=== PATIENT | male | born 1975 | race Caucasian/White ===

== ENCOUNTER → 2022-08-19 10:05 | Outpatient (BNVA) | payer OTHER, SELFPAY | PROVIDERS: Visit Provider Orthopaedic Surgery | DX: S86.812A Strain of other muscle(s) and tendon(s) at lower leg level, left leg, initial encounter (principal); G57.32 Lesion of lateral popliteal nerve, left lower limb | CPT/HCPCS: 99202 ==

== ENCOUNTER 2022-09-13 12:19 | Outpatient (REF) | payer OTHER, SELFPAY | END 2022-09-13 12:20 | disposition home or self-care (01) | LOC: HO.LAB 12:19 | PROVIDERS: Visit Provider Family Medicine | DX: Z13.89 Encounter for screening for other disorder (principal) ==

== ENCOUNTER 2022-09-14 07:00 | Outpatient (RCR) | payer OTHER, SELFPAY ==
--- NOTE | 2022-09-12 09:25 | MHC.PT.OD ---
[facility] [place] [facility] [place] [facility] [place] [facility] [address] Chriss Monae [address] [phone] F: [phone] F: [phone] F: [phone] F: [phone] Physical Therapy Daily Note Diagnosis: G57.32 Lesion of lateral popliteal nerve, left lower limb. S86.812A Strain of other muscle and tendon at lower leg, level left leg, initial encounter, neuropathy of left peroneal nerve signed by Dr. Bourgeois date of referral 08/19/22 Date of Surgery: Date of Evaluation: 08/30/22 Date of Treatment: 09/12/22 Treatments to Date: 5 Cancellations to Date: No Shows to Date: Authorized Visits: 6 Insurance End Date: 10/04/22 Precautions/ Contraindications:DOI 08/04/22 G57.32 Lesion of lateral popliteal nerve, left lower limb. S86.812A Strain of other muscle and tendon at lower leg, level left leg, initial encounter, neuropathy of left peroneal nerve signed by Dr. Bourgeois date of referral 08/19/22 Subjective: The only thing that hurts now is my R chest area (notes unrelated to work injury). Denies sx/pain in L LE. Has follow up on 09/16/22 Pain Score and Location: 0/10 Objective Flowsheet: Tests & Measures Exercises Upright bike seat 6 holes exposed hill program level 4.5 for warm-up x 10 minutes Standing BAPS board level 5 2.5 plates x 2 (medial and lateral on board) DF/PF/IV/EV x 3 sets 10R each direction, blue band around thigh wobble board weight shift with hip hinge squat x 2 sets 10R, standing 4 way resisted hip with black theraband x 2 sets 10R with cues for posture/positioning, standing step up march position on 6 inch step x 2 sets 10R, standing unilateral SLS ball toss to rebounder for SLS control with 500gram med ball x 15R, SLS UE/trunk pertubation fwd leans with cues for slight knee extension x 5R each considerable cues required for L SLS reports hx ruptured eardrum on that side- impacting his balance control,, BOSU blue side up step up with october combo, weight shifts fwd/laterally. Assessment functional squat- pt noted to shift weight to toes- educated and shown standing mini wall squats asabdominals in x 5 sec hold. Pt expressing fatigue at the end of the session. Denies pain, denies parathesias, reduced lying flat education with arm extended by side, SL step-up BOSU with UE support x 2 sets 10R, BOSU step-up/down leading with one foot then second foot raised for increased SLS challenge. Pt encouraged to consult with MD for unrelated medical matter re: R pectoralis strain (independent of WC claim) as he states sx continue to bother him. Modalities Assessment: 09/12/22 Pt presents to office expressing no parathesias, pain, or concerns in regard to L LE injury. He has expressed he feels he is ready to RTW. Pt has reported history of unrelated work injury symptoms consistent with R pectoralis strain following history of coughing episodes/ URI and has been encouraged to consult with MD regarding this should sx persist. He states sx of his coughing have improved and have become productive. Pt was able to rise from floor, perform half-kneeling, lunges, squats, SLS, and dynamic CKC stabilization tasks without sx in regard to L LE injury. Anticipating clearance for RTW at time of next orthopedic follow up on 09/16/22. One visit remains, then likely transition to I HEP next session. Thank you for this referral. 09/08/22: Pt demonstrates good dynamic stability with no report of pain/sx in the L LE. Pt exhibits good carryover of home program and expresses he feels ready to RTW. Denies parathesias sx L LE. 09/05/22: Pt presents with wedge work-boots, demonstrates good stability and balance, denies pain. 09/01/22 Presents to office in sneakers, denies pain or parathesias in L LE. Fatigue reported in bilateral LE upon completion of session. Requires cues for technique of lunge position. 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 Clifton on G57.32 Lesion of lateral popliteal nerve, left lower limb. S86.812A Strain of other muscle and tendon at lower leg, level left leg, initial encounter, neuropathy of left peroneal nerve signed by Dr. Bourgeois date of referral 08/19/22 following history of work related injury which took place on 08/04/22. Pt presents to the office today on 08/30/22 for PT evaluation wearing sneakers which were not laced, expressing near complete resolution of calf pain/parathesia which were previously reported a few weeks prior. Pt educated in benefit in following through with PT to challenged/assess tolerance for dynamic strengthening and SLS activities to prepare for anticipated RTW goal of 08/16/22 (next follow up with orthopedics). Pt expresses he has been able to do stairs reciprocally without difficulty in recent weeks and denies stairs as a concern or issue. Pt reports stacking two cords of wood wearing work boots without any adverse effects in his L LE. Therapist is recommending skilled PT services at a frequency of 1-2x/week x 3 weeks to address dynamic deficits in L SLS control, strength, ROM, and today absent level of pain to prepare for RTW full duty demands. Pt agreeable to POC. Pt was educated re: findings of eval and recommendation to follow through with PT. Pt trialed with standing BAPS board level 5 with 2 2.5lb plates DF/PF/CW/CCW x 20 reps each, BOSU blue sided steps ups, step, downs, lateral step ups and lateral step downs completed B/L x 20R each with no adverse effect. Pt did express fatigue post. We discussed norms his jog duties upon RTW which require alternate footwear from what he was wearing at time of eval. Pt encouraged to wear work boots to next session to assess response to exercise/tasks. We reviewed standing gastroc and soleus stretches against the wall x 30 sec hold x 4R each side (pt was previously reported doing gastroc stretches). Overall pt appears to be doing very well at this time. PT Plan: Await ortho follow up on 09/16/22 likely RTW. Short Term Goals: 1. Negotiate 10 inch step with good dynamic balance L LE. (met) 2. Rise from kneeling position x 20R L>R and R>L without evidence of L LE sx. (met) 3. SLS 10 seconds with good core stability. (near complete- ) 4. Reciprocal stair negotiation x 3 flights with sx < 2/10 L calf. Prison Goals: 1. I RTW with good understanding joint protection measures. 2. Strength L PF 5/5. 3. Resume exercise program MOD I with good joint protection. 4. [place] with symmetrical weight-bearing with boots on feet with good dynamic balance. (met) 5. Lift 50# overhead with good confidence/ stability in L LE. (has not done due to hx R pectoralis strain sx). 6. Demonstrate good body mechanics/lifting/squat technique for L LE. Electronically signed by: Elidia Anthony, PT, DPT
== END 2022-12-22 14:59 | disposition home or self-care (01) ==
LOC: HO.PTWFD 07:00
PROVIDERS: Visit Provider Orthopaedic Surgery
DX: G57.32 Lesion of lateral popliteal nerve, left lower limb (principal); S86.812D Strain of other muscle(s) and tendon(s) at lower leg level, left leg, subsequent encounter
CPT/HCPCS: 97110; 97161

== ENCOUNTER 2022-09-14 08:09 | Outpatient (REF) | payer OTHER, SELFPAY ==
[2022-09-14 12:00] LABS: Creatinine Urine 201.77 mg/dL; Microalbum/Creatinine Ratio Ur 41.1 ug/mg cr
[2022-09-14 12:15] LABS: Alanine Aminotransferase 40 U/L (0-40); Albumin Level 4.4 g/dL (3.5-5.0); Alkaline Phosphatase 67 U/L (39-117); Anion Gap 16 (12-20); Aspartate Amino Transferase 18 U/L (5-37); Bilirubin Total 0.6 mg/dL (0.0-1.0); Blood Urea Nitrogen 14 mg/dL (9-16); Calcium 9.4 mg/dL (8.4-10.2); Carbon Dioxide 21 mmol/L (22-29); Chloride 109 mmol/L (96-108); Cholesterol 242 mg/dL; Estimated Glomerular Filt Rate > 60; Glucose Fasting 94 mg/dL (60-99); HDL Cholesterol 36 mg/dL; LDL Cholesterol Calculated 183 mg/dl; Potassium 4.7 mmol/L (3.3-5.1); Sodium 141 mmol/L (135-145); Total Protein 6.3 g/dL (6.5-8.0); Triglycerides 116 mg/dL
[2022-09-14 12:31] LABS: Appearance Urine Clear; Color Urine Yellow; Glucose Urine UA Negative (Negative); Leukocyte Esterase Urine Negative (Negative); Nitrite Urine Negative (Negative); PH 6.5 (5.0-9.0); UMIC TRIGGER UA YES; Urine Blood Negative (Negative); Urine Ketones Negative (Negative); Urine Protein 30 (1+) mg/dL (Neg-Trace)
[2022-09-14 12:44] LABS: Bacteria Urine None Seen (None Seen); Hyaline Casts Urine 0-2 /LPF (0-2); RBC Urine 0-2 /HPF (0-2); Squamous Epithelial Cell Urine 0-2 /HPF (0-2); WBC Urine 0-5 /HPF (0-5)
[2022-09-14 13:33] LABS: Prostate Specific Antigen Scr 0.92 ng/mL (<0.05-4.0); TSH reflex Free T4 1.74 uIU/mL (0.32-4.0)
== END 2022-09-14 08:10 | disposition home or self-care (01) ==
LOC: HO.WFDLDS 08:09
PROVIDERS: Visit Provider Family Medicine
DX: Z00.00 Encounter for general adult medical examination without abnormal findings (principal); Z12.5 Encounter for screening for malignant neoplasm of prostate; I10 Essential (primary) hypertension; R82.90 Unspecified abnormal findings in urine
CPT/HCPCS: 36415; 80053; 80061; 81001; 81003; 82043; 84153; 84443; 87086

== ENCOUNTER → 2022-09-16 09:48 | Outpatient (BNVA) | payer OTHER, SELFPAY | PROVIDERS: Visit Provider Orthopaedic Surgery | DX: S86.812D Strain of other muscle(s) and tendon(s) at lower leg level, left leg, subsequent encounter (principal); G57.32 Lesion of lateral popliteal nerve, left lower limb | CPT/HCPCS: 99212 ==

== ENCOUNTER 2022-11-30 09:44 | Outpatient (REF) | payer OTHER, SELFPAY ==
[2022-11-30 11:37] LABS: MANUAL DIFF FLAG NO
[2022-11-30 11:41] LABS: Basophils Percent Auto 0.3 % (0-2); Eosinophils Absolute Auto 0.1 X10*3/uL (0.0-0.4); Eosinophils Percent Auto 2.3 % (0-4); Hematocrit 38.3 % (42.0-52.0); Hemoglobin 13.2 g/dl (14.0-18.0); Imm Gran Abs Auto 0.02 X10*3/uL (0.00-0.03); Imm Gran Pct Auto 0.3 % (0.0-0.4); Lymphocytes Absolute Auto 2.5 X10*3/uL (1.2-4.9); Lymphocytes Percent Auto 40.4 % (20-40); Mean Corpuscular HGB Conc 34.5 g/dl (31.0-36.0); Mean Corpuscular Hemoglobin 32.8 pg (27.0-33.0); Mean Corpuscular Volume 95.3 fL (80.0-98.0); Monocytes Absolute Auto 0.6 X10*3/uL (0.1-1.2); Monocytes Percent Auto 10.1 % (2-11); Neutrophils Absolute Auto 2.8 x10*3/uL (2.0-8.3); Neutrophils Percent Auto 46.6 % (45-73); Platelet Count 291 X10*3/uL (160-400); Red Blood Count 4.02 X10*6/uL (4.60-5.80); Red Cell Distribution Width 13.3 % (11.0-16.0); White Blood Count 6.1 X10*3/uL (4.8-10.8)
[2022-11-30 11:47] LABS: Appearance Urine Turbid; Color Urine Yellow; Glucose Urine UA Negative (Negative); Leukocyte Esterase Urine Negative (Negative); Nitrite Urine Negative (Negative); Specific Gravity - Urine 1.015 (1.005-1.025); UMIC TRIGGER UA YES; Urine Blood Negative (Negative); Urine Ketones Negative (Negative); Urine Protein 100 (2+) mg/dL (Neg-Trace)
[2022-11-30 12:09] LABS: Bacteria Urine 1+ (None Seen); Hyaline Casts Urine >20 /LPF (0-2); Other Crystals Urine Present; RBC Urine 0-2 /HPF (0-2); Squamous Epithelial Cell Urine 0-2 /HPF (0-2); WBC Urine 0-5 /HPF (0-5)
[2022-11-30 12:31] LABS: Erythrocyte Sedimentation Rate 21 MM/HR (0-15)
[2022-11-30 12:37] LABS: Cholesterol 202 mg/dL; HDL Cholesterol 30 mg/dL; LDL Cholesterol Calculated 114 mg/dl; Triglycerides 290 mg/dL
[2022-11-30 12:42] LABS: Creatinine Urine 77.44 mg/dL; Microalbum/Creatinine Ratio Ur 134.2 ug/mg cr
[2022-12-02 15:58] LABS: CRP High Sensitivity 2.3 mg/L
[2022-12-06 21:28] LABS: Transglutaminase IgA <1.0 U/mL
== END 2022-11-30 09:45 | disposition home or self-care (01) ==
LOC: HO.WFDLDS 09:44
PROVIDERS: Visit Provider Family Medicine
DX: Z00.00 Encounter for general adult medical examination without abnormal findings (principal); R82.90 Unspecified abnormal findings in urine; E78.00 Pure hypercholesterolemia, unspecified; I10 Essential (primary) hypertension; R14.0 Abdominal distension (gaseous)
CPT/HCPCS: 36415; 80061; 81001; 82043; 85025; 85652; 86141; 86364; 87086

== ENCOUNTER 2022-12-08 09:35 | Outpatient (REF) | payer OTHER, SELFPAY ==
--- NOTE | ~2022-12-08 | XR_ITS ---
EXAMINATION: XR RIBS, RIGHT CLINICAL INFORMATION: Right rib pain. COMPARISON: None available. TECHNIQUE: 3 views of the right ribs were obtained. FINDINGS: A smoothly marginated convex subpleural lesion is seen laterally in the right upper lobe measuring approximately 6.2 x 3.4 cm. There appears to be destruction of the underlying right posterolateral fourth rib. A mildly displaced fracture of the posterolateral right sixth rib is seen as well. There is minimal blunting of the right costophrenic angle. No pneumothorax. The left lung is clear. The heart and mediastinal structures are unremarkable. XR/XR ribs RT min 3V w CXR1V IMPRESSION: 1. Right upper lobe subpleural mass with possible destruction of the underlying right fourth rib is nonspecific, but concerning for malignancy. Further evaluation with a contrast-enhanced chest CT scan is recommended. 2. Mildly displaced posterior right sixth rib fracture of indeterminate age. Correlate with physical exam.
== END 2022-12-08 09:36 | disposition home or self-care (01) ==
LOC: HO.HMGCX 09:35
PROVIDERS: PCP Family Medicine; Visit Provider Family Medicine
DX: R07.81 Pleurodynia (principal); M79.621 Pain in right upper arm
CPT/HCPCS: 71101

== ENCOUNTER 2022-12-12 14:27 | Outpatient (REF) | payer OTHER, SELFPAY | END 2022-12-12 14:28 | disposition home or self-care (01) | LOC: HO.LNP 14:27 | PROVIDERS: Visit Provider Family Medicine | DX: R82.90 Unspecified abnormal findings in urine (principal); R82.71 Bacteriuria | CPT/HCPCS: 87086 ==

== ENCOUNTER 2022-12-13 13:28 | Inpatient (IN) | payer OTHER, SELFPAY ==
--- NOTE | ~2022-12-13 | CT_ITS ---
EXAMINATION: CT ABDOMEN AND PELVIS WITHOUT CONTRAST CLINICAL INFORMATION: Pleuritic pain. New diagnosis of cancer. COMPARISON: None available. TECHNIQUE: Multidetector volumetric imaging was performed from the superior aspect of the liver through the pubic symphysis. Sagittal and coronal reformatted images were obtained on the technologist's workstation. This CT examination was performed using dose optimization techniques as appropriate, variously including the following: *Automated exposure control *Adjustment of mA and/or kV according to patient size (this includes techniques or standardized protocols for targeted exams where dose is matched to indication/reason for exam; i.e. extremities or head) *Use of iterative reconstruction technique DLP: 897 mGy-cm FINDINGS: LUNG BASES: The visualized lung bases are unremarkable. LIVER, GALLBLADDER, AND BILIARY TREE: Prominent liver with a left lower the liver extending under the left hemidiaphragm. No focal hepatic lesion or biliary ductal dilatation is present. The gallbladder is unremarkable with no evidence of radiopaque gallstones, gallbladder wall thickening, or obvious pericholecystic inflammatory changes. PANCREAS: Unremarkable. SPLEEN: Unremarkable. ADRENAL GLANDS: Unremarkable. KIDNEYS AND URETERS: Small 1 cm low-attenuation lesion in the lower pole of the right kidney. This is difficult to characterize but may represent a cyst. These are otherwise unremarkable. BLADDER: Not optimally distended. GASTROINTESTINAL TRACT: Diverticulosis of the colon. Small and large bowel is otherwise normal. The stomach is normal. The appendix is normal. ABDOMINAL WALL: Small umbilical and bilateral inguinal hernias containing fat. LYMPH NODES: Normal. VASCULAR: Unremarkable. PELVIC VISCERA: Unremarkable. OSSEOUS STRUCTURES: There are multiple lytic bone lesions in the lumbar spine and pelvis. Largest lytic lesions measure 1.8 cm in the left L4 vertebral body and 1.5 x 2.5 cm in the left iliac crest. No fracture. CT/CT abdomen pelvis wo IV con IMPRESSION: Multiple lytic bone lesions. Differential would include myeloma and metastatic disease. Fleischner guidelines were followed.
--- NOTE | ~2022-12-13 | CT_ITS ---
EXAMINATION: CT CHEST WITHOUT CONTRAST CLINICAL INFORMATION: Shoulder pain. New diagnosis of cancer. COMPARISON: Previous chest x-ray 12/08/2022 TECHNIQUE: Multidetector volumetric CT imaging of the chest was done. Axial MIP volume rendering provided. Sagittal and coronal reformatted images were obtained. This CT examination was performed using dose optimization techniques as appropriate, variously including the following: *Automated exposure control *Adjustment of mA and/or kV according to patient size (this includes techniques or standardized protocols for targeted exams where dose is matched to indication/reason for exam; i.e. extremities or head) *Use of iterative reconstruction technique DLP: 533 mGy-cm FINDINGS: LUNGS: The lungs are clear with no evidence of inflammation or nodules. MEDIASTINUM: The mediastinum is normal. CORONARY ARTERY CALCIFICATION: None visualized on this study. PLEURA: There is no pleural effusion. Large pleural-based soft tissue mass surrounding lytic lesion in the right fourth rib. This measures 4 x 6 cm in transverse and AP dimension. Pleural thickening adjacent to the right rib fracture. AXILLA: Small bilateral axillary lymph nodes. No enlarged lymph nodes.. UPPER ABDOMEN: Unremarkable. OSSEOUS STRUCTURES: Multiple lytic bone lesions. Large lytic lesion involving the right lateral fourth rib associated of tissue mass. Nondisplaced fracture of the right posterior lateral sixth rib. There is lucency seen in this region and this may represent a pathologic fracture. 1.8 cm lytic lesion in the right side of the manubrium. 1.8 x 2.8 cm lytic lesion in the spine of the left scapula. Multiple lytic lesions in the spine largest measuring 1.4 cm in the T8 vertebral body. Mild degenerative changes of the spine. CT/CT chest wo IV con IMPRESSION: Multiple lytic bone lesions. Largest lesion involves the right lateral fourth rib with associated 4 x 6 cm soft tissue mass. Likely pathologic right sixth rib fracture. Myeloma and metastatic disease should be considered. Fleischner guidelines were followed.
--- NOTE | ~2022-12-13 | US_ITS ---
EXAMINATION: ULTRASOUND-GUIDED BIOPSY SUBCUTANEOUS SKIN CLINICAL INFORMATION: Right chest wall soft tissue mass from lytic rib lesion. COMPARISON: Previous CT 12/13/2022 TECHNIQUE: Procedure and risks and benefits including bleeding, and infection were discussed with the patient and informed consent was obtained. The patient was positioned in the left decubitus position. The right anterior lateral chest wall was prepped and draped in the usual sterile fashion. The skin and soft tissues were anesthetized with 1% lidocaine plain. Using ultrasound guidance and a coaxial system, access to the soft tissue mass in the right anterior chest wall was obtained. Four 18-gauge core biopsies were obtained. 2 specimens were placed in formalin and 2 specimens were placed in flow cytometry solution. Hemostasis was achieved using Gelfoam pledgets. FINDINGS: There is a 6.2 x 5.4 x 5.5 cm heterogeneous predominantly hypoechoic vascular mass in the right anterolateral chest wall that was targeted for biopsy. US/US biopsy subcutaneous skin IMPRESSION: Right chest wall soft tissue mass biopsy.
[2022-12-13 13:31] VITALS: BP 144/101; PULSE 91; RESP 20; TEMP 36.7; O2SAT 96; BMI 35.9
[2022-12-13 14:00] LABS: MANUAL DIFF FLAG NO
[2022-12-13 14:05] LABS: Basophils Percent Auto 0.1 % (0-2); Eosinophils Absolute Auto 0.2 X10*3/uL (0.0-0.4); Eosinophils Percent Auto 2.9 % (0-4); Hematocrit 33.6 % (42.0-52.0); Hemoglobin 11.7 g/dl (14.0-18.0); Imm Gran Abs Auto 0.08 X10*3/uL (0.00-0.03); Lymphocytes Absolute Auto 2.8 X10*3/uL (1.2-4.9); Lymphocytes Percent Auto 35.7 % (20-40); Mean Corpuscular HGB Conc 34.8 g/dl (31.0-36.0); Mean Corpuscular Hemoglobin 32.8 pg (27.0-33.0); Mean Corpuscular Volume 94.1 fL (80.0-98.0); Mean Platelet Volume 9.3 fL (9.4-12.4); Monocytes Absolute Auto 0.7 X10*3/uL (0.1-1.2); Monocytes Percent Auto 8.9 % (2-11); Neutrophils Absolute Auto 4.1 x10*3/uL (2.0-8.3); Neutrophils Percent Auto 51.4 % (45-73); Platelet Count 252 X10*3/uL (160-400); Red Blood Count 3.57 X10*6/uL (4.60-5.80); Red Cell Distribution Width 12.9 % (11.0-16.0); White Blood Count 7.9 X10*3/uL (4.8-10.8)
--- NOTE | 2022-12-13 14:23 | ED_ITS ---
HPI - General Adult General Chief complaint: Recheck/Abnormal Lab/Rx Stated complaint: abd labs Time Seen by Provider: 12/13/22 13:47 Source: patient Mode of arrival: ambulatory Limitations: no limitations History of Present Illness HPI narrative: Patient comes to the emergency room from Dr. Haney's office ([facility]). Patient had labs done earlier today, patient's creatinine is elevated. To patient's knowledge, he does not have any kidney issues. Patient has never been told that his creatinine is elevated. Patient states that he does have chronic intermittent diarrhea but it has been going on for 2 years. Denies nausea /vomiting. Patient was recently diagnosed with right acromial destructive bony lesion concerning for malignancy. Patient has not started chemo or radiation. Today was his 1st visit with [facility]. Patient states that he has been taking NSAIDs almost daily for a few weeks for the shoulder pain. Patient was recently switched to oxycodone due to prolonged time of taking NSAIDs Related Data Home Medications Medication Instructions Recorded Confirmed naproxen sodium 220 mg tablet 440 mg PO DAILY 12/09/22 12/13/22 (Aleve) Previous Rx's Medication Instructions Recorded citalopram 20 mg tablet 20 mg PO DAILY 30 days #30 tabs 12/09/22 oxycodone-acetaminophen 5 mg-325 1 tab PO BID PRN pain 30 days #60 12/09/22 mg tablet (Percocet) tabs meloxicam 15 mg tablet 15 mg PO DAILY 30 days #30 tabs 12/12/22 Allergies Allergy/AdvReac Type Severity Reaction Status Date / Time No Known Allergies Allergy Verified 12/09/22 15:09 Review of Systems Review of Systems: Constitutional : No Weight loss, No Fever, No Chills, No Night Sweats, No Fatigue, No Malaise ENT/Mouth : No Hearing loss, No Ear Pain, No Nasal Congestion, No Sinus Pain, No Hoarseness, No sore throat, No Rhinorrhea, No Swallowing Difficulty Eyes: No Eye Pain, No Swelling, No Redness, No Foreign Body, No Discharge, No Vision Changes Cardiovascular : No Chest Pain, No SOB, No Dyspnea on Exertion, No Orthopnea, No Edema, No Palpitations Respiratory : No Cough, No Sputum, No Wheezing, No Smoke Exposure, No Dyspnea Gastrointestinal : No Nausea, No Vomiting, No Diarrhea, No Constipation, No abdominal Pain, No Hematochezia, No Melena Genitourinary : no irregular bleeding, No Dysuria, No Urinary Frequency, No Hematuria, No Urinary Incontinence, No Urgency, No Flank Pain, No Urinary Flow Changes, No Hesitancy Musculoskeletal : Complaining of chronic right shoulder pain, No Myalgias, No Joint Swelling Skin : No Skin Lesions, No rash Neuro : No Weakness, No Numbness, No Paresthesias, No Loss of Consciousness, No Dizziness, No Headache Psych : No Anxiety/Panic, No Depression, No SI/HI/AH/VH, No Social Issues, Heme/Lymph: No Bruising, No Bleeding,No Lymphadenopathy Endocrine : No Polyuria, No Polydipsia, No Temperature Intolerance [facility] Past Medical History Medical History (Updated 12/13/22 @ 20:43 by Kristi Tyson MD) Alcohol abuse Anxiety Lung 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 Surgical History History of removal of testicle History of tooth extraction Family History Family History (Updated 12/13/22 @ 12:39 by Dasha Bocanegra) Mother Heart problem Social History Social History (Updated 12/13/22 @ 12:35 by Dasha Bocanegra) Household Members: Spouse Housing: House Alcohol intake: current Alcohol intake frequency: a few times a month Patient Tobacco Use Status: Former Tobacco user Tobacco use type: Cigarette Smoked in Last 30 Days: No e-Cigarette/Vaping Use: Never Used Second Hand Smoke Exposure: No Use of substances other than those prescribed or required for medical reasons: Yes Substance Use Type: Marijuana Advance Directives: No Advance Directives Information Provided: Yes service: Yes Current occupational status: employed 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 Oriented X3. No acute distress. Eyes: Pupils equal, round and reactive to light. ENT: Pharynx normal. Neck: Normal inspection. Neck supple. No lymph nodes noted. No crepitus CVS: Normal heart rate and rhythm. Pulses normal. Normal S1 and S2 Respiratory: No respiratory distress. Breath sounds normal. No Wheezing. No rales Abdomen: Soft and nontender. No rigidity. No distention. Skin: Skin warm and dry. Normal skin color. Normal skin turgor. Extremities: No lower extremity edema. No Lacerations. No Rash chronic pain with movement on the right shoulder. Neuro: Oriented X 3. No motor deficit. No sensory deficit. Moving all extremities. No slurred speech. CN 2 through 12 grossly intact Psych: calm, cooperative, normal affect Course Course Course Narrative: -patient has elevated creatinine. Patient will get a CT scan of the chest abdomen pelvis without contrast per Dr. Haney's request -patient being hydrated with IV fluids, will repeat chemistry after IV fluids. Medications Administered Discontinued Medications Generic Name Dose Route Start Last Admin Trade Name Freq PRN Reason Stop Dose Admin Sodium Chloride 2,000 mls @ 999 mls/hr 12/13/22 14:22 12/13/22 15:08 Ns IVCONT 12/13/22 16:22 999 mls/hr .Q2H1M ONE Administration Morphine Sulfate 4 mg 12/13/22 15:16 12/13/22 17:18 Morphine Sulfate 4 Mg/Ml Cartridge IVPUSH 12/13/22 15:17 Not Given ONCE ONE Protocol Medical Decision Making Medical Decision Making [facility] Narrative: -the 1st creatinine was obtained on arrival, 2nd creatinine was obtained while patient was still getting fluids. Third creatinine is pending. However, patient does not have previous history of kidney disease. There is no clear reason why patient has KAMILAH. Likely, patient will need a Nephrology consult. Also requested per Dr. Haney. -unfortunately, patient has multiple lytic lesions seen on CT scan. Patient likely has multiple myeloma with metastasis. -patient received 1 dose of morphine for pain control. -I discussed the patient with Dr. Griggs, patient being admitted Differential Diagnosis Differential Diagnoses: The differential diagnosis associated with the presentation includes (KAMILAH, multiple myeloma) Admission/Observation Consideration of admission/observation: Escalation of care including a dmission/observation considered Consult Healthcare Provider Management of the patient was discussed with: Hospitalist Lab Data MDM Lab Attestation statement: I reviewed the patient's lab results. 12/13/22 13:56 12/13/22 13:56 Labs: Lab Results 12/13/22 12/13/22 12/13/22 Range/Units 13:56 13:56 14:49 WBC 7.9 (4.8-10.8) X10*3/uL RBC 3.57 L (4.60-5.80) X10*6/uL Hgb 11.7 L (14.0-18.0) g/dl Hct 33.6 L (42.0-52.0) % MCV 94.1 (80.0-98.0) fL MCH 32.8 (27.0-33.0) pg MCHC 34.8 (31.0-36.0) g/dl RDW 12.9 (11.0-16.0) % Plt Count 252 (160-400) X10*3/uL MPV 9.3 L (9.4-12.4) fL Immature Gran % (Auto) 1.0 H (0.0-0.4) % Neut % (Auto) 51.4 (45-73) % Lymph % (Auto) 35.7 (20-40) % [place] % (Auto) 8.9 (2-11) % Eos % (Auto) 2.9 (0-4) % Baso % (Auto) 0.1 (0-2) % Lymph # (Auto) 2.8 (1.2-4.9) X10*3/uL [place] # (Auto) 0.7 (0.1-1.2) X10*3/uL Eos # (Auto) 0.2 (0.0-0.4) X10*3/uL Baso # (Auto) 0.0 (0.0-0.2) X10*3/uL Abs Immat Gran (auto) 0.08 H (0.00-0.03) X10*3/uL Absolute Neuts (auto) 4.1 (2.0-8.3) x10*3/uL Absolute Nucleated RBC 0.000 (0.0-0.012) X10*3/uL Nucleated RBC % (auto) 0.0 (0.0-0.2) /100WBC Sodium 142 (135-145) mmol/L Potassium 4.2 (3.3-5.1) mmol/L Chloride 110 H (96-108) mmol/L Carbon Dioxide 23 (22-29) mmol/L Anion Gap 13 (12-20) BUN 27 H (9-16) mg/dL Creatinine 1.99 H (0.5-1.4) mg/dL Estim Creat Clear Calc 59.1 Estimated GFR 37 Random Glucose 105 (60-115) mg/dL Calcium 10.4 H (8.4-10.2) mg/dL Total Bilirubin 0.3 (0.0-1.0) mg/dL AST 26 (5-37) U/L ALT 43 H (0-40) U/L Alkaline Phosphatase 79 (39-117) U/L Total Protein 6.9 (6.5-8.0) g/dL Albumin 4.5 (3.5-5.0) g/dL Urine Color Yellow Urine Appearance Turbid Urine pH 5.0 (5.0-9.0) Ur Specific [place] 1.015 (1.005-1.025) Urine Protein 100 (2+) H (Neg-Trace) mg/dL Urine Glucose (UA) Negative (Negative) mg/dL Urine Ketones Negative (Negative) mg/dL Urine Blood Trace H (Negative) Urine Nitrite Negative (Negative) Ur Leukocyte Esterase Trace H (Negative) Urine RBC 0-2 (0-2) /HPF Urine WBC 6-10 H (0-5) /HPF Ur Squamous Epith Cells 3-5 (0-2) /HPF Urine Bacteria 1+ (None Seen) Hyaline Casts >20 (0-2) /LPF Granular Casts Present Radiology Impression Discussion of test interpretation with radiology: I have reviewed the radiologist's reading. Radiologist Impression: FINDINGS: LUNGS: The lungs are clear with no evidence of inflammation or nodules. ? MEDIASTINUM: The mediastinum is normal.? CORONARY ARTERY CALCIFICATION: None visualized on this study. PLEURA: There is no pleural effusion. Large pleural-based soft tissue mass surrounding lytic lesion in the right fourth rib. This measures 4 x 6 cm in transverse and AP dimension.? Pleural thickening adjacent to the right rib fracture. AXILLA: Small bilateral axillary lymph nodes. No enlarged lymph nodes.. UPPER ABDOMEN: Unremarkable.? OSSEOUS STRUCTURES: Multiple lytic bone lesions. Large lytic lesion involving the right lateral fourth rib associated of tissue mass. Nondisplaced fracture of the right posterior lateral sixth rib. There is lucency seen in this region and this may represent a pathologic fracture. 1.8 cm lytic lesion in the right side of the manubrium. 1.8 x 2.8 cm lytic lesion in the spine of the left scapula. Multiple lytic lesions in the spine largest measuring 1.4 cm in the T8 vertebral body. Mild degenerative changes of the spine. CT/CT chest wo IV con IMPRESSION: Multiple lytic bone lesions. Largest lesion involves the right lateral fourth rib with associated 4 x 6 cm soft tissue mass. Likely pathologic right sixth rib fracture. Myeloma and metastatic disease should be considered.? ? Fleischner guidelines were followed. Critical Care Time Critical Care Time Critical Care Time: Yes Total Critical Care Time: 60 Attestation: I have personally provided critical care time. Time includes review of lab data, radiology results, discussion with consultants, and monitoring for potential decompensation. Intervention performed as documented. Discharge Plan Discharge Clinical Impression: KAMILAH (acute kidney injury), Multiple myeloma Patient Disposition: Admitted As Inpatient Prescriptions: No Action meloxicam 15 mg tablet 15 mg PO DAILY 30 Days Qty: 30 2RF naproxen sodium [Aleve] 220 mg tablet 440 mg PO DAILY oxycodone-acetaminophen [Percocet] 5-325 mg tablet 1 tab PO BID PRN (Reason: pain) 30 Days Qty: 60 0RF Rx Instructions: [facility] verified. Partial refill upon request. citalopram 20 mg tablet 20 mg PO DAILY 30 Days Qty: 30 2RF
[2022-12-13 14:25] LABS: Alanine Aminotransferase 43 U/L (0-40); Albumin Level 4.5 g/dL (3.5-5.0); Alkaline Phosphatase 79 U/L (39-117); Anion Gap 13 (12-20); Aspartate Amino Transferase 26 U/L (5-37); Bilirubin Total 0.3 mg/dL (0.0-1.0); Blood Urea Nitrogen 27 mg/dL (9-16); Calcium 10.4 mg/dL (8.4-10.2); Carbon Dioxide 23 mmol/L (22-29); Chloride 110 mmol/L (96-108); Creatinine Clr Calc Pharmacy 59.1; Estimated Glomerular Filt Rate 37; Glucose Random 105 mg/dL (60-115); Potassium 4.2 mmol/L (3.3-5.1); Sodium 142 mmol/L (135-145); Total Protein 6.9 g/dL (6.5-8.0)
[2022-12-13 14:49] VITALS: BP 136/94; PULSE 83; RESP 16; O2SAT 98
[2022-12-13 15:00] LABS: Appearance Urine Turbid; Color Urine Yellow; Glucose Urine UA Negative (Negative); Leukocyte Esterase Urine Trace (Negative); Nitrite Urine Negative (Negative); Specific Gravity - Urine 1.015 (1.005-1.025); UMIC TRIGGER UACC YES; Urine Blood Trace (Negative); Urine Ketones Negative (Negative); Urine Protein 100 (2+) mg/dL (Neg-Trace)
[2022-12-13] MEDS: 0.9 % Sodium Chloride 2,000 ML 999 ML IVCONT (15:08)
[2022-12-13 15:11] LABS: Bacteria Urine 1+ (None Seen); Granular Casts Urine Present; Hyaline Casts Urine >20 /LPF (0-2); RBC Urine 0-2 /HPF (0-2); UACC Culture Trigger YES
[2022-12-13 16:00] VITALS: BP 150/95; PULSE 73; RESP 16; TEMP 36.7; O2SAT 98
--- NOTE | 2022-12-13 19:00 | PC.NURSE ---
Report received from ANITRA Mckay about pts present condition, the reason for the coming to the ED and what the care has been during pt's hospital stay. Pt denies any CP, SOB, feeling of faint, numbness or tingling to extremities or generalize weakness.
[2022-12-13 20:00] VITALS: BP 160/84; PULSE 85; RESP 16; TEMP 36.6; O2SAT 97
--- NOTE | 2022-12-13 20:37 | PM.IMHP ---
History of Present Illness Date of Service: 12/13/22 Chief Complaint: Abnormal labs This is a 47-year-old male with pertinent history of mood disorder who was sent from Dr. Haney's office for evaluation of elevated creatinine. Patient was seen at oncology office today for initial visit as imaging revealed right acromiale destructive bony lesion concerning for malignancy. Patient has been having right shoulder pain and pain in the right ribs for a few weeks now. No personal or family history of malignancy. Patient takes NSAID and p.o. opioids p.r.n. for pain relief. He is compliant with citalopram for mood disorder. Patient also reports cloudy urine since July 2022. Denies dysuria, urgency, of frequency or hesitancy. No weight loss, nausea, vomiting, fever, chills, chest discomfort, abdominal pain, changes in urinary or bowel habits. In the emergency department, creatinine found to be elevated. CT chest and abdomen/ pelvis with multiple lytic bony lesions concerning for myeloma /metastatic disease. Review of Systems Cardiovascular: Cardiovascular: Reports no additional cardiovascular complaints Respiratory: Respiratory: Reports no additional respiratory complaints Gastrointestinal: Gastrointestinal: Reports no additional gastrointestinal complaints Genitourinary: Genitourinary: Reports no additional male genitourinary complaints Musculoskeletal: Musculoskeletal: Reports arthralgias Neurologic: Reports system reviewed and no additional complaints, except as documented [facility] Medical History Alcohol abuse Anxiety Lung 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 Functional capacity: independent ambulation Family History Mother Heart problem Surgical History History of removal of testicle History of tooth extraction Social History Household Members: Spouse Housing: House Alcohol intake: current Alcohol intake frequency: a few times a month Patient Tobacco Use Status: Former Tobacco user Tobacco use type: Cigarette Smoked in Last 30 Days: No e-Cigarette/Vaping Use: Never Used Second Hand Smoke Exposure: No Use of substances other than those prescribed or required for medical reasons: Yes Substance Use Type: Marijuana Advance Directives: No Advance Directives Information Provided: Yes service: Yes Current occupational status: employed Current occupation: [employer]er Cognitive needs: No Hearing needs: No Vision needs: No Meds Allergies Allergy/AdvReac Type Severity Reaction Status Date / Time No Known Allergies Allergy Verified 12/09/22 15:09 Home Medications Medication Instructions Recorded Confirmed Last Taken Type naproxen sodium 220 mg tablet 440 mg PO DAILY 12/09/22 12/13/22 Unknown History (Aleve) Physical Exam Vital Signs and Narrative: Vital Signs: Last Vital Signs Temp 97.9 F 12/13/22 20:00 Pulse 85 12/13/22 20:00 Resp 16 12/13/22 20:00 BP 160/84 H 12/13/22 20:00 Pulse Ox 97 12/13/22 20:00 O2 Del Method Room Air 12/13/22 20:00 BMI result Body Mass Index 35.9 Middle-aged male lying in bed in no distress Neck supple, no JVD, right chest wall tenderness present Regular rate and rhythm, S1-S2 heard Regular breath sounds bilaterally, no wheezing or crackles appreciated Abdomen soft nontender, no guarding, no rigidity Patient is awake, alert and oriented to self, place, time and person ; no focal motor deficit Musculoskeletal: Right shoulder limited range of motion due to pain Psych: Normal mood No pedal edema Results Labs 12/13/22 13:56 12/13/22 13:56 Labs: Laboratory Results - last 24 hr 12/13/22 12/13/22 12/13/22 13:56 13:56 14:49 MCV 94.1 MCH 32.8 MCHC 34.8 RDW 12.9 Plt Count 252 MPV 9.3 L Immature Gran % (Auto) 1.0 H Neut % (Auto) 51.4 Lymph % (Auto) 35.7 [place] % (Auto) 8.9 Eos % (Auto) 2.9 Baso % (Auto) 0.1 Lymph # (Auto) 2.8 [place] # (Auto) 0.7 Eos # (Auto) 0.2 Baso # (Auto) 0.0 Abs Immat Gran (auto) 0.08 H Absolute Neuts (auto) 4.1 Absolute Nucleated RBC 0.000 Nucleated RBC % (auto) 0.0 Anion Gap 13 Estim Creat Clear Calc 59.1 Estimated GFR 37 Random Glucose 105 Calcium 10.4 H Total Bilirubin 0.3 AST 26 ALT 43 H Alkaline Phosphatase 79 Total Protein 6.9 Albumin 4.5 Urine Color Yellow Urine Appearance Turbid Urine pH 5.0 Ur Specific [place] 1.015 Urine Protein 100 (2+) H Urine Glucose (UA) Negative Urine Ketones Negative Urine Blood Trace H Urine Nitrite Negative Ur Leukocyte Esterase Trace H Urine RBC 0-2 Urine WBC 6-10 H Ur Squamous Epith Cells 3-5 Urine Bacteria 1+ Hyaline Casts >20 Granular Casts Present Imaging Radiologist's Impressions: Impressions Abdomen/Pelvis CT 12/13/22 14:51 IMPRESSION: Multiple lytic bone lesions. Differential would include myeloma and metastatic disease. Fleischner guidelines were followed. Chest CT 12/13/22 14:51 IMPRESSION: Multiple lytic bone lesions. Largest lesion involves the right lateral fourth rib with associated 4 x 6 cm soft tissue mass. Likely pathologic right sixth rib fracture. Myeloma and metastatic disease should be considered. Fleischner guidelines were followed. Assessment and Plan (1) KAMILAH (acute kidney injury): Status: Acute Plan This is a 47-year-old male with pertinent history of mood disorder who was sent from Dr. Haney's office for evaluation of elevated creatinine. Patient was seen at oncology office for initial visit as imaging revealed right acromiale destructive bony lesion concerning for malignancy. #. Acute kidney injury stage II, nonoliguric: likely intrinsic etiology. Patient resuscitated with IV crystalloids in the ER. Avoid NSAIDs and other nephrotoxins. 2+ protein seen on UA, will quantify. Urine studies pending. Consulted Nephrology, appreciate assistance. #. Imaging with multiple bone lytic lesions: Obtaining serum and urine immunofixation/protein electrophoresis and kappa/ishmael light chain . Consulting Oncology, appreciate assistance #. Mood disorder: Continue citalopram #. Normocytic anemia Med rec pending DVT prophylaxis: Lovenox 40mg daily Regular diet Full code Admit as inpatient and will require two night minimum hospital stay for close monitoring of kidney function. Specialist consult pending Time Spent With Patient Time: Total time managing care of this patient today ____ minutes. Quality Stroke Does the patient have a stroke diagnosis?: No VTE Prior VTE?: No VTE Risk Level:: Medical - moderate - high VTE Device Contraindication: Treatment Not Indicated VTE Drug Contraindication: N/A - Med Ordered
[2022-12-13 20:41] LABS: Anion Gap 15 (12-20); Blood Urea Nitrogen 24 mg/dL (9-16); Calcium 9.6 mg/dL (8.4-10.2); Carbon Dioxide 25 mmol/L (22-29); Chloride 111 mmol/L (96-108); Creatinine Clr Calc Pharmacy 55.7; Estimated Glomerular Filt Rate 34; Glucose Random 142 mg/dL (60-115); Sodium 147 mmol/L (135-145)
--- NOTE | 2022-12-13 21:23 | MHC.CM.PN ---
CM met with admitted patient with bed assignment pending. A&Ox4. Employed. Lives with . No DME/Services. [id number]. Not vet connected. No [facility] services. HCP reviewed, completed and signed. Copies given. Uploaded into [employer] and [facility] [employer]. HCP/ Peggy John ([phone]). [employer] x2. D/C plan: Home without services. Pt following with Dr. Haney. See Notes. to transport home. CM will follow for any discharge needs.
--- NOTE | 2022-12-13 21:33 | PHA.MEDREC ---
Pharmacy Consult ? Medication Reconciliation Pharmacy has completed the medication reconciliation.
[2022-12-13 22:19] VITALS: BMI 36.2
[2022-12-14 03:17] VITALS: BP 139/83; PULSE 78; RESP 16; TEMP 36.4; O2SAT 96
[2022-12-14 05:36] LABS: MANUAL DIFF FLAG NO
[2022-12-14 05:37] LABS: Creatinine Urine 94.38 mg/dL; Total Protein Urine Random 200 mg/dL (<12)
[2022-12-14 05:40] LABS: Basophils Percent Auto 0.2 % (0-2); Eosinophils Absolute Auto 0.2 X10*3/uL (0.0-0.4); Eosinophils Percent Auto 3.3 % (0-4); Hematocrit 31.8 % (42.0-52.0); Hemoglobin 10.8 g/dl (14.0-18.0); Imm Gran Abs Auto 0.08 X10*3/uL (0.00-0.03); Imm Gran Pct Auto 1.2 % (0.0-0.4); Lymphocytes Absolute Auto 2.6 X10*3/uL (1.2-4.9); Lymphocytes Percent Auto 39.2 % (20-40); Mean Corpuscular Hemoglobin 32.6 pg (27.0-33.0); Mean Corpuscular Volume 96.1 fL (80.0-98.0); Mean Platelet Volume 9.6 fL (9.4-12.4); Monocytes Absolute Auto 0.6 X10*3/uL (0.1-1.2); Monocytes Percent Auto 8.7 % (2-11); Neutrophils Absolute Auto 3.1 x10*3/uL (2.0-8.3); Neutrophils Percent Auto 47.4 % (45-73); Platelet Count 225 X10*3/uL (160-400); Red Blood Count 3.31 X10*6/uL (4.60-5.80); Red Cell Distribution Width 12.9 % (11.0-16.0); White Blood Count 6.6 X10*3/uL (4.8-10.8)
[2022-12-14 06:10] LABS: Anion Gap 12 (12-20); Blood Urea Nitrogen 26 mg/dL (9-16); Calcium 9.6 mg/dL (8.4-10.2); Carbon Dioxide 23 mmol/L (22-29); Chloride 113 mmol/L (96-108); Creatinine Clr Calc Pharmacy 61.8; Estimated Glomerular Filt Rate 38; Glucose Random 90 mg/dL (60-115); Potassium 4.7 mmol/L (3.3-5.1); Sodium 143 mmol/L (135-145)
[2022-12-14 07:09] VITALS: BP 128/92; PULSE 64; RESP 18; TEMP 36.8; O2SAT 97
[2022-12-14] MEDS: 0.9 % Sodium Chloride Flush 3 ML SYRINGE IVFLUSH (09:26)
--- NOTE | 2022-12-14 10:48 | P.PNIM_ITS ---
Subjective Subjective Date of Service: 12/14/22 Interval History: R shoulder pain, R anterior upper rib tenderness no fever/chills/night sweats/weight loss Review of Systems Review of Systems: Yes all other systems are reviewed and are negative Physical Exam Vital Signs: Vital Signs: Last Vital Signs Temp 98.2 F 12/14/22 07:09 Pulse 64 12/14/22 07:09 Resp 18 12/14/22 07:09 BP 128/92 H 12/14/22 07:09 Pulse Ox 97 12/14/22 07:09 O2 Del Method Room Air 12/14/22 07:09 BMI result Body Mass Index 36.2 Gen: in no acute distress HEENT: sclera anicteric, moist mucus membranes Neck: supple Lungs: clear to auscultation bilaterally Heart: regular rate and rhythm, no murmurs Abd: soft, non-tender, non-distended Ext: no edema Skin: warm/well-perfused, tenderness over soft tissue mass right anterior upper rib cage Neuro: alert and oriented x3, no focal findings Psych: appropriate affect Objective Data Active Medications Acetaminophen (Acetaminophen 325 Mg Tablet) 650 mg PO Q6H PRN PRN Reason: Pain, Mild (Pain Scale 1-3) Hydrocodone Bitart/Acetaminophen (Hydrocodone Bit/Acetam 5/325 Tablet) 1 tab PO Q4H PRN PRN Reason: Pain, Moderate(Pain Scale 4-6) Enoxaparin Sodium (Enoxaparin Sodium 40 Mg/0.4 Ml Syringe) 40 mg SUBCUT Q24H [facility] Last Admin: 12/13/22 22:26 Dose: Not Given Documented By: NOLBERTO Non-Admin Reason: Patient Refused Escitalopram Oxalate (Escitalopram Oxalate 5 Mg Tablet) 5 mg PO BEDTIME [facility] Sodium Chloride (Ns) 1,000 mls @ 125 mls/hr IVCONT .Q8H [facility] Melatonin (Melatonin 3 Mg Tablet) 6 mg PO BEDTIME PRN PRN Reason: Insomnia Morphine Sulfate (Morphine Sulfate 4 Mg/Ml Cartridge) 2 mg IVPUSH Q4H PRN; Protocol PRN Reason: Pain, Severe (Pain Scale 7-10) Ondansetron HCl (Ondansetron Hcl 4 Mg/2 Ml Vial) 4 mg IVPUSH Q8H PRN PRN Reason: Nausea and Vomiting Pharmacy Consult (Consult Rx Perform Med Rec) 1 each MISCELLANE ONCE PRN PRN Reason: Consult order Sodium Chloride (0.9 % Sodium Chloride Flush 3 Ml Syringe) 3 ml IVFLUSH QSHIFT [facility] Last Admin: 12/14/22 09:26 Dose: 3 ml Documented By: EDUARDO Labs 12/14/22 05:17 12/14/22 05:17 Labs: Laboratory Results - last 24 hr 12/13/22 12/13/22 12/13/22 13:56 13:56 14:49 MCV 94.1 MCH 32.8 MCHC 34.8 RDW 12.9 Plt Count 252 MPV 9.3 L Immature Gran % (Auto) 1.0 H Neut % (Auto) 51.4 Lymph % (Auto) 35.7 [place] % (Auto) 8.9 Eos % (Auto) 2.9 Baso % (Auto) 0.1 Lymph # (Auto) 2.8 [place] # (Auto) 0.7 Eos # (Auto) 0.2 Baso # (Auto) 0.0 Abs Immat Gran (auto) 0.08 H Absolute Neuts (auto) 4.1 Absolute Nucleated RBC 0.000 Nucleated RBC % (auto) 0.0 Anion Gap 13 Estim Creat Clear Calc 59.1 Estimated GFR 37 Random Glucose 105 Calcium 10.4 H Total Bilirubin 0.3 AST 26 ALT 43 H Alkaline Phosphatase 79 Total Protein 6.9 Albumin 4.5 Urine Color Yellow Urine Appearance Turbid Urine pH 5.0 Ur Specific [place] 1.015 Urine Protein 100 (2+) H Urine Glucose (UA) Negative Urine Ketones Negative Urine Blood Trace H Urine Nitrite Negative Ur Leukocyte Esterase Trace H Urine RBC 0-2 Urine WBC 6-10 H Ur Squamous Epith Cells 3-5 Urine Bacteria 1+ Hyaline Casts >20 Granular Casts Present U Random Total Protein Ur Random Sodium Urine Creatinine 12/13/22 12/14/22 12/14/22 20:16 04:40 05:17 MCV 96.1 MCH 32.6 MCHC 34.0 RDW 12.9 Plt Count 225 MPV 9.6 Immature Gran % (Auto) 1.2 H Neut % (Auto) 47.4 Lymph % (Auto) 39.2 [place] % (Auto) 8.7 Eos % (Auto) 3.3 Baso % (Auto) 0.2 Lymph # (Auto) 2.6 [place] # (Auto) 0.6 Eos # (Auto) 0.2 Baso # (Auto) 0.0 Abs Immat Gran (auto) 0.08 H Absolute Neuts (auto) 3.1 Absolute Nucleated RBC 0.000 Nucleated RBC % (auto) 0.0 Anion Gap 15 Estim Creat Clear Calc 55.7 Estimated GFR 34 Random Glucose 142 H Calcium 9.6 D Total Bilirubin AST ALT Alkaline Phosphatase Total Protein Albumin Urine Color Urine Appearance Urine pH Ur Specific [place] Urine Protein Urine Glucose (UA) Urine Ketones Urine Blood Urine Nitrite Ur Leukocyte Esterase Urine RBC Urine WBC Ur Squamous Epith Cells Urine Bacteria Hyaline Casts Granular Casts U Random Total Protein 200 H Ur Random Sodium 92.0 Urine Creatinine 94.38 12/14/22 05:17 MCV MCH MCHC RDW Plt Count MPV Immature Gran % (Auto) Neut % (Auto) Lymph % (Auto) [place] % (Auto) Eos % (Auto) Baso % (Auto) Lymph # (Auto) [place] # (Auto) Eos # (Auto) Baso # (Auto) Abs Immat Gran (auto) Absolute Neuts (auto) Absolute Nucleated RBC Nucleated RBC % (auto) Anion Gap 12 Estim Creat Clear Calc 61.8 Estimated GFR 38 Random Glucose 90 Calcium 9.6 Total Bilirubin AST ALT Alkaline Phosphatase Total Protein Albumin Urine Color Urine Appearance Urine pH Ur Specific [place] Urine Protein Urine Glucose (UA) Urine Ketones Urine Blood Urine Nitrite Ur Leukocyte Esterase Urine RBC Urine WBC Ur Squamous Epith Cells Urine Bacteria Hyaline Casts Granular Casts U Random Total Protein Ur Random Sodium Urine Creatinine Impressions Abdomen/Pelvis CT 12/13/22 14:51 IMPRESSION: Multiple lytic bone lesions. Differential would include myeloma and metastatic disease. Fleischner guidelines were followed. Chest CT 12/13/22 14:51 IMPRESSION: Multiple lytic bone lesions. Largest lesion involves the right lateral fourth rib with associated 4 x 6 cm soft tissue mass. Likely pathologic right sixth rib fracture. Myeloma and metastatic disease should be considered. Fleischner guidelines were followed. Assessment and Plan (1) KAMILAH (acute kidney injury): Status: Acute (2) Lytic bone lesions on xray: Status: Acute Plan d#2 47yo M with mood disorder sent from Dr Haney's office for KAMILAH. He was being seen there for a destructive bony lesion of the R acromion concerning for malignancy. Imaging reveals multiple lytic bone lesions concerning for multiple myeloma or bony mets # multiple lytic bone lesions - CT-guided biopsy of the soft tissue mass attached to the R 4th rib tomorrow AM; NPO after midnight - serum immunofixation, 24hr urine immunofixation, and serum free light chain ratio pending # KAMILAH - Nephrology following, continue IV fluid hydration, avoid nephrotoxins, monitor BMP # normocytic anemia - likely anemia of chronic disease; monitor H+H chronic issues # mood disorder: escitalopram # VTE ppx: hold LMWH for biopsy # dispo: eventual home In my clinical judgment, the patient requires continued inpatient hospitalization for the following reasons: KAMILAH, biopsy Time Spent With Patient Time: Total time managing care of this patient today __40__ minutes. Quality Stroke Does the patient have a stroke diagnosis?: No VTE Prior VTE?: No VTE Risk Level:: Medical - moderate - high VTE Device Contraindication: Treatment Not Indicated VTE Drug Contraindication: N/A - Med Ordered
[2022-12-14] MEDS: 0.9 % Sodium Chloride 1,000 ML 125 ML IVCONT (11:08)
[2022-12-14 12:43] LABS: Creatinine Urine 64.54 mg/dL; Microalbum/Creatinine Ratio Ur 111.5 ug/mg cr; Total Protein Urine Random 163 mg/dL (<12)
[2022-12-14 13:17] LABS: EOS Counted 0 CELLS; EOS QC POS YES; EOS Stain Quality OK YES; WBC, Counted 54 CELLS
--- NOTE | 2022-12-14 14:57 | MHC.CM.PN ---
per rounds pt will be ready for dc in 2 to 3 days plan remains home no servcis
[2022-12-14 15:10] VITALS: BP 133/79; PULSE 86; RESP 20; TEMP 36.5; O2SAT 96
[2022-12-14] MEDS: 0.9 % Sodium Chloride 1,000 ML 75 ML IVCONT (17:28)
--- NOTE | 2022-12-14 19:20 | PC.NURSE ---
Patient took his own Lexapro from home,educated patient about not taking any meds from home,stated understanding
[2022-12-14 19:24] VITALS: BP 138/86; PULSE 85; RESP 18; TEMP 36.6; O2SAT 98
[2022-12-15] MEDS: 0.9 % Sodium Chloride Flush 3 ML SYRINGE IVFLUSH ×3 (00:23→15:54)
[2022-12-15 03:54] VITALS: BP 148/99; PULSE 70; RESP 16; TEMP 36.4; O2SAT 97
--- NOTE | 2022-12-15 06:14 | CONS_ITS ---
DATE OF SERVICE: 12/14/2022 REASON FOR CONSULTATION: I was asked to see patient to assist in evaluation and management of patient's newly discovered renal dysfunction as reflected by creatinine of 2.1 done yesterday as part of the labs workup ordered by Dr. Dodson, as he is having ongoing evaluation for what appears to be destruction of his acromial bony lesion concerning for malignancy. In reviewing records from the oncologist, there is mention made of this destructive lesion within the acromial that was concerning for malignancy. There is also apparently some abnormalities noted in the proximal humerus. Again, he had labs done, which showed a creatinine newly discovered at 2.10, whereas his previous creatinine in September 2022, was 0.72. HISTORY OF PRESENT ILLNESS: In summary, this is a 47-year-old otherwise very healthy gentleman with apparently a history of mood disorder and a history of having right shoulder pain and some rib pain for the past several weeks. The patient does have a history of heavy NSAID use for the ongoing pains and aches. He denies any gross hematuria, dysuria, or problems voiding. PAST MEDICAL HISTORY: Notable for history of alcohol abuse, anxiety, and the newly discovered lesions in the bones as mentioned above. MEDICATIONS: He is on no prescription medications, but he has been taking again NSAIDs in the form of Naprosyn as well as Motrin. SOCIAL HISTORY: He is an ex-smoker. Again, the alcohol history in the past. Denies any illicit drug use. FAMILY HISTORY: His grandfather was on dialysis. He tells me why he was on dialysis. He also tells me his father who is in a [facility] facility has some kidney problems. Again, he is unaware of the details. PHYSICAL EXAMINATION: GENERAL: A muscular gentleman. VITAL SIGNS: Blood pressure of 120/90 with heart rate in the 80s. HEENT: Head is atraumatic and normocephalic. NECK: Supple. Mucous membranes moist. LUNGS: Clear. CARDIAC: Regular rate and rhythm. ABDOMEN: Soft, nontender. Good bowel sounds. No CVA tenderness. EXTREMITIES: Show no edema. LABORATORY DATA: Labs show sodium 143, potassium 4.7, chloride 113, bicarb 23, BUN 26, creatinine 1.9. As mentioned on admission yesterday creatinine was 2.1 and previously back in September, his creatinine was 0.72. His serum calcium is 9.6, albumin 4.5. Hemoglobin 10.8, hematocrit 31.8, white blood cell count 6.6, platelet count 225. Urine studies shows 2+ protein and a urine [id number] ratio around 2. His other serologies are all pending. He had a CAT scan of the abdomen and pelvis, which showed multiple lytic bone lesions and concern for myeloma was raised by the CAT scan report. IMPRESSION: 47-YEAR-OLD OTHERWISE HEALTHY GENTLEMAN WITH NEWLY DISCOVERED MULTIPLE BONE LESIONS AND NEWLY DISCOVERED RENAL DYSFUNCTION WITH A HEAVY NSAID USE HISTORY. 1. Acute kidney injury. Most likely, this is due to the NSAIDs. Another concern would be underlying myeloma with involvement in the kidneys. Obstructive uropathy has been ruled out with the CAT scan, which showed no hydro. 2. Newly discovered multiple bone lesions. Having full evaluation with Oncology disease to determine the cause. Again, myeloma is in the differential. RECOMMENDATIONS: At this time include the following: Obtain urine albumin and creatinine ratio at the same time, his urine protein-creatinine ratio to see if there is a difference that would suggest that he has lot of light chains in the urine. Serum free kappa and lambda light chains. Serum immunofixation. Further renal serologic studies depending on his renal response to IV fluids and stopping the NSAIDs. Depending on his clinical course in the workup, we could entertain doing a kidney biopsy if the renal function does not improve with IV fluids and being off the NSAIDs. We will follow the patient closely with the team. MD ROBINSON Kelly/PEPE / [id number]
[2022-12-15 06:28] LABS: MANUAL DIFF FLAG NO
[2022-12-15 06:36] LABS: Basophils Percent Auto 0.2 % (0-2); Eosinophils Absolute Auto 0.2 X10*3/uL (0.0-0.4); Eosinophils Percent Auto 3.7 % (0-4); Hematocrit 32.8 % (42.0-52.0); Hemoglobin 11.1 g/dl (14.0-18.0); Imm Gran Abs Auto 0.05 X10*3/uL (0.00-0.03); Imm Gran Pct Auto 0.9 % (0.0-0.4); Lymphocytes Absolute Auto 1.9 X10*3/uL (1.2-4.9); Mean Corpuscular HGB Conc 33.8 g/dl (31.0-36.0); Mean Corpuscular Hemoglobin 32.3 pg (27.0-33.0); Mean Corpuscular Volume 95.3 fL (80.0-98.0); Monocytes Absolute Auto 0.6 X10*3/uL (0.1-1.2); Monocytes Percent Auto 10.7 % (2-11); Neutrophils Percent Auto 51.5 % (45-73); Platelet Count 240 X10*3/uL (160-400); Red Blood Count 3.44 X10*6/uL (4.60-5.80); Red Cell Distribution Width 12.9 % (11.0-16.0); White Blood Count 5.9 X10*3/uL (4.8-10.8)
[2022-12-15] MEDS: 0.9 % Sodium Chloride 1,000 ML 75 ML IVCONT ×2 (06:37→20:52)
[2022-12-15 06:50] LABS: Anion Gap 14 (12-20); Blood Urea Nitrogen 21 mg/dL (9-16); Calcium 9.9 mg/dL (8.4-10.2); Carbon Dioxide 24 mmol/L (22-29); Chloride 111 mmol/L (96-108); Creatinine Clr Calc Pharmacy 69.4; Estimated Glomerular Filt Rate 44; Glucose Random 89 mg/dL (60-115); Potassium 4.8 mmol/L (3.3-5.1); Sodium 144 mmol/L (135-145)
[2022-12-15 06:58] LABS: INTERNATIONAL NORM RATIO 0.9 (0.9-1.1); Prothrombin Time 9.9 SEC (10.0-13.1)
[2022-12-15 07:31] VITALS: BP 144/92; PULSE 75; RESP 16; TEMP 36.8; O2SAT 97
--- NOTE | 2022-12-15 08:06 | P.CNHO_ITS ---
Subjective - Subjective Chief complaint: Shoulder and chest wall pain Patient: known to practice within the last 3 years Consult date: 12/14/22 Primary Care Provider: Adriel Ma MD HPI - Consult Narrative Reason for consult: Lytic lesions, renal insufficiency Narrative: Richar John is a 47 year old male who has just been diagnosed with multiple lytic bony lesions including large right acromion destructive lesion is been admitted for acute renal insufficiency. He presented with pain but no other symptoms such as weight loss or change in appetite. He was on high doses of NSAIDs for several weeks. This has been stopped and he is now receiving IV hydration for kidney disease. He is awaiting biopsy of lytic lesion today. Review of Systems - Constitutional Reports as per HPI, Denies headache(s), Denies lack of energy, Denies malaise, Denies night sweats, Denies weight loss - Cardiovascular Reports no additional cardiovascular complaints - Respiratory Reports no additional respiratory complaints - Gastrointestinal Reports no additional gastrointestinal complaints - Neurologic Reports no additional neurologic complaints [facility] Medical History: Medical History (Last Reviewed 12/13/22 @ 20:44 by Jonnie Griggs MD) Alcohol abuse Anxiety Lung 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 Functional capacity: independent ambulation Family History: Family History (Last Reviewed 12/13/22 @ 20:44 by Jonnie Griggs MD) Mother Heart problem Surgical History: Surgical History (Last Reviewed 12/13/22 @ 20:44 by Jonnie Griggs MD) History of removal of testicle History of tooth extraction Social History: Social History (Last Reviewed 12/13/22 @ 20:44 by Jonnie Griggs MD) Living Situation History: Household Members: Spouse Housing: House Do you presently have visiting nurse or other home services: No Tobacco History: Patient Tobacco Use Status: Former Tobacco user Tobacco use type: Cigarette Smoke Quit Date: 10/03/2022 e-Cigarette/Vaping Use: Never Used Second Hand Smoke Exposure: No Substance Use History: Substance Use Type: Marijuana 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 Current occupational status: employed Current occupation: [employer] Home Medications and Allergies Current Medications: Current Medications Acetaminophen (Acetaminophen 325 Mg Tablet) 650 mg PO Q6H PRN PRN Reason: Pain, Mild (Pain Scale 1-3) Hydrocodone Bitart/Acetaminophen (Hydrocodone Bit/Acetam 5/325 Tablet) 1 tab PO Q4H PRN PRN Reason: Pain, Moderate(Pain Scale 4-6) Enoxaparin Sodium (Enoxaparin Sodium 40 Mg/0.4 Ml Syringe) 40 mg SUBCUT Q24H COUNT INCLUDES THE [facility] Last Admin: 12/13/22 22:26 Dose: Not Given Escitalopram Oxalate (Escitalopram Oxalate 5 Mg Tablet) 5 mg PO BEDTIME COUNT INCLUDES THE [facility] Last Admin: 12/14/22 19:20 Dose: Not Given Sodium Chloride (Ns) 1,000 mls @ 75 mls/hr IVCONT .[id number] COUNT INCLUDES THE [facility] Last Admin: 12/15/22 06:37 Dose: 75 mls/hr Melatonin (Melatonin 3 Mg Tablet) 6 mg PO BEDTIME PRN PRN Reason: Insomnia Morphine Sulfate (Morphine Sulfate 4 Mg/Ml Cartridge) 2 mg IVPUSH Q4H PRN; Protocol PRN Reason: Pain, Severe (Pain Scale 7-10) Ondansetron HCl (Ondansetron Hcl 4 Mg/2 Ml Vial) 4 mg IVPUSH Q8H PRN PRN Reason: Nausea and Vomiting Pharmacy Consult (Consult Rx Perform Med Rec) 1 each MISCELLANE ONCE PRN PRN Reason: Consult order Sodium Chloride (0.9 % Sodium Chloride Flush 3 Ml Syringe) 3 ml IVFLUSH QSHIFT COUNT INCLUDES THE [facility] Last Admin: 12/15/22 00:23 Dose: 3 ml Home Medications Medication Instructions Recorded Confirmed Type citalopram 20 mg tablet 10 mg PO BEDTIME 12/13/22 12/13/22 History Allergies Allergy/AdvReac Type Severity Reaction Status Date / Time No Known Allergies Allergy Verified 12/09/22 15:09 Physical Exam Vital signs: Vital Signs Temp 98.2 F 12/15/22 07:31 Pulse 75 12/15/22 07:31 Resp 16 12/15/22 07:31 BP 144/92 H 12/15/22 07:31 Pulse Ox 97 12/15/22 07:31 O2 Del Method Room Air 12/15/22 07:31 Intake & Output 12/14/22 12/15/22 12/15/22 18:59 06:59 18:59 Intake Total 1471.667 / 2937.917 1466.25 / 2937.917 Output Total 0 / 0 Balance 1471.667 / 2937.917 1466.25 / 2937.917 Urine Output (Average ml/kg/hr) 0.00 Intake: Intake, Oral Amount 680 / 1160 480 / 1160 Intake, IV Amount 791.667 / 1777.917 986.25 / 1777.917 0.9 % Sodium Chloride 1,000 ml 791.667 / 1777.917 986.25 / 1777.917 @ 75 mls/hr IVCONT .[id number] [facility] Rx#:[id number] Output: Output, Urine Amount 0 / 0 Other: NPO Yes Breakfast % Eaten 100% Lunch % Eaten 100% Dinner % Eaten 100% Number of Unmeasured Voids 2 2 Number of Bowel Movements 0 Urine Bathroom Last Bowel Movement 12/13/22 Weight 114.3 kg - Constitutional Present: no acute distress - Routine HEENT Exam Head: Present: normal inspection Eye: Present: EOMI, exophthalmos - Routine Neck Exam Present: supple. Absent: lymphadenopathy - Routine Respiratory Exam Present: CTAB - Routine Cardiovascular Exam Cardiovascular: Present: RRR, S1, S2 - Routine Abdominal Exam Absent: mass - Routine Extremities Exam Absent: calf tenderness Hem/Onc Consult Result - Labs CBC & Chem 7: 12/15/22 05:38 12/15/22 05:38 Labs: Short CBC 12/15/22 Range/Units 05:38 WBC 5.9 (4.8-10.8) X10*3/uL Hgb 11.1 L (14.0-18.0) g/dl Hct 32.8 L (42.0-52.0) % Plt Count 240 (160-400) X10*3/uL BMP 12/15/22 05:38 Sodium 144 Potassium 4.8 Chloride 111 H Carbon Dioxide 24 BUN 21 H Creatinine 1.70 H Calcium 9.9 Assessment and Plan Patient Active problem list reviewed?: Yes (1) 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 This is a 47-year-old man presenting with multiple lytic bony lesions, hypercalcemia and acute renal insufficiency. This is worrisome for malignancy such as multiple myeloma. His renal insufficiency could also be secondary to NSAID use, metastatic disease from another primary is also in the differential diagnosis. He is going to have biopsy of the right acromion/soft tissue mass. Specimen should be sent for evaluation of myeloma including testing of flow cytometry, cytogenetics, FISH panel and NGS for myeloma. Further tests such as serum protein electrophoresis, immunofixation, free kappa/lambda light chain assay is pending. He is receiving IV hydration, kidney functions are slowly improving. I thank you for the consult, will follow with you. - Time Spent With Patient Time Spent with Patient (in minutes): 15
--- NOTE | 2022-12-15 10:14 | PM.PNNEP ---
Subjective Subjective Date of Service: 12/15/22 Interval history: Seen and examined, events noted Physical Exam Vital Signs: Vital Signs: Last Vital Signs Temp 98.2 F 12/15/22 07:31 Pulse 75 12/15/22 07:31 Resp 16 12/15/22 07:31 BP 144/92 H 12/15/22 07:31 Pulse Ox 97 12/15/22 07:31 O2 Del Method Room Air 12/15/22 07:31 BMI result Body Mass Index 36.2 Const: Other: Appearance: Alert. Oriented X3. No acute distress. Eyes: Pupils equal, round and reactive to light. ENT: Pharynx normal. Neck: Normal inspection. Neck supple. No lymph nodes noted. No crepitus CVS: Normal heart rate and rhythm. Pulses normal. Normal S1 and S2 Respiratory: No respiratory distress. Breath sounds normal. No Wheezing. No rales Abdomen: Soft and nontender. No rigidity. No distention. Skin: Skin warm and dry. Normal skin color. Normal skin turgor. Extremities: No lower extremity edema. No Lacerations. No Rash chronic pain with movement on the right shoulder. Neuro: Oriented X 3. No motor deficit. No sensory deficit. Moving all extremities. No slurred speech. CN 2 through 12 grossly intact Psych: calm, cooperative, normal affect Objective Data Labs 12/15/22 05:38 12/15/22 05:38 Labs: Laboratory Results - last 24 hr 12/14/22 12/14/22 12/15/22 12:10 Unknown 05:38 WBC 5.9 RBC 3.44 L Hgb 11.1 L Hct 32.8 L MCV 95.3 MCH 32.3 MCHC 33.8 RDW 12.9 Plt Count 240 MPV 10.0 Immature Gran % (Auto) 0.9 H Neut % (Auto) 51.5 Lymph % (Auto) 33.0 [place] % (Auto) 10.7 Eos % (Auto) 3.7 Baso % (Auto) 0.2 Lymph # (Auto) 1.9 [place] # (Auto) 0.6 Eos # (Auto) 0.2 Baso # (Auto) 0.0 Abs Immat Gran (auto) 0.05 H Absolute Neuts (auto) 3.0 Absolute Nucleated RBC 0.000 Nucleated RBC % (auto) 0.0 PT INR APTT Sodium Potassium Chloride Carbon Dioxide Anion Gap BUN Creatinine Estim Creat Clear Calc Estimated GFR Random Glucose Calcium Urine Eosinophils % 0.0 U Random Total Protein 163 H Urine Creatinine 64.54 Urine Microalbumin 72.0 Microalb/Creat Ratio 111.5 12/15/22 12/15/22 05:38 05:38 WBC RBC Hgb Hct MCV MCH MCHC RDW Plt Count MPV Immature Gran % (Auto) Neut % (Auto) Lymph % (Auto) [place] % (Auto) Eos % (Auto) Baso % (Auto) Lymph # (Auto) [place] # (Auto) Eos # (Auto) Baso # (Auto) Abs Immat Gran (auto) Absolute Neuts (auto) Absolute Nucleated RBC Nucleated RBC % (auto) PT 9.9 L INR 0.9 APTT 28.0 Sodium 144 Potassium 4.8 Chloride 111 H Carbon Dioxide 24 Anion Gap 14 BUN 21 H Creatinine 1.70 H Estim Creat Clear Calc 69.4 Estimated GFR 44 Random Glucose 89 Calcium 9.9 Urine Eosinophils % U Random Total Protein Urine Creatinine Urine Microalbumin Microalb/Creat Ratio Procedures Date of Service Date of Service: 12/15/22 Assessment & Plan Assessment and plan (1) KAMILAH (acute kidney injury): Status: Acute (2) Lytic bone lesions on xray: Status: Acute Plan -Non-Oliguric KAMILAH: w/u in progress; Scr grad decr with IVF suspicous for Dysproteinemia given UAPCR >> UACR indicating light Chains in urine---need sero results ( pending) - Tumor and lytic lesions: Bx today REC: cont IVF, track UOP/renal func; avoid NToxins will follow with u Time Spent With Patient Time: Total time managing care of this patient today ____ minutes. Progress Note: Quality Stroke Does the patient have a stroke diagnosis?: No
[2022-12-15] MEDS: Morphine Sulfate 4 MG/ML CARTRIDGE 2 MG IVPUSH (10:29)
--- NOTE | 2022-12-15 12:16 | PM.CNNEP ---
History of Present Illness Chief Complaint Chief complaint: Abnormal labs History of Present Illness Narrative: This is a test we want to see if the MModal system was functioning flawlessly flawlessly [facility] Past Medical History Medical History Alcohol abuse Anxiety Lung 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 Functional capacity: independent ambulation Family History Family History Mother Heart problem Surgical History Surgical History History of removal of testicle History of tooth extraction Social History Social History Household Members: Spouse Housing: House Do you presently have visiting nurse or other home services: No Alcohol intake: current Alcohol intake frequency: a few times a month Patient Tobacco Use Status: Former Tobacco user Quit Date: 10/03/2022 Tobacco use type: Cigarette e-Cigarette/Vaping Use: Never Used Second Hand Smoke Exposure: No Substance Use Type: Marijuana service: Yes Current occupational status: employed Current occupation: [employer] Cognitive needs: No Hearing needs: No Vision needs: No Meds Allergies Allergy/AdvReac Type Severity Reaction Status Date / Time No Known Allergies Allergy Verified 12/09/22 15:09 Active Medications: Current Medications Acetaminophen (Acetaminophen 325 Mg Tablet) 650 mg PO Q6H PRN PRN Reason: Pain, Mild (Pain Scale 1-3) Hydrocodone Bitart/Acetaminophen (Hydrocodone Bit/Acetam 5/325 Tablet) 1 tab PO Q4H PRN PRN Reason: Pain, Moderate(Pain Scale 4-6) Enoxaparin Sodium (Enoxaparin Sodium 40 Mg/0.4 Ml Syringe) 40 mg SUBCUT Q24H [facility] Last Admin: 12/13/22 22:26 Dose: Not Given Escitalopram Oxalate (Escitalopram Oxalate 5 Mg Tablet) 5 mg PO BEDTIME [facility] Last Admin: 12/14/22 19:20 Dose: Not Given Sodium Chloride (Ns) 1,000 mls @ 75 mls/hr IVCONT .[id number] [facility] Last Admin: 12/15/22 06:37 Dose: 75 mls/hr Melatonin (Melatonin 3 Mg Tablet) 6 mg PO BEDTIME PRN PRN Reason: Insomnia Morphine Sulfate (Morphine Sulfate 4 Mg/Ml Cartridge) 2 mg IVPUSH Q4H PRN; Protocol PRN Reason: Pain, Severe (Pain Scale 7-10) Last Admin: 12/15/22 10:29 Dose: 2 mg Ondansetron HCl (Ondansetron Hcl 4 Mg/2 Ml Vial) 4 mg IVPUSH Q8H PRN PRN Reason: Nausea and Vomiting Pharmacy Consult (Consult Rx Perform Med Rec) 1 each MISCELLANE ONCE PRN PRN Reason: Consult order Sodium Chloride (0.9 % Sodium Chloride Flush 3 Ml Syringe) [facility] Last Admin: 12/15/22 10:29 Dose: 3 ml Home Medications Medication Instructions Recorded Confirmed Last Taken Type citalopram 20 mg tablet 10 mg PO BEDTIME 12/13/22 12/13/22 12/13/22 History Physical Exam Vital Signs: Last Vital Signs Temp 98.2 F 12/15/22 07:31 Pulse 75 12/15/22 07:31 Resp 16 12/15/22 07:31 BP 144/92 H 12/15/22 07:31 Pulse Ox 97 12/15/22 07:31 O2 Del Method Room Air 12/15/22 07:31 BMI result Body Mass Index 36.2 Results Lab Results 12/15/22 05:38 12/15/22 05:38 Lab results: Chemistry 12/13/22 12/13/22 12/14/22 13:56 20:16 05:17 Sodium 142 147 H 143 Potassium 4.2 4.0 4.7 Carbon Dioxide 23 BUN 27 H 24 H 26 H Creatinine 1.99 H 2.11 H 1.91 H Calcium 10.4 H 9.6 D 9.6 12/15/22 05:38 Sodium 144 Potassium 4.8 Carbon Dioxide 24 BUN 21 H Creatinine 1.70 H Calcium 9.9 Hematology 12/13/22 12/14/22 12/15/22 13:56 05:17 05:38 WBC 7.9 6.6 5.9 Hgb 11.7 L 10.8 L 11.1 L Plt Count 252 225 240 Urinalysis 12/13/22 14:49 Urine Color Yellow Urine Appearance Turbid Urine pH 5.0 Ur Specific [place] 1.015 Urine Protein 100 (2+) H Urine Glucose (UA) Negative Urine Ketones Negative Urine Blood Trace H Urine Nitrite Negative Ur Leukocyte Esterase Trace H Urine RBC 0-2 Urine WBC 6-10 H Ur Squamous Epith Cells 3-5 Hyaline Casts >20 Urine Studies 12/14/22 12/14/22 04:40 Unknown Urine Creatinine 94.38 64.54 Assessment and Plan Time Spent With Patient Time: Total time managing care of this patient today ____ minutes.
--- NOTE | 2022-12-15 15:51 | HO.RADPN ---
RADIOLOGY Narrative Narrative: Using coaxial system and US guidance, 4 18 g core biopsies from right chest wall mass. Gelfoam pledgets used to achieve hemostasis.
[2022-12-15 16:00] VITALS: BP 142/86; PULSE 78; RESP 20; TEMP 36.7; O2SAT 94
[2022-12-15] MEDS: HYDROcodone Bit/Acetam 5/325 TABLET 1 TAB PO (16:03)
--- NOTE | 2022-12-15 16:12 | HO.PM.IMPN ---
Subjective Subjective Date of Service: 12/15/22 Interval History: seen and examined this morning follow up for KAMILHA, lytic bone lesion having persistent right side pain no overnight events plan for bx today Review of Systems Review of Systems: Yes all other systems are reviewed and are negative Constitutional Constitutional: Denies chills and Denies fever(s) Cardiovascular Cardiovascular: Denies chest pain, Denies palpitations and Denies dyspnea Respiratory Respiratory: Denies cough and Denies dyspnea Gastrointestinal Gastrointestinal: Denies abdominal pain, Denies nausea and Denies vomiting Endocrine Endocrine: Denies palpitations Physical Exam Vital Signs: Vital Signs: Last Vital Signs Temp 98.1 F 12/15/22 16:00 Pulse 78 12/15/22 16:00 Resp 20 12/15/22 16:00 BP 142/86 H 12/15/22 16:00 Pulse Ox 94 12/15/22 16:00 O2 Del Method Room Air 12/15/22 16:00 BMI result Body Mass Index 36.2 Const: General: cooperative, comfortable, no acute distress, alert and awake Nutritional Appearance: average body habitus Orientation/consciousness: patient oriented x3 Resp: Effort & Inspection: normal respiratory effort, able to speak in complete sentences, no respiratory distress and no use of accessory muscles Cardio: Rate: regular rate Heart sounds: S1 normal heart sound present and S2 normal heart sound present GI: Inspection: No distended Palpation (GI): Soft to palpation and nontender Neuro: General: patient oriented x3 and CN's II-XI intact bilaterally Extrem: General: Yes no pedal edema Objective Data Active Medications Acetaminophen (Acetaminophen 325 Mg Tablet) 650 mg PO Q6H PRN PRN Reason: Pain, Mild (Pain Scale 1-3) Hydrocodone Bitart/Acetaminophen (Hydrocodone Bit/Acetam 5/325 Tablet) 1 tab PO Q4H PRN PRN Reason: Pain, Moderate(Pain Scale 4-6) Last Admin: 12/15/22 16:03 Dose: 1 tab Documented By: GUY Enoxaparin Sodium (Enoxaparin Sodium 40 Mg/0.4 Ml Syringe) 40 mg SUBCUT Q24H [facility] Last Admin: 12/13/22 22:26 Dose: Not Given Documented By: NOLBERTO Non-Admin Reason: Patient Refused Escitalopram Oxalate (Escitalopram Oxalate 5 Mg Tablet) 5 mg PO BEDTIME [facility] Last Admin: 12/14/22 19:20 Dose: Not Given Documented By: GUY Non-Admin Reason: pt refused states he took his med from home Sodium Chloride (Ns) 1,000 mls @ 75 mls/hr IVCONT .[id number] [facility] Last Admin: 12/15/22 06:37 Dose: 75 mls/hr Documented By: CHLOE Melatonin (Melatonin 3 Mg Tablet) 6 mg PO BEDTIME PRN PRN Reason: Insomnia Morphine Sulfate (Morphine Sulfate 4 Mg/Ml Cartridge) 2 mg IVPUSH Q4H PRN; Protocol PRN Reason: Pain, Severe (Pain Scale 7-10) Last Admin: 12/15/22 10:29 Dose: 2 mg Documented By: JIHAN Ondansetron HCl (Ondansetron Hcl 4 Mg/2 Ml Vial) 4 mg IVPUSH Q8H PRN PRN Reason: Nausea and Vomiting Pharmacy Consult (Consult Rx Perform Med Rec) 1 each MISCELLANE ONCE PRN PRN Reason: Consult order Sodium Chloride (0.9 % Sodium Chloride Flush 3 Ml Syringe) 3 ml IVFLUSH QSHIFT [facility] Last Admin: 12/15/22 15:54 Dose: 3 ml Documented By: GUY Labs 12/15/22 05:38 12/15/22 05:38 Labs: Laboratory Results - last 24 hr 12/15/22 12/15/22 12/15/22 05:38 05:38 05:38 MCV 95.3 MCH 32.3 MCHC 33.8 RDW 12.9 Plt Count 240 MPV 10.0 Immature Gran % (Auto) 0.9 H Neut % (Auto) 51.5 Lymph % (Auto) 33.0 [place] % (Auto) 10.7 Eos % (Auto) 3.7 Baso % (Auto) 0.2 Lymph # (Auto) 1.9 [place] # (Auto) 0.6 Eos # (Auto) 0.2 Baso # (Auto) 0.0 Abs Immat Gran (auto) 0.05 H Absolute Neuts (auto) 3.0 Absolute Nucleated RBC 0.000 Nucleated RBC % (auto) 0.0 PT 9.9 L INR 0.9 APTT 28.0 Anion Gap 14 Estim Creat Clear Calc 69.4 Estimated GFR 44 Random Glucose 89 Calcium 9.9 Assessment and Plan (1) Lytic bone lesions on xray: Status: Acute (2) 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 He was being seen there for a destructive bony lesion of the R acromion concerning for malignancy. Imaging reveals multiple lytic bone lesions concerning for multiple myeloma or bony mets # multiple lytic bone lesions concern over multiple myeloma - s/p CT-guided biopsy of the soft tissue mass attached to the R 4th rib 12/15 - serum immunofixation, 24hr urine immunofixation, and serum free light chain ratio pending - oncology followin g # KAMILAH SCr trending down - Nephrology following - continue IV fluid hydration, avoid nephrotoxins, monitor BMP # normocytic anemia - likely anemia of chronic disease. H/H stable chronic issues # mood disorder: escitalopram # VTE ppx: hold LMWH for biopsy # dispo: eventual home attending - dr. hernandez In my clinical judgment, the patient requires continued inpatient hospitalization for the following reasons: KAMILAH, biopsy Time Spent With Patient Time: Total time managing care of this patient today ____ minutes. Quality Stroke Does the patient have a stroke diagnosis?: No VTE Prior VTE?: No VTE Risk Level:: Medical - moderate - high VTE Device Contraindication: Treatment Not Indicated VTE Drug Contraindication: N/A - Med Ordered
[2022-12-15] MEDS: Lidocaine HCl 1 % MPF 5 ML VIAL 10 ML SUBCUT (16:17)
[2022-12-15 19:05] VITALS: BP 148/88; PULSE 93; RESP 20; TEMP 36.7; O2SAT 96
[2022-12-15] MEDS: Escitalopram Oxalate 5 MG TABLET PO (20:53)
[2022-12-16 03:31] VITALS: BP 119/67; PULSE 84; RESP 16; TEMP 36; O2SAT 96
[2022-12-16 07:35] VITALS: BP 145/87; PULSE 70; RESP 16; TEMP 36.4; O2SAT 96
[2022-12-16 08:05] LABS: Hematocrit 31.4 % (42.0-52.0); Hemoglobin 10.8 g/dl (14.0-18.0); Mean Corpuscular HGB Conc 34.4 g/dl (31.0-36.0); Mean Corpuscular Hemoglobin 32.1 pg (27.0-33.0); Mean Corpuscular Volume 93.5 fL (80.0-98.0); Mean Platelet Volume 9.4 fL (9.4-12.4); Platelet Count 227 X10*3/uL (160-400); Red Blood Count 3.36 X10*6/uL (4.60-5.80); Red Cell Distribution Width 13.1 % (11.0-16.0); White Blood Count 6.7 X10*3/uL (4.8-10.8)
[2022-12-16 08:21] LABS: Anion Gap 13 (12-20); Blood Urea Nitrogen 24 mg/dL (9-16); Carbon Dioxide 26 mmol/L (22-29); Chloride 110 mmol/L (96-108); Creatinine Clr Calc Pharmacy 71.1; Estimated Glomerular Filt Rate 45; Glucose Random 92 mg/dL (60-115); Potassium 4.5 mmol/L (3.3-5.1); Sodium 144 mmol/L (135-145)
--- NOTE | 2022-12-16 09:02 | P.PNHO-ONC_ITS ---
Medical Summary - Medical Summary Date of Service: 12/16/22 Chief complaint: Shoulder pain Primary Care Provider: Adriel Ma MD Interval History Interval history: He feels well and has no complaints today. He is getting ready to go home today. Review of Systems - Neurologic Reports no additional neurologic complaints, Denies headache(s) [facility] Medical History: Medical History (Last Reviewed 12/13/22 @ 20:44 by Jonnie Griggs MD) Alcohol abuse Anxiety Lung 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 Functional capacity: independent ambulation Family History: Family History (Last Reviewed 12/13/22 @ 20:44 by Jonnie Griggs MD) Mother Heart problem Surgical History: Surgical History (Last Reviewed 12/13/22 @ 20:44 by Jonnie Griggs MD) History of removal of testicle History of tooth extraction Social History: Social History (Last Reviewed 12/13/22 @ 20:44 by Jonnie Griggs MD) Living Situation History: Household Members: Spouse Housing: House Do you presently have visiting nurse or other home services: No Tobacco History: Patient Tobacco Use Status: Former Tobacco user Tobacco use type: Cigarette Smoke Quit Date: 10/03/2022 e-Cigarette/Vaping Use: Never Used Second Hand Smoke Exposure: No Substance Use History: Substance Use Type: Marijuana 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 Current occupational status: employed 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 Home Medications and Allergies Current Medications: Current Medications Acetaminophen (Acetaminophen 325 Mg Tablet) 650 mg PO Q6H PRN PRN Reason: Pain, Mild (Pain Scale 1-3) Hydrocodone Bitart/Acetaminophen (Hydrocodone Bit/Acetam 5/325 Tablet) 1 tab PO Q4H PRN PRN Reason: Pain, Moderate(Pain Scale 4-6) Last Admin: 12/15/22 16:03 Dose: 1 tab Docusate Sodium (Docusate Sodium 100 Mg Capsule) 100 mg PO BEDTIME DAYA Enoxaparin Sodium (Enoxaparin Sodium 40 Mg/0.4 Ml Syringe) 40 mg SUBCUT Q24H DAYA Last Admin: 12/13/22 22:26 Dose: Not Given Escitalopram Oxalate (Escitalopram Oxalate 5 Mg Tablet) 5 mg PO BEDTIME DAYA Last Admin: 12/15/22 20:53 Dose: 5 mg Sodium Chloride (Ns) 1,000 mls @ 75 mls/hr IVCONT .[id number] [facility] Last Admin: 12/15/22 20:52 Dose: 75 mls/hr Melatonin (Melatonin 3 Mg Tablet) 6 mg PO BEDTIME PRN PRN Reason: Insomnia Morphine Sulfate (Morphine Sulfate 4 Mg/Ml Cartridge) 2 mg IVPUSH Q4H PRN; Protocol PRN Reason: Pain, Severe (Pain Scale 7-10) Last Admin: 12/15/22 10:29 Dose: 2 mg Ondansetron HCl (Ondansetron Hcl 4 Mg/2 Ml Vial) 4 mg IVPUSH Q8H PRN PRN Reason: Nausea and Vomiting Pharmacy Consult (Consult Rx Perform Med Rec) 1 each MISCELLANE ONCE PRN PRN Reason: Consult order Polyethylene Glycol (Polyethylene Glycol 3350 17 Gm Powd.Pack) 17 gm PO DAILY PRN PRN Reason: Constipation Sodium Chloride (0.9 % Sodium Chloride Flush 3 Ml Syringe) 3 ml IVFLUSH QSHIFT [facility] Last Admin: 12/16/22 07:05 Dose: Not Given Home Medications Medication Instructions Recorded Confirmed Type citalopram 20 mg tablet 10 mg PO BEDTIME 12/13/22 12/13/22 History Allergies Allergy/AdvReac Type Severity Reaction Status Date / Time No Known Allergies Allergy Verified 12/09/22 15:09 Exam Vital signs: Vital Signs Temp 97.5 F 12/16/22 07:35 Pulse 70 12/16/22 07:35 Resp 16 12/16/22 07:35 BP 145/87 H 12/16/22 07:35 Pulse Ox 96 12/16/22 07:35 O2 Del Method Room Air 12/16/22 07:35 Intake & Output 12/15/22 12/16/22 12/16/22 18:59 06:59 18:59 Intake Total 1680 / 1680 Balance 1680 / 1680 Intake: Intake, Oral Amount 680 / 680 Intake, IV Amount 1000 / 1000 0.9 % Sodium Chloride 1,000 ml 1000 / 1000 @ 75 mls/hr IVCONT .[id number] [facility] Rx#:[id number] Other: NPO Yes Dinner % Eaten 100% Number of Unmeasured Voids 1 1 Urine Bathroom Bathroom Weight 114.3 kg BMI result Body Mass Index 36.2 - Constitutional Present: no acute distress - Routine HEENT Exam Head: Present: normal inspection - Routine Respiratory Exam Present: CTAB - Routine Cardiovascular Exam Cardiovascular: Present: RRR, S1, S2 - Routine Abdominal Exam Absent: mass - Routine Extremities Exam Absent: calf tenderness Data - Labs CBC & Chem 7: 12/16/22 07:50 12/16/22 07:50 Labs: 12/13/22 13:38 CT abdomen pelvis wo IV con Stat CT chest wo IV con Stat 12/13/22 13:56 CBC W/AUTO DIFF [Complete Blood Count Auto Diff] Stat CMP [Comprehensive Met. Panel] Stat 12/13/22 14:22 0.9 % Sodium Chloride [Ns] 2,000 ml IVCONT 999 mls/hr 12/13/22 14:49 UA ClnCatch+Micro w/rflx Cult Stat 12/13/22 15:16 Morphine Sulfate 4 mg IVPUSH ONCE ONE 12/13/22 20:16 BMP [Basic Metabolic Panel] Stat 12/13/22 20:43 Regular Diet 12/14/22 Microalbumin, Random (w Creat) Stat Total Protein Urine Random Stat 12/14/22 04:40 Creatinine Urine Stat Sodium Urine Random Stat Total Protein Urine Random Stat 12/14/22 05:17 Basic Metabolic Panel AM Complete Blood Count Auto Diff AM 12/14/22 09:35 NPO Diet 12/14/22 10:13 Regular Diet 12/14/22 12:10 Urine Eosinophil Stat 12/14/22 16:33 Lidocaine HCl 1 % MPF [Xylocaine 1 % MPF] 5 ml .ROUTE .STK-MED ONE 12/15/22 00:01 NPO Diet 12/15/22 05:38 Basic Metabolic Panel Routine Complete Blood Count Auto Diff Routine Partial Thromboplastin Time Routine Prothrombin Time INR Routine 12/15/22 16:10 Lidocaine HCl 1 % MPF [Xylocaine 1 % MPF] 30 ml .ROUTE .STK-MED ONE 12/15/22 16:17 Lidocaine HCl 1 % MPF [Xylocaine 1 % MPF] 10 ml SUBCUT ONCE ONE 12/16/22 07:50 Basic Metabolic Panel Urgent CBC NO DIFF [Complete Blood Count no Diff] Urgent Laboratory Last Values WBC 6.7 X10*3/uL (4.8-10.8) 12/16/22 07:50 RBC 3.36 X10*6/uL (4.60-5.80) L 12/16/22 07:50 Hgb 10.8 g/dl (14.0-18.0) L 12/16/22 07:50 Hct 31.4 % (42.0-52.0) L 12/16/22 07:50 MCV 93.5 fL (80.0-98.0) 12/16/22 07:50 MCH 32.1 pg (27.0-33.0) 12/16/22 07:50 MCHC 34.4 g/dl (31.0-36.0) 12/16/22 07:50 RDW 13.1 % (11.0-16.0) 12/16/22 07:50 Plt Count 227 X10*3/uL (160-400) 12/16/22 07:50 MPV 9.4 fL (9.4-12.4) 12/16/22 07:50 Immature Gran % (Auto) 0.9 % (0.0-0.4) H 12/15/22 05:38 Neut % (Auto) 51.5 % (45-73) 12/15/22 05:38 Lymph % (Auto) 33.0 % (20-40) 12/15/22 05:38 [place] % (Auto) 10.7 % (2-11) 12/15/22 05:38 Eos % (Auto) 3.7 % (0-4) 12/15/22 05:38 Baso % (Auto) 0.2 % (0-2) 12/15/22 05:38 Lymph # (Auto) 1.9 X10*3/uL (1.2-4.9) 12/15/22 05:38 [place]ley # (Auto) 0.6 X10*3/uL (0.1-1.2) 12/15/22 05:38 Eos # (Auto) 0.2 X10*3/uL (0.0-0.4) 12/15/22 05:38 Baso # (Auto) 0.0 X10*3/uL (0.0-0.2) 12/15/22 05:38 Abs Immat Gran (auto) 0.05 X10*3/uL (0.00-0.03) H 12/15/22 05:38 Absolute Neuts (auto) 3.0 x10*3/uL (2.0-8.3) 12/15/22 05:38 Absolute Nucleated RBC 0.000 X10*3/uL (0.0-0.012) 12/16/22 07:50 Nucleated RBC % (auto) 0.0 /100WBC (0.0-0.2) 12/16/22 07:50 PT 9.9 SEC (10.0-13.1) L 12/15/22 05:38 INR 0.9 (0.9-1.1) 12/15/22 05:38 APTT 28.0 SEC (26.0-36.4) 12/15/22 05:38 Sodium 144 mmol/L (135-145) 12/16/22 07:50 Potassium 4.5 mmol/L (3.3-5.1) 12/16/22 07:50 Chloride 110 mmol/L (96-108) H 12/16/22 07:50 Carbon Dioxide 26 mmol/L (22-29) 12/16/22 07:50 Anion Gap 13 (12-20) 12/16/22 07:50 BUN 24 mg/dL (9-16) H 12/16/22 07:50 Creatinine 1.66 mg/dL (0.5-1.4) H 12/16/22 07:50 Estim Creat Clear Calc 71.1 12/16/22 07:50 Estimated GFR 45 12/16/22 07:50 Random Glucose 92 mg/dL (60-115) 12/16/22 07:50 Calcium 10.0 mg/dL (8.4-10.2) 12/16/22 07:50 Total Bilirubin 0.3 mg/dL (0.0-1.0) 12/13/22 13:56 AST 26 U/L (5-37) 12/13/22 13:56 ALT 43 U/L (0-40) H 12/13/22 13:56 Alkaline Phosphatase 79 U/L (39-117) 12/13/22 13:56 Total Protein 6.9 g/dL (6.5-8.0) 12/13/22 13:56 Albumin 4.5 g/dL (3.5-5.0) 12/13/22 13:56 Urine Color Yellow 12/13/22 14:49 Urine Appearance Turbid 12/13/22 14:49 Urine pH 5.0 (5.0-9.0) 12/13/22 14:49 Ur Specific [place] 1.015 (1.005-1.025) 12/13/22 14:49 Urine Protein 100 (2+) mg/dL (Neg-Trace) H 12/13/22 14:49 Urine Glucose (UA) Negative mg/dL (Negative) 12/13/22 14:49 Urine Ketones Negative mg/dL (Negative) 12/13/22 14:49 Urine Blood Trace (Negative) H 12/13/22 14:49 Urine Nitrite Negative (Negative) 12/13/22 14:49 Ur Leukocyte Esterase Trace (Negative) H 12/13/22 14:49 Urine RBC 0-2 /HPF (0-2) 12/13/22 14:49 Urine WBC 6-10 /HPF (0-5) H 12/13/22 14:49 Ur Squamous Epith Cells 3-5 /HPF (0-2) 12/13/22 14:49 Urine Bacteria 1+ (None Seen) 12/13/22 14:49 Hyaline Casts >20 /LPF (0-2) 12/13/22 14:49 Granular Casts Present 12/13/22 14:49 Urine Eosinophils % 0.0 % 12/14/22 12:10 U Random Total Protein 163 mg/dL (<12) H 12/14/22 Unknown Ur Random Sodium 92.0 mmol/L 12/14/22 04:40 Urine Creatinine 64.54 mg/dL 12/14/22 Unknown Urine Microalbumin 72.0 mg/L 12/14/22 Unknown Microalb/Creat Ratio 111.5 ug/mg cr 12/14/22 Unknown - Imaging Radiologist's impression: ITS Impressions Abdomen/Pelvis CT 12/13/22 14:51 IMPRESSION: Multiple lytic bone lesions. Differential would include myeloma and metastatic disease. Fleischner guidelines were followed. Chest CT 12/13/22 14:51 IMPRESSION: Multiple lytic bone lesions. Largest lesion involves the right lateral fourth rib with associated 4 x 6 cm soft tissue mass. Likely pathologic right sixth rib fracture. Myeloma and metastatic disease should be considered. Fleischner guidelines were followed. 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 This is a 47-year-old man presenting with multiple lytic bony lesions, hypercalcemia and acute renal insufficiency. This is worrisome for malignancy such as multiple myeloma. His renal insufficiency could also be secondary to NSAID use, metastatic disease from another primary is also in the differential diagnosis. He is going to have biopsy of the right acromion/soft tissue mass. Specimen should be sent for evaluation of myeloma including testing of flow cytometry, cytogenetics, FISH panel and NGS for myeloma. Further tests such as serum protein electrophoresis, immunofixation, free kappa/lambda light chain assay is pending. He is receiving IV hydration, kidney functions are slowly improving. He will be called with results of blood work. If necessary he will be scheduled for bone marrow aspiration/biopsy as well. - Time Spent With Patient Time Spent with Patient (in minutes): 15
--- NOTE | 2022-12-16 11:10 | PM.DS ---
DS: Providers Provider Date of Service: 12/16/22 Date of admission: 12/13/22 20:42 Date of discharge: 12/16/22 Primary care physician: Adriel Ma MD Consults: 12/13/22 20:41 Consult to Nephrology Routine Consulting Provider: Caleb Shaver Reason for consultation: KAMILAH 12/13/22 20:57 Consult to Hematology / Oncology Routine Consulting Provider: Dana Haney Reason for consultation: Multiple bony lytic lesions Attending physician on discharge: Mak Enriquez Discharging clinician: Holly Burris DS: Diagnosis Discharge Diagnosis (1) Lytic bone lesions on xray: Status: Acute (2) Metastasis to bone of unknown primary: Status: Acute (3) KAMILAH (acute kidney injury): Status: Acute DS: Summary Hospital Course Hospital Course: From H&P on day of admission This is a 47-year-old male with pertinent history of mood disorder who was sent from Dr. Haney's office for evaluation of elevated creatinine.? Patient was seen at oncology office today for initial visit as imaging revealed right acromian destructive bony lesion concerning for malignancy.? Patient has been having right shoulder pain and pain in the right ribs for a few weeks now.? No personal or family history of malignancy.? Patient takes NSAID and p.o. opioids p.r.n. for pain relief.? He is compliant with citalopram for mood disorder.? Patient also reports cloudy urine since July 2022.? Denies dysuria, urgency, of frequency or hesitancy.? No weight loss, nausea, vomiting, fever, chills, chest discomfort, abdominal pain, changes in urinary or bowel habits. In the emergency department, creatinine found to be elevated.? CT chest and abdomen/ pelvis with multiple lytic bony lesions concerning for myeloma /metastatic disease. multiple lytic bone lesions concern over multiple myeloma. s/p CT-guided biopsy of the soft tissue mass attached to the R 4th rib 12/15. serum immunofixation, 24hr urine immunofixation, and serum free light chain ratio pending. seen by oncology. Biopsy results and serum protein electrophoresis, immunofixation, free kappa/lambda light chain assay pending at the time of discharge. plan for outpatient follow up for further management KAMILAH concern over myeloma also possible NSAID induced. Improved some with IVF, SCr trending down. plan for outpatient follow up. Time Spent with Patient Time attestation: Total time managing care of this patient today ____ minutes. Discharge coordination time: Greater than 30 minutes Quality: Safe Use of Opioids Does Pt have an Active Cancer Diagnosis on the Problem List?: Yes Opioid Measure Date for [facility] Report: 11/16/22 Opioid Measure Time for [facility] Report: 11:15 Quality: Stroke Does the patient have a stroke diagnosis?: No Physical Exam Vital Signs: Vital Signs: Last Vital Signs Temp 97.5 F 12/16/22 07:35 Pulse 70 12/16/22 07:35 Resp 16 12/16/22 07:35 BP 145/87 H 12/16/22 07:35 Pulse Ox 96 12/16/22 07:35 O2 Del Method Room Air 12/16/22 07:35 BMI result Body Mass Index 36.2 Const: General: cooperative, comfortable, no acute distress, alert and awake Nutritional Appearance: average body habitus Orientation/consciousness: patient oriented x3 Resp: Effort & Inspection: normal respiratory effort, able to speak in complete sentences, no respiratory distress and no use of accessory muscles Cardio: Rate: regular rate Heart sounds: S1 normal heart sound present and S2 normal heart sound present GI: Inspection: No distended Palpation (GI): Soft to palpation and nontender Neuro: General: patient oriented x3 and CN's II-XI intact bilaterally Extrem: General: Yes no pedal edema DS: Data Data Completed and Pending Pending studies at discharge: Pending at discharge 12/15/22 15:45 Surgical Path [Surgical] [PTH] Routine Labs on day of discharge: Laboratory Results - last 24 hr 12/16/22 12/16/22 07:50 07:50 WBC 6.7 RBC 3.36 L Hgb 10.8 L Hct 31.4 L MCV 93.5 MCH 32.1 MCHC 34.4 RDW 13.1 Plt Count 227 MPV 9.4 Absolute Nucleated RBC 0.000 Nucleated RBC % (auto) 0.0 Sodium 144 Potassium 4.5 Chloride 110 H Carbon Dioxide 26 Anion Gap 13 BUN 24 H Creatinine 1.66 H Estim Creat Clear Calc 71.1 Estimated GFR 45 Random Glucose 92 Calcium 10.0 Discharge Plan Discharge Anticipated Discharge Date/Time: 12/16/22 11:15 Patient Disposition: Home, Self-Care Discharge Diagnosis: KAMILAH multiple lytic bone lesions Referrals: Dana Haney MD [Physician] - 1 Week Adriel Ma MD [Primary Care Provider] - 1 Week Caleb Shaver MD [Physician] - 1 Week Discharge Medications: Continued citalopram 20 mg tablet 10 mg PO BEDTIME oxycodone-acetaminophen [Percocet] 5-325 mg tablet 1 tab PO BID PRN (Reason: pain) 30 Days Qty: 60 0RF Rx Instructions: [facility]Pat verified. Partial refill upon request. Discontinued meloxicam 15 mg tablet 15 mg PO DAILY 30 Days Qty: 30 2RF Discharge Orders: Discharge Order (Routine); Ordered 12/16/22 Ordered By: Holly Burris Activity on Discharge: As tolerated Stand Alone Forms: Patient Portal Discharge page Care Plan Goals: see below Health Concerns: multiple lytic bone lesions acute kidney injury Plan of Treatment: call to schedule follow up appointment with onologist results of biopsy are pending at the time of discharge call to schedule follow up appointment with nephrology do not take NSAIDs (ibuprofen, motrin, etc) unless kidney function returns to normal Assessment: see discharge summary
--- NOTE | 2022-12-16 11:41 | MHC.CM.PN ---
PT WILL DC HOME TODAY WITH NO SERVICES PT TO ARRANGE TRANSPORT
[2022-12-19 10:39] LABS: IgA 38 mg/dL (47-310); IgG 465 mg/dL (600-1640); IgM 7 mg/dL (50-300)
[2022-12-22 13:27] LABS: Kappa, Serum 238 mg/dL (176-443); Kappa/Lambda Ratio, Serum 4.96 (1.29-2.55); Lambda, Serum 48 mg/dL (91-240)
== END 2022-12-16 11:50 | disposition home or self-care (01) | DRG 543 ==
LOC: HO.ED 20:43 → HO.EDOVER 20:47 → HO.S3 21:35
PROVIDERS: Family Medicine; Internal Medicine Nephrology; Pathology Anatomic Pathology & Clinical Pathology; Physician Assistant Medical; Radiology Diagnostic Radiology; Admitting Provider Student in an Organized Health Care Education/Training Program; Emergency Provider Emergency Medicine; PCP Family Medicine; Visit Provider Physician Assistant Medical
PROC: 0WB83ZX Excision of Chest Wall, Percutaneous Approach, Diagnostic (ICD-10-PCS; principal; 2022-12-15 14:30)
DX: C79.51 Secondary malignant neoplasm of bone (principal); C90.00 Multiple myeloma not having achieved remission; N17.9 Acute kidney failure, unspecified; F41.9 Anxiety disorder, unspecified; F39 Unspecified mood [affective] disorder; E83.52 Hypercalcemia; T39.395A Adverse effect of other nonsteroidal anti-inflammatory drugs [NSAID], initial encounter; Z79.899 Other long term (current) drug therapy
CPT/HCPCS: 11104; 36415; 71250; 74176; 80048; 80053; 81001; 81003; 82043; 82784; 83883; 84156; 84300; 85025; 85027; 85610; 85730; 86334; 86335; 88184; 88185; 88271; 88275; 88300; 88305; 88342; 88344; 88374; 89190; 99221; 99285; J2270

== ENCOUNTER 2023-01-16 08:10 | Outpatient (REF) | payer OTHER, SELFPAY | END 2023-01-16 08:11 | disposition home or self-care (01) | LOC: HO.HOSX 08:10 | PROVIDERS: Visit Provider Physician Assistant | DX: Z13.89 Encounter for screening for other disorder (principal) ==

== ENCOUNTER 2023-02-21 11:28 | Outpatient (AMB) | payer OTHER, SELFPAY ==
--- NOTE | 2023-02-21 11:33 | A.OFFPC_ITS ---
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 Had seen [facility] 12/28/22. Newly diagnosed multiple myeloma. [facility] Medical History (Updated 02/21/23 @ 12:01 by Sidney Smith) Alcohol abuse Anxiety Lung 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 Surgical History History of removal of testicle History of tooth extraction Family History Mother Heart problem Social History Household Members: Spouse Housing: House Do you presently have visiting nurse or other home services: No Alcohol intake: current Alcohol intake frequency: a few times a month Patient Tobacco Use Status: Former Tobacco user Quit Date: 10/03/2022 Tobacco use type: Cigarette e-Cigarette/Vaping Use: Never Used Second Hand Smoke Exposure: No Substance Use Type: Marijuana service: Yes Current occupational status: employed 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 Alonzo Theodore, Padmini Abbott, Bryn Lira and colleagues, with an educational jamie from [employer]. Review of Systems Const Denies chills, Denies fatigue, Denies fever(s), Denies headache(s) and Denies weakness ENT Denies dizziness and Denies headache(s) Card Denies chest pain, Denies lightheadedness, Denies dyspnea and Denies other (Palpitations) Resp Denies cough, Denies dyspnea, Denies wheezing and Denies other ( shortness of b reath) Musc Denies numbness and Denies tingling Neuro Denies dizziness, Denies headache(s), Denies numbness, Denies tingling, Denies paresthesias and Denies weakness Psych Denies anxiety and Denies depression Endo Denies fatigue Aller/Immun Denies wheezing Physical exam (Primary Care) Vital Signs: Last Vital Signs Temp 98.1 F 02/21/23 11:34 Pulse 82 02/21/23 11:34 Resp 12 02/21/23 11:34 BP 130/74 02/21/23 11:34 Pulse Ox 96 02/21/23 11:34 BMI result Body Mass Index 36.6 Tobacco/Smoking Status: Tobacco use Status Tobacco use date assessed 09/13/22 02/21/23 11:45 Patient Tobacco Use Status Former Tobacco user 02/21/23 11:45 Tobacco use type Cigarette 02/21/23 11:45 e-Cigarette/Vaping Use Never Used 02/21/23 11:45 Thrive Assessment: Date of Thrive Assessment Date Thrive assessed 09/13/22 02/21/23 11:45 Const General: no acute distress and well developed Nutritional Appearance: well nourished Orientation/consciousness: patient oriented x3 [facility] Head: Yes normocephalic and Yes atraumatic Eyes General: appearance normal, both eyes and all related structures Pupils: Equal, round and reactive pupils present EOM: EOMs intact bilaterally Resp Effort & Inspection: normal respiratory effort Auscultation: clear to auscultation bilaterally Cardio Rate: regular rate Rhythm: regular rhythm Heart sounds: S1 normal heart sound present, S2 normal heart sound present, no gallops, no murmurs and no rubs Neuro General: patient oriented x3 and gait normal Cranial nerves: Yes Equal, round and reactive pupils present Psych Affect: normal affect Assessment and Plan Assessment & Plan (1) Multiple myeloma: Code(s): C90.00 - Multiple myeloma not having achieved remission Plan: Diagnosis of multiple myeloma and under treatment by Hematology-Oncology at the [facility]. Pain is well controlled now and he is no longer using oxycodone. Using Tylenol for most pain. Can use oxycodone for renewed/increased pain. Discontinued bone scan order as he has already had a PET scan and he can follow- up with Hematology-Oncology for further diagnostic needs. Continue aspirin for increased risk of VTE (2) Anxiety: Code(s): F41.9 - Anxiety disorder, unspecified Plan: Had given him a script for citalopram for anxiety. He does not feel he needs this so he may discontinue it. Medications: Discontinued oxycodone-acetaminophen 5-325 mg MassPat verified. Partial refill upon request. 1 tab PO BID 30 days PRN 60 tabs 0RF pain citalopram 20 mg PO DAILY 30 tabs 2RF 30 days Coding Level of Care Code Est Pt Level 3 (09228) Diagnoses Multiple myeloma C90.00 Anxiety F41.9
[2023-02-21 11:34] VITALS: BP 130/74; PULSE 82; RESP 12; TEMP 36.7; O2SAT 96; BMI 36.6
== END 2023-02-21 12:07 | disposition home or self-care (01) ==
PROVIDERS: Visit Provider Family Medicine
DX: C90.00 Multiple myeloma not having achieved remission (principal); F41.9 Anxiety disorder, unspecified
CPT/HCPCS: 99213

== ENCOUNTER 2025-06-04 13:53 | Outpatient (AMB) | payer OTHER, SELFPAY ==
--- NOTE | 2025-06-04 14:03 | MHC.PC.OV ---
Vital Signs 06/04/25 14:11 Height 5 ft 10 in Weight 286 lb BMI 41.0 BP 108/72 Blood Pressure Location Rt brachial Position Sitting Respiration 15 Pulse 68 Pulse Source Pulse Oximeter Temp 97.8 F Temp Source Temporal Artery Scan Pulse Oximetry (%) 96 Oxygen Delivery Method Room Air Intake Visit Reasons: home sleep study referral Intake Note: Richar presents in the office today to reestablish care. Patient would like a referral for a home sleep study. Puma is stating he has to have one. Allergies lenalidomide (From Revlimid) Adverse Reaction (Severe, Verified 06/04/25 14:06) rash Medication List - Last Reconciled 06/04/25 by Adriel Ma MD acyclovir 400 mg PO BID aspirin 81 mg PO DAILY dexamethasone 4 mg PO DAILY pomalidomide (Pomalyst) 4 mg PO DAILY sulfamethoxazole-trimethoprim 800-160 mg 1 tab PO 3XW Tobacco use date assessed: 06/04/25 Dental Screening Dental Screen Date: 06/04/25 Did you have a dental visit in the last 12 months?: No Did you have a dental problem in the last 6 months where you did not have access to dental care?: No Was dental information given to patient?: Patient declined [facility] Medical History Anxiety Lung 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 Alcohol abuse Surgical History History of removal of testicle History of tooth extraction Family History Mother Heart problem Social History (Updated 06/04/25 @ 14:09 by Ileana Hernandez CMA) Household Members: Spouse Housing: House Do you presently have visiting nurse or other home services: No Alcohol intake: current Alcohol intake frequency: a few times a month Patient Tobacco Use Status: Current someday Tobacco user Tobacco use type: Cigarette (Once a week) Cigarette Packs Per Day: 1 Cigarettes Per Day: 20 Years Smoked: 2.5 e-Cigarette/Vaping Use: Never Used Second Hand Smoke Exposure: No Substance Use Type: Marijuana service: Yes Current occupational status: employed 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 1. Little interest or pleasure in doing things: not at all 2. Feeling down, depressed, or hopeless: not at all 3. Trouble falling or staying asleep, or sleeping too much: not at all 4. Feeling tired or having little energy: several days 5. Poor appetite or overeating: more than half the days 6. Feeling bad about yourself - or that you are a failure or have let yourself or your family down: not at all 7. Trouble concentrating on things, such as reading the newspaper or watching television: not at all 8. Moving or speaking so slowly that other people could have noticed. Or the opposite - being so fidgety or restless that you have been moving around a lot more than usual: not at all 9. Thoughts that you would be better off or of hurting yourself in some way: not at all Total score: 3 Depression Screening Interpretation: Negative Depression Screening Done: Yes 90775 - PHQ-9 Billing: Yes Source: Developed by Drs. Alonzo Theodore, Padmini Abbott, Bryn Lira and colleagues, with an educational jamie from [employer]. Thrive Questionnaire Date Thrive assessed: 06/04/25 I am a: Patient What is your living situation today?: I have a steady place to live Within the past 12 months, did the food you bought not last and you didn't have the money to get more?: Never true Within the past 12 months, did you worry whether your food would run out before you got money to buy more?: Never true Do you have trouble paying for medicines?: No Do you have trouble getting transportation to medical appointments?: No Do you have trouble paying your heating and electricity bill?: No Do you have trouble taking care of your child, family member or friend?: No Do you have trouble with day-to-day activities such as bathing, preparing meals, shopping, managing finances, etc.?: No Are you currently unemployed and looking for a job?: No Are you interested in more education?: No Please select the resources that you would like help with: None Currently or been in a relationship where the following occur: No concerns reported THRIVE Score: 0 AUDIT C Alcohol Use Questionnaire (AUDIT-C) 1. How often do you have a drink containing alcohol?: Monthly or less 2. How many drinks containing alcohol do you have on a typical day when you are drinking?: 1 or 2 3. How often do you have six or more drinks on one occasion?: Never Total Score: 1 MIGUEL-7 AMB Questionnaire MIGUEL-7 Date MIGUEL - 7 assessed: 06/04/25 Feeling nervous, anxious, or on edge: 0 = Not at all Not being able to stop or control worryin = Not at all Worrying too much about different things: 0 = Not at all Trouble relaxin = Not at all Being so restless that it is hard to sit still: 0 = Not at all Becoming easily annoyed or irritable: 0 = Not at all Feeling afraid as if something awful might happen: 0 = Not at all Total MIGUEL-7 score (0-4 normal; 5-9 mild; 10-14 moderate; 15-21 severe): 0 Source: Developed by Drs. Alonzo Theodore, Padmini Abbott, Bryn Lira and colleagues, with an educational jamie from [employer]. MIGUEL-7 Assessment Billing MIGUEL-7 Assessment Tool: MIGUEL-7 Assessment 10198 Physical exam (Primary Care) Vital Signs: Last Vital Signs Temp 97.8 F 06/04/25 14:11 Pulse 68 06/04/25 14:11 Resp 15 06/04/25 14:11 BP 108/72 06/04/25 14:11 Pulse Ox 96 06/04/25 14:11 Oxygen Delivery Method Room Air 06/04/25 14:11 BMI result Body Mass Index 41.0 Tobacco/Smoking Status: Tobacco use Status Tobacco use date assessed 06/04/25 06/04/25 14:14 Patient Tobacco Use Status Current someday Tobacco 06/04/25 14:14 Tobacco use type Cigarette (Once a week) 06/04/25 14:14 e-Cigarette/Vaping Use Never Used 06/04/25 14:09 PHQ-9: PHQ-9 Score PHQ-9: Total score 3 06/04/25 14:21 Depression Screening Interpretation: Negative Thrive Assessment: Date of Thrive Assessment Date Thrive assessed 06/04/25 06/04/25 14:14 Currently or been in a relationship where the following occur: No concerns reported Coding Level of Care Code Est Pt Level 4 (84439) Diagnoses Multiple myeloma C90.00 Sleep apnea G47.30 Obesity, Class III, BMI 40-49.9 (morbid obesity) E66.01 Additional Codes MIGUEL-7 Assessment Billing - MIGUEL-7 Assessment Tool: MIGUEL-7 Assessment 64616 ([id number]) PHQ-9 - 57916 - PHQ-9 Billing: Yes ([id number]) Assessment & Plan Assessment & Plan (1) Multiple myeloma: Code(s): C90.00 - Multiple myeloma not having achieved remission Category: Medical Plan: Ongoing chemotherapy Followed by Dr. Menendez locally and also [facility] Follow-up with Hematology-Oncology as recommended (2) Sleep apnea: Code(s): G47.30 - Sleep apnea, unspecified Category: Medical Plan: Apneic events while sleeping and snores. Not well rested when he awakens Daytime sleepiness Referred to Sleep Medicine (3) Obesity, Class III, BMI 40-49.9 (morbid obesity): Code(s): E66.01 - Morbid (severe) obesity due to excess calories Category: Medical Plan: Ongoing and increasing obesity Patient would like to consider a GLP 1 medication Also has sleep apnea Will trial Mounjaro Orders: Orders Comprehensive [place]. Panel Fast Today Z00.00 - Encounter for general adult medical examination without abnormal findings Complete Blood Count Auto Diff Today Z00.00 - Encounter for general adult medical examination without abnormal findings Prostate Specific Antigen Scr Today Z12.5 - Encounter for screening for malignant neoplasm of prostate Lipid Panel Today Z00.00 - Encounter for general adult medical examination without abnormal findings Microalbumin, Random (w Creat) Today I10 - Essential (primary) hypertension UA CC w/rflx Micro + Cult Today Z00.00 - Encounter for general adult medical examination without abnormal findings TSH reflex Free T4 Today Z00.00 - Encounter for general adult medical examination without abnormal findings Referrals Sleep Medicine Referral G47.30 - Sleep apnea, unspecified Medications: New tirzepatide (Mounjaro) for 4 weeks 2.5 mg (0.5 mL) subcut QWEEK 2 mL 3RF 28 days E66.01 - Morbid (severe) obesity due to excess calories, G47.30 - Sleep apnea, unspecified
[2025-06-04 14:11] VITALS: BP 108/72; PULSE 68; RESP 15; TEMP 36.6; O2SAT 96; BMI 41.0
--- OUTSIDE RECORDS SUMMARY | 2025-06-04 17:50 | XMS_ITS | Encounter Summary ---
Author Organization [facility] Address [address] [facility] [address] [place] [address] Phone Care Team Providers Care Patient Care Director Name Role Phone Adriel Ma MD Primary Care Provider Self-Referred, Patient Unavailable Unavailab nadege Alarcon Diptitimmy Pichardo [facility] Unavailable Mignon Everett Unavailable Diego [email or web address]. Aracelis Mckeon RN Unavailable NEREYDA [email or web address] Corey Cole MD Unavailable [phone] Encounter Details Date Type Department Care Team (Late st Contact Info) Description 2023 Documentation [facility] Blood Donor Center [address] [address] Pal Clark PA-C [address] [place] [address] MARY [email or web address] Social History Tobacco Use Types Packs/Day Years Used Date Smoking Tobacco: Former Cigarettes 1 30 0 10/03/1992 - 10/03/2022 Smokeless Tobacco: Never Alcohol Use Standard Drinks/Week Comments Yes 1 (1 standard drink = 0.6 oz pur e alcohol) socially Education Answer Date Recorded Are you interested in more education? Not on ana e 01/10/2023 Are you concerned about learning? Not on file 01/10/2023 No 01/10/2023 No 01/10/2023 Digital Access Answer Date Recorded No 01/10/2023 No 01/10/2023 Reliable internet access at home? Not on file 01/10/2023 Device with a working camera? Not on file Sex and Gender Information Value Date Recorded Sex Assigned at Male 01/10/2023 2:44 PM EDT Legal Sex Male 2:37 PM EDT Gender Identity Male 01/10/2023 2:38 PM EDT Sexual Orientation Straight 01/10/2023 2: 44 PM EDT documented as of this encounter Progress Notes * Pal Clark PA-C - 2023 12:11 PM EST Apheresis Collection Suitability Name: Richar Carrington MRN: ?[id number] Indication: ?autp HPC Tentative Collection Date: ?07/05/23 Date of mobilization: 07/01/23 Has the donor been tested for evidence of communicable infectious diseases in accordance with FDA/AABB guidelines: ?yes Relevant Past Medical History: ?Cardiac (Atrial fibrillation or flutter, sick sinus syndrome, or ventricular arrhythmias, CAD/NC, CHF, HTN, heart valve disease, diastolic dysfunction, peripheral edema). no Endocrine (NIDDM/IDDM, thyroid disease, Adrenal disorders, ???). no Heme (Coagulopathy, Anemia, Hemoglobinopathies, ITP/TTP,???). ?no Neuro (Cerebrovascular disease-TIA/CVA, Seizure disorders, Migraine headaches). no Psychiatric disorders (Mood disorders, Substance Abuse/Dependence???). no Pulmonary (Asthma, COPD, Pulmonary Embolism, Interstitial lung disease, Pleural/Mediastinal disorders, Tumor). no ?I, the Transfusion Medicine PA, have deemed the above donor to be medically suitable for autologous HPC collection. The information above was collected from a review of patient records. Pal Clark PA-C Transfusion Medicine PA [facility] Transfusion Medicine Pager: [phone] documented in this encounter Plan of Treatment Upcoming Encounters Date Type Department Care Team (Late st Contact Info) Description 10/16/2025 7:10 AM EDT Blood Draw Laboratory Services, [facility] [address] [place] [address] 2nd [place] [address] Ary Rm MD [address] [facility] Myeloma Clinic, Floor 7 [place] [address] Sharmin@[facility] 10/16/2025 8:00 AM EDT Office Visit [facility], Division of Hematologic Oncology, [facility] [address] [facility], 7th [place] [address] Ary Rm MD [address] [facility] Myeloma [facility], Floor 7 [place] [address] Sharmin@[facility] documented as of this encounter Visit Diagnoses Not on filedocumented in this encounter Additional Health Concerns Infection Onset Date Last Indicated Resolved Time CoV-Risk Comment:Per note documentation 07/23/2023 07/23/2023 3 10:25 PM EST CoV-Risk Comment:Per note documentation 08/16/2024 08/16/2024 5 6:31 PM EST documented as of this encounter Care Teams Patient Care Director Relationship Specialty Start Date End Date Adriel Ma MD PCP - General Family Medicine 01/10/23 Self-Referred, Patient 01/10/23 Dipti Alarcon LCSW [address] [place] [address] [email or web address] Manufacturing Advisor Oncology 06/05/23 Mignon Everett [address] [place] [address] Marilu [email or web address] Alining Inspector 06/12/23 Aracelis Grajeda, ANITRA [address] [place] [address] [email or web address] [facility] Primary Infusion Nurse 07/13/23 Corey Cole MD [address] [place] [address] Hematology [place] [address] [email or web address] Hematology and Oncology 09/05/24 documented as of this encounter Additional Source Comments The information contained in this document represents components of the legal health record. It is not the complete legal health record.[facility]
--- OUTSIDE RECORDS SUMMARY | 2025-06-04 17:50 | XMS_ITS | Encounter Summary ---
Author Organization [facility] Address [address] [facility] [address] [place] [address] Phone Care Team Providers Care Poultry Service Technician Name Role Phone Adriel Ma MD Primary Care Provider Self-Referred, Patient Unavailable Unavailab Dipti Anderson [facility] Unavailable [phone] Mignon Everett Unavailable Diego [email or web address]. Aracelis Mckeon RN Unavailable NEREYDA [email or web address] Corey Cole MD Unavailable [phone] Encounter Details Date Type Department Care Team (Late st Contact Info) Description 07/23/2023 Procedure Pass [facility] [address] [place] [address] Social History Tobacco Use Types Packs/Day Years [...] PM EDT documented as of this encounter Functional Status * Calculated C-SSRS Risk Score (Lifetime/Recent) Answer Date of Assessment Author No Risk Indicated 07/25/2023 9:00 PM Paul Finn, ANITRA * [place] Suicide Severity Rating Scale (Screener/Recent Self-Report) Question Answer Date of Assessment Author 1. Wish to be (Past 1 Month) No 07/25/2023 9:00 PM Paul Finn, ANITRA 2. Non-Specific Active Suicidal Thoughts (Past 1 Month) No 07/25/2023 9:00 PM Paul Finn, ANITRA 6. Suicidal Behavior (Lifetime) No 07/25/2023 9:00 PM Paul Finn, ANITRA documented as of this encounter Plan of Treatment Upcoming Encounters Date Type Department Care Team (Late st Contact Info) Description 10/16/2025 7:10 AM EDT Blood Draw Laboratory Services, [facility] [address] [facility], 2nd [place] [address] Ary Rm MD [address] [place] [address] Myeloma Clinic, Floor 7 [place] [address] [email or web address] 10/16/2025 8:00 AM EDT Office Visit [facility] for Multiple Myeloma, Division of Hematologic Oncology, [facility] [address] [facility], 7th [place] [address] Ary Rm MD [address] [place] [address] Myeloma Clinic, Floor 7 [place] [address] [email or web address] documented as of this encounter Visit Diagnoses Not on filedocumented in this encounter Additional Health Concerns Infection Onset Date Last Indicated Resolved Time CoV-Risk Comment:Per note documentation 07/23/2023 07/23/2023 12/18/202 3 10:25 PM EST CoV-Risk Comment:Per note documentation 08/16/2024 08/16/2024 6:31 PM EST documented as of this encounter Care Teams Poultry Service Technician Relationship Specialty Start Date End Date Adriel Ma MD PCP - General Family Medicine 01/10/23 Self-Referred, Patient 01/10/23 Dipti Alarcon, FRYER LINE HELPER [address] [place] [phone] [email or web address] Tea Tree Farm Worker Oncology 06/05/23 Mignon Everett [address] [place] [address] Marilu @[email or web address] Recreational Resort Manager 06/12/23 Aracelis Grajeda, RN [address] [place] [phone] [email or web address]@[email or web address]. [facility] Primary Infusion Nurse 07/13/23 Corey Cole MD [address] [place] [address] [place] [address] [email or web address] Hematology and Oncology 09/05/24 documented as of this encounter Additional Source Comments The information contained in this document represents components of the legal health record. It is not the complete legal health record.[facility]
--- OUTSIDE RECORDS SUMMARY | 2025-06-04 17:50 | XMS_ITS | Clinical Summary ---
Author Organization [facility] Address [address] [place] [address] Care Team Providers Care Hand Hose Cutter Name Role Phone Pcp, No Primary Care Provider Unavailabl e Allergies No known active allergies Social History Tobacco Use Types Packs/Day Years Used Date Smoking Tobacco: Never Assessed Sex and Gender Information Value Date Recorded Sex Assigned at Not on file Legal Sex Male 3:47 PM EDT Gender Identity Not on file Sexual Orientation Not on file Last Filed Vital Signs Vital Sign Reading Time Taken Comments Blood Pressure 133/87 12/01/2020 3:59 PM EDT Pulse 92 12/01/2020 3:59 PM EDT Temperature 36.1 C (97 F) 12/01/2020 3:59 PM EDT Respiratory Rate - - Oxygen Saturation 95% 12/01/2020 3:59 PM EDT Inhaled Oxygen Concentration - - Weight - - Height - - Body Mass Index - - Plan of Treatment Health Maintenance Due Date Last Done Comments Hepatitis C Virus Screening 1977 HIV Screening 1990 DTaP/Tdap/Td Vaccines (1 - Tdap) 1996 Hepatitis B Vaccines (1 of 3 - 19+ 3-dose series) 1996 Colonoscopy 2022 Influenza Vaccine 03/07/2025 COVID-19 Vaccine (1 - 2023-2 5 season) 2025 Pneumococcal Vaccine: Pediat jero (0-5 Years) and At-Risk Patients (6 to 49 Years) Aged Out No longer eligible b ased on patient's age to complete this topic Insurance [employer] HMO/POS Care Teams Hand Hose Cutter Relationship Specialty Start Date End Date Pcp, No PCP - General General Medicine 08/07/20
--- OUTSIDE RECORDS SUMMARY | 2025-06-04 17:50 | XMS_ITS | Encounter Summary ---
Author Organization [facility] Address [address] [facility] [address] [place] [address] Phone Care Team Providers Care Supervisor Edging Name Role Phone Adriel Ma MD Primary Care Provider Self-Referred, Patient Unavailable Unavailab nadege Alarcon Diptitimmy Pichardo [facility] Unavailable [phone] Mignon Everett Unavailable Diego [email or web address] Aracelis Mckeon RN Unavailable NEREYDA [email or web address] Corey Cole MD Unavailable [phone] Encounter Details Date Type Department Care Team (Late st Contact Info) Description 05/02/2023 Documentation Central Registration, [facility] [address] [facility], 2nd [place] [address] Danny John [address] [place] [phone] [email or web address] Social History Tobacco Use Types Packs/Day Years [...] PM EDT documented as of this encounter Plan of Treatment Upcoming Encounters Date Type Department Care Team (Late st Contact Info) Description 10/16/2025 7:10 AM EDT Blood Draw Laboratory Services, [address], 2nd [place] [address] Ary Rm MD [address] [place] [address] Myeloma Clinic, Floor 7 [place] [address] [email or web address] 10/16/2025 8:00 AM EDT Office Visit [facility] for Multiple Myeloma, Division of Hematologic Oncology, [address], 7th [place] [address] Ary Rm MD [address] [place] [address] Myeloma Clinic, Floor 7 [place] [address] Sharmin@[email or web address] documented as of this encounter Visit Diagnoses Not on filedocumented in this encounter Additional Health Concerns Infection Onset Date Last Indicated Resolved Time CoV-Risk Comment:Per note documentation 07/23/2023 07/23/2023 3 10:25 PM EST CoV-Risk Comment:Per note documentation 08/16/2024 08/16/2024 5 6:31 PM EST documented as of this encounter Care Teams Supervisor Edging Relationship Specialty Start Date End Date Adriel Ma MD PCP - General Family Medicine 01/10/23 Self-Referred, Patient 01/10/23 Dipti Alarcon, LOCKSTITCH WAISTBAND SETTER [address] [place] [address] [email or web address] Executive Director Oncology 06/05/23 Mignon Everett [address] [place] [address] Marilu @[email or web address] Manager Presentation 06/12/23 Aracelis Grajeda, RN [address] [place] [phone] [email or web address]@[email or web address]. [facility] Primary Infusion Nurse 07/13/23 Corey Cole MD [address] [place] [address] [place]ematology [place] [address] [email or web address] Hematology and Oncology 09/05/24 documented as of this encounter Additional Source Comments The information contained in this document represents components of the legal health record. It is not the complete legal health record.[facility]
--- OUTSIDE RECORDS SUMMARY | 2025-06-04 17:50 | XMS_ITS | Encounter Summary ---
Author Organization [facility] Address [address] [place] [address] [place] [address] Phone Care Team Providers Care Drapery Head Former Name Role Phone Adriel Ma MD Primary Care Provider Self-Referred, Patient Unavailable Unavailab Dipti Anderson [facility] Unavailable [phone] Mignon Everett Unavailable Diego [email or web address]. Aracelis Mckeon RN Unavailable NEREYDA [email or web address] Corey Cole MD Unavailable [phone] Reason for Visit * Reason Comments Medication Refill Encounter Details Date Type Department Care Team (Late st Contact Info) Description 02/01/2024 Refill Division of [facility]ematologic [facility], [facility] [place] [address] [place] [address], 8th [place] [address] Itzel Muñoz, ASSISTANT ACCOUNTING MANAGER [address] [place] [address] and [facility] [place] [address] Janell@[email or web address] Medication Refill Social History Tobacco Use Types Packs/Day Years [...] 7:10 AM EDT Blood Draw Laboratory Services, [address], 2nd [place] [address] Ary Rm MD [address] [place] [address] [facility], Floor 7 [place] [id number] Sharmin@[facility] 10/16/2025 8:00 AM EDT Office Visit [facility], Division of Hematologic Oncology, [address], 7th [place] [address] Ary Rm MD [address] [place] [address] [facility], Floor 7 [place] [address] Sharmin@[email or web address] documented as of this encounter Visit Diagnoses Not on filedocumented in this encounter Additional Health Concerns Infection Onset Date Last Indicated Resolved Time CoV-Risk Comment:Per note documentation 08/16/2024 08/16/2024 6:31 PM EST documented as of this encounter Care Teams Drapery Head Former Relationship Specialty Start Date End Date Adriel Ma MD PCP - General Family Medicine 01/10/23 Self-Referred, Patient 01/10/23 Dipti Alarcon, TOOTH CUTTER PINION [address] [place] [address] [email or web address] Gambling Floor Supervisor Oncology 06/05/23 Mignon Everett [address] [place] [address] Marilu @[facility] Web Retailer 06/12/23 Aracelis Grajeda, RN [address] [place] [address] RAYMOND@[email or web address]. [facility] Primary Infusion Nurse 07/13/23 Corey Cole MD [address] [place] [address] Hematology [place] [address] [email or web address] Hematology and Oncology 09/05/24 documented as of this encounter Additional Source Comments The information contained in this document represents components of the legal health record. It is not the complete legal health record.[facility]
--- OUTSIDE RECORDS SUMMARY | 2025-06-04 17:50 | XMS_ITS | Encounter Summary ---
Author Organization [facility] Address [address] [facility] [address] [place] [address] Phone Care Team Providers Care Technical Communicator Name Role Phone Adriel Ma MD Primary Care Provider Self-Referred, Patient Unavailable Unavailab Dipti Anderson [facility] Unavailable [phone] Mignon Everett Unavailable Diego [email or web address].[email or web address] Aracelis Mckeon RN Unavailable NEREYDA VIERA@[facility].[place].[facility] Corey Cole MD Unavailable [phone] Encounter Details Date Type Department Care Team (Late st Contact Info) Description 05/27/2024 Procedure Pass [facility] L2 PRU [address] [place] [address] Social History Tobacco Use Types Packs/Day Years [...] 7:10 AM EDT Blood Draw Laboratory Services, [address], 2nd [place] [address] Ary Rm MD [address] [place] [address] [facility], Floor 7 [place] [address] Sharmin@[facility] 10/16/2025 8:00 AM EDT Office Visit [facility], Division of Hematologic Oncology, [address], 7th [place] [address] Ary Rm MD [address] [place] [address] [facility], Floor 7 [place] [address] Sharmin@[facility] documented as of this encounter Visit Diagnoses Not on filedocumented in this encounter Additional Health Concerns Infection Onset Date Last Indicated Resolved Time CoV-Risk Comment:Per note documentation 08/16/2024 08/16/2024 6:31 PM EST documented as of this encounter Care Teams Technical Communicator Relationship Specialty Start Date End Date Adriel Ma MD PCP - General Family Medicine 01/10/23 Self-Referred, Patient 01/10/23 Dipti Alarcon LCSW [address] [place] [address] [email or web address] Field Broomer Oncology 06/05/23 Mignon Everett [address] [place] [address] Marilu @[facility] Agricultural Sciences Professor 06/12/23 Aracelis Grajeda, RN [address] [place] [address] RAYMOND@[facility]. [facility] Primary Infusion Nurse 07/13/23 Corey Cole MD [address] [place] [address] [place] [address] [email or web address] Hematology and Oncology 09/05/24 documented as of this encounter Additional Source Comments The information contained in this document represents components of the legal health record. It is not the complete legal health record.[facility]
--- OUTSIDE RECORDS SUMMARY | 2025-06-04 17:50 | XMS_ITS | Encounter Summary ---
Author Organization [facility] Address [address] [facility] [address] [place] [address] Phone Care Team Providers Care Cattle Killer Name Role Phone Adriel Ma MD Primary Care Provider Self-Referred, Patient Unavailable Unavailab Dipti Anderson [facility] Unavailable [phone] Mignon Everett Unavailable Diego [email or web address]. Aracelis Mckeon RN Unavailable NEREYDA VIERA@[email or web address].[facility] Corey Cole MD Unavailable [phone] Encounter Details Date Type Department Care Team (Late st Contact Info) Description 05/27/2024 Procedure Pass [facility] Angio Interventional Radiology [address] [place] [address] Social History Tobacco Use Types Packs/Day Years [...] 7:10 AM EDT Blood Draw Laboratory Services, [address], 2nd [place] [address] Ary Rm MD [address] [place] [address] [facility], Floor 7 [place] [address] Sharmin@[facility] 10/16/2025 8:00 AM EDT Office Visit [facility], Division of Hematologic Oncology, [address], 7th [place] [address] Ary Rm MD [address] [place] [address] [facility], Floor 7 [place] [address] Sharmin@[facility] documented as of this encounter Visit Diagnoses Not on filedocumented in this encounter Additional Health Concerns Infection Onset Date Last Indicated Resolved Time CoV-Risk Comment:Per note documentation 08/16/2024 08/16/2024 6:31 PM EST documented as of this encounter Care Teams Cattle Killer Relationship Specialty Start Date End Date Adriel Ma MD PCP - General Family Medicine 01/10/23 Self-Referred, Patient 01/10/23 Dipti Alarcon LCSW [address] [place] [address] [email or web address] Laundry Tub Maker Oncology 06/05/23 Mignon Everett [address] [place] [address] Marilu @[facility] Milk Driver 06/12/23 Aracelis Grajeda, RN [address] [place] [address] RAYMOND@[facility]. [facility] Primary Infusion Nurse 07/13/23 Corey Cole MD [address] [place] [address] Hematology [place] [address] [email or web address] Hematology and Oncology 09/05/24 documented as of this encounter Additional Source Comments The information contained in this document represents components of the legal health record. It is not the complete legal health record.[facility]
--- OUTSIDE RECORDS SUMMARY | 2025-06-04 17:50 | XMS_ITS | Encounter Summary ---
Author Organization [facility] Address [address] [facility] [address] [place] [address] Phone Care Team Providers Care Resource Teacher Name Role Phone Adriel Ma MD Primary Care Provider Self-Referred, Patient Unavailable Unavailab nadege Alarcon Diptitimmy Pichardo [facility] Unavailable [phone] Mignon Everett Unavailable Diego [email or web address]. Aracelis Mckeon RN Unavailable NEREYDA [email or web address] Corey Cole MD Unavailable [phone] Encounter Details Date Type Department Care Team (Late st Contact Info) Description 06/15/2023 Documentation [facility], Division of Hematologic Oncology, [facility] [place] [address] [facility], 7th [place] [address] Elaine Baker, ANITRA [address] [place] [address] Patrizia@[facility] Social History Tobacco Use Types Packs/Day Years [...] as of this encounter Progress Notes * Elidia Hamilton PA-C - 06/15/2023 4:17 PM EST Images from the original note were not included. AUTOLOGOUS MALE DONOR EVALUATION NOTE Planned date of mobilization: 07/01/23 (Note: Transplant evaluating clinician must sign this form prior to mobilization date) Will any of the FDA/AABB required infectious disease be outdated (greater than 30 days) at the timeof collection or not performed prior to collection?: No (Note: The Collect Facility must be notified in writing if the response to this question changes prior to donation collection.) Is the donor , , , Malvin Black, South or Central Swazi Black, or Other Black? OR is the donor from the Mediterranean [place], Mary Jane, or Southeast Lisa?: No Does the donor have a personal or family history of any hemoglobinopathies? (Examples include sickle cell disease or Thalassemia): No If Yes or Unsure to either of the two questions above, an appropriate hemoglobinopathy test is required. Will a hemoglobinopathy test be ordered and resulted prior to mobilization?: N/A Does the donor use recreational drugs?: Yes. Describe drug use and frequency: Occassional cannabis edible. Patient is aware to refrain from marrow suppressing agents 1-2 weeks before stem cell collection. Does the donor use alcohol?: Yes. Describe alcohol use and number of drinks/week: Occassional 1-2 beers every few weeks. Stopped regularly drinking after he began treatment Does the donor use tobacco?: No (former smoker; 1 ppd, 30 pack year, stopped in September 2022) Does the donor have a history of any cardiac issues?: No Does the donor have a history of diabetes?: No Does the donor have a history of migraine headaches?: No Medical Clearance Statement I, the transplant evaluating clinician, have reviewed all donor data, including the medical history, physical exam, relevant medical records and laboratory test results, and have deemed this donor nurys medically suitable for the following events (select all that apply): Mobilization and apheresis Any abnormal findings not mentioned above that would contribute to added safety concerns pertainingto line placement, mobilization, and/or collection will be or has been communicated to the appropriate collection facility and shall be noted here: None The information gathered about this patient's medical history was obtained by the ONN. I verified the information above through a chart review of [facility] records from the hematology/oncology team. Elidia Hamilton MS, GIOVANNI Physician Green End Worker Hematologic Malignancies and Stem Cell Transplant (t) [phone], pager#[phone] [email or web address] documented in this encounter Plan of Treatment Upcoming Encounters Date Type Department Care Team (Late st Contact Info) Description 10/16/2025 7:10 AM EDT Blood Draw Laboratory Services, [address], 2nd [place] [address] Ary Rm MD [address] [place] [address] [facility], Floor 7 [place] [address] Sharmin@[email or web address] 10/16/2025 8:00 AM EDT Office Visit [facility], Division of Hematologic Oncology, [address], 7th [place] [address] Ary Rm MD [address] [place] [address] [facility], Floor 7 [place] [address] Sharmin@[email or web address] documented as of this encounter 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 documented in this encounter Additional Health Concerns Infection Onset Date Last Indicated Resolved Time CoV-Risk Comment:Per note documentation 07/23/2023 07/23/2023 10:25 PM EST CoV-Risk Comment:Per note documentation 08/16/2024 08/16/2024 6:31 PM EST documented as of this encounter Care Teams Resource Teacher Relationship Specialty Start Date End Date Adriel Ma MD PCP - General Family Medicine 01/10/23 Self-Referred, Patient 01/10/23 Dipti Alarcon, BACTERIOLOGIST PHARMACEUTICAL [address] [place] [address] [email or web address] Manager Country Oncology 06/05/23 Mignon Everett [address] [place] [address] Marilu @[facility] Ceramics Engineer 06/12/23 Aracelis Grajeda, RN [address] [place] [address] RAYMOND@[email or web address]. [facility] Primary Infusion Nurse 07/13/23 Corey Cole MD [address] [place] [address] [place] [address] [email or web address] Hematology and Oncology 09/05/24 documented as of this encounter Additional Source Comments The information contained in this document represents components of the legal health record. It is not the complete legal health record.[facility]
--- OUTSIDE RECORDS SUMMARY | 2025-06-04 17:50 | XMS_ITS | Clinical Summary ---
Author Organization [facility] Address [address] [place] [address] Care Team Providers Care Claims Representative Name Role Phone Unavailable Primary Care Provider Unavailabl e Social History Tobacco Use Types Packs/Day Years Used Date Smoking Tobacco: Never Assessed Sex and Gender Information Value Date Recorded Sex Assigned at Not on file Gender Identity Not on file Sexual Orientation Not on file Job Start Date Occupation Industry Not on file Not on file Not on file Plan of Treatment Health Maintenance Due Date Last Done Comments Hepatitis B Vaccines (1 of 3 - 3-dose series) 1977 Hepatitis C Screening 1977 COVID-19 Vaccine (#1) 1977 Depression Screening 1989 Preventative Health Evaluation 1995 DTap / Tdap / Td (1 - Tdap) 1996 Colon Cancer Screening (Colonoscopy) 2022 Influenza Vaccine (#1) 2025 Pneumococcal Vaccine Aged Out No long er eligible based on patient's age to complete this topic RSV Ped < 20 months Aged Out No longe r eligible based on patient's age to complete this topic
--- OUTSIDE RECORDS SUMMARY | 2025-06-04 17:50 | XMS_ITS | Encounter Summary ---
Author Organization [facility] Address [address] [facility] [address] [place] [address] Phone Care Team Providers Care Resident Director Name Role Phone Adriel Ma MD Primary Care Provider Self-Referred, Patient Unavailable Unavailab nadege Alarcon Diptitimmy Pichadro [facility] Unavailable [phone] Mignon Everett Unavailable Diego [email or web address]. Aracelis Mckeon RN Unavailable NEREYDA [email or web address].[email or web address] Corey Cole MD Unavailable [phone] Encounter Details Date Type Department Care Team (Late st Contact Info) Description 08/08/2024 Documentation [facility], Division of Hematologic Oncology, [facility] [place] [address] [place] [address], 7th [place] [address] Madyson Jo, RN [address] [place] [address] [email or web address] Social History Tobacco Use Types Packs/Day Years [...] with a working camera? Not on file Intimate Partner Violence Answer Date R ecorded Are you denied basic needs s uch as food, clothing, or medical care? No 06/20/2024 In the past 12 months have y ou been in a relationship with a person who hurts, threatens, or tries to control you? No 06/20/2024 Are you denied basic needs s uch as food, clothing, or medical care? No 06/20/2024 In the past 12 months have y ou been in a relationship with a person who hurts, threatens, or tries to control you? No 06/20/2024 Sex and Gender Information Value Date Recorded [...] 7:10 AM EDT Blood Draw Laboratory Services, [address], 2nd [place] [address] Ary Rm MD [address] [place] [address] [facility], Floor 7 [place] [address] Sharmin@[facility] 10/16/2025 8:00 AM EDT Office Visit [facility], Division of Hematologic Oncology, [facility] [address], 7th [place] [address] Ary Rm MD [address] [place] [address] [facility], Floor 7 [place] [address] Sharmin@[facility] documented as of this encounter Visit Diagnoses Not on filedocumented in this encounter Additional Health Concerns Infection Onset Date Last Indicated Resolved Time CoV-Risk Comment:Per note documentation 08/16/2024 08/16/2024 6:31 PM EST Assessment Noted Time PHQ-9 Depression Total Score: 9 06/25/20 24 11:14 AM EST PHQ-2 Depression Total Score: 1 06/25/20 24 11:14 AM EST documented as of this encounter Care Teams Resident Director Relationship Specialty Start Date End Date Adriel Ma MD PCP - General Family Medicine 01/10/23 Self-Referred, Patient 01/10/23 Dipti Alarcon LCSW [address] [place] [address] [email or web address] Size Tester Oncology 06/05/23 Mignon Everett [address] [place] [address] Marilu @[facility] Hydroelectric Plant Electrical Engineer 06/12/23 Aracelis Grajeda, RN [address] [place] [address] RAYMOND@[email or web address]. [facility] Primary Infusion Nurse 07/13/23 Corey Cole MD [address] [place] [address] Hematology [place] [address] [email or web address] Hematology and Oncology 09/05/24 documented as of this encounter Additional Source Comments The information contained in this document represents components of the legal health record. It is not the complete legal health record.[facility]
--- OUTSIDE RECORDS SUMMARY | 2025-06-04 17:50 | XMS_ITS | Encounter Summary ---
Author Organization [facility] Address [address] [facility] [address] [place] [address] Phone Care Team Providers Care Wireless Engineer Name Role Phone Adriel Ma MD Primary Care Provider Self-Referred, Patient Unavailable Unavailab Dipti Anderson [facility] Unavailable [phone] Mignon Everett Unavailable Diego [email or web address]. Aracelis Mckeon RN Unavailable NEREYDA [email or web address].[facility] Corey Cole MD Unavailable [phone] Encounter Details Date Type Department Care Team (Late st Contact Info) Description 06/27/2024 Procedure Pass [facility] L2 PRU [address] [place] [address] Social History Tobacco Use Types Packs/Day Years [...] 7:10 AM EDT Blood Draw Laboratory Services, [address], 2nd [place] [address] Ary Rm MD [address] [place] [address] [facility], Floor 7 [place] [address] Sharmin@[facility] 10/16/2025 8:00 AM EDT Office Visit [facility], Division of Hematologic Oncology, [address], 7th [place] [address] Ary Rm MD [address] [place] [address] [facility], Floor [address] [place] [address] Sharmin@[facility] documented as of this encounter Visit Diagnoses Not on filedocumented in this encounter Additional Health Concerns Infection Onset Date Last Indicated Resolved Time CoV-Risk Comment:Per note documentation 08/16/2024 08/16/2024 6:31 PM EST Assessment Noted Time PHQ-9 Depression Total Score: 9 06/25/20 24 11:14 AM EST PHQ-2 Depression Total Score: 1 06/25/20 24 11:14 AM EST documented as of this encounter Care Teams Wireless Engineer Relationship Specialty Start Date End Date Adriel Ma MD PCP - General Family Medicine 01/10/23 Self-Referred, Patient 01/10/23 Dipti Alarcon DIGITAL MARKETER [address] [place] [address] [email or web address] Wood Crafter Oncology 06/05/23 Mignon Everett [address] [place] [address] Marilu @[facility] Sanitary Chemist 06/12/23 Aracelis Grajeda, RN [address] [place] [address] RAYMOND@[facility]. [facility] Primary Infusion Nurse 07/13/23 Corey Cole MD [address] [place] [address] Hematology [place] [address] [email or web address] Hematology and Oncology 09/05/24 documented as of this encounter Additional Source Comments The information contained in this document represents components of the legal health record. It is not the complete legal health record.[facility]
--- OUTSIDE RECORDS SUMMARY | 2025-06-04 17:50 | XMS_ITS | Encounter Summary ---
Author Organization [facility] Address [address] [facility] [address] [place] [address] Phone Care Team Providers Care Ssds Mk 2 Advanced Operator Name Role Phone Adriel Ma MD Primary Care Provider Self-Referred, Patient Unavailable Unavailab Dipti Anderson [facility] Unavailable [phone] Mignon Everett Unavailable Diego [email or web address]. Aracelis Mckeon RN Unavailable NEREYDA VIERA@[email or web address].[facility] Corey Cole MD Unavailable [phone] Encounter Details Date Type Department Care Team (Late st Contact Info) Description 04/24/2023 Procedure Pass [facility] Echocardiography [address] [place] [address] Social History Tobacco Use Types Packs/Day Years [...] 7:10 AM EDT Blood Draw Laboratory Services, [address], 2nd [place] [address] Ary Rm MD [address] [place] [address] Myeloma Clinic, Floor 7 [place] [address] Sharmin@[email or web address] 10/16/2025 8:00 AM EDT Office Visit [facility], Division of Hematologic Oncology, [address], 7th [place] [address] Ary Rm MD [address] [place] [address] Myeloma Clinic, Floor 7 [place] [address] Sharmin@[facility] documented as of this encounter Visit Diagnoses Not on filedocumented in this encounter Additional Health Concerns Infection Onset Date Last Indicated Resolved Time CoV-Risk Comment:Per note documentation 07/23/2023 07/23/2023 3 10:25 PM EST CoV-Risk Comment:Per note documentation 08/16/2024 08/16/2024 5 6:31 PM EST documented as of this encounter Care Teams Ssds Mk 2 Advanced Operator Relationship Specialty Start Date End Date Adriel Ma MD PCP - General Family Medicine 01/10/23 Self-Referred, Patient 01/10/23 Dipti Alarcon, SUMAYA [address] [place] [address] [email or web address] Government Relations Analyst Oncology 06/05/23 Mignon Everett [address] [place] [address] Marilu @[facility] Hip Hop Dance Instructor 06/12/23 Aracelis Grajeda, ANITRA [address] [place] [address] RAYMOND@[facility]. [facility] Primary Infusion Nurse 07/13/23 Corey Cole MD [address] [place] [address] [place]ology [place] [address] [email or web address] Hematology and Oncology 09/05/24 documented as of this encounter Additional Source Comments The information contained in this document represents components of the legal health record. It is not the complete legal health record.[facility]
--- OUTSIDE RECORDS SUMMARY | 2025-06-04 17:50 | XMS_ITS | Encounter Summary ---
Author Organization [facility] Address [address] [facility] [address] [place] [address] Phone Care Team Providers Care Assembler Molded Frames Name Role Phone Adriel Ma MD Primary Care Provider Self-Referred, Patient Unavailable Unavailab nadege Alarcon Diptitimmy Pichardo [facility] Unavailable [phone] Mignon Everett Unavailable Diego [email or web address]. Aracelis Mckeon RN Unavailable NEREYDA [email or web address] Corey Cole MD Unavailable [phone] Encounter Details Date Type Department Care Team (Late st Contact Info) Description 08/09/2024 Documentation [facility], Division of Hematologic Oncology, [facility] [facility] [employer] [facility] [place] [address] [place] [address], 7th [place] [address] Madyson Jo, RN [address] [place] [address] [email or web address] Social History Tobacco Use Types [...] 7:10 AM EDT Blood Draw Laboratory Services, [address], 2nd [place] [address] Ary Rm MD [address] [place] [address] Myeloma Clinic, Floor 7 [place] [address] [email or web address] 10/16/2025 8:00 AM EDT Office Visit [facility] for Multiple Myeloma, Division of Hematologic Oncology, [facility] [address], 7th [place] [address] Ary Rm MD [address] [place] [address] Myeloma Clinic, Floor 7 [place] [address] Sharmin@[email or web address] documented as of this encounter Visit Diagnoses Not on filedocumented in this encounter Additional Health Concerns Infection Onset Date Last Indicated Resolved Time CoV-Risk Comment:Per note documentation 08/16/2024 08/16/2024 6:31 PM EST Assessment Noted Time PHQ-9 Depression Total Score: 9 06/25/20 24 11:14 AM EST PHQ-2 Depression Total Score: 1 06/25/20 24 11:14 AM EST documented as of this encounter Care Teams Assembler Molded Frames Relationship Specialty Start Date End Date Adriel Ma MD PCP - General Family Medicine 01/10/23 Self-Referred, Patient 01/10/23 Dipti Alarcon LCSW [address] [place] [address] [email or web address] Varnish Maker Oncology 06/05/23 Mignon Everett [address] [place] [address] Marilu @[facility] Bulk Materials Handling Plant Operator 06/12/23 Aracelis Grajeda, RN [address] [place] [address] RAYMOND@[email or web address]. [facility] Primary Infusion Nurse 07/13/23 Corey Cole MD [address] [place] [address] Hematology [place] [address] [email or web address] Hematology and Oncology 09/05/24 documented as of this encounter Additional Source Comments The information contained in this document represents components of the legal health record. It is not the complete legal health record.[facility]
--- OUTSIDE RECORDS SUMMARY | 2025-06-04 17:50 | XMS_ITS | Encounter Summary ---
Author Organization [facility] Address [address] [facility] [address] [place] [address] Phone Care Team Providers Care School Bus Dispatcher Name Role Phone Adriel Ma MD Primary Care Provider Self-Referred, Patient Unavailable Unavailab Ditpi Anderson [facility] Unavailable [phone] Mignon Everett Unavailable Diego [email or web address] Aracelis Mckeon RN Unavailable NEREYDA [email or web address].[facility] Corey Cole MD Unavailable [phone] Encounter Details Date Type Department Care Team (Late st Contact Info) Description 06/01/2023 Procedure Pass [facility] L2 PRU [address] [place] [address] Social History Tobacco Use Types Packs/Day Years [...] 7:10 AM EDT Blood Draw Laboratory Services, [address], 2nd [place] [address] Ary Rm MD [address] [place] [address] Myeloma Clinic, Floor 7 [place] [address] Sharmin@[email or web address] 10/16/2025 8:00 AM EDT Office Visit [facility], Division of Hematologic Oncology, [address], 7th [place] [address] Ary Rm MD [address] [place] [address] Myeloma Clinic, Floor 7 [place] [address] Sharmin@[facility] documented as of this encounter Visit Diagnoses Not on filedocumented in this encounter Additional Health Concerns Infection Onset Date Last Indicated Resolved Time CoV-Risk Comment:Per note documentation 07/23/2023 07/23/2023 3 10:25 PM EST CoV-Risk Comment:Per note documentation 08/16/2024 08/16/2024 5 6:31 PM EST documented as of this encounter Care Teams School Bus Dispatcher Relationship Specialty Start Date End Date Adriel Ma MD PCP - General Family Medicine 01/10/23 Self-Referred, Patient 01/10/23 Dipti Alarcon, MANAGER RENEWABLE ENERGY [address] [place] [address] [email or web address] Procurement Internship Oncology 06/05/23 Mignon Everett [address] [place] [address] Marilu @[facility] [employer] Chicken [employer] Fish 06/12/23 Aracelis Grajeda, ANITRA [address] [place] [address] RAYMOND@[email or web address]. [facility] Primary Infusion Nurse 07/13/23 Corey Cole MD [address] [place] [address] [place] [address] [email or web address] Hematology and Oncology 09/05/24 documented as of this encounter Additional Source Comments The information contained in this document represents components of the legal health record. It is not the complete legal health record.[facility]
--- OUTSIDE RECORDS SUMMARY | 2025-06-04 17:50 | XMS_ITS | Clinical Summary ---
Author Organization [facility] Address [address] [place] [address] Care Team Providers Care Board Mixer Tender Name Role Phone Adriel Ma MD Primary Care Provider [phone] Allergies No known active allergies Medications acyclovir (ZOVIRAX) 400 MG tablet Take 400 mg by mouth 12/22/2022 Active citalopram (CeleXA) 20 MG tablet Take 20 mg by mouth 1 (one) time each day For 30 days 12/09/2022 Active famotidine (PEPCID) 20 MG tablet Take 20 mg by mouth 12/22/2022 Active oxyCODONE-acetam inophen (PERCOCET) 5-325 MG per tablet TAKE 1 TABLET BY MOUTH TWICE A DAY NEEDED FOR PAIN FOR 10 DAYS 12/22/2022 Active prochlorperazine (COMPAZINE) 10 MG tablet 12/23/2022 Active ondansetron (ZOFRAN) 8 MG tablet 12/23/2022 Active meloxicam (MOBIC) 15 MG tablet Take 15 mg by mouth 1 (one) time each day For 30 days 12/12/2022 Active Active Problems Problem Noted Date Diagnosed Date Obese class II 12/28/2022 Immunizations Immunization Administration Dates Next Due Moderna SARS-COV-2 06/04/2021,05/07/2021 Family History Medical History Relation Comments Heart disease Mother Relation Status Comments Mother Social History Tobacco Use Types Packs/Day Years Used Date Smoking Tobacco: Former Cigarettes Passive Smoke Exposure: Never Smokeless Tobacco: Never Tobacco Cessation:Counseling Given: No Alcohol Use Standard Drinks/Week Comments Never 0 (1 standard drink = 0.6 oz pur e alcohol) Sex and Gender Information Value Date Recorded Sex Assigned at Not on file Legal Sex Male 9:04 AM EDT Gender Identity Not on file Sexual Orientation Not on file Last Filed Vital Signs Vital Sign Reading Time Taken Comments Blood Pressure 128/82 12/28/2022 1:43 PM EDT Pulse 90 12/28/2022 1:43 PM EDT Temperature - - Respiratory Rate - - Oxygen Saturation - - Inhaled Oxygen Concentration - - Weight 113 kg (250 lb) 12/28/2022 1:43 PM EDT Height 177.8 cm (5' 10 ) 12/28/2022 1:43 PM EDT Body Mass Index 35.87 12/28/2022 1:43 PM EDT Plan of Treatment Health Maintenance Due Date Last Done Comments Hepatitis B Vaccine (1 of 3 - 19+ 3-dose series) 06/28 Pneumococcal Vaccine: Peds ( 0 to 5 Years) and At-Risk Patients (6 to 49 Years) (1 of 2 - PCV) 1996 Influenza Vaccine (#1) [address] [place] [employer] ([id number]) [facility] [employer] [facility] ([id number]) Care Teams Board Mixer Tender Relationship Specialty Start Date End Date Adriel Ma MD [address] [address] PCP - General Family Medicine 12/19/22
--- OUTSIDE RECORDS SUMMARY | 2025-06-04 17:50 | XMS_ITS | Encounter Summary ---
Author Organization [facility] Address [address] [facility] [address] [place] [address] Phone Care Team Providers Care Hay Sorter Name Role Phone Adriel Ma MD Primary Care Provider Self-Referred, Patient Unavailable Unavailab nadege Alarcon Diptitimmy Pichardo [facility] Unavailable [phone] Mignon Everett Unavailable Diego [email or web address]. Aracelis Mckeon RN Unavailable NEREYDA [email or web address] Corey Cole MD Unavailable [phone] Encounter Details Date Type Department Care Team (Late st Contact Info) Description 06/14/2024 Documentation [facility] Blood Donor Center [address] [facility] 1st [place] [address] Marcy Henry PA-C [address] [facility] [facility] Transfusion Med, [facility] [place] [address] [email or web address] Social History Tobacco Use Types [...] as of this encounter Progress Notes * Marcy Henry PA-C - 06/14/2024 12:01 PM EST Apheresis Collection Suitability Name: Richar Carrington MRN: ?[id number] Indication: ?Conradovsehela Tentative Collection Date: 1?08/21/23 Date of mobilization: N/A Has the donor been tested for evidence of communicable infectious diseases in accordance with FDA/AABB guidelines: ? will draw prior to collection if no results within 30 days ?If female, is the donor surgically sterile? N/A If yes, explain: If female, is the donor older than 54? N/A If female, is the donor post menopausal? N/A HCG: N/A ? Relevant Past Medical History: ?Cardiac (Atrial fibrillation or flutter, sick sinus syndrome, or ventricular arrhythmias, CAD/MT, CHF, HTN, heart valve disease, diastolic dysfunction, peripheral edema). N/A Endocrine (NIDDM/IDDM, thyroid disease, Adrenal disorders, ???). Obesity Heme (Coagulopathy, Anemia, Hemoglobinopathies, ITP/TTP,???). ? N/A Neuro (Cerebrovascular disease-TIA/CVA, Seizure disorders, Migraine headaches). N/A Psychiatric disorders (Mood disorders, Substance Abuse/Dependence???). N/A Pulmonary (Asthma, COPD, Pulmonary Embolism, Interstitial lung disease, Pleural/Mediastinal disorders, Tumor). N/A ?I, the Transfusion Medicine PA, have deemed the above donor to be medically suitable for CAR T-cell collection. The information above was collected from a review of patient records. Marcy Henry PA-C Transfusion Medicine PA [facility] Transfusion Medicine Pager: [phone] documented in this encounter Plan of Treatment Upcoming Encounters Date Type Department Care Team (Late st Contact Info) Description 10/16/2025 7:10 AM EDT Blood Draw Laboratory Services, [facility] [address] [facility], 2nd [place] [address] Ary Rm MD [address] [place] [address] Myeloma Clinic, Floor 7 [place] [address] Sharmin@[facility] 10/16/2025 8:00 AM EDT Office Visit [facility], Division of Hematologic Oncology, [address], 7th [place] [address] Ary Rm MD [address] [place] [address] Myeloma Clinic, Floor 7 [place] [address] Sharmin@[facility] documented as of this encounter Visit Diagnoses Not on filedocumented in this encounter Additional Health Concerns Infection Onset Date Last Indicated Resolved Time CoV-Risk Comment:Per note documentation 08/16/2024 08/16/2024 6:31 PM EST documented as of this encounter Care Teams Hay Sorter Relationship Specialty Start Date End Date Adriel Ma MD PCP - General Family Medicine 01/10/23 Self-Referred, Patient 01/10/23 Dipti Alarcon LCSW [address] [place] [address] [email or web address] Car Body Mechanic Oncology 06/05/23 Mignon Everett [address] [place] [address] Marilu @[facility] Performance Solutions Specialist 06/12/23 Aracelis Grajeda, RN [address] [place] [address] [email or web address]. [facility] Primary Infusion Nurse 07/13/23 Corey Cole MD [address] [place] [address] [place]ematology [place] [address] [email or web address] Hematology and Oncology 09/05/24 documented as of this encounter Additional Source Comments The information contained in this document represents components of the legal health record. It is not the complete legal health record.[facility]
--- OUTSIDE RECORDS SUMMARY | 2025-06-04 17:50 | XMS_ITS | Encounter Summary ---
Author Organization [facility] Address [address] [facility] [address] [place] [address] Phone Care Team Providers Care Suede Cleaner Name Role Phone Adriel Ma MD Primary Care Provider Self-Referred, Patient Unavailable Unavailab nadege Alarcon Diptitimmy Pichardo [facility] Unavailable [phone] Mignon Everett Unavailable Diego [email or web address]. Aracelis Mckeon RN Unavailable NEREYDA [email or web address] Corey Cole MD Unavailable [phone] Encounter Details Date Type Department Care Team (Late st Contact Info) Description 06/15/2023 Documentation [facility] for [facility], Division of Hematologic Oncology, [facility] [place] [address] [facility], 7th [place] [address] Elaine Baker, ANITRA [address] [place] [address] [email or web address] Social History Tobacco Use Types [...] 7:10 AM EDT Blood Draw Laboratory Services, [address], 2nd [place] [address] Ary Rm MD [address] [place] [address] Myeloma Clinic, Floor 7 [place] [address] Sharmin@[email or web address] 10/16/2025 8:00 AM EDT Office Visit [facility], Division of Hematologic Oncology, [address], 7th [place] [address] Ary Rm MD [address] [place] [address] Myeloma Clinic, Floor [address] [place] [address] Sharmin@[email or web address] documented as of this encounter Visit Diagnoses Not on filedocumented in this encounter Additional Health Concerns Infection Onset Date Last Indicated Resolved Time CoV-Risk Comment:Per note documentation 07/23/2023 07/23/2023 3 10:25 PM EST CoV-Risk Comment:Per note documentation 08/16/2024 08/16/2024 5 6:31 PM EST documented as of this encounter Care Teams Suede Cleaner Relationship Specialty Start Date End Date Adriel Ma MD PCP - General Family Medicine 01/10/23 Self-Referred, Patient 01/10/23 Dipti Alarcon, FISHERY DIVISION CHIEF [address] [place] [address] [email or web address] Taxicab Coordinator Oncology 06/05/23 Mignon Everett [address] [place] [address] Marilu @[facility] Wastewater Engineer 06/12/23 Aracelis Grajeda, RN [address] [place] [address] RAYMOND@[email or web address]. [facility] Primary Infusion Nurse 07/13/23 Corey Cole MD [address] [place] [address] [place]ematology [place] [address] [email or web address] Hematology and Oncology 09/05/24 documented as of this encounter Additional Source Comments The information contained in this document represents components of the legal health record. It is not the complete legal health record.[facility]
--- OUTSIDE RECORDS SUMMARY | 2025-06-04 17:50 | XMS_ITS | Encounter Summary ---
Author Organization [facility] Address [address] [facility] [address] [place] [place] [address] Phone Care Team Providers Care Record Librarian Name Role Phone Adriel Ma MD Primary Care Provider Self-Referred, Patient Unavailable Unavailab Dipti Anderson [facility] Unavailable [phone] Mignon Everett Unavailable Diego [email or web address]. Aracelis Mckeon RN Unavailable NEREYDA VIERA@[email or web address].[facility] Corey Cole MD Unavailable [phone] Encounter Details Date Type Department Care Team (Late st Contact Info) Description 08/18/2024 Procedure Pass [facility] Angio Interventional Radiology [address] [place] [address] Social History Tobacco Use Types Packs/Day Years [...] on file 01/10/2023 No 01/10/2023 No 01/10/2023 Food Answer Date Recorded Within the past 6 months we worried whether our food would run out before we got money to buy more. Never True 08/16/2024 Within the past 6 months the food we bought just didn't last and we didn't have enough money to get more. Never True Residential Stability Answer Date Recor ded What is your housing situation today? I have allen sumner 08/16/2024 How many times have you move d in the past 12 months? Zero (I did not move) 08/16/2024 Paying for Meds Answer Date Recorded Do you have trouble paying for medicines? No 08/16/2024 Paying Utility Bills Answer Date Record ed Do you have trouble paying your heating or elect ricity bill? No 08/16/2024 Transportation Answer Date Recorded Has the lack of transportati on kept you from medical appointments or from getting medications? No 08/16/2024 Digital Access Answer Date Recorded No 08/16/2024 Yes 08/16/2024 Do you have reliable internet access at home? Ye s 08/16/2024 Do you have a device (e.g., phone, tablet, computer) with a working camera? Yes 08/16/2024 Intimate Partner Violence Answer Date R ecorded Are you denied basic needs s uch as food, clothing, or medical care? No 08/16/2024 In the past 12 months have y ou been in a relationship with a person who hurts, threatens, or tries to control you? No 08/16/2024 Are you denied basic needs s uch as food, clothing, or medical care? No 08/16/2024 In the past 12 months have y ou been in a relationship with a person who hurts, threatens, or tries to control you? No 08/16/2024 Sex and Gender Information Value Date Recorded [...] 7:10 AM EDT Blood Draw Laboratory Services, [facility] [address] [facility], 2nd [place] [address] Ary Rm MD [address] [place] [address] Clinic, Floor 7 [place] [address] Sharmin@[email or web address] 10/16/2025 8:00 AM EDT Office Visit [facility], Division of Hematologic Oncology, [facility] [address] [place] [address], 7th [place] [address] Ary Rm MD [address] [place] [address] Myeloma Clinic, Floor 7 [place] [address] Sharmin@[email or web address] documented as of this encounter Visit Diagnoses Not on filedocumented in this encounter Additional Health Concerns Assessment Noted Time PHQ-9 Depression Total Score: 9 06/25/20 11:14 AM EST PHQ-2 Depression Total Score: 1 06/25/20 11:14 AM EST documented as of this encounter Care Teams Record Librarian Relationship Specialty Start Date End Date Adriel Ma MD PCP - General Family Medicine 01/10/23 Self-Referred, Patient 01/10/23 Dipti Alarcon, MEDART OPERATOR [address] [place] [address] [email or web address] Information Security Oncology 06/05/23 Mignon Everett [address] [place] [address] Marilu @[facility] Manager Managing 06/12/23 Aracelis Grajeda, ANITRA [address] [place] [address] RAYMOND@[facility]. [facility] Primary Infusion Nurse 07/13/23 Corey Cole MD [address] [place] [address] [place] [address] [email or web address] Hematology and Oncology 09/05/24 documented as of this encounter Additional Source Comments The information contained in this document represents components of the legal health record. It is not the complete legal health record.[facility]
--- OUTSIDE RECORDS SUMMARY | 2025-06-04 17:51 | XMS_ITS | Clinical Summary ---
Author Organization [facility] Address [address] [place] [phone] Phone Care Team Providers Care Senior Patient Account Representative Name Role Phone Adriel Ma MD Primary Care Provider Self-Referred, Patient Unavailable Unavailab Dipti Anderson [facility] Unavailable [phone] Mignon Everett Unavailable [email or web address] Aracelis Mckeon RN Unavailable [email or web address] [email or web address] Corey Cole MD Unavailable [phone] Allergies Active Allergy Reactions Criticality Noted Date Comments Cefepime Maculopapular Rash Low 08/16/2024 Rash to chest and back noted ~12 hours after IV cefepime administration. Also started allopurinol and bactrim 7 days prior to rash onset. Medications multivitamin with folic acid (DAILY-[place], WITH FOLIC ACID,) 400 mcg tablet take 1 tablet by mouth every day 30 tablet 6 4 Active prochlorperazin e (COMPAZINE) 10 MG tabletIndicatio ns:Multiple myeloma in relapse Take 1 tablet (10 mg total) by mouth every 6 (six) hours as needed (breakthrough nausea). Take 1 tablet by mouth every 6 hours as needed for nausea (for breakthrough nausea). 20 tablet 1 4 Active loratadine (CLARITIN) 10 mg tablet Take 1 tablet (10 mg total) by mouth daily as needed. 5 Active melatonin 3 mg Tab Take 1-2 tablets (3-6 mg total) by mouth nightly at bedtime as needed. 5 Active oxyCODONE HCl 10 mg TabIndications: Multiple myeloma not having achieved remission Take 1 tablet (10 mg total) by mouth every 4 (four) hours as needed (Bone pain). 40 tablet 5 Active acyclovir (ZOVIRAX) 400 MG tabletIndicatio ns:Multiple myeloma not having achieved remission Take 1 tablet (400 mg total) by mouth 3 (three) times a day. Start on day of cellular infusion. 90 tablet 11 5 08/31/19 26 Active sulfamethoxazol e-trimethoprim (BACTRIM DS) 800-160 mg per tabletIndicatio ns:Multiple myeloma not having achieved remission Take 1 tablet (160 mg of trimethoprim total) by mouth as directed. 1 tablet Monday, Monday and Monday. 40 tablet 3 5 Active aspirin 81 MG EC tabletIndicatio ns:Multiple myeloma not having achieved remission TAKE 1 TABLET BY MOUTH EVERY DAY 90 tablet 3 5 Active LIDOCAINE PAIN RELIEF 4 % APPLY 1 PATCH TOPICALLY TO THE SKIN TWICE DAILY FOR 10 DAYS. REMOVE OLD PATCH BEFORE APPLYING NEW PATCH. 4 Active pomalidomide (POMALYST) 4 mg capsule Take 4 mg by mouth. 5 Active Active Problems Patient Care Coordination No te Formatting of this note migh t be different from the original. 18 month vaccines done on 04/17/25 CAR T VS To Call For: Temp: >= 100.4 HR: <60 or >115 SBP: <95 or > 165 DBP: <55 or >95 SPO2: <93%RA Problem Noted Date Diagnosed Date Fever 08/16/2024 Assessment & Plan (08/17/2024 11:25 AM EST): 24hr Tmax 103.3. Not neutropenic, not on abx. Likely due to #CRS. Presented to the ED with fever of 102.3 and diaphoresis at home on D+8 of outpatient Carvykti. Fever defervesced with Tylenol prior to arrival to the ED. On presentation, patient was tachycardic to 140 with slightly soft BP of 105/65. No localizing signs or symptoms. Labs significant for lactate 2.4, given 1L LR with normalization to 2.0, and mild KAMILAH (resolved). CXR with no acute abnormality. UA bland, RVP negative. Procal rising, up to 0.81 on 08/17. Given 1x dose of IV cefepime and vanc on presentation to ED, though not neutropenic so did not continue. Persistently febrile and tachycardic, but hemodynamically stable since admission. Given timing with CAR-T and rising inflammatory markers, suspect fevers due to CRS, but also considering drug fevers with new onset of #rash. Overall, fever curve improving on D+9. -- F/u all pending culture data -- Monitor procal daily until fevers stop; jenkins-scan and broaden abx if procal >7 -- Monitor daily coags with fibrinogen -- Mangement as in #CRS Abx: Cefepime x1 08/16/24 Vanc x1 08/16/24 Pending studies: -- Bcx 08/16 (x2): NGTD Assessment & Plan (08/16/2024 3:53 PM EST): 24hr Tmax 103.3. Not neutropenic, not on abx. Likely due to #CRS. Presented to the ED with fever of 102.3 and diaphoresis at home on D+8 of outpatient Carvykti. Fever defervesced with Tylenol prior to arrival to the ED. On presentation, patient was tachycardic to 140 with slightly soft BP of 105/65. No localizing signs or symptoms. Labs significant for lactate 2.4, given 1L LR with normalization to 2.0, and mild KAMILAH. CXR with no acute abnormality. UA bland, RVP negative. Procal elevated to 0.59. Given 1x dose of IV cefepime and vanc on presentation to ED, though not neutropenic so did not continue. Persistently febrile and tachycardic, but hemodynamically stable since admission. Given timing with CAR-T and rising inflammatory markers, suspect fevers due to CRS, but also considering drug fevers with new onset of #rash. -- F/u all pending culture data -- Monitor procal daily until fevers stop; jenkins-scan and broaden abx if procal >7 -- Monitor daily coags with fibrinogen -- Mangement as in #CRS Abx: Cefepime x1 08/16/24 Vanc x1 08/16/24 Pending studies: -- Bcx 08/16 (x2): NGTD Assessment & Plan (08/16/2024 7:53 AM EST): Afebrile. Last fever at home on 08/16/24. Not neutropenic. Likely due to #CRS. Presented to the ED with fever of 102.3 and diaphoresis at home on D+8 of outpatient Caryk. Fever defervesced with Tylenol prior to arrival to the ED. On presentation, patient was tachycardic to 140 with slightly soft BP of 105/65. No localizing signs or symptoms. Labs significant for lactate 2.4. CXR with no acute abnormality. IVF bolus given. -- F/u all pending culture data -- F/u ERVP -- Obtain U/A ? Pending studies: -- Bcx 08/16 (x2): NGTD Cytokine release syndrome 08/16/2024 Assessment & Plan (08/17/2024 11:25 AM EST): Cosmo - Current grade: 0 Highest grade: 1 ASTCT - Current grade: 0 Highest grade: 1 Toci/Dex to date: N/A Spiked first fever at home on D+8 of outpatient Caryk. Presented to ED and received IV cefepime/vanc. Generally feeling poorly, but no localizing signs of symptoms for infection. Inflammatory markers rising initially, 1L-6 now coming down. Given timing with CAR-T therapy, suspect CRS driving fevers, also considering concurrent drug fevers as in #rash. -- Infectious monitoring/management as in #fever -- Monitor daily CRP, IL-6, ferritin until day +14 or later if still febrile, then transition to MWF monitoring -- Check TTE 7-10 days from first fever if gr2 CRS or persistent gr1 (or prior to discharge) -- If HD instability, page inpatient attending to discuss toci/dex -- If grade 2 or higher, continuous O2 monitoring and telemetry, update outpatient team with daily email Assessment & Plan (08/16/2024 3:53 PM EST): Cosmo - Current grade: 1 Highest grade: 1 ASTCT - Current grade: 1 Highest grade: 1 Toci/Dex to date: N/A Spiked first fever at home on D+8 of outpatient Carvykti. Presented to ED and received IV cefepime/vanc. Generally feeling poorly, but no localizing signs of symptoms for infection. Inflammatory markers rising. Given timing with CAR-T therapy, suspect CRS driving fevers, but also considering drug fevers as in #rash. -- Infectious monitoring/management as in #fever -- Monitor daily CRP, IL-6, ferritin until day +14 or later if still febrile, then transition to MWF monitoring -- Check TTE 7-10 days from first fever if gr2 CRS or persistent gr1 (or prior to discharge) -- If HD instability, page inpatient attending to discuss toci/dex -- If grade 2 or higher, continuous O2 monitoring and telemetry, update outpatient team with daily email Bicytopenia 08/16/2024 Assessment & Plan (08/17/2024 11:25 AM EST): Anemia and thrombocytopenia present on admission, suspect due to recent LD chemo. -- Transfuse for Hct < 21 and Plt < 10 Assessment & Plan (08/16/2024 3:53 PM EST): Anemia and thrombocytopenia present on admission, suspect due to recent LD chemo. -- Transfuse for Hct < 21 and Plt < 10 Febrile neutropenia 07/24/2023 Assessment & Plan (07/25/2023 9:10 AM EST): ACTIVE Afebrile in ED. 24h Tmax 101.7 at home. Initially neutropenic, on cefepime; cefepime stopped 07/25 iso resolution of neutropenia. Unknown source. Hx: Pt presenting to the ED from outpatient with <1 day body aches, #CRENSHAW and neutropenic fever (101.7) at home on D+10 of outpatient autoSCT. Upon presentation to ED, patient afebrile and otherwise HDS. No other localizing s/s. HCT without acute abnormality. CXR without acute abnormality. EKG with sinus tachycardia. Pancultured and switched levaquin ppx to cefepime/vanc. Received 1L LR in ED with improvement in sinus tach. Vanco discontinued with no evidence of SSTI on exam, no HD instability. No infectious source identified thus far, now admitted through count recovery. Remains HDS and well appearing. Ddx fevers from engraftment vs. Infectious source. -- Discontinue vanc -- Discontinue cefepime 07/25 iso resolution of neutropenia -- IVF and APAP PRN -- Will plan to discharge 07/26 if sustained ANC count recovery; will need Onc f/u within a week Antimicrobials: Vancomycin 07/23-07/24 Cefepime 07/23-07/25 Micro: Bcx x2 07/23 NGSF EVRP - paraflu, adenovirus, hMPV, rhinovirus G/G 07/23 Chronic health problem 07/24/2023 Assessment & Plan (08/17/2024 11:25 AM EST): #Cancer-Related Pain Chronic bony pain due to myeloma, managed at home with oxycodone and claritin. Per pt has been under good control recently. -- Continue oxycodone 10mg q3-4h PRN -- Continue claritin daily PRN #Insomnia -- Continue trazadone 100mg nightly PRN #Bone Health Zometa on hold until D+90. Assessment & Plan (08/16/2024 3:53 PM EST): #Cancer-Related Pain Chronic bony pain due to myeloma, managed at home with oxycodone and claritin. Per pt has been under good control recently. -- Continue oxycodone 10mg q3-4h PRN -- Continue claritin daily PRN #Insomnia -- Continue trazadone 100mg nightly PRN #Bone Health Zometa on hold until D+90. Assessment & Plan (07/24/2023 10:20 AM EST): SECONDARY #Cancer related pain Pain d/t previous lytic lesions. 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 Managed at home with oxycodone PRN. -- Continue oxy 10mg q4h PRN #GERD Pepcid 20mg BID continued on admission. Headache 07/24/2023 Assessment & Plan (07/24/2023 9:05 AM EST): ACTIVE C/o headaches at home. Now admitted with #F+N, infectious work up as in separate section. Otherwise HDS. No neuro deficits on exam. Head CT 07/23 without acute abnormality. -- Continue oxycodone 10mg q4h PRN -- Consider migraine cocktail Pancytopenia 07/24/2023 Assessment & Plan (07/25/2023 9:06 AM EST): ACTIVE Pancytopenic on admission d/t recent conditioning chemotherapy. Neutropenic since 07/18, resolved on 07/25. Notably became flushed and tachycardic during PLT transfusion 07/24, otherwise HDS, previously tolerated PLT transfusion without issue, platelets stopped and transfusion reaction workup sent. 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 Has received multiple lines of treatment including auto SCT in Jul 2023 with disease progression occurring in summer 2023. Received bridging therapy with high-dose Cytoxan prior to CAR-T, then lymphodepletion with Fludarabine and Cyclophosphamide, and Neulasta on 08/05/2024 as an outpatient. Received anti-BCMA CAR-T cells with cilta-deon product as an outpatient on D0 = 08/08/2024 without issue. Now admitted on D+8 with #fever. Received allopurinol through D+7. Primary Oncologist: Ary Rm MD Day 0 = 08/08/2024 -- Acyclovir, Bactrim ppx for 6 months post infusion -- Levofloxacin ppx start after D0 once ANC <500 to continue until ANC > 500 -- Q8hrs neuro check with ICE score daily. -- Anterior TCDs daily if gr2 or higher neurotoxicity to eval for vasospasm -- Page inpatient attending if concern for CRS/neurotoxicity. -- Discharge day +10 if no active toxicity. Outpt follow up within one week of discharge Assessment & Plan (08/16/2024 4:04 PM EST): Originally diagnosed with Herricks LC Multiple Myeloma in December 2022 after presenting with on-going rib/chest wall and shoulder pain 3 months prior with labs notable for KAMILAH, anemia, and hypercalcemia. Has received multiple lines of treatment including auto SCT in Jul 2023 with disease progression occurring in summer 2023. Received bridging therapy with high-dose Cytoxan prior to CAR-T, then lymphodepletion with Fludarabine and Cyclophosphamide, and Neulasta on 08/05/2024 as an outpatient. Received anti-BCMA CAR-T cells with cilta-deon product as an outpatient on D0 = 08/08/2024 without issue. Now admitted on D+8 with #fever. Received allopurinol through D+7. Primary Oncologist: Ary Rm MD Day 0 = 08/08/2024 -- Acyclovir, Bactrim ppx for 6 months post infusion -- Levofloxacin ppx start after D0 once ANC <500 to continue until ANC > 500 -- Q8hrs neuro check with ICE score daily. -- Anterior TCDs daily if gr2 or higher neurotoxicity to eval for vasospasm -- Page inpatient attending if concern for CRS/neurotoxicity. -- Discharge day +10 if no active toxicity. Outpt follow up within one week of discharge Assessment & Plan (07/25/2023 9:12 AM EST): ACTIVE First presented with shoulder, chest, and rib pain in September 2022. Found to have lytic lesions on chest imaging as well as KAMILAH, anemia, and hypercalcemia. Received CyBorD followed by outpatient melphalan autoSCT (D0=07/13/23). Toxo negative. Conditioning regimen consisted of Melphalan 100 mg/m2 IV daily on days -2 and - 1. On day 0=07/13/23, cell dose = 5.46 x 10*6 CD34+cells/kg will be infused. Patient used cryotherapy on days -2 and day -1 for mucoprotection. Now admitted with #F+N. Primary Onc: Ary Rm MD; Dana Haney MD ([place], [place]); Dr. Monique ([place], [place]) -- Pre-transplant vitamin D level was 25. Given level <30, start dual therapy with ergocalciferol 50,000 units weekly for 8 weeks. On discharge add cholecalciferol 2000 units daily. Class 2 obesity 12/28/2022 01/26/2023 Resolved Problems Problem Noted Date Diagnosed Date Resolved Date KAMILAH (acute kidney injury) 08/16/2024 Assessment & Plan (08/17/2024 11:25 AM EST): Found to have acute bump in Cr from 0.79 to 1.09 on admission with onset of fever. Electrolytes WNL, lactate elevated to 2.4, normalized with 1L IVF. Cr normalized 08/17 without further intervention. Suspect mild KAMILAH due to CRS and decreased PO intake surrounding CAR-T therapy. Assessment & Plan (08/16/2024 3:53 PM EST): Found to have acute bump in Cr from 0.79 to 1.09 on admission with onset of fever. Electrolytes WNL, lactate elevated to 2.4, normalized with 1L IVF. Suspect mild KAMILAH due to CRS and decreased PO intake surrounding CAR-T therapy. -- Monitor daily BMP Morbilliform rash 08/16/2024 08/17/2024 Assessment & Plan (08/17/2024 11:25 AM EST): Patient noted to have new maculopapular, morbiliform rash to entire surface of chest, abdomen, and back. Asymptomatic, non-pruritic, no oral symptoms suggesting anaphylactic reaction. Recently received IV cefepime and vanc ~12 hrs prior to rash onset. Also started on allopurinol and bactrim 7 days prior to rash onset. Discontinued antibiotics and allpurinol, remains on Bactrim for now. Image from 08/16 in media tab. Rash resolved after 1 application of clobetasol 0.05% cream. Suspect drug reaction from one of the above agents, most likely cefepime given timing of onset and quick resolution after stopping abx. -- Discontinue standing clobetasol, available at bedside if rash returns Assessment & Plan (08/16/2024 4:04 PM EST): Patient noted to have new maculopapular, morbiliform rash to entire surface of chest, abdomen, and back. Asymptomatic, non-pruritic, no oral symptoms suggesting anaphylactic reaction. Recently received IV cefepime and vanc ~12 hrs prior to rash onset. Also started on allopurinol and bactrim 7 days prior to rash onset. Suspect drug reaction from one of the above agents, most likely cefepime. Discontinued antibiotics and allpurinol, remains on Bactrim for now. Image from 08/16 in media tab. -- Consider switching Bactrim to mepron if rash persists -- Clobetasol 0.05% cream BID to affected areas for maximum 14 days (started 08/16) Encounters Date Type Department Care Team Description 04/17/2025 9:30 AM EDT Infusion Infusion Therapy Services [place] [address], [facility] [address], [address] [place] [address] Ary Rm MD Abusheery, Katherine H, RN Autologous donor of stem cells (Primary Dx); Multiple myeloma, remission status unspecified 04/17/2025 8:00 AM EDT Office Visit [facility], Division of Hematologic Oncology, [facility] [address] [place] [address] Ary Rm MD Multiple myeloma, remission status unspecified (Primary Dx) from Last 3 Months Immunizations Immunization Administration Dates Next Due COVID-19 (Pre-05/29) Moderna Vaccine, mRNA, PF 06/04/2021,05/07/2021 Dtap, 5 Pertussis Antigens 04/17/2025,10/17/2024 ,03/27/2024 Hep A-Hep B 04/17/2025,10/17/2024 Hepatitis B Adult 01/09/2025 Hib,PRP-T 04/17/2025,10/17/2024,03/27/2024 IPV 04/17/2025,10/17/2024,03/27/2024 Meningococcal MCV4O 01/09/2025,10/17/2024 Pneumococcal conjugate PCV15 01/03/2023 Pneumococcal conjugate PCV20 03/27/2024 Pneumococcal conjugate PCV21 04/17/2025,10/18/19 25 Pneumococcal polysaccharide PPSV23 03/03/2023 RSV Vaccine (monovalent, adjuvanted) 10/05/2023 Zoster recombinant 10/17/2024,03/27/2024 Family History Medical History Relation Comments Kidney disease Father Heart disease Mother Relation Status Comments Father Mother Social History Tobacco Use Types Packs/Day Years Used Date Smoking Tobacco: Former Cigarettes 1 30 0 10/03/1992 - 10/03/2022 Smokeless Tobacco: Never Tobacco Cessation:Counseling Given: Not Answered Alcohol Use Standard Drinks/Week Comments Yes 1 [...] your housing situation today? I have allen sing 08/16/2024 How many times have you move [...] Orientation Straight 01/10/2023 2: 44 PM EDT Last Filed Vital Signs Vital Sign Reading Time Taken Comments Blood Pressure 134/65 04/17/2025 7:18 AM EDT Pulse 85 04/17/2025 7:18 AM EDT Temperature 36.3 C (97.4 F) 04/17/2025 7:18 AM EDT Respiratory Rate 16 04/17/2025 7:18 AM EDT Oxygen Saturation 96% 04/17/2025 7:18 AM EDT Inhaled Oxygen Concentration 32.2% 10:10 AM EST Weight 123.1 kg (271 lb 6.2 oz) 04/17/2025 7:18 AM EDT Height 173.5 cm (5' 8.31 ) 04/17/2025 7:18 AM ED T Body Mass Index 40.89 04/17/2025 7:18 AM EDT Plan of Treatment Upcoming Encounters Date Type Department Care Team (Late st Contact Info) Description 10/16/2025 7:10 AM EDT Blood Draw Laboratory Services, [facility] [address]nd [place] [address] Ary Rm MD [address] [place] [address] Myeloma Clinic, Floor [address] [place] [address] [email or web address] 10/16/2025 8:00 AM EDT Office Visit [facility], Division of Hematologic Oncology, [facility] [address] [place] [address], [address] [place] [address] Ary Rm MD [address] [facility] Myeloma Clinic, Floor [address] [place] [address] [email or web address] Health Maintenance Due Date Last Done Comments Adult Td,Tdap Booster 1977 LIPID PANEL 1977 HEPATITIS C SCREENING 1995 HIV ONE-TIME SCREENING (18-65 YEARS) 1995 COLOGUARD 2022 COLONOSCOPY 2022 COLORECTAL CANCER SCREENING 2022 FIT TEST 2022 FOBT 2022 SIGMOIDOSCOPY 2022 VIRTUAL COLONOSCOPY 2022 INFLUENZA VACCINE (#1) 2025 10/09/2023 COVID-19 VACCINE ( season) 2025 10/09/2023, 06/04/2021, 05/07/2021 SMOKING Hx and SMOKELESS TOBACCO SCREENING 06/19/2025 06/19/2024 DEPRESSION SCREENING 06/25/2025 06/25/2024, 06/25/20 24 SCREENING FOR DIABETES 04/17/2028 04/17/2025 MENINGOCOCCAL VACCINES (ACWY) Aged Out 01/09/2025, 10/17/2024 No longer eligibl e based on patient's age to complete this topic HEPATITIS A VACCINES Aged Out 04/17/2025, 10/18/19 25 No longer eligible based on patient's age to complete this topic HIB VACCINES Completed 04/17/2025, 10/05, 03/27/2024 PNEUMOCOCCAL VACCINES (0-49 years) Completed 04/17/2025, 10/17/2024, 03/27/2024, Additional history exists MENINGOCOCCAL VACCINES (B) Aged Out N o longer eligible based on patient's age to complete this topic Medical Devices Not on file Procedures Procedure Name Priority Date/Time Associated Diagnosis Comments FREE LIGHT CHAINS, SERUM Routine 04/17/2025 7:15 AM EDT Multiple myeloma, remission status unspecified SPEP PANEL WITH IMMUNOFIXATION Routine 04/17/2025 7:15 AM EDT Multiple myeloma, remission status unspecified COMPREHENSIVE METABOLIC PANEL Routine 04/17/2025 7:15 AM EDT Multiple myeloma, remission status unspecified HC BLOOD COUNT COMPLETE AUTO&AUTO DIFRNTL WBC Routine 04/17/2025 7:15 AM EDT Multiple myeloma, remission status unspecified SERUM PROTEIN ELECTROPHORESIS Routine 04/17/2025 12:00 AM EDT from Last 3 Months Results * (ABNORMAL) SPEP panel with immunofixation (04/17/2025 7:15 AM EDT) TOTAL PROTEIN 6.0(L) 6.4 - 8.3 g/dL [facility] SPEP SEE PATHOLOGY REPORT [facility] IMMUNOFIXATION SEE PATHOLOGY REPORT [facility] IgA 22(L) 70 - 400 mg/dL [facility] IMMUNOGLOBULIN G 615(L) 700 - 1,600 mg/dL [facility] IMMUNOGLOBULIN M <15(L) 40 - 230 mg/dL [facility] Blood 04/17/2025 7:15 AM EDT 04/17/2025 7:22 AM EDT us Ary Rm MD LAB BLOOD ORDERABLES Final Resu lt [facility] [address] [place] [id number] * (ABNORMAL) Comprehensive metabolic panel (04/17/2025 7:15 AM EDT) SODIUM 143 136 - 145 mmol/L [facility] LIC# [id number] POTASSIUM 4.1 3.4 - 5.1 mmol/L [facility] LIC# [id number] CHLORIDE 107 98 - 107 mmol/L [facility] LIC# [id number] CO2 26 22 - 31 mmol/L [facility] LIC# [id number] BUN 21 6 - 23 mg/dL [facility] LIC# [id number] CREATININE 0.84 0.50 - 1.20 mg/dL [facility] LIC# [id number] GLUCOSE 104(H) 70 - 100 mg/dL [facility] LIC# [id number] ALBUMIN 4.1 3.5 - 5.2 g/dL [facility] LIC# [id number] TOTAL PROTEIN 6.2(L) 6.4 - 8.3 g/dL [facility] LIC# [id number] CALCIUM 9.2 8.8 - 10.7 mg/dL [facility] LIC# [id number] ALKALINE PHOSPHATASE 50 40 - 129 U/L [facility] LIC# [id number] TOTAL BILIRUBIN 0.3 0.2 - 1.2 mg/dL [facility] LIC# [id number] AST 17 <41 U/L [facility] LIC# [id number] ALT 32 <42 U/L [facility] LIC# [id number] GLOBULIN 2.1(L) 2.3 - 4.2 g/dL [facility] LIC# [id number] EGFR 108 >59 mL/min/1.7 3m2 [facility] LIC# [id number] Comment:Estimated glomerular filtration rate calculated using the CKD-EPI refit equation. ANION GAP 10 7 - 17 mmol/L [facility] LIC# [id number] Blood 04/17/2025 7:15 AM EDT 04/17/2025 7:22 AM EDT us Ary Rm MD LAB BLOOD ORDERABLES Final Resu lt [facility] LIC# [id number] [address] [place] [address] * Free light chains, serum (04/17/2025 7:15 AM EDT) FREE KAPPA LT CHAIN 7.0 3.3 - 19.4 mg/L [facility] FREE LAMBDA LT CHAIN 6.9 5.7 - 26.3 mg/L [facility] FREE KAPPA LAMBDA RAT 1.01 0.26 - 1.65 [facility] Blood 04/17/2025 7:15 AM EDT 04/17/2025 7:22 AM EDT us Ary Rm MD LAB BLOOD ORDERABLES Final Resu lt Performing Organization Address City/State/[facility] Co de Phone Number [facility] [address] [place] [id number] * (ABNORMAL) CBC and differential (04/17/2025 7:15 AM EDT) WBC 4.27 4.00 - 10.00 K/uL [facility] LIC# [id number] RBC 4.69 4.50 - 6.40 M/uL [facility]IC# [id number] HGB 14.8 13.5 - 18.0 g/dL [facility]# [id number] HCT 45.0 40.0 - 54.0 % [facility]# [id number] PLT 219 150 - 450 K/uL [facility]# [id number] MCV 95.9 80.0 - 100.0 fL [facility]# [id number] MCH 31.6 27.0 - 32.0 pg [facility]# [id number] MCHC 32.9 32.0 - 36.0 g/dL [facility]IC# [id number] RDW 14.6(H) 11.5 - 14.5 % [facility]# [id number] MPV 8.8 8.4 - 12.0 fL [facility]# [id number] NRBC 0.00 0 /100 WBCs [facility]# [id number] ABSOLUTE NRBC 0.00 0 K/uL [facility] LIC# [id number] DIFF METHOD MANUAL [facility] LIC# [id number] NEUTS (MANUAL) 67.7 48.0 - 76.0 % [facility]# [id number] LYMPHS 11.3(L) 18.0 - 41.0 % [facility]# [id number] BANDS 2.2 0.0 - 3.0 % [facility]# [id number] MONOS 12.0(H) 4.0 - 11.0 % [facility]# [id number] EOSINOPHIL 4.5 0.0 - 5.0 % [facility]# [id number] BASOPHIL 0.0 0.0 - 1.5 % [facility]# [id number] BLASTS 0.0 0 % [facility] LIC# [id number] METAS 2.3(H) 0 % [facility] LIC# [id number] ABSOLUTE NEUTS 2.89 1.92 - 7.60 K/uL [facility]IC# [id number] ABSOLUTE LYMPHS 0.48(L) 0.72 - 4.10 K/uL [facility]# [id number] ABSOLUTE BANDS 0.09 0.00 - 0.30 K/uL [facility]IC# [id number] ABSOLUTE MONOS 0.51 0.16 - 1.10 K/uL [facility]IC# [id number] ABSOLUTE EOS 0.19 0.00 - 0.50 K/uL [facility]IC# [id number] ABSOLUTE BASO 0.00 0.00 - 0.15 K/uL [facility]IC# [id number] ABSOLUTE BLASTS 0.00 0 K/uL [facility]IC# [id number] ABSOLUTE METAS 0.10(H) 0 K/uL [facility]IC# [id number] ANISO Few [facility] LIC# [id number] POIKILOCYTOSIS Few [facility]IC# [id number] POLYCHROME Few [facility] LIC# [id number] OVALOCYTES Moderate [facility] LIC# [id number] Blood 04/17/2025 7:15 AM EDT 04/17/2025 7:22 AM EDT us Ary Rm MD LAB BLOOD ORDERABLES Final Resu lt [facility]IC# [id number] [address] [place] [address] * Protein Electrophoresis (04/17/2025 12:00 AM EDT) 04/17/2025 04/17/2025 Narrative [facility] - 04/24/2025 9:10 PM EDT CASE: [id number] PATIENT: JEFFREY JOHN Date: 1975 Sex: Male [facility] Department of Pathology [address] [place] [address] License No.: [id number] Quantitative Analyst Developer: Angeline Dao MD, PhD Resident: Cosmo Slade M.D., Ph.D. Pathologist: Albaro Tian M.D., Ph.D. CLINICAL DATA: Clinical Diagnosis: TEST ORDERED: Serum protein electrophoresis professional interpretation - [facility] 1 Serum immunofixation electrophoresis professional interpretation - [facility] RESULT: Reference range Total Protein 6.0 g/dl (LO) 6.4 - 8.3 g/dL Albumin 3.43 g/dl 3.20 - 5.30 g/dL Alpha 1 0.23 g/dl 0.10 - 0.40 g/dL Alpha 2 0.90 g/dl 0.50 - 1.00 g/dL Beta 0.85 g/dl 0.60 - 1.20 g/dL Gamma 0.58 g/dl (LO) 0.80 - 1.70 g/dL Herricks 7.0 mg/L 3.3 - 19.4 mg/L Lambda 6.9 mg/L 5.7 - 26.3 mg/L Herricks/Lambda 1.01 0.26 - 1.65 IgG 615 mg/dL (LO) 700 - 1600 mg/dL IgA 22 mg/dL (LO) 70 - 400 mg/dL IgM < 15 (LO) 40 - 230 mg/dL Gamma M Abisai 1 0.21 g/dl* MOST RECENT PRIOR SERUM ELECTROPHORESIS RESULTS: Date Beta Gamma Herricks Lambda K/L IgG IgA IgM MSp1 MSp2 MSp3 g/dl g/dl mg/l mg/l mg/dl mg/dl mg/dl g/dl g/dl g/dl 01/09/25 0.86 0.30 6.1 6.9 0.88 246 6 22 0.10 10/17/24 0.84 0.20 UNSATI UNSATI Unab UNSATISFACTORY, QUANTITY NOT SUFFICIENT UNSATISFACTORY, QUANTITY NOT SUFFICIENT UNSATISFACTORY, QUANTITY NOT SUFFICIENT 09/05/24 0.89 0.23 11.5 11.6 0.99 821 123 120 08/02/24 0.84 0.28 254 25 < 15 06/19/24 0.81 0.37 297 15 < 15 03/27/24 0.82 0.47 193.2 8.7 22.2 360 62 < 15 12/28/23 0.76 0.34 11.2 6.1 1.84 277 25 < 15 10/05/23 0.89 0.38 13.9 2.3 6.04 347 43 < 15 09/06/23 0.89 0.33 39.5 2.7 14.6 299 50 < 15 08/03/23 0.91 0.30 119.2 4.3 27.7 271 83 < 15 06/09/23 0.80 0.37 339 16 < 15 0.13 05/18/23 0.90 0.36 803.8 2.5 321. 391 25 < 15 0.14 03/23/23 0.85 0.43 493.9 4.1 120. 372 22 < 15 0.16 01/26/23 0.85 0.45 845.2 4.3 196. 412 27 < 15 INTERPRETATION: Protein Electrophoresis: -M-spike detected The M-spike is admixed within a background of polyclonal immunoglobulins. The M-spike concentration reported includes both the M-spike and the polyclonal immunoglobulin background and is thus an overestimate. 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 Final Diagnosis by Albaro Tian M.D., Ph.D., Electronically signed on April at 09:09:48PM us Ary Rm MD PATHOLOGY ORDERABLES Final Resu lt Performing Organization Address City/State/[facility] Co de Phone Number [facility] [address] [place] [address] from Last 3 Months Insurance [employer] [place] [employer] [facility] [place] [address] [facility] [place] [address] [facility] [place] [address] . [place] [address] Advance Directives For more information, please contact: [phone] (9AM - 5PM Evelina/[facility], Monday-Monday) * Full Code (Latest Code Status on File) Date Activated Date Inactivated Comments 08/16/2024 6:43 AM Question Answer Comments Code Status Confirmed With: Patient * Full Code Date Activated Date Inactivated Comments 07/24/2023 12:03 AM 08/16/2024 6:43 AM Question Answer Comments Code Status Confirmed With: Patient Care Teams Senior Patient Account Representative Relationship Specialty Start Date End Date Adriel Ma MD PCP - General Family Medicine 01/10/23 Self-Referred, Patient 01/10/23 Dipti Alarcon, COMPOSITOR APPRENTICE [address] [place] [address] [email or web address] Screen Cleaner Oncology 06/05/23 Mignon Everett [address] [place] [address] Marilu [email or web address].[facility] Pasting Machine Offbearer 06/12/23 Aracelis Grajeda, ANITRA [address] [place] [address] [email or web address] Primary Infusion Nurse 07/13/23 Corey Cole MD [address] [place] [address] [place] [address] [email or web address] Hematology and Oncology 09/05/24 Additional Source Comments The information contained in this document represents components of the legal health record. It is not the complete legal health record.[facility]
--- OUTSIDE RECORDS SUMMARY | 2025-06-04 17:51 | XMS_ITS | Encounter Summary ---
Author Organization [facility] Address [address] [facility] [address] [place] [address] Phone Care Team Providers Care Ironworker Apprentice Name Role Phone Adriel Ma MD Primary Care Provider Self-Referred, Patient Unavailable Unavailab Dipti Anderson [facility] Unavailable [phone] Mignon Everett Unavailable Diego [email or web address] Mckeon RN Unavailable [email or web address] [email or web address] Corey Cole MD Unavailable [phone] Reason for Visit * Reason Comments Medication Refill Encounter Details Date Type Department Care Team (Late st Contact Info) Description 03/29/2024 Refill Division [facility] [address] [place] [address], 8th [place] [address] Itzel Muñoz, TOBACCO STEMMER [address] [place] [address] and [facility] [address] [email or web address] Medication Refill Social History Tobacco Use Types [...] 7:10 AM EDT Blood Draw Laboratory Services, [address], 2[address] [place] [address] Ary Rm MD [address] [place] [address] [facility], Floor [address] [place] [id number] [email or web address] 10/16/2025 8:00 AM EDT Office Visit [facility], Division of Hematologic Oncology, [address], [address] [place] [address] Ary Rm MD [address] [place] [address] [facility], [address] [place] [address] [email or web address] documented as of this encounter Visit Diagnoses Not on filedocumented in this encounter Additional Health Concerns Infection Onset Date Last Indicated Resolved Time CoV-Risk Comment:Per note documentation 08/16/2024 08/16/2024 6:31 PM EST documented as of this encounter Care Teams Ironworker Apprentice Relationship Specialty Start Date End Date Adriel Ma MD PCP - General Family Medicine 01/10/23 Self-Referred, Patient 01/10/23 Dipti Alarcon, TUBE PUSHER [address] [place] [address] [email or web address] Tosser Oncology 06/05/23 Mignon Everett [address] [place] [address] Marilu [email or web address] Financial Sales Consultant 06/12/23 Aracelis Grajeda, RN [address] [place] [address] [email or web address]. [facility] Primary Infusion Nurse 07/13/23 Corey Cole MD [address] [place] [address] [place]ematology [place] [address] [email or web address] Hematology and Oncology 09/05/24 documented as of this encounter Additional Source Comments The information contained in this document represents components of the legal health record. It is not the complete legal health record.[facility]
--- OUTSIDE RECORDS SUMMARY | 2025-06-04 17:51 | XMS_ITS | Encounter Summary ---
Author Organization [facility] Address [address] [facility] [address] [place] [address] Phone Care Team Providers Care Transplanter Orchid Name Role Phone Adriel Ma MD Primary Care Provider Self-Referred, Patient Unavailable Unavailab Dipti Anderson [facility] Unavailable [phone] Mignon Everett Unavailable Diego [email or web address] Aracelis Mckeon RN Unavailable [email or web address] Corey Cole MD Unavailable [phone] Encounter Details Date Type Department Care Team (Late st Contact Info) Description 07/26/2023 Procedure Pass [facility] Angio Interventional Radiology [address] [place] [phone] Social History Tobacco Use Types Packs/Day Years [...] 7:10 AM EDT Blood Draw Laboratory Services, [address], [address] [place] [address] Ary Rm MD [address] [place] [address] [facility], Floor [address] [place] [address] [email or web address] 10/16/2025 8:00 AM EDT Office Visit [facility], Division of Hematologic Oncology, [address], [address] [place] [address] Ary Rm MD [address] [place] [address] [facility], [address] [place] [address] [email or web address] documented as of this encounter Visit Diagnoses Not on filedocumented in this encounter Additional Health Concerns Infection Onset Date Last Indicated Resolved Time CoV-Risk Comment:Per note documentation 08/16/2024 08/16/2024 6:31 PM EST documented as of this encounter Care Teams Transplanter Orchid Relationship Specialty Start Date End Date Adriel Ma MD PCP - General Family Medicine 01/10/23 Self-Referred, Patient 01/10/23 Dipti Alarcon LCSW [address] [place] [address] [email or web address] Medicare Nurse Oncology 06/05/23 Mignon Everett [address] [place] [address] Marilu @[email or web address] Lime Hide Inspector 06/12/23 Aracelis Grajeda, RN [address] [place] [address] [email or web address] [facility] Primary Infusion Nurse 07/13/23 Corey Cole MD [address] [place] [address] [place] [address] [email or web address] Hematology and Oncology 09/05/24 documented as of this encounter Additional Source Comments The information contained in this document represents components of the legal health record. It is not the complete legal health record.[facility]
--- OUTSIDE RECORDS SUMMARY | 2025-06-04 17:51 | XMS_ITS ---
Author Organization [facility] Address [address] [facility] [address] [place] [address] Phone Care Team Providers Care Manufacturing Helper Name Role Phone Adriel Ma MD Primary Care Provider Self-Referred, Patient Unavailable Unavailab nadege Alarcon Diptitimmy Pichardo [facility] Unavailable [phone] Mignon Everett Unavailable Diego [email or web address] Aracelis Mckeon RN Unavailable NEREYDA [email or web address] Corey Cole MD Unavailable [phone] Active Problems Patient Care Coordination No te [...] Mangement as in #CRS Abx: Cefepime x1 1/10/25 Vanc x1 08/16/24 Pending studies: -- Bcx [...] (08/17/2024 11:25 AM EST): Originally diagnosed with Zwolle LC Multiple Myeloma in December 2022 after [...] (08/16/2024 4:04 PM EST): Originally diagnosed with Zwolle LC Multiple Myeloma in December 2022 after [...] Onc: Ary Rm MD; Dana Haney MD ([place], [place]); Dr. Monique ([place], [place]) -- Pre-transplant vitamin D level was 25. Given level <30, start dual therapy with ergocalciferol 50,000 units weekly for 8 weeks. On discharge add cholecalciferol 2000 units daily. 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 [facility] Cellular Therapy Collection* Plan Start Date:06/21/2024 Linked Problems Multiple myeloma in relapse Treatment Medications No medications scheduled. OP BMT 878 NO REST DAY AUTO MELPHALAN WITH AIBW OPTION* Plan Start Date: 07/11/2023 Plan Provider:Ary Rm MD Linked Problems Multiple myeloma in remissio n Treatment Medications melphalan (EVOMELA) 2 mg/mL in NS IVPB Fr bag TP 1020 [facility] CILTACABTAGENE AUTOLEUCEL (CARVYKTI)* Plan Start Date:08/08/2024 Plan Provider:Ary Rm MD Linked Problems Multiple myeloma in relapse Treatment Medications ciltacabtagene autoleucel (CARVYKTI) Past Treatment and Therapy Plans Oncology Therapy Plan Supplemental Plan Name Start Date Discontinue Date Treatment Medications Discontinue Reason Plan Provider 12 MONTH POST HSCT Vaccines (COMBINED HEP A / HEP B) (DFCI) 10/17/2024 04/17/2025 No medications scheduled. a. Therapy Complete Ary Rm MD Oncology Therapy Plan Supplemental 2 Plan Name Start Date Discontinue Date Treatment Medications Discontinue Reason Plan Provider 14 MONTH POST-HSCT Vaccines (HEP B) (DFCI) 01/09/2025 04/17/2025 No medications scheduled. a. Therapy Complete Ary Rm MD TREATMENT PLAN Plan Name Start Date Discontinue Date Treatment Medications Discontinue Reason Plan Provider Cycles TP 1020 IEC [facility] CYCLOPHO SPHAMIDE /FLUDARA BINE 12/28/202 4 08/08/2024 cycloPHOSphamide (CYTOXAN) infusion 100 mL (liquid vial)fludarabine (FLUDARA) IVPB {solution vial} a. Therapy Complete Ary Rm MD 1 of 1 cycle started Resolved Problems Problem Noted Date Diagnosed Date [...]
== END 2025-06-04 14:44 | disposition home or self-care (01) ==
LOC: HO.HMCFM 13:54
PROVIDERS: PCP Family Medicine; Visit Provider Family Medicine
DX: G47.30 Sleep apnea, unspecified (principal); C90.00 Multiple myeloma not having achieved remission; E66.01 Morbid (severe) obesity due to excess calories; Z68.41 Body mass index [BMI] 40.0-44.9, adult

== ENCOUNTER → 2025-06-04 13:53 | Outpatient (BNVA) | payer OTHER, SELFPAY | PROVIDERS: PCP Family Medicine; Visit Provider Family Medicine | DX: C90.00 Multiple myeloma not having achieved remission (principal); G47.30 Sleep apnea, unspecified; E66.01 Morbid (severe) obesity due to excess calories; Z68.41 Body mass index [BMI] 40.0-44.9, adult | CPT/HCPCS: 96127 ==

== ENCOUNTER 2025-06-13 08:56 | Outpatient (AMB) | payer OTHER, SELFPAY ==
--- NOTE | 2025-06-13 09:16 | MHC.OFFVIS ---
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 Apneic events while sleeping and snores. Not well rested when he awakens. Daytime sleepiness Goes to bed at 9pm and wakes up 2-3am. No headaches. No history of sleep studies. Accompanied by: Self / Same As Patient Allergies lenalidomide (From Revlimid) Adverse Reaction (Severe, Verified 06/13/25 09:21) rash HPI Comments Details: 49 year old male with h/o Multiple Myeloma is referred by his pcp for an evaluation of DARIA. 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 He is being [facility] MM [facility] 6 months and in [facility], he receives stem cell therapy and Carvykti stem cell therapy to modify / target t-cells response, along with Dexamethasone 5mg every Fridays. He doesn't have a stable sleep schedule, he goes to sleep at 7pm wakes up at 4am for work, with multiple arousal at night due to pain. He snores loudly, gasps for air, and tosses all night. He denies morning headaches, bruxism, acid reflux, parasomnias. His legs bounce, and rock, he has pins, needles, numbness, and tingling in his feet, it is soothing for him. His mood is optimistic, he likes his sweets. His memory is stable and diet is fair. He is on Xolmeta for osteoporosis. He denies smoking, alcohol use, and fh. [facility] Medical History Anxiety Lung 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 Alcohol abuse Surgical History History of removal of testicle History of tooth extraction Family History Mother Heart problem Social History Household Members: Spouse Housing: House Do you presently have visiting nurse or other home services: No Alcohol intake: current Alcohol intake frequency: a few times a month Patient Tobacco Use Status: Current someday Tobacco user Tobacco use type: Cigarette (Once a week) Cigarette Packs Per Day: 1 Cigarettes Per Day: 20 Years Smoked: 2.5 e-Cigarette/Vaping Use: Never Used Second Hand Smoke Exposure: No Substance Use Type: Marijuana service: Yes Current occupational status: employed 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 Cognitive needs: No Hearing needs: No Vision needs: No Physical Exam Vital Signs: Last Vital Signs Pulse 90 06/13/25 09:17 BP 126/78 06/13/25 09:17 Pulse Ox 97 06/13/25 09:17 Oxygen Delivery Method Room Air 06/13/25 09:17 BMI result Body Mass Index 40.6 Const General: cooperative and comfortable Nutritional Appearance: obese Orientation/consciousness: patient oriented x3 HEENT Face and sinus: Yes face symmetric Teeth and gingiva: other (mallampti score is 4) Eyes Pupils: Equal, round and reactive pupils present Neck Neck: Yes full ROM Resp Effort & Inspection: normal respiratory effort and able to speak in complete sentences Neuro General: patient oriented x3 and moves all extremities Cranial nerves: Yes Equal, round and reactive pupils present, Yes Normal accommodation reflex present, Yes Normal facial strength present, Yes Midline tongue present, Yes Ability to bilaterally rotate head present and Yes Ability to bilaterally elevate shoulders present Cognition (Neuro): normal cognition Gait exam (Neuro): Normal gait present Motor exam (neuro): 5/5 motor strength present throughout and Normal motor muscle tone present throughout Deep tendon reflexes (DTR's): Right triceps reflex intensity grade: 2+, Left triceps reflex intensity grade: 2+, Rt Biceps (C5, C6): 2+, Left biceps reflex intensity grade: 2+, Right brachioradialis reflex intensity grade: 2+, Left brachioradialis reflex intensity grade: 2+, Right patellar reflex intensity grade: 2+ and Left patellar reflex intensity grade: 2+ Psych Appearance: grossly normal Speech and movement: Normal speech and movement present Thought process: Normal thought process present Insight: Good insight present (Psych) Results Reviewed Results Reviewed: T cells are isolated and?genetically modified?to express the CARVYKTI? CAR. After dairy quality assurance officer release, the CARVYKTI? CAR-T cells are cryopreserved and returned to the [facility] for infusion. Chest CT 2022 reviewed. Assessment & Plan Assessment & Plan (1) Excessive daytime sleepiness: Code(s): G47.19 - Other hypersomnia Category: Medical (2) Chronic fatigue: Code(s): R53.82 - Chronic fatigue, unspecified Category: Medical (3) Anxiety: Code(s): F41.9 - Anxiety disorder, unspecified Category: Medical (4) Multiple myeloma: Code(s): C90.00 - Multiple myeloma not having achieved remission Category: Medical Qualifiers: Multiple myeloma remission status: unspecified Qualified Code(s): C90.00 - Multiple myeloma not having achieved remission (5) Neuropathy of left peroneal nerve: Code(s): G57.32 - Lesion of lateral popliteal nerve, left lower limb Category: Medical Plan HST to r/o daria MM followed by [facility], with carvytik stem cell therapy followed by Dexamethasone once weekly. Neuropathy l. peroneal nerve declines Gabapentin today. Nidra if it is continuously painful or bothersome. Labs to r/o anemia, all lines are low results are on cell phone. Orders: Orders Complete Blood Count no Diff Today G47.19 - Other hypersomnia Ferritin Today G47.19 - Other hypersomnia Vitamin D 25-OH Total Today G47.19 - Other hypersomnia RT home sleep study Today G47.19 - Other hypersomnia Comprehensive Met. Panel Today G47.19 - Other hypersomnia Methylmalonic Acid Today G47.19 - Other hypersomnia, G47.9 - Sleep disorder, unspecified, R53.83 - Other fatigue Homocysteine Today G47.19 - Other hypersomnia, G47.9 - Sleep disorder, unspecified, R53.83 - Other fatigue Vitamin B12 and Folate Today G47.19 - Other hypersomnia TSH reflex Free T4 Today G47.19 - Other hypersomnia Patient Instructions: Please complete the following fasting labs to rule out deficiencies. CBC/CMP/ B12/ Vit D/ TSH/ Homocysteine and MMA/ Ferritin. Sleep Hygiene provided: set a scheduled bedtime and wake time to help regulate the circadian rhythm and balance the release of pituitary hormones. Sleep in a dark room, temperatures below 68 degrees, and no devices n bed. Limit caffeinated products 6 hours prior to bed, and limit fluids 2-4 hours prior to bed. Gentle night yoga, diffusing essential oils, and playing soft music can be relaxing. Coding Level of Care Code New Pt Level 4 (53925) Diagnoses Excessive daytime sleepiness G47.19 Chronic fatigue R53.82 Anxiety F41.9 Multiple myeloma, remission status unspecified C90.00 Multiple myeloma remission status: unspecified Neuropathy of left peroneal nerve G57.32 Sleep Questionnaire Difficulty falling asleep: No Difficulty staying asleep?: No Number of arousals: 2-3 Snoring: Yes Witnessed apneas: Yes Gasping arousals: Yes Nocturia: No GERD: No Vivid dreams: No Acting out dreams: No Abnormal behavior in sleep: Yes (talking) Abnormal movements in sleep: No Morning headaches: No Excessive daytime sleepiness: No Daytime naps: No Restless legs: Yes Hallucinations: No Sleep paralysis: No Drop attacks: No Sleep Study: No CPAP: No
[2025-06-13 09:17] VITALS: BP 126/78; PULSE 90; O2SAT 97; BMI 40.6
--- OUTSIDE RECORDS SUMMARY | 2025-06-13 09:51 | XMS_ITS | Encounter Summary ---
Author Organization [facility] Address [address] [facility] [address] [place] [address] Phone Care Team Providers Care Bit Tapper Name Role Phone Adriel Ma MD Primary Care Provider Self-Referred, Patient Unavailable Unavailab Dipti Anderson [facility] Unavailable [phone] Mignon Everett Unavailable Diego [email or web address]. Aracelis Mckeon RN Unavailable NEREYDA [email or web address].[facility] Corey Cole MD Unavailable [phone] Encounter Details Date Type Department Care Team (Late st Contact Info) Description 07/23/2023 Procedure Pass [facility] [address] [place] [address] Social History Tobacco Use Types Packs/Day Years [...] 07/25/2023 9:00 PM Paul Finn, ANITRA * [place] Suicide Severity Rating Scale (Screener/Recent Self-Report) Question [...] 7:10 AM EDT Blood Draw Laboratory Services, [facility] [address] [facility], 2nd [place] [address] Ary Rm MD [address] [place] [address] [facility], Floor 7 [place] [address] Sharmin@[facility] 10/16/2025 8:00 AM EDT Office Visit [facility] for Multiple Myeloma, Division of Hematologic Oncology, [facility] [address], 7th [place] [address] Ary Rm MD [address] [place] [address] [facility], Floor 7 [place] [address] Sharmin@[facility] documented as of this encounter Visit Diagnoses Not on filedocumented in this encounter Additional Health Concerns Infection Onset Date Last Indicated Resolved Time CoV-Risk Comment:Per note documentation 07/23/2023 07/23/2023 12/18/202 3 10:25 PM EST CoV-Risk Comment:Per note documentation 08/16/2024 08/16/2024 6:31 PM EST documented as of this encounter Care Teams Bit Tapper Relationship Specialty Start Date End Date Adriel Ma MD PCP - General Family Medicine 01/10/23 Self-Referred, Patient 01/10/23 Dipti Alarcon, DRY END OPERATOR [address] [place] [address] [email or web address] Real Estate Leasing Agent Oncology 06/05/23 Mignon Everett [address] [place] [address] Marilu @[facility] Shape Hand 06/12/23 Aracelis Grajeda, RN [address] [place] [address] RAYMOND@[facility]. [facility] Primary Infusion Nurse 07/13/23 Corey Cole MD [address] [place] [address] Hematology [place] [address] Monica@[facility] Hematology and Oncology 09/05/24 documented as of this encounter Additional Source Comments The information contained in this document represents components of the legal health record. It is not the complete legal health record.[facility]
--- OUTSIDE RECORDS SUMMARY | 2025-06-13 09:51 | XMS_ITS | Encounter Summary ---
Author Organization [facility] Address [address] [facility] [address] [place] [address] Phone Care Team Providers Care Flume Maker Name Role Phone Adriel Ma MD Primary Care Provider Self-Referred, Patient Unavailable Unavailab Dipti Anderson [facility] Unavailable Mignon Everett Unavailable Diego [email or web address]. Aracelis Mckeon RN Unavailable NEREYDA VIERA@[email or web address].[facility] Corey Cole MD Unavailable [phone] Encounter Details Date Type Department Care Team (Late st Contact Info) Description 08/18/2024 Procedure Pass [facility] Angio Interventional Radiology [address] [place] [address] Social History Tobacco Use Types Packs/Day Years [...] 7:10 AM EDT Blood Draw Laboratory Services, [facility] [place] [address] [facility], 2nd [place] [address] Ary Rm MD [address] [place] [address] Clinic, Floor 7 [place] [address] Sharmin@[facility] 10/16/2025 8:00 AM EDT Office Visit [facility] for Multiple Myeloma, Division of Hematologic Oncology, [facility] [place] [address] [place] [address], 7th [place] [address] Ary Rm MD [address] [place] [address] Myeloma Clinic, Floor 7 [place] [address] Sharmin@[facility] documented as of this encounter Visit Diagnoses Not on filedocumented in this encounter Additional Health Concerns Assessment Noted Time PHQ-9 Depression Total Score: 9 06/25/20 11:14 AM EST PHQ-2 Depression Total Score: 1 06/25/20 11:14 AM EST documented as of this encounter Care Teams Flume Maker Relationship Specialty Start Date End Date Adriel Ma MD PCP - General Family Medicine 01/10/23 Self-Referred, Patient 01/10/23 Dipti Alarcon, COMMUNITY SUPPORT SPECIALIST [address] [place] [address] [email or web address] Gusset Edger Oncology 06/05/23 Mignon Everett [address] [place] [address] Marilu @[facility] Garbage Collector Supervisor 06/12/23 Aracelis Grajeda, ANITRA [address] [place] [address] RAYMOND@[facility]. [facility] Primary Infusion Nurse 07/13/23 Corey Cole MD [address] [place] [address] [place] [address] [email or web address] Hematology and Oncology 09/05/24 documented as of this encounter Additional Source Comments The information contained in this document represents components of the legal health record. It is not the complete legal health record.[facility]
--- OUTSIDE RECORDS SUMMARY | 2025-06-13 09:51 | XMS_ITS | Clinical Summary ---
Author Organization [facility] Address [address] [place] [address] Care Team Providers Care Merchandise Planner Name Role Phone Adriel Ma MD Primary Care Provider [phone] Allergies No known active allergies Medications acyclovir [...] PCV) 1996 Influenza Vaccine (#1) 2025 Insurance [id number] [place] [employer] ([id number]) [facility] [employer] [facility] ([id number]) Care Teams Merchandise Planner Relationship Specialty Start Date End Date Adriel Ma MD [address] [address] PCP - General Family Medicine 12/19/22
--- OUTSIDE RECORDS SUMMARY | 2025-06-13 09:51 | XMS_ITS | Clinical Summary ---
Author Organization [facility] Address [address] [place] [address] Care Team Providers Care Music Industry Internship Name Role Phone Unavailable Primary Care Provider [...]
--- OUTSIDE RECORDS SUMMARY | 2025-06-13 09:51 | XMS_ITS | Encounter Summary ---
Author Organization [facility] Address [address] [facility] [address] [place] [address] Phone Care Team Providers Care Senior Web Applications Developer Name Role Phone Adriel Ma MD Primary Care Provider Self-Referred, Patient Unavailable Unavailab nadege Alarcon Diptitimmy Pichardo [facility] Unavailable [phone] Mignon Everett Unavailable Diego [email or web address]. 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 Pal Clark PA-C Transfusion Medicine PA [facility] Transfusion Medicine Pager: [phone] documented in this encounter Plan of Treatment Upcoming Encounters Date Type Department Care Team (Late st Contact Info) Description 10/16/2025 7:10 AM EDT Blood Draw Laboratory Services, [facility] [place] [address] [place] [address] 2nd [place] [address] Ary Rm MD [address] [facility] Myeloma Clinic, Floor 7 [place] [address] Sharmin@[facility] 10/16/2025 8:00 AM EDT Office Visit [facility] for [facility], Division of Hematologic Oncology, [facility] [place] [address], 7th [place] [address] Ary Rm MD [address] [facility], Floor 7 [place] [address] Sharmin@[facility] documented as of this encounter Visit Diagnoses Not on filedocumented in this encounter Additional Health Concerns Infection Onset Date Last Indicated Resolved Time CoV-Risk Comment:Per note documentation 07/23/2023 07/23/2023 3 10:25 PM EST CoV-Risk Comment:Per note documentation 08/16/2024 08/16/2024 5 6:31 PM EST documented as of this encounter Care Teams Senior Web Applications Developer Relationship Specialty Start Date End Date Adriel Ma MD PCP - General Family Medicine 01/10/23 Self-Referred, Patient 01/10/23 Dipti Alarcon LCSW [address] [place] [address] [email or web address] Tile Setter Supervisor Oncology 06/05/23 Mignon Everett [address] [place] [address] Marilu @[facility].[place].[facility] Certified Orthoptist 06/12/23 Aracelis Grajeda, ANITRA [address] [place] [address] RAYMOND@[facility]. [facility] Primary Infusion Nurse 07/13/23 Corey Cole MD [address] [place] [address] [place]ematology [place] [address] [email or web address] Hematology and Oncology 09/05/24 documented as of this encounter Additional Source Comments The information contained in this document represents components of the legal health record. It is not the complete legal health record.[facility]
--- OUTSIDE RECORDS SUMMARY | 2025-06-13 09:51 | XMS_ITS | Clinical Summary ---
Author Organization [facility] Address [address] [place] [address] Care Team Providers Care Operations Vocational Instructor Name Role Phone Pcp, No Primary Care [...] this topic Insurance A[employer] HMO/POS Care Teams Operations Vocational Instructor Relationship Specialty Start Date End Date Pcp, No PCP - General General Medicine 08/07/20
--- OUTSIDE RECORDS SUMMARY | 2025-06-13 09:52 | XMS_ITS | Encounter Summary ---
Author Organization [facility] Address [address] [facility] [address] [place] [address] Phone Care Team Providers Care Travel Administrator Name Role Phone Adriel Ma MD Primary Care Provider Self-Referred, Patient Unavailable Unavailab nadege Alarcon Diptitimmy Pichardo [facility] Unavailable [phone] Mignon Everett Unavailable Diego [email or web address]. Aracelis Mckeon RN Unavailable NEREYDA VIERA@[email or web address].[facility] Corey Cole MD Unavailable [phone] Encounter Details Date Type Department Care Team (Late st Contact Info) Description 06/15/2023 Documentation [facility] for Multiple [facility]oma, Division of Hematologic Oncology, [facility] [place] [address] [facility], 7th [place] [address] Elaine Baker, ANITRA [address] [facility] [address] Patrizia@[email or web address] Social History Tobacco Use Types Packs/Day Years [...] 2:38 PM EDT Sexual Orientation Straight 01/10/2023 2 :44 PM EDT documented as of this encounter [...] , , Malvin Black, South or Central Marshallese Black, or Other Black? OR is the donor from the Mediterranean [place], [place], or Southeast Lisa?: No Does [...] hematology/oncology team. Elidia Hamilton MS, GIOVANNI Physician Scuba Instructor Hematologic Malignancies and Stem Cell Transplant (t) [phone], pager#[phone] [email or web address] documented in this encounter Plan of Treatment Upcoming Encounters Date Type Department Care Team (Late st Contact Info) Description 10/16/2025 7:10 AM EDT Blood Draw Laboratory Services, [address], 2nd [place] [address] Ary Rm MD [address] [place] [address] Myeloma Clinic, Floor 7 [place] [address] Sharmin@[email or web address] 10/16/2025 8:00 AM EDT Office Visit [facility], Division of Hematologic Oncology, [address], 7th [place] [address] Ary Rm MD [address] [place] [address] Myeloma Clinic, Floor 7 [place] [address] Sharmin@[facility] documented as of this encounter 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 documented in this encounter Additional Health Concerns Infection Onset Date Last Indicated Resolved Time CoV-Risk Comment:Per note documentation 07/23/2023 07/23/2023 10:25 PM EST CoV-Risk Comment:Per note documentation 08/16/2024 08/16/2024 6:31 PM EST documented as of this encounter Care Teams Travel Administrator Relationship Specialty Start Date End Date Adriel Ma MD PCP - General Family Medicine 01/10/23 Self-Referred, Patient 01/10/23 Dipti Alarcon, DIRECTOR OF ENTERPRISE ARCHITECTURE [address] [place] [address] [email or web address] Oncology 06/05/23 Mignon Everett [address] [place] [address] Marilu @[facility] Composition Weatherboard Installer 06/12/23 Aracelis Grajeda, RN [address] [place] [address] RAYMOND@[facility]. [facility] Primary Infusion Nurse 07/13/23 Corey Cole MD [address] [place] [address] Hematology [place] [address] [email or web address] Hematology and Oncology 09/05/24 documented as of this encounter Additional Source Comments The information contained in this document represents components of the legal health record. It is not the complete legal health record.[facility]
--- OUTSIDE RECORDS SUMMARY | 2025-06-13 09:52 | XMS_ITS | Encounter Summary ---
Author Organization [facility] Address [address] [facility] [address] [place] [address] Phone Care Team Providers Care Railway Yard Assistant Name Role Phone Adriel Ma MD Primary Care Provider Self-Referred, Patient Unavailable Unavailab Dipti Anderson [facility] Unavailable [phone] Mignon Everett Unavailable Diego [email or web address] Aracelis Mckeon RN Unavailable NEREYDA [email or web address] Corey Cole MD Unavailable [phone] Encounter Details Date Type Department Care Team (Late st Contact Info) Description 06/01/2023 Procedure Pass [facility] L2 PRU [address] [place] [address] Social History Tobacco Use Types Packs/Day Years [...] 7:10 AM EDT Blood Draw Laboratory Services, [address], 2nd [place] [address] Ary Rm MD [address] [place] [address] Myeloma Clinic, Floor 7 [place] [address] Sharmin@[facility] 10/16/2025 8:00 AM EDT Office Visit [facility] for Multiple Myeloma, Division of Hematologic Oncology, [address], 7th [place] [address] Ary Rm MD [address] [place] [address] Myeloma Clinic, Floor 7 [place] [address] Sharmin@[facility] documented as of this encounter Visit Diagnoses Not on filedocumented in this encounter Additional Health Concerns Infection Onset Date Last Indicated Resolved Time CoV-Risk Comment:Per note documentation 07/23/2023 07/23/2023 3 10:25 PM EST CoV-Risk Comment:Per note documentation 08/16/2024 08/16/2024 5 6:31 PM EST documented as of this encounter Care Teams Railway Yard Assistant Relationship Specialty Start Date End Date Adriel Ma MD PCP - General Family Medicine 01/10/23 Self-Referred, Patient 01/10/23 Dipti Alarcon, STUDY ASSISTANT [address] [place] [address] [email or web address] Customs And Border Protection Officer Oncology 06/05/23 Mignon Everett [address] [place] [address] Marilu @[facility] Critical Care Technician 06/12/23 Aracelis Grajeda, ANITRA [address] [place] [address] RAYMOND@[facility]. [facility] Primary Infusion Nurse 07/13/23 Corey Cole MD [address] [place] [address] Hematology [place] [address] [email or web address] Hematology and Oncology 09/05/24 documented as of this encounter Additional Source Comments The information contained in this document represents components of the legal health record. It is not the complete legal health record.[facility]
--- OUTSIDE RECORDS SUMMARY | 2025-06-13 09:52 | XMS_ITS | Encounter Summary ---
Author Organization [facility] Address [address] [facility] [address] [place] [address] Phone Care Team Providers Care Pencil Sorter Name Role Phone Adriel Ma MD Primary Care Provider Self-Referred, Patient Unavailable Unavailab nadege Alarcon Diptitimmy Pichardo [facility] Unavailable [phone] Mignon Everett Unavailable Diego [email or web address]. Aracelis Mckeon RN Unavailable NEREYDA VIERA@[facility].[email or web address].[facility] Corey Cole MD Unavailable [phone] Encounter Details Date Type Department Care Team (Late st Contact Info) Description 08/08/2024 Documentation [facility], Division of Hematologic Oncology, [facility] [place] [address] [place] [address], 7th [place] [address] Madyson Jo, RN [address] [place] [address] [email or web address] Social History Tobacco Use Types Packs/Day Years [...] 7:10 AM EDT Blood Draw Laboratory Services, [address], 2nd [place] [address] Ary Rm MD [address] [place] [address] Myeloma Clinic, Floor 7 [place] [address] Sharmin@[facility] 10/16/2025 8:00 AM EDT Office Visit [facility] for [facility]eloma, Division of Hematologic Oncology, [facility] [address], 7th [place] [address] Ary Rm MD [address] [place] [address] Myeloma Clinic, Floor 7 [place] [address] Sharmin@[facility] documented as of this encounter Visit Diagnoses Not on filedocumented in this encounter Additional Health Concerns Infection Onset Date Last Indicated Resolved Time CoV-Risk Comment:Per note documentation 08/16/2024 08/16/2024 6:31 PM EST Assessment Noted Time PHQ-9 Depression Total Score: 9 06/25/20 24 11:14 AM EST PHQ-2 Depression Total Score: 1 06/25/20 24 11:14 AM EST documented as of this encounter Care Teams Pencil Sorter Relationship Specialty Start Date End Date Adriel Ma MD PCP - General Family Medicine 01/10/23 Self-Referred, Patient 01/10/23 Dipti Alarcon LCSW [address] [place] [address] [email or web address] Assistant Elementary Teacher Oncology 06/05/23 Mignon Everett [address] [place] [address] Marilu @[facility] Border Police 06/12/23 Aracelis Grajeda, RN [address] [place] [address] RAYMOND@[facility]. [facility] Primary Infusion Nurse 07/13/23 Corey Cole MD [address] [place] [address] [place]ematology [place] [address] [email or web address] Hematology and Oncology 09/05/24 documented as of this encounter Additional Source Comments The information contained in this document represents components of the legal health record. It is not the complete legal health record.[facility]
--- OUTSIDE RECORDS SUMMARY | 2025-06-13 09:52 | XMS_ITS | Encounter Summary ---
Author Organization [facility] Address [address] [facility] [address] [place] [address] Phone Care Team Providers Care Inside Technical Sales Representative Name Role Phone Adriel Ma MD Primary Care Provider Self-Referred, Patient Unavailable Unavailab Dipti Anderson [facility] Unavailable [phone] Mignon Everett Unavailable Diego [email or web address]. Aracelis Mckeon RN Unavailable NEREYDA VIERA@[email or web address].[facility] Corey Cole MD Unavailable Encounter Details Date Type Department Care Team (Late st Contact Info) Description 06/27/2024 Procedure Pass [facility] L2 PRU [address] [place] [address] Social History Tobacco Use Types Packs/Day Years [...] 7:10 AM EDT Blood Draw Laboratory Services, [address], 2nd [place] [address] Ary Rm MD [address] [place] [address] Myeloma Clinic, Floor 7 [place] [address] Sharmin@[facility] 10/16/2025 8:00 AM EDT Office Visit [facility] for Multiple Myeloma, Division of Hematologic Oncology, [address], 7th [place] [address] Ary Rm MD [address] [place] [address] My[facility]oma Clinic, Floor 7 [place] [address] Sharmin@[facility] documented as of this encounter [...] documented as of this encounter Care Teams Inside Technical Sales Representative Relationship Specialty Start Date End Date Adriel Ma MD PCP - General Family Medicine 01/10/23 Self-Referred, Patient 01/10/23 Dipti Alarcon FISH AND GAME CLUB MANAGER [address] [place] [address] [email or web address] Storage Receipt Poster Oncology 06/05/23 Migonn Everett [address] [place] [address] Marilu @[facility] Semi Conductor Assembler 06/12/23 Aracelis Grajeda, RN [address] [place] [address] RAYMOND@[facility]. [facility] Primary Infusion Nurse 07/13/23 Corey Cole MD [address] [place] [address] Hematology [place] [address] Monica@[email or web address] Hematology and Oncology 09/05/24 documented as of this encounter Additional Source Comments The information contained in this document represents components of the legal health record. It is not the complete legal health record.[facility]
--- OUTSIDE RECORDS SUMMARY | 2025-06-13 09:52 | XMS_ITS | Encounter Summary ---
Author Organization [facility] Address [address] [facility] [address] [place] [address] Phone Care Team Providers Care Pin Cleaner Name Role Phone Adriel Ma MD Primary Care Provider Self-Referred, Patient Unavailable Unavailab nadege Alarcon Diptitimmy Pichardo [facility] Unavailable [phone] Mignon Everett Unavailable Diego [email or web address]. Aracelis Mckeon RN Unavailable NEREYDA VIERA@[email or web address].[facility] Corey Cole MD Unavailable [phone] Encounter Details Date Type Department Care Team (Late st Contact Info) Description 08/09/2024 Documentation [facility], Division of Hematologic Oncology, [facility] [place] [facility] [address] [place] [address], 7th [place] [address] Madyson Jo, RN [address] [place] [address] [email or web address] Social History Tobacco Use Types [...] 7:10 AM EDT Blood Draw Laboratory Services, [address], 2nd [place] [address] Ary Rm MD [address] [place] [address] [facility] Clinic, Floor 7 [place] [address] Sharmin@[email or web address] 10/16/2025 8:00 AM EDT Office Visit [facility], Division of Hematologic Oncology, [facility] [address], 7th [place] [address] Ary mR MD [address] [place] [address] [facility], Floor 7 [place] [address] Sharmin@[facility] documented as of this encounter Visit Diagnoses Not on filedocumented in this encounter Additional Health Concerns Infection Onset Date Last Indicated Resolved Time CoV-Risk Comment:Per note documentation 08/16/2024 08/16/2024 6:31 PM EST Assessment Noted Time PHQ-9 Depression Total Score: 9 06/25/20 24 11:14 AM EST PHQ-2 Depression Total Score: 1 06/25/20 24 11:14 AM EST documented as of this encounter Care Teams Pin Cleaner Relationship Specialty Start Date End Date Adriel Ma MD PCP - General Family Medicine 01/10/23 Self-Referred, Patient 01/10/23 Dipti Alarcon LCSW [address] [place] [address] [email or web address] Cathode Ray Tube Assembler Oncology 06/05/23 Mignon Everett [address] [place] [address] Marilu @[facility] Automatic Glove Turner And Former 06/12/23 Aracelis Grajeda, RN [address] [place] [address] RAYMOND@[facility]. [facility] Primary Infusion Nurse 07/13/23 Corey Cole MD [address] [place] [address] Hematology [place] [address] [email or web address] Hematology and Oncology 09/05/24 documented as of this encounter Additional Source Comments The information contained in this document represents components of the legal health record. It is not the complete legal health record.[facility]
--- OUTSIDE RECORDS SUMMARY | 2025-06-13 09:52 | XMS_ITS | Encounter Summary ---
Author Organization [facility] Address [address] [facility] [address] [place] [address] Phone Care Team Providers Care Charge Account Clerk Name Role Phone Adriel Ma MD Primary Care Provider Self-Referred, Patient Unavailable Unavailab nadege Alarcon Ditpitimmy Pichardo [facility] Unavailable [phone] Mignon Everett Unavailable Diego [email or web address]. Aracelis Mckeon RN Unavailable NEREYDA [email or web address] Corey Cole MD Unavailable Encounter Details Date Type Department Care Team (Late st Contact Info) Description 05/02/2023 Documentation Central Registration, [facility] [address] [facility], 2nd [place] [address] Danny John [address] [place] [address] [email or web address] Social History Tobacco Use Types Packs/Day Years [...] 7:10 AM EDT Blood Draw Laboratory Services, [address], 2nd [place] [address] Ary Rm MD [address] [place] [address] [facility] Clinic, Floor 7 [place] [address] Sharmin@[facility] 10/16/2025 8:00 AM EDT Office Visit [facility] for [facility], Division of Hematologic Oncology, [address], 7th [place] [address] Ary Rm MD [address] [place] [address] [facility] Clinic, Floor 7 [place] [address] Sharmin@[email or web address] documented as of this encounter Visit Diagnoses Not on filedocumented in this encounter Additional Health Concerns Infection Onset Date Last Indicated Resolved Time CoV-Risk Comment:Per note documentation 07/23/2023 07/23/2023 3 10:25 PM EST CoV-Risk Comment:Per note documentation 08/16/2024 08/16/2024 5 6:31 PM EST documented as of this encounter Care Teams Charge Account Clerk Relationship Specialty Start Date End Date Adriel Ma MD PCP - General Family Medicine 01/10/23 Self-Referred, Patient 01/10/23 Dipti Alarcon, [facility] [address] [place] [address] [email or web address] Senior Environmental Scientist Oncology 06/05/23 Mignon Everett [address] [place] [address] Marilu @[facility] English Horn Player 06/12/23 Aracelis Grajeda, RN [address] [place] [address] RAYMOND@[facility]. [facility] Primary Infusion Nurse 07/13/23 Corey Cole MD [address] [place] [address] Hematology [place] [address] [email or web address] Hematology and Oncology 09/05/24 documented as of this encounter Additional Source Comments The information contained in this document represents components of the legal health record. It is not the complete legal health record.[facility]
--- OUTSIDE RECORDS SUMMARY | 2025-06-13 09:52 | XMS_ITS | Encounter Summary ---
Author Organization [facility] Address [address] [facility] [address] [place] [address] Phone Care Team Providers Care Rig Builder Name Role Phone Adriel Ma MD Primary Care Provider Self-Referred, Patient Unavailable Unavailab Dipti Anderson [facility] Unavailable [phone] Mignon Everett Unavailable Diego [email or web address]. Aracelis Mckeon RN Unavailable NEREYDA VIERA@[email or web address].[facility] Corey Cole MD Unavailable [phone] Encounter Details Date Type Department Care Team (Late st Contact Info) Description 04/24/2023 Procedure Pass [facility] Echocardiography [address] [place] [address] Social History Tobacco Use Types Packs/Day Years [...] 7:10 AM EDT Blood Draw Laboratory Services, [address], 2nd [place] [address] Ary Rm MD [address] [place] [address] Myeloma Clinic, Floor 7 [place] [address] Sharmin@[facility] 10/16/2025 8:00 AM EDT Office Visit [facility] for Multiple Myeloma, Division of Hematologic Oncology, [address], 7th [place] [address] Ary Rm MD [address] [place] [address] [facility] Clinic, Floor 7 [place] [address] Sharmin@[facility] documented as of this encounter Visit Diagnoses Not on filedocumented in this encounter Additional Health Concerns Infection Onset Date Last Indicated Resolved Time CoV-Risk Comment:Per note documentation 07/23/2023 07/23/2023 3 10:25 PM EST CoV-Risk Comment:Per note documentation 08/16/2024 08/16/2024 5 6:31 PM EST documented as of this encounter Care Teams Rig Builder Relationship Specialty Start Date End Date Adriel Ma MD PCP - General Family Medicine 01/10/23 Self-Referred, Patient 01/10/23 Dipti Alarcon, SUMAYA [address] [place] [address] [email or web address] Engineering Team Supervisor Oncology 06/05/23 Mignon Everett [address] [place] [address] Marilu @[facility] Pipe Organ Installer 06/12/23 Aracelis Grajeda, ANITRA [address] [place] [address] RAYMOND@[facility]. [facility] Primary Infusion Nurse 07/13/23 Corey Cole MD [address] [place] [address] Hematology [place] [address] [email or web address] Hematology and Oncology 09/05/24 documented as of this encounter Additional Source Comments The information contained in this document represents components of the legal health record. It is not the complete legal health record.[facility]
--- OUTSIDE RECORDS SUMMARY | 2025-06-13 09:52 | XMS_ITS | Encounter Summary ---
Author Organization [facility] Address [address] [facility] [address] [place] [address] Phone Care Team Providers Care Furnace Repairer Name Role Phone Adriel Ma MD Primary Care Provider Self-Referred, Patient Unavailable Unavailab nadege Alarcon Diptitimmy Pichardo [facility] Unavailable [phone] Mignon Everett Unavailable Diego [email or web address]. Aracelis Mckeon RN Unavailable NEREYDA VIERA@[email or web address].[facility] Corey Cole MD Unavailable [phone] Encounter Details Date Type Department Care Team (Late st Contact Info) Description 06/15/2023 Documentation [facility], Division of Hematologic Oncology, [facility] [facility] [place] [address] [facility], 7th [place] [address] Elaine Baker, ANITRA [address] [facility] [place] [address] [email or web address] Social History Tobacco Use Types Packs/Day [...] 7:10 AM EDT Blood Draw Laboratory Services, [address], 2nd [place] [address] Ary Rm MD [address] [place] [address] Myeloma Clinic, Floor 7 [place] [address] Sharmin@[facility] 10/16/2025 8:00 AM EDT Office Visit [facility], Division of Hematologic Oncology, [address], 7th [place] [address] Ary Rm MD [address] [place] [address] [facility] Clinic, Floor 7 [place] [address] Sharmin@[email or web address] documented as of this encounter Visit Diagnoses Not on filedocumented in this encounter Additional Health Concerns Infection Onset Date Last Indicated Resolved Time CoV-Risk Comment:Per note documentation 07/23/2023 07/23/2023 3 10:25 PM EST CoV-Risk Comment:Per note documentation 08/16/2024 08/16/2024 5 6:31 PM EST documented as of this encounter Care Teams Furnace Repairer Relationship Specialty Start Date End Date Adriel Ma MD PCP - General Family Medicine 01/10/23 Self-Referred, Patient 01/10/23 Dipti Alarcon, PUMP ATTENDANT [address] [place] [address] [email or web address] Assistant Women'S Soccer Coach Oncology 06/05/23 Mignon Everett [address] [place] [address] Marilu @[facility] Networking Administrator 06/12/23 Aracelis Grajeda, RN [address] [place] [address] ARYMOND@[email or web address]. [facility] Primary Infusion Nurse 07/13/23 Corey Cole MD [address] [place] [address] [place]ology [place] [address] [email or web address] Hematology and Oncology 09/05/24 documented as of this encounter Additional Source Comments The information contained in this document represents components of the legal health record. It is not the complete legal health record.[facility]
--- OUTSIDE RECORDS SUMMARY | 2025-06-13 09:53 | XMS_ITS | Encounter Summary ---
Author Organization [facility] Address [address] [facility] [address] [place] [address] Phone Care Team Providers Care Rural Health Consultant Name Role Phone Adriel Ma MD Primary Care Provider Self-Referred, Patient Unavailable Unavailab nadege Alarcon Diptitimmy Pichardo [facility] Unavailable [phone] Mignon Everett Unavailable Diego [email or web address] [facility]. Aracelis Mckeon RN Unavailable NEREYDA VIERA@[email or web address] Corey Cole MD Unavailable [phone] Encounter Details Date Type Department Care Team (Late st Contact Info) Description 06/14/2024 Documentation [facility] [address] [facility] 1st [place] [address] Marcy Henry PA-C [address] [facility] Transfusion Med, [facility] [place] [address] [email or web address] Social History Tobacco Use Types Packs/Day [...] Apheresis Collection Suitability Name: Richar Carrington MRN: ?[id number] Indication: ?Conradovsheela Tentative Collection Date: 1?08/21/23 Date of mobilization: [...] flutter, sick sinus syndrome, or ventricular arrhythmias, CAD/NE, CHF, HTN, heart valve disease, diastolic dysfunction, [...] records. Marcy Henry PA-C Transfusion Medicine PA [facility] Transfusion Medicine Pager: [phone] documented in this encounter Plan of Treatment Upcoming Encounters Date Type Department Care Team (Late st Contact Info) Description 10/16/2025 7:10 AM EDT Blood Draw Laboratory Services, [facility] [address] [facility], 2nd [place] [address] Ary Rm MD [address] [place] [address] [facility] Clinic, Floor 7 [place] [address] Sharmin@[facility] 10/16/2025 8:00 AM EDT Office Visit [facility] for [facility], Division of Hematologic Oncology, [address], 7th [place] [address] Ary Rm MD [address] [place] [address] [facility]oma Clinic, Floor 7 [place] [address] Sharmin@[facility] documented as of this encounter Visit Diagnoses Not on filedocumented in this encounter Additional Health Concerns Infection Onset Date Last Indicated Resolved Time CoV-Risk Comment:Per note documentation 08/16/2024 08/16/2024 6:31 PM EST documented as of this encounter Care Teams Rural Health Consultant Relationship Specialty Start Date End Date Adriel Ma MD PCP - General Family Medicine 01/10/23 Self-Referred, Patient 01/10/23 Dipti Alarcon LCSW [address] [place] [address] [email or web address] Shirt Creaser Oncology 06/05/23 Mignon Everett [address] [place] [address] Marilu @[facility] Tomography Technologist 06/12/23 Aracelis Grajeda, RN [address] [place] [address] [email or web address]@[facility]. [facility] Primary Infusion Nurse 07/13/23 Corey Cole MD [address] [place] [address] Hematology [place] [address] [email or web address] Hematology and Oncology 09/05/24 documented as of this encounter Additional Source Comments The information contained in this document represents components of the legal health record. It is not the complete legal health record.[facility]
--- OUTSIDE RECORDS SUMMARY | 2025-06-13 09:53 | XMS_ITS | Encounter Summary ---
Author Organization [facility] Address [address] [facility] [address] [place] [address] Phone Care Team Providers Care Carburetor Mechanic Name Role Phone Adriel Ma MD Primary Care Provider Self-Referred, Patient Unavailable Unavailab Dipti Anderson [facility] Unavailable [phone] Mignon Everett Unavailable Diego [email or web address]. Aracelis Mckeon RN Unavailable NEREYDA VIERA@[email or web address].[facility] Corey Cole MD Unavailable [phone] Encounter Details Date Type Department Care Team (Late st Contact Info) Description 05/27/2024 Procedure Pass [facility] Angio Interventional Radiology [address] [place] [address] Social History Tobacco Use Types Packs/Day Years [...] AM EDT Blood Draw Laboratory Services, [address], 2nd [place] [address] Ary Rm MD [address] [place] [address] [facility], Floor 7 [place] [address] Sharmin@[facility] 10/16/2025 8:00 AM EDT Office Visit [facility] for [facility]oma, Division of Hematologic Oncology, [address], 7th [place] [address] Ary Rm MD [address] [place] [address] Myeloma Clinic, Floor 7 [place] [address] Sharmin@[facility] documented as of this encounter Visit Diagnoses Not on filedocumented in this encounter Additional Health Concerns Infection Onset Date Last Indicated Resolved Time CoV-Risk Comment:Per note documentation 08/16/2024 08/16/2024 6:31 PM EST documented as of this encounter Care Teams Carburetor Mechanic Relationship Specialty Start Date End Date Adriel Ma MD PCP - General Family Medicine 01/10/23 Self-Referred, Patient 01/10/23 Dipti Alarcon LCSW [address] [place] [address] [email or web address] Finishing Technician Oncology 06/05/23 Mignon Everett [address] [place] [address] Marilu @[facility] Stereo Plotter Operator 06/12/23 Aracelis Grajeda, RN [address] [place] [address] RAYMOND@[facility]. [facility] Primary Infusion Nurse 07/13/23 Corey Cole MD [address] [place] [address] [place]ematology [place] [address] [email or web address] Hematology and Oncology 09/05/24 documented as of this encounter Additional Source Comments The information contained in this document represents components of the legal health record. It is not the complete legal health record.[facility]
--- OUTSIDE RECORDS SUMMARY | 2025-06-13 09:53 | XMS_ITS | Encounter Summary ---
Author Organization [facility] Address [address] [facility] [address] [place] [address] Phone Care Team Providers Care Hospice Admitting Clerk Name Role Phone Adriel Ma MD Primary Care Provider Self-Referred, Patient Unavailable Unavailab Dipti Anderson [facility] Unavailable Mignon Everett Unavailable Diego [email or web address] Aracelis Mckeon RN Unavailable NEREYDA VIERA@[email or web address] Corey Cole MD Unavailable [phone] Encounter Details Date Type Department Care Team (Late st Contact Info) Description 05/27/2024 Procedure Pass [facility] L2 PRU [address] [place] [address] Social History Tobacco Use Types Packs/Day Years [...] 7:10 AM EDT Blood Draw Laboratory Services, [address], 2nd [place] [address] Ary Rm MD [address] [place] [address] [facility] Clinic, Floor 7 [place] [address] Sharmin@[facility] 10/16/2025 8:00 AM EDT Office Visit [facility] for Multiple Myeloma, Division of Hematologic Oncology, [address], 7th [place] [address] Ary Rm MD [address] [place] [address] Myeloma Clinic, Floor 7 [place] [address] Sharmin@[facility] documented as of this encounter Visit Diagnoses Not on filedocumented in this encounter Additional Health Concerns Infection Onset Date Last Indicated Resolved Time CoV-Risk Comment:Per note documentation 08/16/2024 08/16/2024 6:31 PM EST documented as of this encounter Care Teams Hospice Admitting Clerk Relationship Specialty Start Date End Date Adriel Ma MD PCP - General Family Medicine 01/10/23 Self-Referred, Patient 01/10/23 Dipti Alarcon LCSW [address] [place] [address] [email or web address] Hadoop Java Developer Oncology 06/05/23 Mignon Everett [address] [place] [address] Marilu @[facility] City Driver 06/12/23 Aracelis Grajeda, RN [address] [place] [address] RAYMOND@[facility]. [facility] Primary Infusion Nurse 07/13/23 Corey Cole MD [address] [place] [address] [place] [address] [email or web address] Hematology and Oncology 09/05/24 documented as of this encounter Additional Source Comments The information contained in this document represents components of the legal health record. It is not the complete legal health record.[facility]
--- OUTSIDE RECORDS SUMMARY | 2025-06-13 09:53 | XMS_ITS | Encounter Summary ---
Author Organization [facility] Address [address] [facility] [address] [place] [address] Phone Care Team Providers Care Water Pump Operator Name Role Phone Adriel Ma MD Primary Care Provider Self-Referred, Patient Unavailable Unavailab nadege Alarcon Diptitimmy Pichardo [facility] Unavailable [phone] Mignon Everett Unavailable Diego [email or web address]. Aracelis Mckeon RN Unavailable NEREYDA [email or web address] Corey Cole MD Unavailable [phone] Reason for Visit * Reason Comments Medication Refill Encounter Details Date Type Department Care Team (Late st Contact Info) Description 02/01/2024 Refill Division of Hematologic On[facility], [facility] [place] [address] [place] [address], 8th [place] [address] Itzel Dorman, GUTTER MOUTH CUTTER [address] [place] [address] and [facility] [place] [address] [email or web address] Medication Refill Social History Tobacco Use Types [...] 7:10 AM EDT Blood Draw Laboratory Services, [address], 2nd [place] [address] Ary Rm MD [address] [place] [address] Myel[facility], Floor 7 [place] [id number] [email or web address] 10/16/2025 8:00 AM EDT Office Visit [facility], Division of Hematologic Oncology, [address], 7th [place] [address] Ary Rm MD [address] [place] [address] Myeloma [facility], Floor 7 [place] [address] [email or web address] documented as of this encounter Visit Diagnoses Not on filedocumented in this encounter Additional Health Concerns Infection Onset Date Last Indicated Resolved Time CoV-Risk Comment:Per note documentation 08/16/2024 08/16/2024 6:31 PM EST documented as of this encounter Care Teams Water Pump Operator Relationship Specialty Start Date End Date Adriel Ma MD PCP - General Family Medicine 01/10/23 Self-Referred, Patient 01/10/23 Dipti Alarcon, VP REVENUE CYCLE [address] [place] [address] [email or web address] Brake Repairer Hydraulic Oncology 06/05/23 Mignon Everett [address] [place] [address] Marilu @[email or web address] Machining Department Supervisor 06/12/23 Aracelis Grajeda, RN [address] [place] [address] [email or web address] [facility] Primary Infusion Nurse 07/13/23 Corey Cole MD [address] [place] [address] [place] [address] [email or web address] Hematology and Oncology 09/05/24 documented as of this encounter Additional Source Comments The information contained in this document represents components of the legal health record. It is not the complete legal health record.[facility]
--- OUTSIDE RECORDS SUMMARY | 2025-06-13 09:54 | XMS_ITS | Clinical Summary ---
Author Organization [facility] Address [address] [place] [address] Phone Care Team Providers Care Matrix Inspector Name Role Phone Adriel Ma MD Primary Care Provider Self-Referred, Patient Unavailable Unavailab Dipti Anderson [facility] Unavailable [phone] Mignon Everett Unavailable Diego [email or web address] Aracelis Mckeon RN Unavailable NEREYDA [email or web address] Corey Cole MD Unavailable [phone] Allergies Active Allergy Reactions Criticality Noted Date [...] (08/17/2024 11:25 AM EST): Originally diagnosed with [place] LC Multiple Myeloma in December 2022 after [...] (08/16/2024 4:04 PM EST): Originally diagnosed with [place] LC Multiple Myeloma in December 2022 after [...] Onc: Ary Rm MD; Dana Haney MD ([place], [place]); Dr. Monique ([place], [place]) -- Pre-transplant vitamin D level was [...] 9:30 AM EDT Infusion Infusion Therapy Services [place] [address], [facility] [address] [facility], 7th [place] [address] Ary Rm MD Abusheery, Katherine H, RN Autologous donor of stem cells (Primary Dx); Multiple myeloma, remission status unspecified 04/17/2025 8:00 AM EDT Office [facility], Division of Hematologic Oncology, [facility] [address] [facility], 7th [place] [address] Ary Rm MD Multiple myeloma, remission status [...] 7:10 AM EDT Blood Draw Laboratory Services, [facility] [place] [address] [facility], 2nd [place] [address] Ary Rm MD [address] [place] [address] Myeloma Clinic, Floor 7 [place] [address] [email or web address] 10/16/2025 8:00 AM EDT Office Visit [facility], Division of Hematologic Oncology, [facility] [place] [address] [place] [address], 7th [place] [address] Ary Rm MD [address] [facility], Floor 7 [place] [address] [email or web address] Health Maintenance Due Date Last Done Comments [...] topic HIB VACCINES Completed 04/17/2025, 10/05, 03/27/2024 IPV VACCINES Completed 04/17/2025, 10/05, 03/27/2024 PNEUMOCOCCAL VACCINES [...] myeloma, remission status unspecified COMPREHENSIVE METABOLIC PANEL (CMP) Routine 04/17/2025 7:15 AM EDT Multiple myeloma, remission status unspecified HC BLOOD COUNT COMPLETE AUTO&AUTO DIFRNTL WBC Routine 04/17/2025 7:15 AM EDT Multiple myeloma, remission status unspecified SERUM PROTEIN ELECTROPHORESIS Routine 04/17/2025 12:00 AM EDT from Last 3 Months Results * (ABNORMAL) SPEP panel with immunofixation (04/17/2025 7:15 AM EDT) TOTAL PROTEIN 6.0(L) 6.4 - 8.3 g/dL [facility] SPEP SEE PATHOLOGY REPORT [facility] IMMUNOFIXATION SEE PATHOLOGY REPORT [facility] IgA 22(L) 70 - 400 mg/dL [facility] IMMUNOGLOBULIN G 615(L) 700 - 1,600 mg/dL [facility] IMMUNOGLOBULIN M <15(L) 40 - 230 mg/dL [facility] Blood 04/17/2025 7:15 AM EDT 04/17/2025 7:22 AM EDT us Ary Rm MD LAB BLOOD BKR ORDERABLES Final Result [facility] [address] [place] [address] * (ABNORMAL) Comprehensive metabolic panel (04/17/2025 7:15 AM EDT) SODIUM 143 136 - 145 mmol/L [facility] LIC# [id number] POTASSIUM 4.1 3.4 - 5.1 mmol/L [facility] LIC# [id number] CHLORIDE 107 98 - 107 mmol/L [facility] LIC# [id number] CO2 26 22 - 31 mmol/L [facility]IC# [id number] BUN 21 6 - 23 mg/dL [facility]IC# [id number] CREATININE 0.84 0.50 - 1.20 mg/dL [facility]IC# [id number] GLUCOSE 104(H) 70 - 100 mg/dL [facility] LIC# [id number] ALBUMIN 4.1 3.5 - 5.2 g/dL [facility]IC# [id number] TOTAL PROTEIN 6.2(L) 6.4 - 8.3 g/dL [facility] LIC# [id number] CALCIUM 9.2 8.8 - 10.7 mg/dL [facility] LIC# [id number] ALKALINE PHOSPHATASE 50 40 - 129 U/L [facility] LIC# [id number] TOTAL BILIRUBIN 0.3 0.2 - 1.2 mg/dL [facility]IC# [id number] AST 17 <41 U/L [facility] LIC# [id number] ALT 32 <42 U/L [facility] LIC# [id number] GLOBULIN 2.1(L) 2.3 - 4.2 g/dL [facility]# [id number] EGFR 108 >59 mL/min/1.7 3m2 [facility] LIC# [id number] Comment:Estimated glomerular filtration rate calculated using the CKD-EPI refit equation. ANION GAP 10 7 - 17 mmol/L [facility] LIC# [id number] Blood 04/17/2025 7:15 AM EDT 04/17/2025 7:22 AM EDT us Ary Rm MD LAB BLOOD BKR ORDERABLES Final Result [facility] LIC# [id number] [address] [place] [address] * Free light chains, serum (04/17/2025 7:15 AM EDT) FREE KAPPA LT CHAIN 7.0 3.3 - 19.4 mg/L [facility] FREE LAMBDA LT CHAIN 6.9 5.7 - 26.3 mg/L [facility] FREE KAPPA LAMBDA RAT 1.01 0.26 - 1.65 [facility] Blood 04/17/2025 7:15 AM EDT 04/17/2025 7:22 AM EDT rAy Rm MD LAB BLOOD BKR ORDERABLES Final Result [facility] [address] [place] [address] * (ABNORMAL) CBC and differential (04/17/2025 7:15 AM EDT) WBC 4.27 4.00 - 10.00 K/uL [facility] LIC# [id number] RBC 4.69 4.50 - 6.40 M/uL [facility] LIC# [id number] HGB 14.8 13.5 - 18.0 g/dL [facility]IC# [id number] HCT 45.0 40.0 - 54.0 % [facility]IC# [id number] PLT 219 150 - 450 K/uL [facility] LIC# [id number] MCV 95.9 80.0 - 100.0 fL [facility]IC# [id number] MCH 31.6 27.0 - 32.0 pg [facility]IC# [id number] MCHC 32.9 32.0 - 36.0 g/dL [facility]IC# [id number] RDW 14.6(H) 11.5 - 14.5 % [facility]IC# [id number] MPV 8.8 8.4 - 12.0 fL [facility]# [id number] NRBC 0.00 0 /100 WBCs [facility]IC# [id number] ABSOLUTE NRBC 0.00 0 K/uL [facility] LIC# [id number] DIFF METHOD MANUAL [facility] LIC# [id number] NEUTS (MANUAL) 67.7 48.0 - 76.0 % [facility] LIC# [id number] LYMPHS 11.3(L) 18.0 - 41.0 % [facility] LIC# [id number] BANDS 2.2 0.0 - 3.0 % [facility] LIC# [id number] MONOS 12.0(H) 4.0 - 11.0 % [facility] LIC# [id number] EOSINOPHIL 4.5 0.0 - 5.0 % [facility] LIC# [id number] BASOPHIL 0.0 0.0 - 1.5 % [facility] LIC# [id number] BLASTS 0.0 0 % [facility] LIC# [id number] METAS 2.3(H) 0 % [facility] LIC# [id number] ABSOLUTE NEUTS 2.89 1.92 - 7.60 K/uL [facility] LIC# [id number] ABSOLUTE LYMPHS 0.48(L) 0.72 - 4.10 K/uL [facility] LIC# [id number] ABSOLUTE BANDS 0.09 0.00 - 0.30 K/uL [facility] LIC# [id number] ABSOLUTE MONOS 0.51 0.16 - 1.10 K/uL [facility] LIC# [id number] ABSOLUTE EOS 0.19 0.00 - 0.50 K/uL [facility] LIC# [id number] ABSOLUTE BASO 0.00 0.00 - 0.15 K/uL [facility] LIC# [id number] ABSOLUTE BLASTS 0.00 0 K/uL [facility] LIC# [id number] ABSOLUTE METAS 0.10(H) 0 K/uL [facility] LIC# [id number] ANISO Few [facility] LIC# [id number] POIKILOCYTOSIS Few [facility] LIC# [id number] POLYCHROME Few [facility] LIC# [id number] OVALOCYTES Moderate [facility] LIC# [id number] Blood 04/17/2025 7:15 AM EDT 04/17/2025 7:22 AM EDT us Ary Rm MD LAB BLOOD BKR ORDERABLES Final Result [facility] LIC# [id number] [address] [place] [address] * Protein Electrophoresis (04/17/2025 12:00 AM EDT) 04/17/2025 04/17/2025 Narrative [facility] - 04/24/2025 9:10 PM EDT CASE: [id number] PATIENT: JEFFREY JOHN Date: 1975 Sex: Male [facility] Department of Pathology [address] [place] [address] CLIA License No.: [id number] Fire Department Battalion Chief: Angeline Dao MD, PhD Resident: Cosmo Slade M.D., Ph.D. Pathologist: Albaro Tian M.D., Ph.D. CLINICAL DATA: Clinical Diagnosis: TEST ORDERED: Serum protein electrophoresis professional interpretation - [facility] 1 Serum immunofixation electrophoresis professional interpretation - [facility] RESULT: Reference range Total Protein 6.0 g/dl (LO) 6.4 - 8.3 g/dL Albumin 3.43 g/dl 3.20 - 5.30 g/dL Alpha 1 0.23 g/dl 0.10 - 0.40 g/dL Alpha 2 0.90 g/dl 0.50 - 1.00 g/dL Beta 0.85 g/dl 0.60 - 1.20 g/dL Gamma 0.58 g/dl (LO) 0.80 - 1.70 g/dL [place] 7.0 mg/L 3.3 - 19.4 mg/L Lambda 6.9 mg/L 5.7 - 26.3 mg/L [place]/Lambda 1.01 0.26 - 1.65 IgG 615 mg/dL (LO) 700 - 1600 mg/dL IgA 22 mg/dL (LO) 70 - 400 mg/dL IgM < 15 (LO) 40 - 230 mg/dL Gamma M Abisai 1 0.21 g/dl* MOST RECENT PRIOR SERUM ELECTROPHORESIS RESULTS: Date Beta Gamma [place] Lambda K/L IgG IgA IgM MSp1 MSp2 [...] overestimate. 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 Final Diagnosis by Albaro Tian M.D., Ph.D., Electronically signed on April at 09:09:48PM us Ary Rm MD PATHOLOGY ORDERABLES Final Resu lt Performing Organization Address City/State/[facility] Co de Phone Number [facility] [address] [place] [address] from Last 3 Months Insurance [employer] [facility] . JAMEE JACKSON [address] [facility] . JAMEE JACKSON [address] [employer] Advance Directives For more information, please contact: [phone] (9AM - 5PM [facility], Monday-Monday) * Full Code (Latest Code Status on File) Date Activated Date Inactivated Comments 08/16/2024 6:43 AM Question Answer Comments Code Status Confirmed With: Patient * Full Code Date Activated Date Inactivated Comments 07/24/2023 12:03 AM 08/16/2024 6:43 AM Question Answer Comments Code Status Confirmed With: Patient Care Teams Matrix Inspector Relationship Specialty Start Date End Date Adriel Ma MD PCP - General Family Medicine 01/10/23 Self-Referred, Patient 01/10/23 Dipti Alarcon, GAME FARM HELPER [address] [place] [address] [email or web address] Grazing Aide Oncology 06/05/23 Mignon Everett [address] [place] [address] Marilu @[email or web address] Gauge And Weigh Machine Adjuster 06/12/23 Aracelis Grajeda, ANITRA [address] [place] [address] [email or web address]. [facility] Primary Infusion Nurse 07/13/23 Corey Cole MD [address] [place] [address] [place] [address] [email or web address] Hematology and Oncology 09/05/24 Additional Source Comments The information contained in this document represents components of the legal health record. It is not the complete legal health record.[facility]
--- OUTSIDE RECORDS SUMMARY | 2025-06-13 09:54 | XMS_ITS | Encounter Summary ---
Author Organization [facility] Address [address] [facility] [address] [place] [address] Phone Care Team Providers Care Cloth Finisher Name Role Phone Adriel Ma MD Primary Care Provider Self-Referred, Patient Unavailable Unavailab nadege Alarcon Diptitimmy Pichardo [facility] Unavailable [phone] Mignon Everett Unavailable Diego [email or web address]. Aracelis Mckeon RN Unavailable NEREYDA [email or web address] Corey Cole MD Unavailable [phone] Reason for Visit * Reason Comments Medication Refill Encounter Details Date Type Department Care Team (Late st Contact Info) Description 03/29/2024 Refill Division [facility], [facility] [place] [address] [place] [address], 8th [place] [address] Itzel Dorman, STRUCTURAL WORKER [address] [place] [address] and [place] [address] [email or web address] Medication Refill Social History Tobacco Use Types [...] 7:10 AM EDT Blood Draw Laboratory Services, [address], 2nd [place] [address] Ary Rm MD [address] [place] [address] [facility], Floor 7 [place] [id number] [email or web address] 10/16/2025 8:00 AM EDT Office Visit [facility], Division of Hematologic Oncology, [address], 7th [place] [address] Ary Rm MD [address] [place] [address] [facility], Floor 7 [place] [address] [email or web address] documented as of this encounter Visit Diagnoses Not on filedocumented in this encounter Additional Health Concerns Infection Onset Date Last Indicated Resolved Time CoV-Risk Comment:Per note documentation 08/16/2024 08/16/2024 6:31 PM EST documented as of this encounter Care Teams Cloth Finisher Relationship Specialty Start Date End Date Adriel Ma MD PCP - General Family Medicine 01/10/23 Self-Referred, Patient 01/10/23 Dipti Alarcon, FRUIT CHECKER [address] [place] [address] [email or web address] Nurse Advisor Oncology 06/05/23 Mignon Everett [address] [place] [address] Marilu @[email or web address] Cattle Broker 06/12/23 Aracelis Grajeda, RN [address] [place] [address] [email or web address]. [facility] Primary Infusion Nurse 07/13/23 Corey Cole MD [address] [place] [address] Hematology [place] [address] [email or web address] Hematology and Oncology 09/05/24 documented as of this encounter Additional Source Comments The information contained in this document represents components of the legal health record. It is not the complete legal health record.[facility]
--- OUTSIDE RECORDS SUMMARY | 2025-06-13 09:54 | XMS_ITS | Encounter Summary ---
Author Organization [facility] Address [address] [facility] [address] [place] [address] Phone Care Team Providers Care Director Of Human Resources Name Role Phone Adriel Ma MD Primary Care Provider Self-Referred, Patient Unavailable Unavailab Dipti Anderson [facility] Unavailable [phone] Mignon Everett Unavailable Diego [email or web address]. Aracelis Mckeon RN Unavailable NEREYDA [email or web address] Corey Cole MD Unavailable [phone] Encounter Details Date Type Department Care Team (Late st Contact Info) Description 07/26/[address] [facility] Angio Interventional Radiology [address] [place] [address] Social History Tobacco Use Types Packs/Day Years [...] 7:10 AM EDT Blood Draw Laboratory Services, [address], 2nd [place] [address] Ary Rm MD [address] [place] [address] [facility] Clinic, Floor 7 [place] [address] [email or web address] 10/16/2025 8:00 AM EDT Office Visit [facility], Division of Hematologic Oncology, [address], [address]th [place] [address] Ary Rm MD [address] [place] [address] [facility], Floor 7 [place] [address] [email or web address] documented as of this encounter Visit Diagnoses Not on filedocumented in this encounter Additional Health Concerns Infection Onset Date Last Indicated Resolved Time CoV-Risk Comment:Per note documentation 08/16/2024 08/16/2024 6:31 PM EST documented as of this encounter Care Teams Director Of Human Resources Relationship Specialty Start Date End Date Adriel Ma MD PCP - General Family Medicine 01/10/23 Self-Referred, Patient 01/10/23 Dipti Alarcon LCSW [address] [place] [address] [email or web address] Appian Developer Oncology 06/05/23 Mignon Everett [address] [place] [address] Marilu @[email or web address] Garment Cutter 06/12/23 Aracelis Grajeda, RN [address] [place] [phone] [email or web address] Primary Infusion Nurse 07/13/23 Corey Cole MD [address] [place] [address] Hematology [place] [address] [email or web address] Hematology and Oncology 09/05/24 documented as of this encounter Additional Source Comments The information contained in this document represents components of the legal health record. It is not the complete legal health record.[facility]
--- OUTSIDE RECORDS SUMMARY | 2025-06-13 09:55 | XMS_ITS ---
Author Organization [facility] Address [address] [facility] [address] [place] [address] Phone Care Team Providers Care Ironer Sock Name Role Phone Adriel Ma MD Primary Care Provider Self-Referred, Patient Unavailable Unavailab nadege Alarcon Diptitimmy Pichardo [facility] Unavailable Mignon Everett Unavailable Diego [email or web address] Aracelis Mckeon RN Unavailable NEREYDA [email or web address] Corey Cole MD Unavailable [phone] Active Problems Patient Care Coordination No te [...] (08/17/2024 11:25 AM EST): Originally diagnosed with [place] LC Multiple Myeloma in December 2022 after [...] an outpatient. Received anti-BCMA CAR-T cells with cilta-edon product as an outpatient on D0 = [...] (08/16/2024 4:04 PM EST): Originally diagnosed with [place] LC Multiple Myeloma in December 2022 after [...] Onc: Ary Rm MD; Dana Haney MD ([place], [place]); Dr. Monique ([place], [place]) -- Pre-transplant vitamin D level was [...] status unspecified Treatment Medications No medications scheduled. [facility] Cellular Therapy Collection* Plan Start Date:06/21/2024 Linked Problems Multiple myeloma in relapse Treatment Medications No medications scheduled. OP BMT 878 NO REST DAY AUTO MELPHALAN WITH AIBW OPTION* Plan Start Date: 07/11/2023 Plan Provider:Ary Rm MD Linked Problems Multiple myeloma in remissio n Treatment Medications melphalan (EVOMELA) 2 mg/mL in NS IVPB Fr bag TP 1020 [facility] CILTACABTAGENE AUTOLEUCEL (CARVYKTI)* Plan Start Date:08/08/2024 [...] Reason Plan Provider Cycles TP 1020 IEC [facility] CYCLOPHO SPHAMIDE /FLUDARA BINE 12/28/202 4 [...]
== END 2025-06-13 09:55 | disposition home or self-care (01) ==
LOC: HO.HSMS 08:57
PROVIDERS: PCP Family Medicine; Visit Provider Physician Assistant Medical
DX: G47.19 Other hypersomnia (principal); R53.82 Chronic fatigue, unspecified; F41.9 Anxiety disorder, unspecified; C90.00 Multiple myeloma not having achieved remission; G57.32 Lesion of lateral popliteal nerve, left lower limb
CPT/HCPCS: 99204

== ENCOUNTER 2025-06-17 12:20 | Outpatient (REF) | payer OTHER, SELFPAY ==
[2025-06-17 14:01] LABS: MANUAL DIFF FLAG NO
--- OUTSIDE RECORDS SUMMARY | 2025-06-17 14:05 | XMS_ITS | Encounter Summary ---
Author Organization [facility] Address [address] [facility] [address] [place] [address] Phone Care Team Providers Care Puppy Walker Name Role Phone Adriel Ma MD Primary Care Provider Self-Referred, Patient Unavailable Unavailab nadege Alarcon Diptitimmy Pichardo [facility] Unavailable [phone] Mignon Everett Unavailable Diego [email or web address]. Aracelis Mckeon RN Unavailable NEREYDA [email or web address].[facility] Corey Cole MD Unavailable [phone] Encounter Details Date Type Department Care Team (Late st Contact Info) Description 06/15/2023 Documentation [facility], Division of Hematologic Oncology, [facility] [place] [address] [facility], 7th [place] [address] Elaine Baker, ANITRA [address] [facility] [place] [address] [email or web address] Social History Tobacco Use Types [...] 7:10 AM EDT Blood Draw Laboratory Services, [address], 2nd [place] [address] Ary Rm MD [address] [place] [address] [facility], Floor 7 [place] [address] Sharmin@[facility] 10/16/2025 8:00 AM EDT Office Visit [facility], Division of Hematologic Oncology, [address], 7th [place] [address] Ary Rm MD [address] [place] [address] [facility], Floor 7 [place] [address] Sharmin@[email or web address] documented as of this encounter Visit Diagnoses Not on filedocumented in this encounter Additional Health Concerns Infection Onset Date Last Indicated Resolved Time CoV-Risk Comment:Per note documentation 07/23/2023 07/23/2023 3 10:25 PM EST CoV-Risk Comment:Per note documentation 08/16/2024 08/16/2024 5 6:31 PM EST documented as of this encounter Care Teams Puppy Walker Relationship Specialty Start Date End Date Adriel Ma MD PCP - General Family Medicine 01/10/23 Self-Referred, Patient 01/10/23 Dipti Alarcon, STRIP CUTTER [address] [place] [address] [email or web address] Parachute Line Tier Oncology 06/05/23 Mignon Everett [address] [place] [address] Marilu @[facility] Non Profit Director 06/12/23 Aracelis Grajeda, RN [address] [place] [address] RAYMOND@[email or web address]. [facility] Primary Infusion Nurse 07/13/23 Corey Cole MD [address] [place] [address] Hematology [place] [address] [email or web address] Hematology and Oncology 09/05/24 documented as of this encounter Additional Source Comments The information contained in this document represents components of the legal health record. It is not the complete legal health record.[facility]
--- OUTSIDE RECORDS SUMMARY | 2025-06-17 14:05 | XMS_ITS | Encounter Summary ---
Author Organization [facility] Address [address] [facility] [address] [place] [address] Phone Care Team Providers Care Stone Grader Name Role Phone Adriel Ma MD Primary Care Provider Self-Referred, Patient Unavailable Unavailab Dipti Anderson [facility] Unavailable [phone] Mignon Everett Unavailable Diego [email or web address] Aracelis Mckeon RN Unavailable NEREYDA [email or web address] Corey Cole MD Unavailable [phone] Encounter Details Date Type Department Care Team (Late st Contact Info) Description 06/01/2023 Procedure Pass [facility] L2 PRU 75 [place] [address] Social History Tobacco Use Types Packs/Day Years [...] AM EDT Blood Draw Laboratory Services, [address], 2nd [place] [address] Ary Rm MD [address] [place] [address] [facility]oma Clinic, Floor 7 [place] [address] Sharmin@[facility] 10/16/2025 8:00 AM EDT Office Visit [facility], Division of Hematologic Oncology, [address], 7th [place] [address] Ary Rm MD [address] [place] [address] [facility], Floor 7 [place] [address] Sharmin@[facility] documented as of this encounter Visit Diagnoses Not on filedocumented in this encounter Additional Health Concerns Infection Onset Date Last Indicated Resolved Time CoV-Risk Comment:Per note documentation 07/23/2023 07/23/2023 3 10:25 PM EST CoV-Risk Comment:Per note documentation 08/16/2024 08/16/2024 5 6:31 PM EST documented as of this encounter Care Teams Stone Grader Relationship Specialty Start Date End Date Adriel Ma MD PCP - General Family Medicine 01/10/23 Self-Referred, Patient 01/10/23 Dipti Alarcon, RN MDS 35 [place] [address] [email or web address] Price Accuracy Supervisor Oncology 06/05/23 Mignon Everett [address] [place] [address] Marilu @[facility] Passenger Brakeman 06/12/23 Aracelis Grajeda, ANITRA [address] [place] [address] RAYMOND@[email or web address]. [facility] Primary Infusion Nurse 07/13/23 Corey Cole MD [address] [place] [address] [place]ematology [place] [address] [email or web address] Hematology and Oncology 09/05/24 documented as of this encounter Additional Source Comments The information contained in this document represents components of the legal health record. It is not the complete legal health record.[facility]
--- OUTSIDE RECORDS SUMMARY | 2025-06-17 14:05 | XMS_ITS | Encounter Summary ---
Author Organization [facility] Address [address] [facility] [address] [place] [address] Phone Care Team Providers Care Retail Mortgage Banker Name Role Phone Adriel Ma MD Primary Care Provider Self-Referred, Patient Unavailable Unavailab nadege Alarcon Diptitimmy Pichardo [facility] Unavailable [phone] Mignon Everett Unavailable Diego [email or web address]. Aracelis Mckeon RN Unavailable NEREYDA [email or web address] Corey Cole MD Unavailable [phone] Encounter Details Date Type Department Care Team (Late st Contact Info) Description 2023 Documentation [facility] [address] [address] Pal Clark PA-C 35 [place] [address] MARY JANE@[email or web address] Social History Tobacco Use Types Packs/Day Years [...] Apheresis Collection Suitability Name: Richar Carrington MRN: ?[id number] Indication: ?autp HPC Tentative Collection Date: ?07/05/23 Date of mobilization: 07/01/23 Has the donor been tested for evidence of communicable infectious diseases in accordance with FDA/AABB guidelines: ?yes Relevant Past Medical History: ?Cardiac (Atrial fibrillation or flutter, sick sinus syndrome, or ventricular arrhythmias, CAD/MD, CHF, HTN, heart valve disease, diastolic dysfunction, [...] records. Pal Clark PA-C Transfusion Medicine [facility] Transfusion Medicine Pager: [phone] documented in this encounter Plan of Treatment Upcoming Encounters Date Type Department Care Team (Late st Contact Info) Description 10/16/2025 7:10 AM EDT Blood Draw Laboratory Services, [facility] [place] [address] [place] [address] 2nd [place] [address] Ary Rm MD [address] [facility]eloma Clinic, Floor 7 [place] [address] Sharmin@[facility] 10/16/2025 8:00 AM EDT Office Visit [facility] for [facility], Division of Hematologic Oncology, [facility] [place] [address] [facility], 7th [place] [address] Ary Rm MD [address] [facility], Floor 7 [place] [address] Sharmin@[facility] documented as of this encounter Visit Diagnoses Not on filedocumented in this encounter Additional Health Concerns Infection Onset Date Last Indicated Resolved Time CoV-Risk Comment:Per note documentation 07/23/2023 07/23/2023 3 10:25 PM EST CoV-Risk Comment:Per note documentation 08/16/2024 08/16/2024 5 6:31 PM EST documented as of this encounter Care Teams Retail Mortgage Banker Relationship Specialty Start Date End Date Adriel Ma MD PCP - General Family Medicine 01/10/23 Self-Referred, Patient 01/10/23 Dipti Alarcon LCSW 35 [place] [address] [email or web address] Regulatory Affairs Assistant Oncology 06/05/23 Mignon Everett [address] [place] [address] Marilu @[email or web address] Wireline Operator 06/12/23 Aracelis Grajeda, ANITRA 450 [place] [address] RAYMOND@[email or web address]. [facility] Primary Infusion Nurse 07/13/23 Corey Cole MD [address] [place] [address] [place]ematology [place] [address] [email or web address] Hematology and Oncology 09/05/24 documented as of this encounter Additional Source Comments The information contained in this document represents components of the legal health record. It is not the complete legal health record.[facility]
--- OUTSIDE RECORDS SUMMARY | 2025-06-17 14:05 | XMS_ITS | Clinical Summary ---
Author Organization [facility] Address [address] [place] [address] Care Team Providers Care Parcel Post Delivery Name Role Phone Pcp, No Primary Care [...] this topic Insurance [employer] HMO/POS Care Teams Parcel Post Delivery Relationship Specialty Start Date End Date Pcp, No PCP - General General Medicine 08/07/20
--- OUTSIDE RECORDS SUMMARY | 2025-06-17 14:05 | XMS_ITS | Encounter Summary ---
Author Organization [facility] Address [address] [facility] [address] [place] [address] Phone Care Team Providers Care Protection Agent Name Role Phone Adriel Ma MD Primary Care Provider Self-Referred, Patient Unavailable Unavailab Dipti Anderson [facility] Unavailable [phone] Mignon Everett Unavailable iDego [email or web address].[place]. Aracelis Mckeon RN Unavailable NEREYDA VIERA@[email or web address].[facility] Corey Cole MD Unavailable [phone] Encounter Details Date Type Department Care Team (Late st Contact Info) Description 07/23/2023 Procedure Pass [facility] 75 [place] [address] Social History Tobacco Use Types Packs/Day Years [...] 07/25/2023 9:00 PM Paul Finn, ANITRA * [place] Suicide Severity Rating Scale (Screener/Recent Self-Report) Question [...] 7:10 AM EDT Blood Draw Laboratory Services, [facility] [address] [facility], 2nd [place] [address] Ary Rm MD [address] [place] [address] Myeloma Clinic, Floor 7 [place] [address] Sharmin@[email or web address] 10/16/2025 8:00 AM EDT Office Visit [facility] for Multiple Myeloma, Division of Hematologic Oncology, [facility] [address] [facility], 7th [place] [address] Ary Rm MD [address] [place] [address] [facility], Floor 7 [place] [address] Sharmin@[facility] documented as of this encounter Visit Diagnoses Not on filedocumented in this encounter Additional Health Concerns Infection Onset Date Last Indicated Resolved Time CoV-Risk Comment:Per note documentation 07/23/2023 07/23/2023 12/18/202 3 10:25 PM EST CoV-Risk Comment:Per note documentation 08/16/2024 08/16/2024 6:31 PM EST documented as of this encounter Care Teams Protection Agent Relationship Specialty Start Date End Date Adriel Ma MD PCP - General Family Medicine 01/10/23 Self-Referred, Patient 01/10/23 Dipti Alarcon, TAP OUT OPERATOR [address] [place] [address] [email or web address] Vamp Cut Out Worker Oncology 06/05/23 Mignon Everett [address] [place] [address] Marilu @[facility] Account Services Representative 06/12/23 Aracelis Grajeda, RN [address] [place] [address] RAYMOND@[facility] Primary Infusion Nurse 07/13/23 Corey Cole MD [address] [place] [address] [place] [address] [email or web address] Hematology and Oncology 09/05/24 documented as of this encounter Additional Source Comments The information contained in this document represents components of the legal health record. It is not the complete legal health record.[facility]
--- OUTSIDE RECORDS SUMMARY | 2025-06-17 14:05 | XMS_ITS | Encounter Summary ---
Author Organization [facility] Address [address] [facility] [address] [place] [address] Phone Care Team Providers Care Special Needs Bus Driver Name Role Phone Adriel Ma MD Primary Care Provider Self-Referred, Patient Unavailable Unavailab Dipti Anderson [facility] Unavailable Mignon Everett Unavailable Diego [email or web address]. Aracelis Mckeno RN Unavailable NEREYDA VIERA@[email or web address].[facility] Corey Cole MD Unavailable [phone] Encounter Details Date Type Department Care Team (Late st Contact Info) Description 08/18/2024 Procedure Pass [facility] Angio Interventional Radiology [address] [place] [address] Social History Tobacco Use Types Packs/Day Years [...] 7:10 AM EDT Blood Draw Laboratory Services, [facility] [place] [address] [facility], 2nd [place] [address] Ary Rm MD [address] [place] [address] Clinic, Floor 7 [place] [address] Sharmin@[facility] 10/16/2025 8:00 AM EDT Office Visit [facility], Division of Hematologic Oncology, [facility] [place] [address] [place] [address], 7th [place] [address] Ary Rm MD [address] [place] [address] Myeloma Clinic, Floor 7 [place] [address] Sharmin@[facility] documented as of this encounter Visit Diagnoses Not on filedocumented in this encounter Additional Health Concerns Assessment Noted Time PHQ-9 Depression Total Score: 9 06/25/20 11:14 AM EST PHQ-2 Depression Total Score: 1 06/25/20 11:14 AM EST documented as of this encounter Care Teams Special Needs Bus Driver Relationship Specialty Start Date End Date Adriel Ma MD PCP - General Family Medicine 01/10/23 Self-Referred, Patient 01/10/23 Dipti Alarcon, DESKTOP OPERATOR [address] [place] [address] [email or web address] Bird Tender Oncology 06/05/23 Mignon Everett [address] [place] [address] Marilu @[facility] Information Technology Teacher 06/12/23 Aracelis Grajeda, ANITRA [address] [place] [phone] RAYMOND@[facility]. [facility] Primary Infusion Nurse 07/13/23 Corey Cole MD [address] [place] [address] Hematology [place] [address] [email or web address] Hematology and Oncology 09/05/24 documented as of this encounter Additional Source Comments The information contained in this document represents components of the legal health record. It is not the complete legal health record.[facility]
--- OUTSIDE RECORDS SUMMARY | 2025-06-17 14:05 | XMS_ITS | Encounter Summary ---
Author Organization [facility] Address [address] [facility] [address] [place] [address] Phone Care Team Providers Care Cone Runner Name Role Phone Adriel Ma MD Primary Care Provider Self-Referred, Patient Unavailable Unavailab nadege Alarcon Diptitimmy Pichardo [facility] Unavailable [phone] Mignon Everett Unavailable Diego [email or web address]. Aracelis Mckeon RN Unavailable NEREYDA [email or web address].[facility] Corey Cole MD Unavailable [phone] Encounter Details Date Type Department Care Team (Late st Contact Info) Description 06/15/2023 Documentation [facility], Division of Hematologic Oncology, [facility] [place] [address] [facility], 7th [place] [address] Elaine Baker, ANITRA [address] [facility] [place] [address] [email or web address] Social History Tobacco Use Types Packs/Day [...] , , Malvin Black, South or Central [place] Citizen Black, or Other Black? OR is the donor from the [place], [place], or Southeast Lisa?: No Does [...] hematology/oncology team. Elidia Hamilton MS, GIOVANNI Physician Uat Tester Hematologic Malignancies and Stem Cell Transplant (t) [phone], pager#[phone] documented in this encounter Plan of Treatment Upcoming Encounters Date Type Department Care Team (Late st Contact Info) Description 10/16/2025 7:10 AM EDT Blood Draw Laboratory Services, [address], 2nd [place] [address] Ary Rm MD [address] [place] [address] Myeloma Clinic, Floor 7 [place] [address] Sharmin@[facility] 10/16/2025 8:00 AM EDT Office Visit [facility], Division of Hematologic Oncology, [address], 7th [place] [address] Ary Rm MD [address] [place] [address] My[facility]oma Clinic, Floor 7 [place] [address] Sharmin@[email or web address] documented as of this encounter 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 documented in this encounter Additional Health Concerns Infection Onset Date Last Indicated Resolved Time CoV-Risk Comment:Per note documentation 07/23/2023 07/23/2023 10:25 PM EST CoV-Risk Comment:Per note documentation 08/16/2024 08/16/2024 6:31 PM EST documented as of this encounter Care Teams Cone Runner Relationship Specialty Start Date End Date Adriel Ma MD PCP - General Family Medicine 01/10/23 Self-Referred, Patient 01/10/23 Dipti Alarcon, COMMUNICATION SPECIALIST 35 [place] [address] [email or web address] Bus Mechanic Oncology 06/05/23 Mignon Everett [address] [place] [address] Marilu @[facility] Chief Medical Physicist 06/12/23 Aracelis Grajeda, RN 450 [place] [address] RAYMOND@[email or web address]. [facility] Primary Infusion Nurse 07/13/23 Corey Cole MD [address] [place] [address] [place] [address] [email or web address] Hematology and Oncology 09/05/24 documented as of this encounter Additional Source Comments The information contained in this document represents components of the legal health record. It is not the complete legal health record.[facility]
--- OUTSIDE RECORDS SUMMARY | 2025-06-17 14:06 | XMS_ITS | Encounter Summary ---
Author Organization [facility] Address [address] [facility] [address] [place] [address] Phone Care Team Providers Care Heater Engineer Helper Name Role Phone Adriel Ma MD Primary Care Provider Self-Referred, Patient Unavailable Unavailab Dipti Anderson [facility] Unavailable [phone] Mignon Everett Unavailable Diego [email or web address]. Aracelis Mckeon RN Unavailable NEREYDA VIERA@[email or web address].[facility] Corey Cole MD Unavailable [phone] Encounter Details Date Type Department Care Team (Late st Contact Info) Description 05/27/[address] [facility] Angio Interventional Radiology [address] [place] [address] Social History Tobacco Use Types Packs/Day Years [...] 7:10 AM EDT Blood Draw Laboratory Services, [address], 2nd [place] [address] Ary Rm MD [address] [place] [address] [facility]oma Clinic, Floor 7 [place] [address] Sharmin@[facility] 10/16/2025 8:00 AM EDT Office Visit [facility] for [facility], Division of Hematologic Oncology, [address], 7th [place] [address] Ary Rm MD [address] [place] [address] Myeloma Clinic, Floor 7 [place] [address] Sharmin@[facility] documented as of this encounter Visit Diagnoses Not on filedocumented in this encounter Additional Health Concerns Infection Onset Date Last Indicated Resolved Time CoV-Risk Comment:Per note documentation 08/16/2024 08/16/2024 6:31 PM EST documented as of this encounter Care Teams Heater Engineer Helper Relationship Specialty Start Date End Date Adriel Ma MD PCP - General Family Medicine 01/10/23 Self-Referred, Patient 01/10/23 Dipti Alarcon LCSW 35 [place] [address] [email or web address] Probation Officer Oncology 06/05/23 Mignon Everett 35 [place] [address] Marilu @[facility] Ceo & Board Director 06/12/23 Aracelis Grajeda, RN [address] [place] [address] RAYMOND@[facility]. [facility] Primary Infusion Nurse 07/13/23 Corey Cole MD [address] [place] [address] [place] [address] [email or web address] Hematology and Oncology 09/05/24 documented as of this encounter Additional Source Comments The information contained in this document represents components of the legal health record. It is not the complete legal health record.[facility]
--- OUTSIDE RECORDS SUMMARY | 2025-06-17 14:06 | XMS_ITS | Encounter Summary ---
Author Organization [facility] Address [address] [facility] [address] [place] [address] Phone Care Team Providers Care Senior Risk Analyst Name Role Phone Adriel Ma MD Primary Care Provider Self-Referred, Patient Unavailable Unavailab Dipti Anderson [facility] Unavailable Mignon Everett Unavailable Diego [email or web address] Aracelis Mckeon RN Unavailable NEREYDA VIERA@[email or web address].[place].[facility] Corey Cole MD Unavailable [phone] Encounter Details Date Type Department Care Team (Late st Contact Info) Description 05/27/2024 Procedure Pass [facility] L2 PRU 75 [place] [address] Social History Tobacco Use Types Packs/Day Years [...] AM EDT Blood Draw Laboratory Services, [address], 2nd [place] [address] Ary Rm MD [address] [place] [address] [facility], Floor 7 [place] [address] Sharmin@[facility] 10/16/2025 8:00 AM EDT Office Visit [facility], Division of Hematologic Oncology, [address], 7th [place] [address] Ary Rm MD [address] [place] [address] [facility], Floor 7 [place] [address] Sharmin@[facility] documented as of this encounter Visit Diagnoses Not on filedocumented in this encounter Additional Health Concerns Infection Onset Date Last Indicated Resolved Time CoV-Risk Comment:Per note documentation 08/16/2024 08/16/2024 6:31 PM EST documented as of this encounter Care Teams Senior Risk Analyst Relationship Specialty Start Date End Date Adriel Ma MD PCP - General Family Medicine 01/10/23 Self-Referred, Patient 01/10/23 Dipti Alarcon LCSW [address] [place] [address] [email or web address] Vp Cardiovascular Oncology 06/05/23 Mignon Everett [address] [place] [address] Marilu @[facility] Mixing Engineer 06/12/23 Aracelis Grajeda, RN [address] [place] [address] RAYMOND@[facility]. [facility] Primary Infusion Nurse 07/13/23 Corey Cole MD [address] [place] [address] Hematology [place] [address] [email or web address] Hematology and Oncology 09/05/24 documented as of this encounter Additional Source Comments The information contained in this document represents components of the legal health record. It is not the complete legal health record.[facility]
--- OUTSIDE RECORDS SUMMARY | 2025-06-17 14:06 | XMS_ITS | Encounter Summary ---
Author Organization [facility] Address 399 [facility] [address] [place] [address] Phone Care Team Providers Care Attending Anesthesiologist Name Role Phone Adriel Ma MD Primary Care Provider Self-Referred, Patient Unavailable Unavailab Dipti Anderson [facility] Unavailable [phone] Mignon Everett Unavailable Diego [email or web address]. Aracelis Mckeon RN Unavailable NEREYDA VIERA@[email or web address].[facility] Corey Cole MD Unavailable [phone] Encounter Details Date Type Department Care Team (Late st Contact Info) Description 06/27/2024 Procedure Pass [facility] L2 PRU 75 [place] [address] Social History Tobacco Use Types Packs/Day Years [...] 7:10 AM EDT Blood Draw Laboratory Services, [address], 2nd [place] [address] Ary Rm MD [address] [place] [address] [facility], Floor 7 [place] [address] Sharmin@[facility] 10/16/2025 8:00 AM EDT Office Visit [facility], Division of Hematologic Oncology, [address], 7th [place] [address] Ary Rm MD [address] [place] [address] [facility], Floor 7 [place] [address] Sharmin@[facility] documented as of this encounter [...] documented as of this encounter Care Teams Attending Anesthesiologist Relationship Specialty Start Date End Date Adriel Ma MD PCP - General Family Medicine 01/10/23 Self-Referred, Patient 01/10/23 Dipti Alarcon SET UP TECHNICIAN [address] [place] [address] [email or web address] Fashion Consultant Sales Oncology 06/05/23 Mignon Everett [address] [place] [address] Marilu @[facility] Stock Supervisor 06/12/23 Aracelis Grajeda, RN [address] [place] [address] RAYMOND@[facility]. [facility] Primary Infusion Nurse 07/13/23 Corey Cole MD [address] [place] [address] [place]ematology [place] [address] Monica@[email or web address] Hematology and Oncology 09/05/24 documented as of this encounter Additional Source Comments The information contained in this document represents components of the legal health record. It is not the complete legal health record.[facility]
--- OUTSIDE RECORDS SUMMARY | 2025-06-17 14:06 | XMS_ITS | Encounter Summary ---
Author Organization [facility] Address [address] [facility] [address] [place] [address] Phone Care Team Providers Care Environmental Services Aide Name Role Phone Adriel Ma MD Primary Care Provider Self-Referred, Patient Unavailable Unavailab Dipti Anderson [facility] Unavailable [phone] Mignon Everett Unavailable Diego [email or web address]. Aracelis Mckoen RN Unavailable NEREYDA [email or web address].[facility] Corey Cole MD Unavailable [phone] Encounter Details Date Type Department Care Team (Late st Contact Info) Description 07/26/2023 Procedure Pass [facility] Angio Interventional Radiology [address] [address] Social History Tobacco Use Types Packs/Day Years [...] AM EDT Blood Draw Laboratory Services, [address], 2nd [place] [address] Ary Rm MD [address] [place] [address] [facility], Floor 7 [place] [address] Sharmin@[facility] 10/16/2025 8:00 AM EDT Office Visit [facility], Division of Hematologic Oncology, [address], 7th [place] [address] Ary Rm MD [address] [place] [address] [facility], Floor 7 [place] [address] Sharmin@[facility] documented as of this encounter Visit Diagnoses Not on filedocumented in this encounter Additional Health Concerns Infection Onset Date Last Indicated Resolved Time CoV-Risk Comment:Per note documentation 08/16/2024 08/16/2024 6:31 PM EST documented as of this encounter Care Teams Environmental Services Aide Relationship Specialty Start Date End Date Adriel Ma MD PCP - General Family Medicine 01/10/23 Self-Referred, Patient 01/10/23 Dipti Alarcon LCSW 35 [place] [address] [email or web address] Roller Shop Supervisor Oncology 06/05/23 Mignon Everett [address] [place] [address] Marilu @[facility] Patient Support Tech 06/12/23 Aracelis Grajeda, RN [address] [place] [address] RAYMOND@[facility]. [facility] Primary Infusion Nurse 07/13/23 Corey Cole MD [address] [place] [address] Hematology [place] [address] [email or web address] Hematology and Oncology 09/05/24 documented as of this encounter Additional Source Comments The information contained in this document represents components of the legal health record. It is not the complete legal health record.[facility]
--- OUTSIDE RECORDS SUMMARY | 2025-06-17 14:06 | XMS_ITS | Encounter Summary ---
Author Organization [facility] Address [address] [facility] [address] [place] [address] Phone Care Team Providers Care Lumber Stacker Operator Name Role Phone Adriel Ma MD Primary Care Provider Self-Referred, Patient Unavailable Unavailab nadege Alarcon Diptitimmy Pichardo [facility] Unavailable [phone] Mignon Everett Unavailable Diego [email or web address]. Aracelis Mckeon RN Unavailable NEREYDA VIERA@[email or web address].[facility] Corey Cole MD Unavailable [phone] Encounter Details Date Type Department Care Team (Late st Contact Info) Description 05/02/2023 Documentation Central Registration, [facility] [place] [address] [facility], 2nd [place] [address] Danny John [address] [place] [address] Susanne@[facility] Social History Tobacco Use Types Packs/Day Years [...] 7:10 AM EDT Blood Draw Laboratory Services, [address], 2nd [place] [address] Ary Rm MD [address] [place] [address] [facility] Clinic, Floor 7 [place] [address] Sharmin@[facility] 10/16/2025 8:00 AM EDT Office Visit [facility], Division of Hematologic Oncology, [address], 7th [place] [address] Ary Rm MD [address] [place] [address] [facility], Floor 7 [place] [address] Sharmin@[facility] documented as of this encounter Visit Diagnoses Not on filedocumented in this encounter Additional Health Concerns Infection Onset Date Last Indicated Resolved Time CoV-Risk Comment:Per note documentation 07/23/2023 07/23/2023 3 10:25 PM EST CoV-Risk Comment:Per note documentation 08/16/2024 08/16/2024 5 6:31 PM EST documented as of this encounter Care Teams Lumber Stacker Operator Relationship Specialty Start Date End Date Adriel Ma MD PCP - General Family Medicine 01/10/23 Self-Referred, Patient 01/10/23 Dipti Alarcon, AGRICULTURAL PRODUCE WASHER [address] [place] [address] [email or web address] Marketing Database Coordinator Oncology 06/05/23 Mignon Everett [address] [place] [address] Marilu @[facility] Heat Treater Helper 06/12/23 Aracelis Grajeda, RN [address] [place] [address] RAYMOND@[email or web address]. [facility] Primary Infusion Nurse 07/13/23 Corey Cole MD [address] [place] [address] Hematology [place] [address] Monica@[email or web address] Hematology and Oncology 09/05/24 documented as of this encounter Additional Source Comments The information contained in this document represents components of the legal health record. It is not the complete legal health record.[facility]
--- OUTSIDE RECORDS SUMMARY | 2025-06-17 14:06 | XMS_ITS | Encounter Summary ---
Author Organization [facility] Address [address] [facility] [address] [place] [address] Phone Care Team Providers Care Shine Worker Name Role Phone Adriel Ma MD Primary Care Provider Self-Referred, Patient Unavailable Unavailab nadege Alarcon Diptitimmy Pichardo [facility] Unavailable [phone] Mignon Everett Unavailable Diego [email or web address]. Aracelis Mckeon RN Unavailable NEREYDA VIERA@[email or web address] Corey Cole MD Unavailable [phone] Reason for Visit * Reason Comments Medication Refill Encounter Details Date Type Department Care Team (Late st Contact Info) Description 03/29/2024 Refill Division of Hematologic Oncology, [facility] [place] [address] [place] [address], 8th [place] [address] Itzel Dorman, EMAIL MARKETER [address] [place] [address] and [facility] [address] [email or web address] Medication Refill Social History Tobacco Use [...] 7:10 AM EDT Blood Draw Laboratory Services, [address], 2nd [place] [address] Ary Rm MD [address] [place] [address] Myeloma [facility], Floor 7 [place] [id number] Sharmin@[facility] 10/16/2025 8:00 AM EDT Office Visit [facility] for [facility] Myeloma, Division of Hematologic Oncology, [address], 7th [place] [address] Ary Rm MD [address] [place] [address] Myeloma [facility], Floor 7 [place] [address] Sharmin@[facility] documented as of this encounter Visit Diagnoses Not on filedocumented in this encounter Additional Health Concerns Infection Onset Date Last Indicated Resolved Time CoV-Risk Comment:Per note documentation 08/16/2024 08/16/2024 6:31 PM EST documented as of this encounter Care Teams Shine Worker Relationship Specialty Start Date End Date Adriel Ma MD PCP - General Family Medicine 01/10/23 Self-Referred, Patient 01/10/23 Dipti Alarcon, TOOL ROOM GEAR MACHINE OPERATOR [address] [place] [address] [email or web address] Lithographic Stripper Oncology 06/05/23 Mignon Everett [address] [place] [address] Marilu @[facility] Power Cleaner Operator 06/12/23 Aracelis Grajeda, RN [address] [place] [address] RAYMOND@[facility]. [facility] Primary Infusion Nurse 07/13/23 Corey Cole MD [address] [place] [address] [place]ematology [place] [address] [email or web address] Hematology and Oncology 09/05/24 documented as of this encounter Additional Source Comments The information contained in this document represents components of the legal health record. It is not the complete legal health record.[facility]
--- OUTSIDE RECORDS SUMMARY | 2025-06-17 14:06 | XMS_ITS | Encounter Summary ---
Author Organization [facility] Address [address] [facility] [address] [place] [address] Phone Care Team Providers Care Deliver Driver Name Role Phone Adriel Ma MD Primary Care Provider Self-Referred, Patient Unavailable Unavailab nadege Alarcon Diptitimmy Pichardo [facility] Unavailable [phone] Mignon Everett Unavailable Diego [email or web address].[place]. Aracelis Mckeon RN Unavailable NEREYDA VIERA@[facility].[facility] Corey Cole MD Unavailable [phone] Encounter Details Date Type Department Care Team (Late st Contact Info) Description 08/08/2024 Documentation [facility], Division of Hematologic Oncology, [facility] [place] [address] [place] [address], 7th [place] [address] Madyson Jo, RN [address] [place] [address] [email or web address] Social History Tobacco [...] AM EDT Blood Draw Laboratory Services, [address], 2nd [place] [address] Ary Rm MD [address] [place] [address] Myeloma Clinic, Floor 7 [place] [address] Sharmin@[facility] 10/16/2025 8:00 AM EDT Office Visit [facility] for Multiple Myeloma, Division of Hematologic Oncology, [facility] [address], 7th [place] [address] Ary Rm MD [address] [place] [address] [facility], Floor 7 [place] [address] Sharmin@[facility] documented as of this encounter Visit Diagnoses Not on filedocumented in this encounter Additional Health Concerns Infection Onset Date Last Indicated Resolved Time CoV-Risk Comment:Per note documentation 08/16/2024 08/16/2024 6:31 PM EST Assessment Noted Time PHQ-9 Depression Total Score: 9 06/25/20 24 11:14 AM EST PHQ-2 Depression Total Score: 1 06/25/20 24 11:14 AM EST documented as of this encounter Care Teams Deliver Driver Relationship Specialty Start Date End Date Adriel Ma MD PCP - General Family Medicine 01/10/23 Self-Referred, Patient 01/10/23 Dipti Alarcon LCSW [address] [place] [address] [email or web address] English Faculty Member Oncology 06/05/23 Mignon Everett [address] [place] [address] Marilu @[facility] Corporate Planner 06/12/23 Aracelis Grajeda, RN [address] [place] [address] RAYMOND@[facility]. [facility] Primary Infusion Nurse 07/13/23 Corey Cole MD [address] [place] [address] [place]ematology [place] [address] Monica@[email or web address] Hematology and Oncology 09/05/24 documented as of this encounter Additional Source Comments The information contained in this document represents components of the legal health record. It is not the complete legal health record.[facility]
--- OUTSIDE RECORDS SUMMARY | 2025-06-17 14:06 | XMS_ITS | Encounter Summary ---
Author Organization [facility] Address [address] [facility] [address] [place] [address] Phone Care Team Providers Care Dinkey Dispatcher Name Role Phone Adriel Ma MD Primary Care Provider Self-Referred, Patient Unavailable Unavailab nadege Alarcon Diptitimmy Pichardo [facility] Unavailable [phone] Mignon Everett Unavailable Diego [email or web address]. Aracelis Mckeon RN Unavailable NEREYDA VIERA@[email or web address] Corey Cole MD Unavailable [phone] Encounter Details Date Type Department Care Team (Late st Contact Info) Description 06/14/2024 Documentation [facility] Blood Donor Center [address] [facility] 1st [place] [address] Marcy Henry PA-C [address] [facility] Transfusion Med, [facility] [place] [address] [email or web address] Social History Tobacco Use Types [...] Apheresis Collection Suitability Name: Richar Carrington MRN: ?[id number] Indication: ?Conradovsheela Tentative Collection Date: 1?08/21/23 Date [...] flutter, sick sinus syndrome, or ventricular arrhythmias, CAD/[place], CHF, HTN, heart valve disease, diastolic dysfunction, [...] records. Marcy Henry PA-C Transfusion Medicine PA [facility] Transfusion Medicine Pager: [phone] documented in this encounter Plan of Treatment Upcoming Encounters Date Type Department Care Team (Late st Contact Info) Description 10/16/2025 7:10 AM EDT Blood Draw Laboratory Services, [facility] [address] [facility], 2nd [place] [address] Ary Rm MD [address] [place] [address] [facility], Floor 7 [place] [address] Sharmin@[facility] 10/16/2025 8:00 AM EDT Office Visit [facility], Division of Hematologic Oncology, [address], 7th [place] [address] Ary Rm MD [address] [place] [address] [facility], Floor 7 [place] [address] Sharmin@[facility] documented as of this encounter Visit Diagnoses Not on filedocumented in this encounter Additional Health Concerns Infection Onset Date Last Indicated Resolved Time CoV-Risk Comment:Per note documentation 08/16/2024 08/16/2024 6:31 PM EST documented as of this encounter Care Teams Dinkey Dispatcher Relationship Specialty Start Date End Date Adriel Ma MD PCP - General Family Medicine 01/10/23 Self-Referred, Patient 01/10/23 Dipti Alarcon LCSW [address] [place] [address] [email or web address] Table Attendant Oncology 06/05/23 Mignon Everett [address] [place] [address] Marilu @[facility] Building Construction Inspector 06/12/23 Aracelis Grajeda, RN [address] [place] [address] [email or web address]. [facility] Primary Infusion Nurse 07/13/23 Corey Cole MD [address] [place] [address] Hematology [place] [address] Monica@[email or web address] Hematology and Oncology 09/05/24 documented as of this encounter Additional Source Comments The information contained in this document represents components of the legal health record. It is not the complete legal health record.[facility]
--- OUTSIDE RECORDS SUMMARY | 2025-06-17 14:06 | XMS_ITS | Encounter Summary ---
Author Organization [facility] Address [address] [facility] [address] [place] [address] Phone Care Team Providers Care Closet Organizer Name Role Phone Adriel Ma MD Primary Care Provider Self-Referred, Patient Unavailable Unavailab Dipti Anderson [facility] Unavailable [phone] Mignon Everett Unavailable Diego [email or web address]. Aracelis Mckeon RN Unavailable NEREYDA VIERA@[email or web address].[facility] Corey Cole MD Unavailable [phone] Encounter Details Date Type Department Care Team (Late st Contact Info) Description 04/24/2023 Procedure Pass [facility] Echocardiography [address] [place] [address] Social History Tobacco Use Types Packs/Day Years [...] 7:10 AM EDT Blood Draw Laboratory Services, [address], 2nd [place] [address] Ary Rm MD [address] [place] [address] [facility], Floor 7 [place] [address] Sharmin@[facility] 10/16/2025 8:00 AM EDT Office Visit [facility], Division of Hematologic Oncology, [address], 7th [place] [address] Ary Rm MD [address] [place] [address] [facility], Floor 7 [place] [address] Sharmin@[facility] documented as of this encounter Visit Diagnoses Not on filedocumented in this encounter Additional Health Concerns Infection Onset Date Last Indicated Resolved Time CoV-Risk Comment:Per note documentation 07/23/2023 07/23/2023 3 10:25 PM EST CoV-Risk Comment:Per note documentation 08/16/2024 08/16/2024 5 6:31 PM EST documented as of this encounter Care Teams Closet Organizer Relationship Specialty Start Date End Date Adriel Ma MD PCP - General Family Medicine 01/10/23 Self-Referred, Patient 01/10/23 Dipti Alarcon, SUMAYA [address] [place] [address] [email or web address] Shift Mgr Oncology 06/05/23 Mignon Everett [address] [place] [address] Marilu @[facility] Hardware Installation Coordinator 06/12/23 Aracelis Grajeda, ANITRA [address] [place] [address] RAYMOND@[facility]. [facility] Primary Infusion Nurse 07/13/23 Corey Cole MD [address] [place] [address] [place] [address] Monica@[facility] Hematology and Oncology 09/05/24 documented as of this encounter Additional Source Comments The information contained in this document represents components of the legal health record. It is not the complete legal health record.[facility]
--- OUTSIDE RECORDS SUMMARY | 2025-06-17 14:06 | XMS_ITS | Encounter Summary ---
Author Organization [facility] Address [address] [facility] [address] [place] [address] Phone Care Team Providers Care Corporate Associate Attorney Name Role Phone Adriel Ma MD Primary Care Provider Self-Referred, Patient Unavailable Unavailab nadege Alarcon Diptitimmy Pichardo [facility] Unavailable [phone] Mignon Everett Unavailable Diego [email or web address]. Aracelis Mckeon RN Unavailable NEREYDA [email or web address] Corey Cole MD Unavailable [phone] Reason for Visit * Reason Comments Medication Refill Encounter Details Date Type Department Care Team (Late st Contact Info) Description 02/01/2024 Refill Division of Hematologic Oncology, [facility] [place] [address] [place] [address], 8th [place] [address] Itzel Dorman, COLD STRIP ROLLER [address] [place] [address] and [place] [address] [email or web address] Medication Refill Social History Tobacco Use Types [...] 7:10 AM EDT Blood Draw Laboratory Services, [address], 2nd [place] [address] Ary Rm MD [address] [place] [address] [facility], Floor 7 [place] [id number] [email or web address] 10/16/2025 8:00 AM EDT Office Visit [facility] for Multiple Myeloma, Division of Hematologic Oncology, [address], 7th [place] [address] Ary Rm MD [address] [place] [address] Myel[facility], Floor 7 [place] [address] [email or web address] documented as of this encounter Visit Diagnoses Not on filedocumented in this encounter Additional Health Concerns Infection Onset Date Last Indicated Resolved Time CoV-Risk Comment:Per note documentation 08/16/2024 08/16/2024 6:31 PM EST documented as of this encounter Care Teams Corporate Associate Attorney Relationship Specialty Start Date End Date Adriel Ma MD PCP - General Family Medicine 01/10/23 Self-Referred, Patient 01/10/23 Dipti Alarcon, DRAGGER OUT [address] [place] [address] [email or web address] Radiation Technician Oncology 06/05/23 Mignon Everett [address] [place] [address] Marilu @[email or web address] Veneer Stock Grader 06/12/23 Aracelis Grajeda, RN [address] [place] [address] [email or web address]. [facility] Primary Infusion Nurse 07/13/23 Corey Cole MD [address] [place] [address] Hematology [place] [address] [email or web address] Hematology and Oncology 09/05/24 documented as of this encounter Additional Source Comments The information contained in this document represents components of the legal health record. It is not the complete legal health record.[facility]
--- OUTSIDE RECORDS SUMMARY | 2025-06-17 14:06 | XMS_ITS | Clinical Summary ---
Author Organization [facility] Address [address] [place] [address] Phone Care Team Providers Care Design Printing Machine Set Up Operator Name Role Phone Adriel Ma MD Primary Care Provider Self-Referred, Patient Unavailable Unavailab Dipti Anderson [facility] Unavailable [phone] Mignon Everett Unavailable Diego [email or web address] Aracelis Mckeon RN Unavailable NEREYDA [email or web address] Corey Cole MD Unavailable [phone] Allergies Active Allergy Reactions Criticality Noted Date [...] (08/17/2024 11:25 AM EST): Originally diagnosed with [place] LC Multiple Myeloma in December 2022 after [...] (08/16/2024 4:04 PM EST): Originally diagnosed with [place] LC Multiple Myeloma in December 2022 after [...] Onc: Ary Rm MD; Dana Haney MD ([place], [place]); Dr. Monique ([place], [place]) -- Pre-transplant vitamin D level was [...] 9:30 AM EDT Infusion Infusion Therapy Services [place] [address], [facility] [address] [facility], 7th [place] [address] Ary Rm MD Abusheery, Katherine H, RN Autologous donor of stem cells (Primary Dx); Multiple myeloma, remission status unspecified 04/17/2025 8:00 AM EDT Office Visit [facility] for Multiple Myeloma, Division of Hematologic Oncology, [facility] [address] [facility], 7th [place] [address] Ary Rm MD Multiple myeloma, remission status [...] 7:10 AM EDT Blood Draw Laboratory Services, [facility] [place] [address] [facility], 2nd [place] [address] Ary Rm MD [address] [place] [address] Myeloma Clinic, Floor 7 [place] [address] Sharmin@[email or web address] 10/16/2025 8:00 AM EDT Office Visit [facility] for Multiple Myeloma, Division of Hematologic Oncology, [facility] [place] [address] [place] [address], 7th [place] [address] Ary Rm MD [address] [facility] Myeloma Clinic, Floor 7 [place] [address] Sharmin@[email or web address] Health Maintenance Due Date Last Done Comments [...] TOTAL PROTEIN 6.0(L) 6.4 - 8.3 g/dL [facility] SPEP SEE PATHOLOGY REPORT [facility] IMMUNOFIXATION SEE PATHOLOGY REPORT [facility] IgA 22(L) 70 - 400 mg/dL [facility] IMMUNOGLOBULIN G 615(L) 700 - 1,600 mg/dL [facility] IMMUNOGLOBULIN M <15(L) 40 - 230 mg/dL [facility] Blood 04/17/2025 7:15 AM EDT 04/17/2025 7:22 AM EDT us Ary Rm MD LAB BLOOD BKR ORDERABLES Final Result [facility] [address] [place] [address] * (ABNORMAL) Comprehensive metabolic panel (04/17/2025 7:15 AM EDT) SODIUM 143 136 - 145 mmol/L [facility] LIC# [id number] POTASSIUM 4.1 3.4 - 5.1 mmol/L [facility] LIC# [id number] CHLORIDE 107 98 - 107 mmol/L [facility] LIC# [id number] CO2 26 22 - 31 mmol/L [facility] LIC# [id number] BUN 21 6 - 23 mg/dL [facility] LIC# [id number] CREATININE 0.84 0.50 - 1.20 mg/dL [facility] LIC# [id number] GLUCOSE 104(H) 70 - 100 mg/dL [facility] LIC# [id number] ALBUMIN 4.1 3.5 - 5.2 g/dL [facility] LIC# [id number] TOTAL PROTEIN 6.2(L) 6.4 - 8.3 g/dL [facility] LIC# [id number] CALCIUM 9.2 8.8 - 10.7 mg/dL [facility] LIC# [id number] ALKALINE PHOSPHATASE 50 40 - 129 U/L [facility] LIC# [id number] TOTAL BILIRUBIN 0.3 0.2 - 1.2 mg/dL [facility] LIC# [id number] AST 17 <41 U/L [facility] LIC# [id number] ALT 32 <42 U/L [facility] LIC# [id number] GLOBULIN 2.1(L) 2.3 - 4.2 g/dL [facility] LIC# [id number] EGFR 108 >59 mL/min/1.7 3m2 [facility] LIC# [id number] Comment:Estimated glomerular filtration rate calculated using the CKD-EPI refit equation. ANION GAP 10 7 - 17 mmol/L [facility] LIC# [id number] Blood 04/17/2025 7:15 AM EDT 04/17/2025 7:22 AM EDT us Ary Rm MD LAB BLOOD BKR ORDERABLES Final Result [facility] LIC# [id number] [address] [place] [address] * Free light chains, serum (04/17/2025 7:15 AM EDT) FREE KAPPA LT CHAIN 7.0 3.3 - 19.4 mg/L [facility] FREE LAMBDA LT CHAIN 6.9 5.7 - 26.3 mg/L [facility] FREE KAPPA LAMBDA RAT 1.01 0.26 - 1.65 [facility] Blood 04/17/2025 7:15 AM EDT 04/17/2025 7:22 AM EDT Ary Rm MD LAB BLOOD BKR ORDERABLES Final Result [facility] [address] [place] [address] * (ABNORMAL) CBC and differential (04/17/2025 7:15 AM EDT) WBC 4.27 4.00 - 10.00 K/uL [facility] LIC# [id number] RBC 4.69 4.50 - 6.40 M/uL [facility] LIC# [id number] HGB 14.8 13.5 - 18.0 g/dL [facility] LIC# [id number] HCT 45.0 40.0 - 54.0 % [facility] LIC# [id number] PLT 219 150 - 450 K/uL [facility] LIC# [id number] MCV 95.9 80.0 - 100.0 fL [facility] LIC# [id number] MCH 31.6 27.0 - 32.0 pg [facility] LIC# [id number] MCHC 32.9 32.0 - 36.0 g/dL [facility] LIC# [id number] RDW 14.6(H) 11.5 - 14.5 % [facility] LIC# [id number] MPV 8.8 8.4 - 12.0 fL [facility] LIC# [id number] NRBC 0.00 0 /100 WBCs [facility] LIC# [id number] ABSOLUTE NRBC 0.00 0 K/uL [facility] LIC# [id number] DIFF METHOD MANUAL [facility] LIC# [id number] NEUTS (MANUAL) 67.7 48.0 - 76.0 % [facility] LIC# [id number] LYMPHS 11.3(L) 18.0 - 41.0 % [facility] LIC# [id number] BANDS 2.2 0.0 - 3.0 % [facility] LIC# [id number] MONOS 12.0(H) 4.0 - 11.0 % [facility] LIC# [id number] EOSINOPHIL 4.5 0.0 - 5.0 % [facility] LIC# [id number] BASOPHIL 0.0 0.0 - 1.5 % [facility] LIC# [id number] BLASTS 0.0 0 % [facility] LIC# [id number] METAS 2.3(H) 0 % [facility] LIC# [id number] ABSOLUTE NEUTS 2.89 1.92 - 7.60 K/uL [facility] LIC# [id number] ABSOLUTE LYMPHS 0.48(L) 0.72 - 4.10 K/uL [facility] LIC# [id number] ABSOLUTE BANDS 0.09 0.00 - 0.30 K/uL [facility] LIC# [id number] ABSOLUTE MONOS 0.51 0.16 - 1.10 K/uL [facility] LIC# [id number] ABSOLUTE EOS 0.19 0.00 - 0.50 K/uL [facility] LIC# [id number] ABSOLUTE BASO 0.00 0.00 - 0.15 K/uL [facility] LIC# [id number] ABSOLUTE BLASTS 0.00 0 K/uL [facility] LIC# [id number] ABSOLUTE METAS 0.10(H) 0 K/uL [facility] LIC# [id number] ANISO Few [facility] LIC# [id number] POIKILOCYTOSIS Few [facility] LIC# [id number] POLYCHROME Few [facility] LIC# [id number] OVALOCYTES Moderate [facility] LIC# [id number] Blood 04/17/2025 7:15 AM EDT 04/17/2025 7:22 AM EDT us Ary Rm MD LAB BLOOD BKR ORDERABLES Final Result [facility] LIC# [id number] [address] [place] [address] * Protein Electrophoresis (04/17/2025 12:00 AM EDT) 04/17/2025 04/17/2025 Narrative [facility] - 04/24/2025 9:10 PM EDT CASE: [id number] PATIENT: JEFFREY JONH Date: 1975 Sex: Male [facility] Department of Pathology [address] [place] [address] CLIA License No.: [id number] Computer Systems Architect: Angeline Dao MD, PhD Resident: Cosmo Slade M.D., Ph.D. Pathologist: Albaro Tian M.D., Ph.D. CLINICAL DATA: Clinical Diagnosis: TEST ORDERED: Serum protein electrophoresis professional interpretation - [facility] 1 Serum immunofixation electrophoresis professional interpretation - [facility] RESULT: Reference range Total Protein 6.0 g/dl (LO) 6.4 - 8.3 g/dL Albumin 3.43 g/dl 3.20 - 5.30 g/dL Alpha 1 0.23 g/dl 0.10 - 0.40 g/dL Alpha 2 0.90 g/dl 0.50 - 1.00 g/dL Beta 0.85 g/dl 0.60 - 1.20 g/dL Gamma 0.58 g/dl (LO) 0.80 - 1.70 g/dL [place] 7.0 mg/L 3.3 - 19.4 mg/L Lambda 6.9 mg/L 5.7 - 26.3 mg/L [place]/Lambda 1.01 0.26 - 1.65 IgG 615 mg/dL (LO) 700 - 1600 mg/dL IgA 22 mg/dL (LO) 70 - 400 mg/dL IgM < 15 (LO) 40 - 230 mg/dL Gamma M Abisai 1 0.21 g/dl* MOST RECENT PRIOR SERUM ELECTROPHORESIS RESULTS: Date Beta Gamma [place] Lambda K/L IgG IgA IgM MSp1 MSp2 [...] overestimate. 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 Final Diagnosis by Albaro Tian M.D., Ph.D., Electronically signed on April at 09:09:48PM us Ary Rm MD PATHOLOGY ORDERABLES Final Resu lt Performing Organization Address City/State/[facility] Co de Phone Number [facility] [address] [place] [phone] from Last 3 Months Insurance [place] [employer] [place] [employer] [facility] . JAMEE JACKSON [id number] [facility] . JAMEE [place] [address] [place] [employer] Advance Directives For more information, please contact: [phone] (9AM - 5PM [facility], Monday-Monday) * Full Code (Latest Code Status on File) Date Activated Date Inactivated Comments 08/16/2024 6:43 AM Question Answer Comments Code Status Confirmed With: Patient * Full Code Date Activated Date Inactivated Comments 07/24/2023 12:03 AM 08/16/2024 6:43 AM Question Answer Comments Code Status Confirmed With: Patient Care Teams Design Printing Machine Set Up Operator Relationship Specialty Start Date End Date Adriel Ma MD PCP - General Family Medicine 01/10/23 Self-Referred, Patient 01/10/23 Dipti Alarcon, OIL WELL PUMPER [address] [place] [address] [email or web address] Learning Disabled Teacher Oncology 06/05/23 Mignon Everett [address] [place] [address] Marilu @[facility] Conveyor Maintenance Mechanic 06/12/23 Aracelis Grajeda, ANITRA [address] [place] [address] [email or web address]. [facility] Primary Infusion Nurse 07/13/23 Corey Cole MD [address] [place] [address] [place] [address] [email or web address] Hematology and Oncology 09/05/24 Additional Source Comments The information contained in this document represents components of the legal health record. It is not the complete legal health record.[facility]
--- OUTSIDE RECORDS SUMMARY | 2025-06-17 14:06 | XMS_ITS | Encounter Summary ---
Author Organization [facility] Address [address] [facility] [address] [place] [address] Phone Care Team Providers Care Border Inspector Name Role Phone Adriel Ma MD Primary Care Provider Self-Referred, Patient Unavailable Unavailab nadege Alarcon Diptitimmy Pichardo [facility] Unavailable [phone] Mignon Everett Unavailable Diego [email or web address]. Aracelis Mckeon RN Unavailable NEREYDA [email or web address] Corey Cole MD Unavailable [phone] Encounter Details Date Type Department Care Team (Late st Contact Info) Description 08/09/2024 Documentation Center for Lymphoma, Division of Hematologic Oncology, [facility] [place] [address] [place] [address], 7th [place] [address] Madyson Jo, RN [address] [place] [address] [email or web address] Social History Tobacco Use Types Packs/Day Years [...] 7:10 AM EDT Blood Draw Laboratory Services, [address], 2nd [place] [address] Ary Rm MD [address] [place] [address] Myeloma Clinic, Floor 7 [place] [address] [email or web address] 10/16/2025 8:00 AM EDT Office Visit [facility] Center for Multiple Myeloma, Division of Hematologic Oncology, [facility] [address], 7th [place] [address] Ary Rm MD [address] [place] [address] Myeloma Clinic, Floor 7 [place] [address] Sharmin@[facility] documented as of this encounter [...] documented as of this encounter Care Teams Border Inspector Relationship Specialty Start Date End Date Adriel Ma MD PCP - General Family Medicine 01/10/23 Self-Referred, Patient 01/10/23 Dipti Alarcon LCSW [address] [place] [address] [email or web address] Automotive Fleet Supervisor Oncology 06/05/23 Mignon Everett [address] [place] [address] Marilu @[email or web address] Retrofit Installer 06/12/23 Aracelis Grajeda, RN [address] [place] [address] [email or web address]. [facility] Primary Infusion Nurse 07/13/23 Corey Cole MD [address] [place] [address] Hematology [place] [address] [email or web address] Hematology and Oncology 09/05/24 documented as of this encounter Additional Source Comments The information contained in this document represents components of the legal health record. It is not the complete legal health record.[facility]
--- OUTSIDE RECORDS SUMMARY | 2025-06-17 14:07 | XMS_ITS ---
Author Organization [facility] Address [address] [facility] [address] [place] [address] Phone Care Team Providers Care Dye Stand Loader Name Role Phone Adriel Ma MD Primary Care Provider Self-Referred, Patient Unavailable Unavailab nadege Alarcon Diptitmimy Pichardo [facility] Unavailable [phone] Mignon Everett Unavailable Diego [email or web address] Aracelis Mckeon RN Unavailable NEREYDA [email or web address] Corey Cole MD Unavailable [phone] Active Problems Patient Care Coordination No te [...] (08/17/2024 11:25 AM EST): Originally diagnosed with [place] LC Multiple Myeloma in December 2022 after [...] (08/16/2024 4:04 PM EST): Originally diagnosed with [place] LC Multiple Myeloma in December 2022 after [...] Onc: Ary Rm MD; Dana Haney MD ([place], [place]); Dr. Monique ([place], [place]) -- Pre-transplant vitamin D level was [...] status unspecified Treatment Medications No medications scheduled. [facility] Cellular Therapy Collection* Plan Start Date:06/21/2024 Linked Problems Multiple myeloma in relapse Treatment Medications No medications scheduled. OP BMT 878 NO REST DAY AUTO MELPHALAN WITH AIBW OPTION* Plan Start Date: 07/11/2023 Plan Provider:Ary Rm MD Linked Problems Multiple myeloma in remissio n Treatment Medications melphalan (EVOMELA) 2 mg/mL in NS IVPB Fr bag TP 1020 [facility] CILTACABTAGENE AUTOLEUCEL (CARVYKTI)* Plan Start Date:08/08/2024 Plan [...] Reason Plan Provider Cycles TP 1020 IEC [facility] CYCLOPHO SPHAMIDE /FLUDARA BINE 12/28/202 4 08/08/2024 [...]
[2025-06-17 14:15] LABS: Hematocrit 44.3 % (42.0-52.0); Hemoglobin 14.7 g/dl (14.0-18.0); Imm Gran Abs Auto 0.06 X10*3/uL (0.00-0.03); Imm Gran Pct Auto 1.0 % (0.0-0.4); Lymphocytes Absolute Auto 0.6 X10*3/uL (1.2-4.9); Mean Corpuscular HGB Conc 33.2 g/dl (31.0-36.0); Mean Corpuscular Hemoglobin 33.0 pg (27.0-33.0); Mean Corpuscular Volume 99.3 fL (80.0-98.0); NRBC Abs Auto 0.000 X10*3/uL (0.0-0.012); NRBC Pct Auto 0.0 /100WBC (0.0-0.2); Platelet Count 257 X10*3/uL (160-400); Red Blood Count 4.46 X10*6/uL (4.60-5.80); White Blood Count 6.1 X10*3/uL (4.8-10.8)
[2025-06-17 14:20] LABS: Appearance Urine Clear; Glucose Urine UA Negative (Negative); PH 5.0 (5.0-9.0); Specific Gravity - Urine 1.025 (1.005-1.025)
[2025-06-17 14:46] LABS: Alanine Aminotransferase 33 U/L (0-40); Albumin Level 4.2 g/dL (3.5-5.0); Alkaline Phosphatase 47 U/L (39-117); Anion Gap 10 (12-20); Aspartate Amino Transferase 32 U/L (5-37); Blood Urea Nitrogen 16 mg/dL (9-16); Calcium 9.0 mg/dL (8.4-10.2); Carbon Dioxide 23 mmol/L (22-29); Chloride 110 mmol/L (96-108); Cholesterol 149 mg/dL (<200); Estimated Glomerular Filt Rate > 60; HDL Cholesterol 34 mg/dL (>40); Potassium 3.9 mmol/L (3.3-5.1); Sodium 139 mmol/L (135-145); Total Protein 6.2 g/dL (6.5-8.0); Triglycerides 152 mg/dL (<150)
[2025-06-17 14:49] LABS: Microalbum/Creatinine Ratio Ur 13.2 ug/mg cr (<30)
[2025-06-17 15:03] LABS: Ferritin 169 ng/mL (20-250)
[2025-06-17 15:23] LABS: Folate 12.1 ng/mL (> or = 4.0); Vitamin B12 518 pg/mL (200-900)
== END 2025-06-17 12:21 | disposition home or self-care (01) ==
LOC: HO.WFDLDS 12:20
PROVIDERS: Referring Provider Physician Assistant Medical; Visit Provider Family Medicine
DX: Z00.00 Encounter for general adult medical examination without abnormal findings (principal); I10 Essential (primary) hypertension; G47.19 Other hypersomnia; R53.83 Other fatigue; Z12.5 Encounter for screening for malignant neoplasm of prostate
CPT/HCPCS: 36415; 80053; 80061; 81003; 82043; 82306; 82570; 82607; 82728; 82746; 83921; 84153; 84443; 85025; 85027

== ENCOUNTER → 2025-07-10 09:19 | Outpatient (REF) | payer OTHER, SELFPAY ==
--- OUTSIDE RECORDS SUMMARY | 2025-07-10 10:23 | XMS_ITS | Encounter Summary ---
Author Organization [facility] Address [address] [facility] [address] [place] [address] Phone Care Team Providers Care Molder Punch Name Role Phone Adriel Ma MD Primary Care Provider Self-Referred, Patient Unavailable Unavailab Dipti Anderson [facility] Unavailable Mignon Everett Unavailable Diego [email or web address]. Aracelis Mckeon RN Unavailable NEREYDA [email or web address] Corey Cole MD Unavailable [phone] Encounter Details Date Type Department Care Team (Late st Contact Info) Description 08/18/2024 Procedure Pass [facility] Angio Interventional Radiology [address] [place] [address] Social History Tobacco Use Types Packs/Day Years [...] 7:10 AM EDT Blood Draw Laboratory Services, [facility] [place] [address] [facility], 2nd [place] [address] Ary Rm MD [address] [place] [address] Clinic, Floor 7 [place] [address] Sharmin@[email or web address] 10/16/2025 8:00 AM EDT Office Visit [facility] for Multiple Myeloma, Division of Hematologic Oncology, [facility] [place] [address] [place] [address], 7th [place] [address] Ary Rm MD [address] [place] [address] Myeloma Clinic, Floor 7 [place] [address] [email or web address]@[email or web address] documented as of this encounter Visit Diagnoses Not on filedocumented in this encounter Additional Health Concerns Assessment Noted Time PHQ-9 Depression Total Score: 9 06/25/20 11:14 AM EST PHQ-2 Depression Total Score: 1 06/25/20 11:14 AM EST documented as of this encounter Care Teams Molder Punch Relationship Specialty Start Date End Date Adriel Ma MD PCP - General Family Medicine 01/10/23 Self-Referred, Patient 01/10/23 Dipti Alarcon, [address] [address] [email or web address] Associate Property Manager Oncology 06/05/23 Mignon Everett [address] [place] [address] Marilu @[facility].[place].[facility] Nursing Education Consultant 06/12/23 Aracelis Grajeda, ANITRA [address] [place] [address] [email or web address]. [facility] Primary Infusion Nurse 07/13/23 Corey Cole MD [address] [place] [address] [place] [address] [email or web address] Hematology and Oncology 09/05/24 documented as of this encounter Additional Source Comments The information contained in this document represents components of the legal health record. It is not the complete legal health record.[facility]
--- OUTSIDE RECORDS SUMMARY | 2025-07-10 10:23 | XMS_ITS | Encounter Summary ---
Author Organization Located Within [facility] Address [address] [facility] [address] [place] [address] Phone Care Team Providers Care Research Leader Name Role Phone Adriel Ma MD Primary Care Provider Self-Referred, Patient Unavailable Unavailab Dipti Anderson [facility] Unavailable [phone] Mignon Everett Unavailable Diego [email or web address]. Aracelis Mckeon RN Unavailable NEREYDA [email or web address] Corey Cole MD Unavailable [phone] Encounter Details Date Type Department Care Team (Late st Contact Info) Description 07/23/2023 Procedure Pass [facility] [address] [place] [address] Social History Tobacco Use Types Packs/Day Years [...] 07/25/2023 9:00 PM Paul Finn, ANITRA * Addison Suicide Severity Rating Scale (Screener/Recent Self-Report) Question [...] Blood Draw Laboratory Services, [facility] [address] [facility], 2nd [place] [address] Ary Rm MD [address] [place] [address] [facility], Floor 7 [place] [address] Sharmin@[email or web address] 10/16/2025 8:00 AM EDT Office Visit [facility], Division of Hematologic Oncology, [facility] [address], 7th [place] [address] Ary Rm MD [address] [place] [address] [facility], Floor 7 [place] [address] Sharmin@[facility] documented as of this encounter Visit Diagnoses Not on filedocumented in this encounter Additional Health Concerns Infection Onset Date Last Indicated Resolved Time CoV-Risk Comment:Per note documentation 07/23/2023 07/23/2023 12/18/202 3 10:25 PM EST CoV-Risk Comment:Per note documentation 08/16/2024 08/16/2024 6:31 PM EST documented as of this encounter Care Teams Research Leader Relationship Specialty Start Date End Date Adriel Ma MD PCP - General Family Medicine 01/10/23 Self-Referred, Patient 01/10/23 Dipti Alarcon, [address] [address] [email or web address] Carbonizer Oncology 06/05/23 Mignon Everett [address] [place] [address] Marilu @[facility] Special Education Professional 06/12/23 Aracelis Grajeda, RN [address] [place] [address] RAYMOND@[email or web address]. [facility] Primary Infusion Nurse 07/13/23 Corey Cole MD [address] [place] [address] [place] [address] [email or web address] Hematology and Oncology 09/05/24 documented as of this encounter Additional Source Comments The information contained in this document represents components of the legal health record. It is not the complete legal health record.[facility]
--- OUTSIDE RECORDS SUMMARY | 2025-07-10 10:24 | XMS_ITS | Encounter Summary ---
Author Organization [facility] Address [address] [facility] [address] [place] [address] Phone Care Team Providers Care Flare Maker Name Role Phone Adriel Ma MD Primary Care Provider Self-Referred, Patient Unavailable Unavailab nadege Alarcon Diptitimmy Pichardo [facility] Unavailable [phone] Mignon Everett Unavailable Diego [email or web address]. Aracelis Mckeon RN Unavailable NEREYDA VIERA@[email or web address].[facility] Corey Cole MD Unavailable [phone] Encounter Details Date Type Department Care Team (Late st Contact Info) Description 08/09/2024 Documentation [facility], Division of Hematologic Oncology, [facility] [place] [address] [place] [address], 7th [place] [address] Madyson Jo, RN [address] [place] [address] [email or web address] Social History Tobacco Use Types [...] 7:10 AM EDT Blood Draw Laboratory Services, [address], 2nd [place] [address] Ary Rm MD [address] [place] [address] [facility]oma Clinic, Floor 7 [place] [address] Sharmin@[email or web address] 10/16/2025 8:00 AM EDT Office Visit [facility], Division of Hematologic Oncology, [facility] [address], 7th [place] [address] Ary Rm MD [address] [place] [address] [facility], Floor 7 [place] [address] Sharmin@[facility] documented as of this encounter Visit Diagnoses Not on filedocumented in this encounter Additional Health Concerns Infection Onset Date Last Indicated Resolved Time CoV-Risk Comment:Per note documentation 08/16/2024 08/16/2024 6:31 PM EST Assessment Noted Time PHQ-9 Depression Total Score: 9 06/25/20 24 11:14 AM EST PHQ-2 Depression Total Score: 1 06/25/20 24 11:14 AM EST documented as of this encounter Care Teams Flare Maker Relationship Specialty Start Date End Date Adriel Ma MD PCP - General Family Medicine 01/10/23 Self-Referred, Patient 01/10/23 Dipti Alarcon [address] [address] [email or web address] Program Manufacturing Leader Oncology 06/05/23 Mignon Everett [address] [place] [address] Marilu @[facility].[place].[facility] Equities Trader 06/12/23 Aracelis Grajeda, RN [address] [place] [address] RAYMOND@[facility]. [facility] Primary Infusion Nurse 07/13/23 Corey Cole MD [address] [place] [address] [place] [address] Monica@[email or web address] Hematology and Oncology 09/05/24 documented as of this encounter Additional Source Comments The information contained in this document represents components of the legal health record. It is not the complete legal health record.[facility]
--- OUTSIDE RECORDS SUMMARY | 2025-07-10 10:24 | XMS_ITS | Clinical Summary ---
Author Organization [facility] Address [address] [place] [address] Care Team Providers Care Pattern Attendant Name Role Phone Pcp, No Primary Care [...] Influenza Vaccine 03/07/2025 COVID-19 Vaccine (1 - 2024-2 6 season) 2025 Pneumococcal Vaccine: Pediat jero (0-5 Years) and At-Risk Patients (6 to 49 Years) Aged Out No longer eligible b ased on patient's age to complete this topic Insurance [employer] HMO/POS Care Teams Pattern Attendant Relationship Specialty Start Date End Date Pcp, No PCP - General General Medicine 08/07/20
--- OUTSIDE RECORDS SUMMARY | 2025-07-10 10:24 | XMS_ITS | Encounter Summary ---
Author Organization [facility] Address [address] [facility] [address] [place] [address] Phone Care Team Providers Care Auto Parts Handler Name Role Phone Adriel Ma MD Primary Care Provider Self-Referred, Patient Unavailable Unavailab Dipti Anderson [facility] Unavailable [phone] Mignon Everett Unavailable Diego [email or web address]. Aracelis Mckeon RN Unavailable NEREYDA VIERA@[email or web address].[facility] Corey Cole MD Unavailable [phone] Encounter Details Date Type Department Care Team (Late st Contact Info) Description 06/15/2023 Documentation [facility] for Multiple Myeloma, Division of Hematologic Oncology, [facility] [place] [address] [facility], 7th [place] [address] Elaine Baker, ANITRA [address] [facility] [address] [email or web address] Social History Tobacco Use Types [...] , , Malvin Black, South or Central Qat[place] Black, or Other Black? OR is the donor from the Mediterranean [place], Mary Jane, or Southeast Lisa?: No Does [...] information above through a chart review of [facility] records from the hematology/oncology team. Elidia Hamilton MS, GIOVANNI Physician Scrap Shear Operator Hematologic Malignancies and Stem Cell Transplant (t) [phone], pager#[phone] documented in this encounter Plan of Treatment Upcoming Encounters Date Type Department Care Team (Late st Contact Info) Description 10/16/2025 7:10 AM EDT Blood Draw Laboratory Services, [address], 2nd [place] [address] Ary Rm MD [address] [place] [address] Myeloma Clinic, Floor 7 [place] [address] Sharmin@[facility] 10/16/2025 8:00 AM EDT Office Visit [facility] for Multiple Myeloma, Division of Hematologic Oncology, [address], 7th [place] [address] Ary Rm MD [address] [place] [address] [facility] Clinic, Floor 7 [place] [address] Sharmin@[facility] documented as of this encounter 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 documented in this encounter Additional Health Concerns Infection Onset Date Last Indicated Resolved Time CoV-Risk Comment:Per note documentation 07/23/2023 07/23/2023 10:25 PM EST CoV-Risk Comment:Per note documentation 08/16/2024 08/16/2024 6:31 PM EST documented as of this encounter Care Teams Auto Parts Handler Relationship Specialty Start Date End Date Adriel Ma MD PCP - General Family Medicine 01/10/23 Self-Referred, Patient 01/10/23 Dipti Alarcon, [facility] [address] [place] [address] [email or web address] Sausage Stuffer Oncology 06/05/23 Mignon Everett [address] [place] [address] Marilu @[facility] Geodetic Surveyor Technologist 06/12/23 Aracelis Grajeda, RN [address] [place] [address] RAYMOND@[facility]. [facility] Primary Infusion Nurse 07/13/23 Corey Cole MD [address] [place] [address] [place]ematology [place] [address] [email or web address] Hematology and Oncology 09/05/24 documented as of this encounter Additional Source Comments The information contained in this document represents components of the legal health record. It is not the complete legal health record.[facility]
--- OUTSIDE RECORDS SUMMARY | 2025-07-10 10:24 | XMS_ITS | Encounter Summary ---
Author Organization [facility] Address [address] [facility] [address] [place] [address] Phone Care Team Providers Care Bone Puller Name Role Phone Adriel Ma MD Primary Care Provider Self-Referred, Patient Unavailable Unavailab nadege Alarcon Diptitimmy Pichardo [facility] Unavailable [phone] Mignon Everett Unavailable Diego [email or web address]. Aracelis Mckeon RN Unavailable NEREYDA VIERA@[email or web address].[facility] Corey Cole MD Unavailable [phone] Encounter Details Date Type Department Care Team (Late st Contact Info) Description 08/08/2024 Documentation [facility], Division of Hematologic Oncology, [facility] [place] [address] [place] [address], 7th [place] [address] Madyson Jo, RN [address] [place] [address] [email or web address] Social History Tobacco Use Types [...] 7:10 AM EDT Blood Draw Laboratory Services, [address], 2nd [place] [address] Ary Rm MD [address] [place] [address] Myeloma Clinic, Floor 7 [place] [address] Sharmin@[facility] 10/16/2025 8:00 AM EDT Office Visit [facility] for Multiple Myeloma, Division of Hematologic Oncology, [facility] [address], 7th [place] [address] Ary Rm MD [address] [place] [address] [facility], Floor 7 [place] [address] Sharmin@[facility] documented as of this encounter [...] documented as of this encounter Care Teams Bone Puller Relationship Specialty Start Date End Date Adriel Ma MD PCP - General Family Medicine 01/10/23 Self-Referred, Patient 01/10/23 Dipti Alarcon [address] [address] [email or web address] Health Education Director Oncology 06/05/23 Mignon Everett [address] [place] [address] Marilu @[facility].[place].[facility] Financial Administration Officer 06/12/23 Aracelis Grajeda, RN [address] [place] [address] RAYMOND@[facility]. [facility] Primary Infusion Nurse 07/13/23 Corey Cole MD [address] [place] [address] [place] [address] Monica@[facility] Hematology and Oncology 09/05/24 documented as of this encounter Additional Source Comments The information contained in this document represents components of the legal health record. It is not the complete legal health record.[facility]
--- OUTSIDE RECORDS SUMMARY | 2025-07-10 10:24 | XMS_ITS | Encounter Summary ---
Author Organization [facility] Address [address] [facility] [address] [place] [address] Phone Care Team Providers Care Rigging Slinger Name Role Phone Adriel Ma MD Primary Care Provider Self-Referred, Patient Unavailable Unavailab Dipti Anderson [facility] Unavailable [phone] Mignon Everett Unavailable Diego [email or web address]. Aracelis Mckeon RN Unavailable NEREYDA VIERA@[email or web address].[facility] Corey Cole MD Unavailable [phone] Encounter Details Date Type Department Care Team (Late st Contact Info) Description 04/24/2023 Procedure Pass [facility] Echocardiography [address] [place] [address] Social History Tobacco Use Types Packs/Day Years [...] 7:10 AM EDT Blood Draw Laboratory Services, [address], 2nd [place] [address] Ary Rm MD [address] [place] [address] [facility] Clinic, Floor 7 [place] [address] Sharmin@[facility] 10/16/2025 8:00 AM EDT Office Visit [facility] Multiple [facility]oma, Division of Hematologic Oncology, [address], 7th [place] [address] Ary Rm MD [address] [place] [address] [facility] Clinic, Floor [address] [place] [address] Sharmin@[facility] documented as of this encounter Visit Diagnoses Not on filedocumented in this encounter Additional Health Concerns Infection Onset Date Last Indicated Resolved Time CoV-Risk Comment:Per note documentation 07/23/2023 07/23/2023 3 10:25 PM EST CoV-Risk Comment:Per note documentation 08/16/2024 08/16/2024 5 6:31 PM EST documented as of this encounter Care Teams Rigging Slinger Relationship Specialty Start Date End Date Adriel Ma MD PCP - General Family Medicine 01/10/23 Self-Referred, Patient 01/10/23 Dipti Alarcon [facility]IC[facility] [address] [place] [address] [email or web address] Progressive Care Manager Oncology 06/05/23 Mignon Everett [address] [place] [address] Marilu @[facility] Economist Research Assistant 06/12/23 Aracelis Grajeda, ANITRA [address] [place] [address] RAYMOND@[email or web address]. [facility] Primary Infusion Nurse 07/13/23 Corey Cole MD [address] [place] [address] Hematology [place] [address] [email or web address] Hematology and Oncology 09/05/24 documented as of this encounter Additional Source Comments The information contained in this document represents components of the legal health record. It is not the complete legal health record.[facility]
--- OUTSIDE RECORDS SUMMARY | 2025-07-10 10:24 | XMS_ITS | Encounter Summary ---
Author Organization [facility] Address [address] [facility] [address] [place] [address] Phone Care Team Providers Care Screen Writer Name Role Phone Adriel Ma MD Primary Care Provider Self-Referred, Patient Unavailable Unavailab Dipti Anderson [facility] Unavailable [phone] Mignon Everett Unavailable Diego [email or web address]. Aracelis Mckeon RN Unavailable NEREYDA [email or web address]@[email or web address].[facility] Corey Cole MD Unavailable [phone] Encounter Details Date Type Department Care Team (Late st Contact Info) Description 06/27/2024 Procedure Pass [facility] L2 PRU [address] [place] [address] Social History Tobacco Use Types Packs/Day Years [...] 7:10 AM EDT Blood Draw Laboratory Services, [address], 2nd [place] [address] Ary Rm MD [address] [place] [address] [facility] Clinic, Floor 7 [place] [address] Sharmin@[facility] 10/16/2025 8:00 AM EDT Office Visit [facility] for Multiple Myeloma, Division of Hematologic Oncology, [address], 7th [place] [address] Ary Rm MD [address] [place] [address] [facility], Floor [address] [place] [address] Sharmin@[facility] documented as of this [...] documented as of this encounter Care Teams Screen Writer Relationship Specialty Start Date End Date Adriel Ma MD PCP - General Family Medicine 01/10/23 Self-Referred, Patient 01/10/23 Dipti Alarcon, [facility] [address] [place] [address] [email or web address] Screw Cutter Oncology 06/05/23 Mignon Everett [address] [place] [address] Marilu @[facility] Network Account Manager 06/12/23 Aracelis Grajeda, RN [address] [place] [address] RAYMOND@[email or web address]. [facility] Primary Infusion Nurse 07/13/23 Corey Cole MD [address] [place] [address] [place] [address] [email or web address] Hematology and Oncology 09/05/24 documented as of this encounter Additional Source Comments The information contained in this document represents components of the legal health record. It is not the complete legal health record.[facility]
--- OUTSIDE RECORDS SUMMARY | 2025-07-10 10:24 | XMS_ITS | Clinical Summary ---
Author Organization [facility] Prior to 01/04/[address] [place] [address] Care Team Providers Care Verifier Name Role Phone Unavailable Primary Care Provider [...]
--- OUTSIDE RECORDS SUMMARY | 2025-07-10 10:24 | XMS_ITS | Encounter Summary ---
Author Organization [facility] Address [address] [facility] [address] [place] [address] Phone Care Team Providers Care Semi Conductor Assembler Name Role Phone Adriel Ma MD Primary Care Provider Self-Referred, Patient Unavailable Unavailab Dipti Anderson [facility] Unavailable [phone] Mignon Everett Unavailable Diego [email or web address].[place]. Aracelis Mckeon RN Unavailable NEREYDA VIERA@[facility].[place].[facility] Corey Cole MD Unavailable [phone] Encounter Details Date Type Department Care Team (Late st Contact Info) Description 2023 Documentation [facility] Blood Donor Center [address] [address] Pal Clark PA-C 35 [place] [address] MARY JANE@[facility] Social History Tobacco Use Types Packs/Day [...] Apheresis Collection Suitability Name: Richar Carrington MRN: ?[id number] 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 Pal Clark PA-C Transfusion Medicine [facility] Transfusion Medicine Pager: [phone] documented in this encounter Plan of Treatment Upcoming Encounters Date Type Department Care Team (Late st Contact Info) Description 10/16/2025 7:10 AM EDT Blood Draw Laboratory Services, [facility] [place] [address] [place] [address], 2nd [place] [address] Ary Rm MD [address] [facility] Myeloma Clinic, Floor 7 [place] [address] Sharmin@[facility] 10/16/2025 8:00 AM EDT Office Visit [facility] for Multiple Myeloma, Division of Hematologic Oncology, [facility] [place] [address] [facility], 7th [place] [address] Ary Rm MD [address] [facility], Floor [address] [place] [address] Sharmin@[facility] documented as of this encounter Visit Diagnoses Not on filedocumented in this encounter Additional Health Concerns Infection Onset Date Last Indicated Resolved Time CoV-Risk Comment:Per note documentation 07/23/2023 07/23/2023 3 10:25 PM EST CoV-Risk Comment:Per note documentation 08/16/2024 08/16/2024 5 6:31 PM EST documented as of this encounter Care Teams Semi Conductor Assembler Relationship Specialty Start Date End Date Adriel Ma MD PCP - General Family Medicine 01/10/23 Self-Referred, Patient 01/10/23 Dipti Alarcon [facility] [address] [place] [address] [email or web address] Finance Manager Oncology 06/05/23 M[address] Ev[address] [place] [address] Marilu @[facility].[place].[facility] Customer Experience Specialist 06/12/23 Aracelis Grajeda, ANITRA [address] [place] [address] RAYMOND@[facility]. [facility] Primary Infusion Nurse 07/13/23 Corey Cole MD [address] [place] [address] [place] [address] [email or web address] Hematology and Oncology 09/05/24 documented as of this encounter Additional Source Comments The information contained in this document represents components of the legal health record. It is not the complete legal health record.[facility]
--- OUTSIDE RECORDS SUMMARY | 2025-07-10 10:24 | XMS_ITS | Clinical Summary ---
Author Organization [facility] Address [address] [place] [address] Care Team Providers Care Tow Motor Driver Name Role Phone Adriel Ma MD Primary Care Provider [phone] Allergies No known active allergies Medications acyclovir [...] PCV) 1996 Influenza Vaccine (#1) 2025 Insurance [id number] [employer] ([id number]) [facility] [employer] [facility] ([id number]) Care Teams Tow Motor Driver Relationship Specialty Start Date End Date Adriel Ma MD [address] [address] PCP - General Family Medicine 12/19/22
--- OUTSIDE RECORDS SUMMARY | 2025-07-10 10:24 | XMS_ITS | Encounter Summary ---
Author Organization [facility] Address [address] [facility] [address] [place] [address] Phone Care Team Providers Care Sound Printer Name Role Phone Adriel Ma MD Primary Care Provider Self-Referred, Patient Unavailable Unavailab Dipti Anderson [facility] Unavailable [phone] Mignon Everett Unavailable Diego [email or web address]. Aracelis Mckeon RN Unavailable NEREYDA [email or web address].[facility] Corey Cole MD Unavailable [phone] Encounter Details Date Type Department Care Team (Late st Contact Info) Description 06/01/2023 Procedure Pass [facility] L2 PRU [address] [place] [address] Social History Tobacco Use Types Packs/Day Years [...] 7:10 AM EDT Blood Draw Laboratory Services, [address], 2nd [place] [address] Ary Rm MD [address] [place] [address] [facility], Floor 7 [place] [address] Sharmin@[facility] 10/16/2025 8:00 AM EDT Office Visit [facility], Division of Hematologic Oncology, [address], 7th [place] [address] Ary Rm MD [address] [place] [address] [facility], Floor 7 [place] [address] Sharmin@[facility] documented as of this encounter Visit Diagnoses Not on filedocumented in this encounter Additional Health Concerns Infection Onset Date Last Indicated Resolved Time CoV-Risk Comment:Per note documentation 07/23/2023 07/23/2023 3 10:25 PM EST CoV-Risk Comment:Per note documentation 08/16/2024 08/16/2024 5 6:31 PM EST documented as of this encounter Care Teams Sound Printer Relationship Specialty Start Date End Date Adriel Ma MD PCP - General Family Medicine 01/10/23 Self-Referred, Patient 01/10/23 Dipti Alarcon, [facility] [address] [place] [address] [email or web address] Automotive Technician Instructor Oncology 06/05/23 Mignon Everett [address] [place] [address] Marilu @[facility] Truck Headlight Assembler 06/12/23 Aracelis Grajeda, ANITRA [address] [place] [address] RAYMOND@[facility]. [facility] Primary Infusion Nurse 07/13/23 Corey Cole MD [address] [place] [address] Hematology [place] [address] [email or web address] Hematology and Oncology 09/05/24 documented as of this encounter Additional Source Comments The information contained in this document represents components of the legal health record. It is not the complete legal health record.[facility]
--- OUTSIDE RECORDS SUMMARY | 2025-07-10 10:24 | XMS_ITS | Encounter Summary ---
Author Organization [facility] Address [address] [facility] [address] [place] [address] Phone Care Team Providers Care Truck Driver Salesperson Name Role Phone Adriel Ma MD Primary Care Provider Self-Referred, Patient Unavailable Unavailab Dipti Anderson [facility] Unavailable [phone] Mignon Everett Unavailable Diego [email or web address]. Aracelis Mckeon RN Unavailable NEREYDA [email or web address].[email or web address] Corey Cole MD Unavailable [phone] Encounter Details Date Type Department Care Team (Late st Contact Info) Description 06/15/2023 Documentation [facility], Division of Hematologic Oncology, [facility] [place] [address], 7th [place] [address] Elaine Baker, ANITRA [address] [facility] [place] [address] [email or web address] Social History Tobacco Use Types Packs/Day [...] AM EDT Blood Draw Laboratory Services, [address], 2nd [place] [address] Ary Rm MD [address] [place] [address] [facility], Floor 7 [place] [address] Sharmin@[facility] 10/16/2025 8:00 AM EDT Office Visit [facility], Division of Hematologic Oncology, [address], [address]th [place] [address] Ary Rm MD [address] [place] [address] [facility], Floor 7 [place] [address] Sharmin@[facility] documented as of this encounter Visit Diagnoses Not on filedocumented in this encounter Additional Health Concerns Infection Onset Date Last Indicated Resolved Time CoV-Risk Comment:Per note documentation 07/23/2023 07/23/2023 3 10:25 PM EST CoV-Risk Comment:Per note documentation 08/16/2024 08/16/2024 5 6:31 PM EST documented as of this encounter Care Teams Truck Driver Salesperson Relationship Specialty Start Date End Date Adriel Ma MD PCP - General Family Medicine 01/10/23 Self-Referred, Patient 6/6/23 Dipti Alarcon, HAND MEAT SALTER [address] [place] [address] [email or web address] Wall Scraper Oncology 06/05/23 Mignon Everett [address] [place] [address] Marilu @[facility] Night Nurse 06/12/23 Aracelis Grajeda, RN [address] [place] [address] RAYMOND@[email or web address]. [facility] Primary Infusion Nurse 07/13/23 Corey Cole MD [address] [place] [address] [place]ematology [place] [address] [email or web address] Hematology and Oncology 09/05/24 documented as of this encounter Additional Source Comments The information contained in this document represents components of the legal health record. It is not the complete legal health record.[facility]
--- OUTSIDE RECORDS SUMMARY | 2025-07-10 10:24 | XMS_ITS | Encounter Summary ---
Author Organization [facility] Address [address] [facility] [address] [place] [address] Phone Care Team Providers Care Watch And Clock Repair Clerk Name Role Phone Adriel Ma MD Primary Care Provider Self-Referred, Patient Unavailable Unavailab Dipti Anderson [facility] Unavailable [phone] Mignon Everett Unavailable Diego [email or web address]. Aracelis Mckeon RN Unavailable NEREYDA [email or web address].[facility] Corey Cole MD Unavailable [phone] Encounter Details Date Type Department Care Team (Late st Contact Info) Description 05/02/2023 Documentation Central Registration, [facility] [place] [address] [facility], 2nd [place] [address] Danny John [address] [place] [phone] Susanne@[email or web address] Social History Tobacco Use Types [...] 7:10 AM EDT Blood Draw Laboratory Services, [address], 2nd [place] [address] Ary Rm MD [address] [place] [address] [facility], Floor 7 [place] [address] Sharmin@[facility] 10/16/2025 8:00 AM EDT Office Visit [facility], Division of Hematologic Oncology, [address], [address]th [place] [address] Ary Rm MD [address] [place] [address] [facility], Floor 7 [place] [address] Sharmin@[facility], [facility] documented as of this encounter Visit Diagnoses Not on filedocumented in this encounter Additional Health Concerns Infection Onset Date Last Indicated Resolved Time CoV-Risk Comment:Per note documentation 07/23/2023 07/23/2023 3 10:25 PM EST CoV-Risk Comment:Per note documentation 08/16/2024 08/16/2024 5 6:31 PM EST documented as of this encounter Care Teams Watch And Clock Repair Clerk Relationship Specialty Start Date End Date Adriel Ma MD PCP - General Family Medicine 01/10/23 Self-Referred, Patient 01/10/23 Dipti Alarcon, RU[employer]LING HEMMER AUTOMATIC [address] [place] [address] [email or web address] Police Matron Oncology 06/05/23 Mignon Everett [address] [place] [address] Marilu @[facility] Field Auditor 06/12/23 Aracelis Grajeda, ANITRA [address] [place] [address] RAYMOND@[facility]. [facility] Primary Infusion Nurse 07/13/23 Corey Cole MD [address] [place] [address] [place] [address] [email or web address] Hematology and Oncology 09/05/24 documented as of this encounter Additional Source Comments The information contained in this document represents components of the legal health record. It is not the complete legal health record.[facility]
--- OUTSIDE RECORDS SUMMARY | 2025-07-10 10:25 | XMS_ITS | Encounter Summary ---
Author Organization [facility] Address [address] [facility] [address] [place] [phone] Phone Care Team Providers Care Caregiver Assisted Living Name Role Phone Adriel Ma MD Primary Care Provider Self-Referred, Patient Unavailable Unavailab Dipti Anderson [facility] Unavailable Mignon Everett Unavailable Diego [email or web address]. Aracelis Mckeon RN Unavailable NEREYDA VIERA@[email or web address].[facility] Corey Cole MD Unavailable [phone] Encounter Details Date Type Department Care Team (Late st Contact Info) Description 05/27/2024 Procedure Pass [facility] L2 PRU [address] [place] [address] Social History Tobacco Use Types Packs/Day Years [...] AM EDT Blood Draw Laboratory Services, [address], 2nd [place] [address] Ary Rm MD [address] [place] [address] [facility], Floor 7 [place] [address] Sharmin@[facility] 10/16/2025 8:00 AM EDT Office Visit [facility], Division of Hematologic Oncology, [address], [address]th [place] [address] Ary Rm MD [address] [place] [address] [facility], Floor [address] [place] [address] Sharmin@[facility] documented as of this encounter Visit Diagnoses Not on filedocumented in this encounter Additional Health Concerns Infection Onset Date Last Indicated Resolved Time CoV-Risk Comment:Per note documentation 08/16/2024 08/16/2024 6:31 PM EST documented as of this encounter Care Teams Caregiver Assisted Living Relationship Specialty Start Date End Date Adriel Ma MD PCP - General Family Medicine 01/10/23 Self-Referred, Patient 01/10/23 Dipti Alarcon LICSW [address] [place] [address] [email or web address] Conference Assistant Oncology 06/05/23 Mignon Everett [address] [place] [address] Marilu @[facility] Application Programmer Analyst 06/12/23 Aracelis Grajeda, RN [address] [place] [address] RAYMOND@[facility]. [facility] Primary Infusion Nurse 07/13/23 Corey Cole MD [address] [place] [address] Hematology [place] [address] Monica@[email or web address] Hematology and Oncology 09/05/24 documented as of this encounter Additional Source Comments The information contained in this document represents components of the legal health record. It is not the complete legal health record.[facility]
--- OUTSIDE RECORDS SUMMARY | 2025-07-10 10:25 | XMS_ITS | Encounter Summary ---
Author Organization [facility] Address [address] [facility] [address] [place] [address] Phone Care Team Providers Care Extended Day Teacher Name Role Phone Adriel Ma MD Primary Care Provider Self-Referred, Patient Unavailable Unavailab Dipti Anderson [facility] Unavailable [phone] Mignon Everett Unavailable Diego [email or web address] Aracelis Mckeon RN Unavailable NEREYDA [email or web address].[facility] Corey Cole MD Unavailable [phone] Reason for Visit * Reason Comments Medication Refill Encounter Details Date Type Department Care Team (Late st Contact Info) Description 02/01/2024 Refill Division [facility] Hematologic Oncology, [facility] [place] [address] [place] [address], 8th [place] [address] Itzel Dorman, METALWORKING INSTRUCTOR [address] [place] [address] and [facility] [address] [email or web address] Medication Refill Social History Tobacco [...] 7:10 AM EDT Blood Draw Laboratory Services, [address], 2nd [place] [address] Ary Rm MD [address] [place] [address] Myeloma [facility], Floor 7 [place] [id number] Sharmin@[facility] 10/16/2025 8:00 AM EDT Office Visit [facility], Division of Hematologic Oncology, [address], [address]th [place] [address] Ary Rm MD [address] [place] [address] Myel[facility], Floor 7 [place] [address] Sharmin@[facility] documented as of this encounter Visit Diagnoses Not on filedocumented in this encounter Additional Health Concerns Infection Onset Date Last Indicated Resolved Time CoV-Risk Comment:Per note documentation 08/16/2024 08/16/2024 6:31 PM EST documented as of this encounter Care Teams Extended Day Teacher Relationship Specialty Start Date End Date Adriel Ma MD PCP - General Family Medicine 01/10/23 Self-Referred, Patient 01/10/23 Dipti Alarcon, PATIENT RESOURCE SPECIALIST [address] [place] [address] [email or web address] Leather Goods Maker Oncology 06/05/23 Mignon Everett [address] [place] [address] Marilu @[facility] Auto Motor Mechanic 06/12/23 Aracelis Grajeda, RN [address] [place] [address] RAYMOND@[facility]. [facility] Primary Infusion Nurse 07/13/23 Corey Cole MD [address] [place] [address] [place] [address] Monica@[email or web address] Hematology and Oncology 09/05/24 documented as of this encounter Additional Source Comments The information contained in this document represents components of the legal health record. It is not the complete legal health record.[facility]
--- OUTSIDE RECORDS SUMMARY | 2025-07-10 10:25 | XMS_ITS | Clinical Summary ---
Author Organization [facility] Address [address] [facility] [address] [place] [address] Phone Care Team Providers Care Beater Room Helper Name Role Phone Adriel Ma MD Primary Care Provider Self-Referred, Patient Unavailable Unavailab Dipti Anderson [facility] Unavailable [phone] Mignon Everett Unavailable Diego [email or web address] Aracelis Mckeon RN Unavailable [email or web address] [email or web address] Corey Cole MD Unavailable [phone] Allergies Active Allergy Reactions Criticality Noted Date [...] (08/17/2024 11:25 AM EST): Originally diagnosed with [place] LC Multiple Myeloma in December 2022 after [...] (08/16/2024 4:04 PM EST): Originally diagnosed with [place] LC Multiple Myeloma in December 2022 after [...] with #F+N. Primary Onc: Ary Rm MD; Daan Haney MD ([place], [place]); Dr. Monique ([place], [place]) -- Pre-transplant vitamin D level was [...] 9:30 AM EDT Infusion Infusion Therapy Services [place] [address], [facility] [address] [facility] [address] [facility], 7th [place] [address] Ary Rm MD Abusheery, Katherine H, RN Autologous donor of stem cells (Primary Dx); Multiple myeloma, remission status unspecified 04/17/2025 8:00 AM EDT Office Visit [facility], Division of Hematologic Oncology, [facility] [address] [facility] [address], 7th [place] [address] Ary Rm MD Multiple myeloma, remission status unspecified (Primary Dx) from Last 3 Months Immunizations Immunization Administration Dates Next Due COVID-19 (Pre-05/29) Moderna Vaccine, mRNA, PF 06/04/2021,05/07/2021 Dtap, 5 Pertussis Antigens 04/17/2025,10/17/2024 ,03/27/2024 Hep A-Hep B 04/17/2025,10/17/2024 Hepatitis B Adult 01/09/2025 Hib,PRP-T 04/17/2025,10/17/2024,03/27/2024 IPV 04/17/2025,10/17/2024,03/27/2024 Meningococcal MCV4O 01/09/2025,10/17/2024 Pneumococcal conjugate PCV15 01/03/2023 Pneumococcal conjugate PCV20 03/27/2024 Pneumococcal conjugate PCV21 04/17/2025,10/18/19 Pneumococcal polysaccharide PPSV23 03/03/2023 RSV Vaccine (monovalent, [...] 7:18 AM EDT Oxygen Saturation 96% 04/17/2025 7: 18 AM EDT Inhaled Oxygen Concentration 32.2% 10:10 AM EST Weight 123.1 kg (271 lb 6.2 oz) 04/17/2025 7:18 AM EDT Height 173.5 cm (5' 8.31 ) 04/17/2025 7:18 AM ED T Body Mass Index 40.89 04/17/2025 7:18 AM EDT Plan of Treatment Upcoming Encounters Date Type Department Care Team (Late st Contact Info) Description 10/16/2025 7:10 AM EDT Blood Draw Laboratory Services, [facility] [address] [facility] [address] [facility], 2nd [place] [address] Ary Rm MD [address] [place] [address] Myeloma Clinic, Floor 7 [place] [address] [email or web address] 10/16/2025 8:00 AM EDT Office Visit [facility], Division of Hematologic Oncology, [facility] [address] [place] [address], 7th [place] [address] Ary Rm MD [address] [place] [address] Myeloma Clinic, Floor 7 [place] [address] [email or web address] Health Maintenance Due Date Last Done Comments Adult Td,Tdap Booster 1975 LIPID PANEL 1977 SMOKING Hx and SMOKELESS TOBACCO SCREENING 1990 HEPATITIS C SCREENING 1995 HIV ONE-TIME SCREENING (18-65 YEARS) 1995 COLOGUARD 2022 COLONOSCOPY 2022 COLORECTAL CANCER SCREENING 2022 FIT TEST 2022 FOBT 2022 SIGMOIDOSCOPY 2022 VIRTUAL COLONOSCOPY 2022 INFLUENZA VACCINE (#1) 2025 10/09/2023 COVID-19 VACCINE ( season) 2025 10/09/2023, 06/04/2021, 05/07/2021 DEPRESSION SCREENING 06/25/2025 06/25/2024, 06/25/20 24 SCREENING [...] TOTAL PROTEIN 6.0(L) 6.4 - 8.3 g/dL [facility] SPEP SEE PATHOLOGY REPORT [facility] IMMUNOFIXATION SEE PATHOLOGY REPORT [facility] IgA 22(L) 70 - 400 mg/dL [facility] IMMUNOGLOBULIN G 615(L) 700 - 1,600 mg/dL [facility] IMMUNOGLOBULIN M <15(L) 40 - 230 mg/dL [facility] Blood 04/17/2025 7:15 AM EDT 04/17/2025 7:22 AM EDT us Ary Rm MD LAB BLOOD BKR ORDERABLES Final Result [facility] [address] [place] [address] * (ABNORMAL) Comprehensive metabolic panel (04/17/2025 7:15 AM EDT) SODIUM 143 136 - 145 mmol/L [facility] LIC# [id number] POTASSIUM 4.1 3.4 - 5.1 mmol/L [facility] LIC# [id number] CHLORIDE 107 98 - 107 mmol/L [facility] LIC# [id number] CO2 26 22 - 31 mmol/L [facility] LIC# [id number] BUN 21 6 - 23 mg/dL [facility] LIC# [id number] CREATININE 0.84 0.50 - 1.20 mg/dL [facility] LIC# [id number] GLUCOSE 104(H) 70 - 100 mg/dL [facility] LIC# [id number] ALBUMIN 4.1 3.5 - 5.2 g/dL [facility] LIC# [id number] TOTAL PROTEIN 6.2(L) 6.4 - 8.3 g/dL [facility] LIC# [id number] CALCIUM 9.2 8.8 - 10.7 mg/dL [facility] LIC# [id number] ALKALINE PHOSPHATASE 50 40 - 129 U/L [facility] LIC# [id number] TOTAL BILIRUBIN 0.3 0.2 - 1.2 mg/dL [facility] LIC# [id number] AST 17 <41 U/L [facility] LIC# [id number] ALT 32 <42 U/L [facility] LIC# [id number] GLOBULIN 2.1(L) 2.3 - 4.2 g/dL [facility] LIC# [id number] EGFR 108 >59 mL/min/1.7 3m2 [facility] LIC# [id number] Comment:Estimated glomerular filtration rate calculated using the CKD-EPI refit equation. ANION GAP 10 7 - 17 mmol/L [facility] LIC# [id number] Blood 04/17/2025 7:15 AM EDT 04/17/2025 7:22 AM EDT us Ary Rm MD LAB BLOOD BKR ORDERABLES Final Result [facility] LIC# [id number] [address] [place] [address] * Free light chains, serum (04/17/2025 7:15 AM EDT) FREE KAPPA LT CHAIN 7.0 3.3 - 19.4 mg/L [facility] FREE LAMBDA LT CHAIN 6.9 5.7 - 26.3 mg/L [facility] FREE KAPPA LAMBDA RAT 1.01 0.26 - 1.65 [facility] Blood 04/17/2025 7:15 AM EDT 04/17/2025 7:22 AM EDT us Ary Rm MD LAB BLOOD BKR ORDERABLES Final Result [facility] [address] [place] [address] * (ABNORMAL) CBC and differential (04/17/2025 7:15 AM EDT) WBC 4.27 4.00 - 10.00 K/uL [facility] LIC# [id number] RBC 4.69 4.50 - 6.40 M/uL [facility] LIC# [id number] HGB 14.8 13.5 - 18.0 g/dL [facility] LIC# [id number] HCT 45.0 40.0 - 54.0 % [facility] LIC# [id number] PLT 219 150 - 450 K/uL [facility] LIC# [id number] MCV 95.9 80.0 - 100.0 fL [facility] LIC# [id number] MCH 31.6 27.0 - 32.0 pg [facility] LIC# [id number] MCHC 32.9 32.0 - 36.0 g/dL [facility] LIC# [id number] RDW 14.6(H) 11.5 - 14.5 % [facility] LIC# [id number] MPV 8.8 8.4 - 12.0 fL [facility] LIC# [id number] NRBC 0.00 0 /100 WBCs [facility] LIC# [id number] ABSOLUTE NRBC 0.00 0 K/uL [facility] LIC# [id number] DIFF METHOD MANUAL [facility] LIC# [id number] NEUTS (MANUAL) 67.7 48.0 - 76.0 % [facility] LIC# [id number] LYMPHS 11.3(L) 18.0 - 41.0 % [facility] LIC# [id number] BANDS 2.2 0.0 - 3.0 % [facility] LIC# [id number] MONOS 12.0(H) 4.0 - 11.0 % [facility] LIC# [id number] EOSINOPHIL 4.5 0.0 - 5.0 % [facility] LIC# [id number] BASOPHIL 0.0 0.0 - 1.5 % [facility] LIC# [id number] BLASTS 0.0 0 % [facility] LIC# [id number] METAS 2.3(H) 0 % [facility] LIC# [id number] ABSOLUTE NEUTS 2.89 1.92 - 7.60 K/uL [facility] LIC# [id number] ABSOLUTE LYMPHS 0.48(L) 0.72 - 4.10 K/uL [facility] LIC# [id number] ABSOLUTE BANDS 0.09 0.00 - 0.30 K/uL [facility] LIC# [id number] ABSOLUTE MONOS 0.51 0.16 - 1.10 K/uL [facility] LIC# [id number] ABSOLUTE EOS 0.19 0.00 - 0.50 K/uL [facility] LIC# [id number] ABSOLUTE BASO 0.00 0.00 - 0.15 K/uL [facility] LIC# [id number] ABSOLUTE BLASTS 0.00 0 K/uL [facility] LIC# [id number] ABSOLUTE METAS 0.10(H) 0 K/uL [facility] LIC# [id number] ANISO Few [facility] LIC# [id number] POIKILOCYTOSIS Few [facility] LIC# [id number] POLYCHROME Few [facility] LIC# [id number] OVALOCYTES Moderate [facility] LIC# [id number] Blood 04/17/2025 7:15 AM EDT 04/17/2025 7:22 AM EDT us Ary Rm MD LAB BLOOD BKR ORDERABLES Final Result [facility] LIC# [id number] [address] [place] [address] * Protein Electrophoresis (04/17/2025 12:00 AM EDT) 04/17/2025 04/17/2025 Narrative [facility] - 04/24/2025 9:10 PM EDT CASE: [id number] PATIENT: JEFFREY JOHN Date: 1975 Sex: Male [facility] Department of Pathology [address] [place], [place] [address]IA License No.: [id number] Field Crop Technical Officer: Angeline Dao MD, PhD Resident: Cosmo Slade M.D., Ph.D. Pathologist: Albaro Tian M.D., Ph.D. CLINICAL DATA: Clinical Diagnosis: TEST ORDERED: Serum protein electrophoresis professional interpretation - [facility] 1 Serum immunofixation electrophoresis professional interpretation - [facility] RESULT: Reference range Total Protein 6.0 g/dl (LO) 6.4 - 8.3 g/dL Albumin 3.43 g/dl 3.20 - 5.30 g/dL Alpha 1 0.23 g/dl 0.10 - 0.40 g/dL Alpha 2 0.90 g/dl 0.50 - 1.00 g/dL Beta 0.85 g/dl 0.60 - 1.20 g/dL Gamma 0.58 g/dl (LO) 0.80 - 1.70 g/dL [place] 7.0 mg/L 3.3 - 19.4 mg/L Lambda 6.9 mg/L 5.7 - 26.3 mg/L [place]/Lambda 1.01 0.26 - 1.65 IgG 615 mg/dL (LO) 700 - 1600 mg/dL IgA 22 mg/dL (LO) 70 - 400 mg/dL IgM < 15 (LO) 40 - 230 mg/dL Gamma M Abisai 1 0.21 g/dl* MOST RECENT PRIOR SERUM ELECTROPHORESIS RESULTS: Date Beta Gamma [place] Lambda K/L IgG IgA IgM MSp1 MSp2 [...] overestimate. 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 Final Diagnosis by Albaro Tian M.D., Ph.D., Electronically signed on April at 09:09:48PM us Ary Rm MD PATHOLOGY ORDERABLES Final Resu lt Performing Organization Address City/State/[facility] Co de Phone Number [facility] [address] [place] [phone] from Last 3 Months Insurance [employer] [place] [address] [facility] [place] [address] Advance Directives For more information, please contact: [phone] (9AM - 5PM Evelina/[facility], Monday-Monday) * Full Code (Latest Code Status on File) Date Activated Date Inactivated Comments 08/16/2024 6:43 AM Question Answer Comments Code Status Confirmed With: Patient * Full Code Date Activated Date Inactivated Comments 07/24/2023 12:03 AM 08/16/2024 6:43 AM Question Answer Comments Code Status Confirmed With: Patient Care Teams Beater Room Helper Relationship Specialty Start Date End Date Adriel Ma MD PCP - General Family Medicine 01/10/23 Self-Referred, Patient 01/10/23 Dipti Alarcon [address] [address] [email or web address] Manager Mental Health Oncology 06/05/23 Mignon Everett [address] [place] [address] Marilu @[email or web address].[facility] Fresh Foods Technician 06/12/23 Aracelis Grajeda, ANITRA [address] [place] [address] [email or web address].[facility] Primary Infusion Nurse 07/13/23 Corey Cole MD [address] [place] [address] Hematology [place] [address] [email or web address] Hematology and Oncology 09/05/24 Additional Source Comments The information contained in this document represents components of the legal health record. It is not the complete legal health record.[facility]
--- OUTSIDE RECORDS SUMMARY | 2025-07-10 10:25 | XMS_ITS | Encounter Summary ---
Author Organization [facility] Address [address] [facility] [address] [place] [address] Phone Care Team Providers Care Tape Recorder Mechanic Name Role Phone Adriel Ma MD Primary Care Provider Self-Referred, Patient Unavailable Unavailab Dipti Anderson [facility] Unavailable [phone] Mignon Everett Unavailable Diego [email or web address] Aracelis Mckeon RN Unavailable [email or web address] [email or web address] Corey Cole MD Unavailable [phone] Encounter Details Date Type Department Care Team (Late st Contact Info) Description 06/14/2024 Documentation [facility] Blood Donor Center [address] [facility] 1st [place] [address] Marcy Henry PA-C [address] [facility] Transfusion Med, [facility] [place] [address] [email or web address] Social History Tobacco Use Types Packs/Day [...] Apheresis Collection Suitability Name: Richar Carrington MRN: ?[id number] Indication: ?Adriel Tentative Collection Date: 1?08/21/23 Date of mobilization: [...] flutter, sick sinus syndrome, or ventricular arrhythmias, CAD/AZ, CHF, HTN, heart valve disease, diastolic dysfunction, [...] records. Marcy Henry PA-C Transfusion Medicine PA [facility] Transfusion Medicine Pager: [phone] documented in this encounter Plan of Treatment Upcoming Encounters Date Type Department Care Team (Late st Contact Info) Description 10/16/2025 7:10 AM EDT Blood Draw Laboratory Services, [facility] [address] [facility], 2nd [place] [address] Ary Rm MD [address] [place] [address] Myeloma Clinic, Floor 7 [place] [address] [email or web address] 10/16/2025 8:00 AM EDT Office Visit [facility], Division of Hematologic Oncology, [address], 7th [place] [address] Ary Rm MD [address] [place] [address] Myeloma Clinic, Floor 7 [place] [address] [email or web address] documented as of this encounter Visit Diagnoses Not on filedocumented in this encounter Additional Health Concerns Infection Onset Date Last Indicated Resolved Time CoV-Risk Comment:Per note documentation 08/16/2024 08/16/2024 6:31 PM EST documented as of this encounter Care Teams Tape Recorder Mechanic Relationship Specialty Start Date End Date Adriel Ma MD PCP - General Family Medicine 01/10/23 Self-Referred, Patient 01/10/23 Dipti Alarcon LICSW [address] [place] [address] [email or web address] Diet Supervisor Oncology 06/05/23 Mignon Everett [address] [place] [address] Marilu [email or web address] Api Product Manager 06/12/23 Aracelis Grajeda, ANITRA [address] [place] [address] [email or web address] [facility] Primary Infusion Nurse 07/13/23 Corey Cole MD [address] [place] [address] Hematology [place] [address] [email or web address] Hematology and Oncology 09/05/24 documented as of this encounter Additional Source Comments The information contained in this document represents components of the legal health record. It is not the complete legal health record.[facility]
--- OUTSIDE RECORDS SUMMARY | 2025-07-10 10:25 | XMS_ITS ---
Author Organization [facility] Address [address] [facility] [address] [place] [address] Phone Care Team Providers Care Fire Control Mechanic Name Role Phone Adriel Ma MD Primary Care Provider Self-Referred, Patient Unavailable Unavailab Dipti Anderson [facility] Unavailable [phone] Mignon Everett Unavailable Diego [email or web address] Aracelis Mckeon RN Unavailable NEREYDA [email or web address] Corey Cole MD Unavailable [phone] Active Problems Patient Care Coordination No te [...] (08/17/2024 11:25 AM EST): Originally diagnosed with [place] LC Multiple Myeloma in December 2022 after [...] (08/16/2024 4:04 PM EST): Originally diagnosed with [place] LC Multiple Myeloma in December 2022 after [...] Onc: Ary Rm MD; Dana Haney MD ([place], [place]); Dr. Monique ([place], [place]) -- Pre-transplant vitamin D level was [...] status unspecified Treatment Medications No medications scheduled. [facility] Cellular Therapy Collection* Plan Start Date:06/21/2024 Linked Problems Multiple myeloma in relapse Treatment Medications No medications scheduled. OP BMT 878 NO REST DAY AUTO MELPHALAN WITH AIBW OPTION* Plan Start Date: 07/11/2023 Plan Provider:Ary Rm MD Linked Problems Multiple myeloma in remissio n Treatment Medications melphalan (EVOMELA) 2 mg/mL in NS IVPB Fr bag TP 1020 [facility] CILTACABTAGENE AUTOLEUCEL (CARVYKTI)* Plan Start [...] Reason Plan Provider Cycles TP 1020 IEC [facility] CYCLOPHO SPHAMIDE /FLUDARA BINE 4 08/08/2024 cycloPHOSphamide (CYTOXAN) infusion 100 mL [...]
--- OUTSIDE RECORDS SUMMARY | 2025-07-10 10:25 | XMS_ITS | Encounter Summary ---
Author Organization [facility] Address [address] [facility] [address] [place] [address] Phone Care Team Providers Care Producer Arborist Manager Name Role Phone Ardiel Ma MD Primary Care Provider Self-Referred, Patient Unavailable Unavailab Dipti Anderson [facility] Unavailable [phone] Mignon Everett Unavailable Diego [email or web address] Aracelis Mckeon RN Unavailable NEREYDA [email or web address] Corey Cole MD Unavailable [phone] Encounter Details Date Type Department Care Team (Late st Contact Info) Description 07/26/2023 Procedure Pass [facility] Angio Interventional Radiology [address] [place] [address] Social History Tobacco Use Types Packs/Day Years [...] 7:10 AM EDT Blood Draw Laboratory Services, [address], 2nd [place] [address] Ary Rm MD [address] [place] [address] Myeloma Clinic, Floor 7 [place] [address] [email or web address] 10/16/2025 8:00 AM EDT Office Visit [facility], Division of Hematologic Oncology, [address], [address]th [place] [address] Ary Rm MD [address] [place] [address] Myeloma Clinic, Floor 7 [place] [address] Sharmin@[email or web address] documented as of this encounter Visit Diagnoses Not on filedocumented in this encounter Additional Health Concerns Infection Onset Date Last Indicated Resolved Time CoV-Risk Comment:Per note documentation 08/16/2024 08/16/2024 6:31 PM EST documented as of this encounter Care Teams Producer Arborist Manager Relationship Specialty Start Date End Date Adriel Ma MD PCP - General Family Medicine 01/10/23 Self-Referred, Patient 01/10/23 Dipti Alarcon LICSW [address] [place] [address] [email or web address] Collar Baster Jumpbasting Oncology 06/05/23 Mignon Everett [address] [place] [address] Marilu @[email or web address] Industry Segment Specialist 06/12/23 Aracelis Grajeda, RN [address] [place] [address] [email or web address] [facility] Primary Infusion Nurse 07/13/23 Corey Cole MD [address] [place] [address] [place] [address] [email or web address] Hematology and Oncology 09/05/24 documented as of this encounter Additional Source Comments The information contained in this document represents components of the legal health record. It is not the complete legal health record.[facility]
--- OUTSIDE RECORDS SUMMARY | 2025-07-10 10:25 | XMS_ITS | Encounter Summary ---
Author Organization [facility] Address [address] [facility] [address] [place] [address] Phone Care Team Providers Care Bark Peeler Name Role Phone Adriel Ma MD Primary Care Provider Self-Referred, Patient Unavailable Unavailab Dipti Anderson [facility] Unavailable [phone] Mignon Everett Unavailable Diego [email or web address] Aracelis Mckeon RN Unavailable NEREYDA [email or web address] Corey Cole MD Unavailable [phone] Encounter Details Date Type Department Care Team (Late st Contact Info) Description 05/27/2024 Procedure Pass [facility] Angio Interventional Radiology [address] [place] [address] Social History Tobacco Use Types Packs/Day Years [...] AM EDT Blood Draw Laboratory Services, [address], 2nd [place] [address] Ary Rm MD [address] [place] [address] Myeloma Clinic, Floor 7 [place] [address] [email or web address] 10/16/2025 8:00 AM EDT Office Visit [facility] for Multiple [facility], Division of Hematologic Oncology, [address], 7th [place] [address] Ary Rm MD [address] [place] [address] Myeloma Clinic, Floor [address] [place] [address] [email or web address] documented as of this encounter Visit Diagnoses Not on filedocumented in this encounter Additional Health Concerns Infection Onset Date Last Indicated Resolved Time CoV-Risk Comment:Per note documentation 08/16/2024 08/16/2024 6:31 PM EST documented as of this encounter Care Teams Bark Peeler Relationship Specialty Start Date End Date Adriel Ma MD PCP - General Family Medicine 01/10/23 Self-Referred, Patient 01/10/23 Dipti Alarcon LICSW [address] [place] [address] [email or web address] Stitch Wheeler Oncology 06/05/23 Mignon Everett [address] [place] [address] Marilu @[email or web address] Trend Investigator 06/12/23 Aracelis Grajeda, RN [address] [place] [address] [email or web address] [facility] Primary Infusion Nurse 07/13/23 Corey Cole MD [address] [place] [address] [place]ematology [place] [address] [email or web address] Hematology and Oncology 09/05/24 documented as of this encounter Additional Source Comments The information contained in this document represents components of the legal health record. It is not the complete legal health record.[facility]
--- OUTSIDE RECORDS SUMMARY | 2025-07-10 10:25 | XMS_ITS | Encounter Summary ---
Author Organization [facility] Address [address] [facility] [address] [place] [address] Phone Care Team Providers Care Sous Chef Kitchen Manager Name Role Phone Adriel Ma MD Primary Care Provider Self-Referred, Patient Unavailable Unavailab Dipti Anderson [facility] Unavailable [phone] Mignon Everett Unavailable Diego [email or web address] Aracelis Mckeon RN Unavailable NEREYDA [email or web address] Corey Cole MD Unavailable [phone] Reason for Visit * Reason Comments Medication Refill Encounter Details Date Type Department Care Team (Late st Contact Info) Description 03/29/2024 Refill Division of Hematologic Oncology, [facility] [place] [address] [place] [address], 8th [place] [address] Itzel Dorman, UNDER CUTTER [address] [place] [address] and [place] [address] [email or web address] Medication Refill Social History Tobacco [...] 7:10 AM EDT Blood Draw Laboratory Services, [address], 2nd [place] [address] Ary Rm MD [address] [place] [address] [facility], Floor 7 [place] [id number] [email or web address] 10/16/2025 8:00 AM EDT Office Visit [facility], Division of Hematologic Oncology, [address], 7th [place] [address] Ary Rm MD [address] [place] [address] [facility], Floor 7 [place] [address] [email or web address] documented as of this encounter Visit Diagnoses Not on filedocumented in this encounter Additional Health Concerns Infection Onset Date Last Indicated Resolved Time CoV-Risk Comment:Per note documentation 08/16/2024 08/16/2024 6:31 PM EST documented as of this encounter Care Teams Sous Chef Kitchen Manager Relationship Specialty Start Date End Date Adriel Ma MD PCP - General Family Medicine 01/10/23 Self-Referred, Patient 01/10/23 Dipti Alarcon, CONTACT LENS MANUFACTURER [address] [place] [address] [email or web address] Honeycomb Blanket Maker Oncology 06/05/23 Mignon Everett [address] [place] [address] Marilu @[facility] Hide Salter 06/12/23 Aracelis Grajeda, RN [address] [place] [address] [email or web address]. [facility] Primary Infusion Nurse 07/13/23 Corey Cole MD [address] [place] [address] Hematology [place] [address] [email or web address] Hematology and Oncology 09/05/24 documented as of this encounter Additional Source Comments The information contained in this document represents components of the legal health record. It is not the complete legal health record.[facility]
== END ==
LOC: HO.SL 09:19
PROVIDERS: PCP Family Medicine; Visit Provider Physician Assistant Medical
DX: G47.19 Other hypersomnia (principal)
CPT/HCPCS: 95806

== ENCOUNTER → 2025-07-10 09:39 | Outpatient (BNV) | payer OTHER, SELFPAY | PROVIDERS: PCP Family Medicine; Visit Provider Psychiatry & Neurology Neurology | DX: G47.33 Obstructive sleep apnea (adult) (pediatric) (principal) | CPT/HCPCS: 95806 ==

== ENCOUNTER 2025-07-18 12:16 | Outpatient (AMB) | payer OTHER, SELFPAY ==
--- NOTE | 2025-07-18 14:40 | A.OFFPC_ITS ---
Vital Signs 07/18/25 14:46 Height 5 ft 10 in Weight 293 lb 6 oz BMI 42.1 BP 114/64 Blood Pressure Location Rt brachial Position Sitting Respiration 15 Pulse 97 Pulse Source Pulse Oximeter Temp 98 F Temp Source Temporal Artery Scan Pulse Oximetry (%) 94 Oxygen Delivery Method Room Air Intake Visit Reasons: follow-up obesity, sleep apnea and labs. Intake Note: Richar presents in the office today to follow up to obesity, sleep apnea and labs. Investigations Director Required: No Allergies lenalidomide (From Revlimid) Adverse Reaction (Severe, Verified 07/18/25 14:44) rash Medication List - Last Reconciled 07/18/25 by Adriel Ma MD acyclovir 400 mg PO BID aspirin 81 mg PO DAILY dexamethasone 4 mg orally; every monday pomalidomide (Pomalyst) 4 mg PO DAILY sulfamethoxazole-trimethoprim 800-160 mg 1 tab PO 3XW tirzepatide (Mounjaro) 2.5 mg (0.5 mL) subcut QWEEK 28 days Tobacco use date assessed: 07/18/25 Dental Screening Dental Screen Date: 07/18/25 Did you have a dental visit in the last 12 months?: No Did you have a dental problem in the last 6 months where you did not have access to dental care?: No Was dental information given to patient?: Patient declined HPI follow-up obesity, sleep apnea and labs. HPI Details 50 y/o male presents to f/u obesity, sle ep apnea, labs. Had referred him to sleep medicine for daytime sleepiness. Labs drawn 06/17/25. Reviewed labs with pt. Improving mild anemia. Creatinine level 0.68 mg/dL. Liver enzymes are fine. Triglycerides 152. TC 149. LDL 85. HDL low at 34. PFSH Medical History Anxiety Lung 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 Alcohol abuse Surgical History History of removal of testicle History of tooth extraction Family History Mother Heart problem Social History (Updated 07/18/25 @ 14:46 by Ileana Hernandez CMA) Household Members: Spouse Housing: House Do you presently have visiting nurse or other home services: No Alcohol intake: current Alcohol intake frequency: a few times a month Patient Tobacco Use Status: Current someday Tobacco user Tobacco use type: Cigarette (Once a week) Cigarette Packs Per Day: 1 Cigarettes Per Day: 20 Years Smoked: 2.5 e-Cigarette/Vaping Use: Never Used Second Hand Smoke Exposure: No Substance Use Type: Marijuana service: Yes Current occupational status: employed 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 Cognitive needs: No Hearing needs: No Vision needs: No Questionnaire Thrive Questionnaire Date Thrive assessed: 06/04/25 I am a: Patient What is your living situation today?: I have a steady place to live Within the past 12 months, did the food you bought not last and you didn't have the money to get more?: Never true Within the past 12 months, did you worry whether your food would run out before you got money to buy more?: Never true Do you have trouble paying for medicines?: No Do you have trouble getting transportation to medical appointments?: No Do you have trouble paying your heating and electricity bill?: No Do you have trouble taking care of your child, family member or friend?: No Do you have trouble with day-to-day activities such as bathing, preparing meals, shopping, managing finances, etc.?: No Are you currently unemployed and looking for a job?: No Are you interested in more education?: No Please select the resources that you would like help with: None Currently or been in a relationship where the following occur: No concerns reported THRIVE Score: 0 MIGUEL-7 AMB Questionnaire MIGUEL-7 Date MIGUEL - 7 assessed: 06/04/25 Source: Developed by Drs. Alonzo Theodore, Padmini Abbott, Bryn Lira and colleagues, with an educational jamie from [employer]. Review of Systems Const Denies chills, Denies fatigue, Denies fever(s), Denies headache(s) and Denies weakness ENT Denies dizziness and Denies headache(s) Card Denies dyspnea Resp Denies cough, Denies dyspnea, Denies wheezing and Denies other (shortness of breath) Musc Denies numbness and Denies tingling Neuro Denies dizziness, Denies headache(s), Denies numbness, Denies tingling and Denies weakness Psych Denies anxiety and Denies depression Endo Denies fatigue Aller/Immun Denies wheezing Physical exam (Primary Care) Vital Signs: Last Vital Signs Temp 98 F 12/12/25 14:46 Pulse 97 07/18/25 14:46 Resp 15 07/18/25 14:46 BP 114/64 07/18/25 14:46 Pulse Ox 94 07/18/25 14:46 Oxygen Delivery Method Room Air 07/18/25 14:46 BMI result Body Mass Index 42.1 Tobacco/Smoking Status: Tobacco use Status Tobacco use date assessed 07/18/25 07/18/25 14:42 Patient Tobacco Use Status Current someday Tobacco 07/18/25 14:46 Tobacco use type Cigarette (Once a week) 07/18/25 14:46 e-Cigarette/Vaping Use Never Used 07/18/25 14:46 Thrive Assessment: Date of Thrive Assessment Date Thrive assessed 06/04/25 07/18/25 14:42 Currently or been in a relationship where the following occur: No concerns reported Const General: well developed; No acute distress Nutritional Appearance: well nourished Orientation/consciousness: patient oriented x3 HENMT Head: Yes normocephalic and Yes atraumatic Eyes General: appearance normal, both eyes and all related structures Pupils: Equal, round and reactive pupils present EOM: EOMs intact bilaterally Resp Effort & Inspection: normal respiratory effort Neuro General: patient oriented x3 and gait normal Cranial nerves: Yes Equal, round and reactive pupils present Psych Affect: normal affect Coding Level of Care Code Est Pt Level 4 (62133) Diagnoses Obesity, Class III, BMI 40-49.9 (morbid obesity) E66.01 Mild anemia D64.9 Multiple myeloma, remission status unspecified C90.00 Multiple myeloma remission status: unspecified Assessment & Plan Assessment & Plan (1) Obesity, Class III, BMI 40-49.9 (morbid obesity): Code(s): E66.01 - Morbid (severe) obesity due to excess calories Category: Medical Plan: Insurance declined GLP 1 medication for weight loss Offered referral to weight management but patient would like to hold off on this We discussed strategies for weight loss through diet and exercise Will follow-up in about 6 months Patient says he will reconsider referral to weight management if not improving (2) Mild anemia: Code(s): D64.9 - Anemia, unspecified Category: Medical (3) Multiple myeloma: Code(s): C90.00 - Multiple myeloma not having achieved remission Category: Medical Qualifiers: Multiple myeloma remission status: unspecified Qualified Code(s): C90.00 - Multiple myeloma not having achieved remission Plan [facility], Reynaldo Garza, with carvytik stem cell therapy followed by Dexamethasone once weekly. Stable Follow-up with your Heme-Onc specialists as recommended Orders: Orders Complete Blood Count Auto Diff Today C90.00 - Multiple myeloma not having ach ieved remission, Z00.00 - Encounter for general adult medical examination without abnormal findings Comprehensive Met. Panel Today E66.01 - Morbid (severe) obesity due to excess calories
[2025-07-18 14:46] VITALS: BP 114/64; PULSE 97; RESP 15; TEMP 36.6; O2SAT 94; BMI 42.1
--- OUTSIDE RECORDS SUMMARY | 2025-07-18 17:42 | XMS_ITS | Encounter Summary ---
Author Organization [facility] Address [address] [facility] [address] [place] [address] Phone Care Team Providers Care Tool Builder Name Role Phone Adriel Ma MD Primary Care Provider Self-Referred, Patient Unavailable Unavailab Dipti Anderson [facility] Unavailable [phone] Mignon Everett Unavailable Diego [email or web address]. Aracelis Mckeon RN Unavailable NEREYDA [email or web address] Corey Cole MD Unavailable [phone] Encounter Details Date Type Department Care Team (Late st Contact Info) Description 08/18/2024 Procedure Pass [facility] Angio Interventional Radiology [address] [place] [address] Social History Tobacco Use Types Packs/Day Years [...] 7:10 AM EDT Blood Draw Laboratory Services, [facility] [place] [address] [facility], 2nd [place] [address] Ary Rm MD [address] [place] [address] Clinic, Floor 7 [place] [address] Sharmin@[facility] 10/16/2025 8:00 AM EDT Office Visit [facility], Division of Hematologic Oncology, [facility] [place] [address] [place] [address], 7th [place] [address] Ary Rm MD [address] [place] [address] Myeloma Clinic, Floor 7 [place] [address] Sharmin@[facility] documented as of this encounter Visit Diagnoses Not on filedocumented in this encounter Additional Health Concerns Assessment Noted Time PHQ-9 Depression Total Score: 9 06/25/20 11:14 AM EST PHQ-2 Depression Total Score: 1 06/25/20 11:14 AM EST documented as of this encounter Care Teams Tool Builder Relationship Specialty Start Date End Date Adriel Ma MD PCP - General Family Medicine 01/10/23 Self-Referred, Patient 01/10/23 Dipti Alarcon, [address] [address] [email or web address] anson Molder Oncology 06/05/23 Mignon Everett [address] [place] [address] Marilu @[email or web address] Document Control Associate 06/12/23 Araceils Grajeda, ANITRA [address] [place] [address] [email or web address] [facility] Primary Infusion Nurse 07/13/23 Corey Cole MD [address] [place] [address] Hematology [place] [address] [email or web address] Hematology and Oncology 09/05/24 documented as of this encounter Additional Source Comments The information contained in this document represents components of the legal health record. It is not the complete legal health record.[facility]
--- OUTSIDE RECORDS SUMMARY | 2025-07-18 17:42 | XMS_ITS | Clinical Summary ---
Author Organization [facility] Prior to 01/04/[address] [place] [address] Care Team Providers Care Child Care Teacher Name Role Phone Unavailable Primary Care Provider [...]
--- OUTSIDE RECORDS SUMMARY | 2025-07-18 17:42 | XMS_ITS | Encounter Summary ---
Author Organization [facility] Address [address] [facility] [address] [place] [address] Phone Care Team Providers Care Dispatcher Clerk Name Role Phone Adriel Ma MD Primary Care Provider Self-Referred, Patient Unavailable Unavailab Dipti Anderson [facility] Unavailable [phone] Mignon Everett Unavailable Diego [email or web address]. Aracelis Mckeon RN Unavailable NEREYDA [email or web address] Corey Cole MD Unavailable [phone] Encounter Details Date Type Department Care Team (Late st Contact Info) Description 07/23/2023 Procedure Pass [facility] [address] [place] [address] Social History Tobacco Use Types Packs/Day Years [...] 07/25/2023 9:00 PM Paul Finn, ANITRA * [place] Suicide Severity Rating Scale (Screener/Recent Self-Report) Question [...] 7:10 AM EDT Blood Draw Laboratory Services, [facility] [address] [facility], 2nd [place] [address] Ary Rm MD [address] [place] [address] Myeloma Clinic, Floor 7 [place] [address] Sharmin@[email or web address] 10/16/2025 8:00 AM EDT Office Visit [facility], Division of Hematologic Oncology, [facility] [address] [facility], 7th [place] [address] Ary Rm MD [address] [place] [address] My[facility]oma Clinic, Floor 7 [place] [address] [email or web address] documented as of this encounter Visit Diagnoses Not on filedocumented in this encounter Additional Health Concerns Infection Onset Date Last Indicated Resolved Time CoV-Risk Comment:Per note documentation 07/23/2023 07/23/2023 12/18/202 3 10:25 PM EST CoV-Risk Comment:Per note documentation 08/16/2024 08/16/2024 6:31 PM EST documented as of this encounter Care Teams Dispatcher Clerk Relationship Specialty Start Date End Date Adriel Ma MD PCP - General Family Medicine 01/10/23 Self-Referred, Patient 01/10/23 Dipti Alarcon, [address] [address] [email or web address] Clinical Operations Manager Oncology 06/05/23 Mignon Everett [address] [place] [address] Marilu @[email or web address] Wiring Inspector 06/12/23 Aracelis Grajeda, RN [address] [place] [address] RAYMOND@[email or web address] Primary Infusion Nurse 07/13/23 Corey Cole MD [address] [place] [address] Hematology [place] [address] [email or web address] Hematology and Oncology 09/05/24 documented as of this encounter Additional Source Comments The information contained in this document represents components of the legal health record. It is not the complete legal health record.[facility]
--- OUTSIDE RECORDS SUMMARY | 2025-07-18 17:42 | XMS_ITS | Clinical Summary ---
Author Organization [facility] Address [address] [place] [address] Care Team Providers Care Slate Picker Name Role Phone Pcp, No Primary Care [...] this topic Insurance [employer] HMO/POS Care Teams Slate Picker Relationship Specialty Start Date End Date Pcp, No PCP - General General Medicine 08/07/20
--- OUTSIDE RECORDS SUMMARY | 2025-07-18 17:43 | XMS_ITS | Encounter Summary ---
Author Organization [facility] Address [address] [facility] [address] [place] [address] Phone Care Team Providers Care Community Integration Specialist Name Role Phone Adriel Ma MD Primary Care Provider Self-Referred, Patient Unavailable Unavailab Dipti Anderson [facility] Unavailable [phone] Mignon Everett Unavailable Diego [email or web address]. Aracelis Mckeon RN Unavailable NEREYDA [email or web address] Corey Cole MD Unavailable [phone] Encounter Details Date Type Department Care Team (Late st Contact Info) Description 06/01/2023 Procedure Pass [facility] PRU [address] [place] [address] Social History Tobacco Use Types Packs/Day Years [...] 7:10 AM EDT Blood Draw Laboratory Services, [address], 2nd [place] [address] Ary Rm MD [address] [place] [address] Myeloma Clinic, Floor 7 [place] [address] Sharmin@[facility] 10/16/2025 8:00 AM EDT Office Visit [facility], Division of Hematologic Oncology, [address], 7th [place] [address] Ary Rm MD [address] [place] [address] Myeloma Clinic, Floor 7 [place] [address] Sharmin@[facility] documented as of this encounter Visit Diagnoses Not on filedocumented in this encounter Additional Health Concerns Infection Onset Date Last Indicated Resolved Time CoV-Risk Comment:Per note documentation 07/23/2023 07/23/2023 3 10:25 PM EST CoV-Risk Comment:Per note documentation 08/16/2024 08/16/2024 5 6:31 PM EST documented as of this encounter Care Teams Community Integration Specialist Relationship Specialty Start Date End Date Adriel Ma MD PCP - General Family Medicine 01/10/23 Self-Referred, Patient 01/10/23 Dipti Alarcon, [facility] [address] [place] [address] [email or web address] Patent Lawyer Oncology 06/05/23 Mignon Everett [address] [place] [address] Marilu @[email or web address] Assistant Professor Of Chemistry 06/12/23 Aracelis Grajeda, ANITRA [address] [place] [address] RAYMOND@[email or web address]. [facility] Primary Infusion Nurse 07/13/23 Corey Cole MD [address] [place] [address] Hematology [place] [address] [email or web address] Hematology and Oncology 09/05/24 documented as of this encounter Additional Source Comments The information contained in this document represents components of the legal health record. It is not the complete legal health record.[facility]
--- OUTSIDE RECORDS SUMMARY | 2025-07-18 17:43 | XMS_ITS | Encounter Summary ---
Author Organization [facility] Address [address] [facility] [address] [place] [address] Phone Care Team Providers Care Continuity Director Name Role Phone Adriel Ma MD Primary Care Provider Self-Referred, Patient Unavailable Unavailab Dipti Anderson [facility] Unavailable [phone] Mignon Everett Unavailable Diego [email or web address] 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 Pal Clark PA-C Transfusion Medicine PA [facility] Transfusion Medicine Pager: [phone] documented in this encounter Plan of Treatment Upcoming Encounters Date Type Department Care Team (Late st Contact Info) Description 10/16/2025 7:10 AM EDT Blood Draw Laboratory Services, [facility] [place] [address] [place] [address], 2nd [place] [address] Ary Rm MD [address] [facility] Myeloma Clinic, Floor 7 [place] [address] Sharmin@[email or web address] 10/16/2025 8:00 AM EDT Office Visit [facility], Division of Hematologic Oncology, [facility] [place] [address] [facility], 7th [place] [address] Ary Rm MD [address] [facility], Floor 7 [place] [address] Sharmin@[facility] documented as of this encounter Visit Diagnoses Not on filedocumented in this encounter Additional Health Concerns Infection Onset Date Last Indicated Resolved Time CoV-Risk Comment:Per note documentation 07/23/2023 07/23/2023 3 10:25 PM EST CoV-Risk Comment:Per note documentation 08/16/2024 08/16/2024 5 6:31 PM EST documented as of this encounter Care Teams Continuity Director Relationship Specialty Start Date End Date Adriel Ma MD PCP - General Family Medicine 01/10/23 Self-Referred, Patient 01/10/23 Dipti Alarcon [facility] [address] [place] [address] [email or web address] Pancake Professional Oncology 06/05/23 Mignon Everett [address] [place] [address] Marilu @[email or web address] Earth Boring Machine Operator 06/12/23 Aracelis Grajeda, ANITRA [address] [place] [address] [email or web address] Primary Infusion Nurse 07/13/23 Corey Cole MD [address] [place] [address] [place]ology [place] [address] [email or web address] Hematology and Oncology 09/05/24 documented as of this encounter Additional Source Comments The information contained in this document represents components of the legal health record. It is not the complete legal health record.[facility]
--- OUTSIDE RECORDS SUMMARY | 2025-07-18 17:43 | XMS_ITS | Encounter Summary ---
Author Organization [facility] Address [address] [facility] [address] [place] [address] Phone Care Team Providers Care Ribbon Hanking Machine Operator Name Role Phone Adriel Ma MD Primary Care Provider Self-Referred, Patient Unavailable Unavailab Dipti Anderson [facility] Unavailable [phone] Mignon Everett Unavailable Diego [email or web address]. Aracelis Mckeon RN Unavailable NEREYDA VIERA@[email or web address].[facility] Corey Cole MD Unavailable [phone] Encounter Details Date Type Department Care Team (Late st Contact Info) Description 06/15/2023 Documentation [facility], Division of Hematologic Oncology, [facility] [place] [address] [facility], 7th [place] [address] Elaine Baker, ANITRA [address] [facility] [place] [address] [email or web address] Social History Tobacco Use Types [...] , , Malvin Black, South or Central Senegalese Black, or Other Black? OR is the donor from the [place], [place], or Southeast Lisa?: No Does [...] hematology/oncology team. Elidia Hamilton MS, GIOVANNI Physician Musculoskeletal Physician Hematologic Malignancies and Stem Cell Transplant (t) [phone], pager#[phone] documented in this encounter Plan of Treatment Upcoming Encounters Date Type Department Care Team (Late st Contact Info) Description 10/16/2025 7:10 AM EDT Blood Draw Laboratory Services, [address], 2nd [place] [address] Ary Rm MD [address] [place] [address] [facility], Floor 7 [place] [address] [email or web address] 10/16/2025 8:00 AM EDT Office Visit [facility], Division of Hematologic Oncology, [address], 7th [place] [address] Ary Rm MD [address] [place] [address] [facility], Floor 7 [place] [address] Sharmin@[facility] documented as of this encounter 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 documented in this encounter Additional Health Concerns Infection Onset Date Last Indicated Resolved Time CoV-Risk Comment:Per note documentation 07/23/2023 07/23/2023 10:25 PM EST CoV-Risk Comment:Per note documentation 08/16/2024 08/16/2024 6:31 PM EST documented as of this encounter Care Teams Ribbon Hanking Machine Operator Relationship Specialty Start Date End Date Adriel Ma MD PCP - General Family Medicine 01/10/23 Self-Referred, Patient 01/10/23 Dipti Alarcon, [facility] [address] [place] [address] [email or web address] Educational Administrator Oncology 06/05/23 Mignon Everett [address] [place] [address] Marilu @[facility] Carpet Repairer 06/12/23 Aracelis Grajeda, RN [address] [place] [address] RAYMOND@[facility]. [facility] Primary Infusion Nurse 07/13/23 Corey Cole MD [address] [place] [address] Hematology [place] [address] [email or web address] Hematology and Oncology 09/05/24 documented as of this encounter Additional Source Comments The information contained in this document represents components of the legal health record. It is not the complete legal health record.[facility]
--- OUTSIDE RECORDS SUMMARY | 2025-07-18 17:44 | XMS_ITS | Encounter Summary ---
Author Organization [facility] Address [address] [facility] [address] [place] [address] Phone Care Team Providers Care Salesperson Toy Trains And Accessories Name Role Phone Adriel Ma MD Primary Care Provider Self-Referred, Patient Unavailable Unavailab nadege Alarcon Diptitimmy Pichardo [facility] Unavailable [phone] Mignon Everett Unavailable Diego [email or web address]. Aracelis Mckeon RN Unavailable NEREYDA [email or web address].[facility] Corey Cole MD Unavailable [phone] Encounter Details Date Type Department Care Team (Late st Contact Info) Description 08/08/2024 Documentation [facility], Division of Hematologic Oncology, [facility] [place] [address] [place] [address], 7th [place] [address] Madyson Jo, RN [address] [place] [address] [email or web address] Social History Tobacco Use Types Packs/Day Years [...] 7:10 AM EDT Blood Draw Laboratory Services, [address], 2nd [place] [address] Ary Rm MD [address] [place] [address] [facility], Floor 7 [place] [address] Sharmin@[facility] 10/16/2025 8:00 AM EDT Office Visit [facility], Division of Hematologic Oncology, [facility] [address], 7th [place] [address] Ary Rm MD [address] [place] [address] [facility], Floor 7 [place] [address] Sharmin@[facility] documented as of this encounter [...] documented as of this encounter Care Teams Salesperson Toy Trains And Accessories Relationship Specialty Start Date End Date Adriel Ma MD PCP - General Family Medicine 01/10/23 Self-Referred, Patient 01/10/23 Dipti Alarcon [address] [address] [email or web address] Air Conditioning Installer Oncology 06/05/23 Mignon Everett [address] [place] [address] Marilu @[facility].[place].[facility] Tie Cutter 06/12/23 Aracelis Grajeda, RN [address] [place] [address] RAYMOND@[facility]. [facility] Primary Infusion Nurse 07/13/23 Corey Cole MD [address] [place] [address] [place] [address] [email or web address] Hematology and Oncology 09/05/24 documented as of this encounter Additional Source Comments The information contained in this document represents components of the legal health record. It is not the complete legal health record.[facility]
--- OUTSIDE RECORDS SUMMARY | 2025-07-18 17:44 | XMS_ITS | Encounter Summary ---
Author Organization [facility] Address [address] [facility] [address] [place] [address] Phone Care Team Providers Care Braille Teacher Name Role Phone Adriel Ma MD Primary Care Provider Self-Referred, Patient Unavailable Unavailab Dipti Anderson [facility] Unavailable [phone] Mignon Everett Unavailable Diego [email or web address]. Aracelis Mckeon RN Unavailable NEREYDA VIERA@[email or web address].[facility] Corey Cole MD Unavailable [phone] Encounter Details Date Type Department Care Team (Late st Contact Info) Description 05/02/2023 Documentation Central Registration, [facility] [place] [address] [facility], 2nd [place] [address] Danny John [address] [place] [address] Susanne@[email or web address] Social History Tobacco Use Types Packs/Day [...] 7:10 AM EDT Blood Draw Laboratory Services, [address], 2nd [place] [address] Ary Rm MD [address] [place] [address] [facility], Floor 7 [place] [address] Sharmin@[facility] 10/16/2025 8:00 AM EDT Office Visit [facility], Division of Hematologic Oncology, [address], 7th [place] [address] Ary Rm MD [address] [place] [address] [facility], Floor 7 [place] [address] Sharmin@[facility] documented as of this encounter Visit Diagnoses Not on filedocumented in this encounter Additional Health Concerns Infection Onset Date Last Indicated Resolved Time CoV-Risk Comment:Per note documentation 07/23/2023 07/23/2023 3 10:25 PM EST CoV-Risk Comment:Per note documentation 08/16/2024 08/16/2024 5 6:31 PM EST documented as of this encounter Care Teams Braille Teacher Relationship Specialty Start Date End Date Adriel Ma MD PCP - General Family Medicine 01/10/23 Self-Referred, Patient 01/10/23 Dipti Alarcon, SHEET ROCK INSTALLATION HELPER [address] [place] [address] [email or web address] President Celebrity Acquistion Oncology 06/05/23 Mignon Everett [address] [place] [address] Marilu @[facility] Morphologist 06/12/23 Aracelis Grajeda, ANITRA [address] [place] [address] RAYMOND@[facility]. [facility] Primary Infusion Nurse 07/13/23 Corey Cole MD [address] [place] [address] [place] [address] Monica@[email or web address] Hematology and Oncology 09/05/24 documented as of this encounter Additional Source Comments The information contained in this document represents components of the legal health record. It is not the complete legal health record.[facility]
--- OUTSIDE RECORDS SUMMARY | 2025-07-18 17:44 | XMS_ITS | Encounter Summary ---
Author Organization [facility] Address [address] [facility] [address] [place] [address] Phone Care Team Providers Care Resin Maker Name Role Phone Adriel Ma MD Primary Care Provider Self-Referred, Patient Unavailable Unavailab Dipti Anderson [facility] Unavailable [phone] Mignon Everett Unavailable Diego [email or web address]. Aracelis Mckeon RN Unavailable NEREYDA VIERA@[email or web address].[facility] Corey Cole MD Unavailable [phone] Encounter Details Date Type Department Care Team (Late st Contact Info) Description 06/27/2024 Procedure Pass [facility] L2 PRU [address] [place] [address] Social History Tobacco Use Types Packs/Day Years [...] 7:10 AM EDT Blood Draw Laboratory Services, [address], 2nd [place] [address] Ary Rm MD [address] [place] [address] [facility] Clinic, Floor 7 [place] [address] Sharmin@[facility] 10/16/2025 8:00 AM EDT Office Visit [facility], Division of Hematologic Oncology, [address], 7th [place] [address] Ary Rm MD [address] [place] [address] [facility], Floor 7 [place] [address] Sharmin@[facility] documented as of this encounter [...] documented as of this encounter Care Teams Resin Maker Relationship Specialty Start Date End Date Adriel Ma MD PCP - General Family Medicine 01/10/23 Self-Referred, Patient 01/10/23 Dipti Alarcon, [facility] [address] [place] [address] [email or web address] Telecommunication Engineer Oncology 06/05/23 Mignon Everett [address] [place] [address] Marilu @[facility] Set Up Mechanic Coil Winding Machines 06/12/23 Aracelis Grajeda, RN [address] [place] [address] RAYMOND@[email or web address]. [facility] Primary Infusion Nurse 07/13/23 Corey Cole MD [address] [place] [address] [place] [address] Monica@[email or web address] Hematology and Oncology 09/05/24 documented as of this encounter Additional Source Comments The information contained in this document represents components of the legal health record. It is not the complete legal health record.[facility]
--- OUTSIDE RECORDS SUMMARY | 2025-07-18 17:44 | XMS_ITS | Encounter Summary ---
Author Organization [facility] Address [address] [facility] [address] [place] [address] Phone Care Team Providers Care Slotter Operator Name Role Phone Adriel Ma MD Primary Care Provider Self-Referred, Patient Unavailable Unavailab nadege Alarcon Diptitimmy Pichardo [facility] Unavailable [phone] Mignon Everett Unavailable Diego [email or web address]. Aracelis Mckeon RN Unavailable NEREYDA VIERA@[facility].[place].[facility] Corey Cole MD Unavailable [phone] Encounter Details Date Type Department Care Team (Late st Contact Info) Description 08/09/2024 Documentation [facility], Division of Hematologic Oncology, [facility] [place] [address] [place] [address], 7th [place] [address] Madyson Jo, RN [address] [place] [address] [email or web address] Social History Tobacco Use [...] 7:10 AM EDT Blood Draw Laboratory Services, [address], 2nd [place] [address] Ary Rm MD [address] [place] [address] [facility], Floor 7 [place] [address] Sharmin@[facility] 10/16/2025 8:00 AM EDT Office Visit [facility] for [facility], Division of Hematologic Oncology, [facility] Cancer [address], 7th [place] [address] Ary Rm MD [address] [place] [address] [facility], Floor 7 [place] [address] Sharmin@[facility] documented as of this encounter Visit Diagnoses Not on filedocumented in this encounter Additional Health Concerns Infection Onset Date Last Indicated Resolved Time CoV-Risk Comment:Per note documentation 08/16/2024 08/16/2024 6:31 PM EST Assessment Noted Time PHQ-9 Depression Total Score: 9 06/25/20 24 11:14 AM EST PHQ-2 Depression Total Score: 1 06/25/20 24 11:14 AM EST documented as of this encounter Care Teams Slotter Operator Relationship Specialty Start Date End Date Adriel Ma MD PCP - General Family Medicine 01/10/23 Self-Referred, Patient 01/10/23 Dipti Alarcon [address] [address] [email or web address] Rn Research Oncology 06/05/23 Mingon Everett [address] [place] [address] Marilu @[facility].[place].[facility] Solar Installation Foreman 06/12/23 Aracelis Grajeda, RN [address] [place] [address] RAYMOND@[facility]. [facility] Primary Infusion Nurse 07/13/23 Corey Cole MD [address] [place] [address] [place]ematology [place] [address] [email or web address] Hematology and Oncology 09/05/24 documented as of this encounter Additional Source Comments The information contained in this document represents components of the legal health record. It is not the complete legal health record.[facility]
--- OUTSIDE RECORDS SUMMARY | 2025-07-18 17:48 | XMS_ITS | Clinical Summary ---
Author Organization [facility] Address [address] [facility] [address] [place] [address] Phone Care Team Providers Care Independent Film Maker Name Role Phone Adriel Ma MD Primary Care Provider Self-Referred, Patient Unavailable Unavailab Dipti Anderson [facility] Unavailable [phone] Mignon Everett Unavailable Diego [email or web address] Aracelis Mckeon RN Unavailable NEREYDA VIERA@[email or web address] Corey Cole MD Unavailable [phone] Allergies Active Allergy Reactions Criticality Noted Date [...] (08/17/2024 11:25 AM EST): Originally diagnosed with [place] LC Multiple Myeloma in December 2022 after [...] (08/16/2024 4:04 PM EST): Originally diagnosed with [place] LC Multiple Myeloma in December 2022 after [...] Onc: Ary Rm MD; Dana Haney MD ([place], [place]); Dr. Monique ([place], [place]) -- Pre-transplant vitamin D level was [...] areas for maximum 14 days (started 08/16) Immunizations Immunization Administration Dates Next Due COVID-19 [...] AM EDT Blood Draw Laboratory Services, [address], 2nd [place] [address] Ary Rm MD [address] [place] [address] [facility] Clinic, Floor 7 [place] [address] Sharmin@[facility] 10/16/2025 8:00 AM EDT Office Visit [facility] for Multiple Myeloma, Division of Hematologic Oncology, [address], 7th [place] [address] Ary Rm MD [address] [place] [address] [facility], Floor 7 [place] [address] Sharmin@[facility] Health Maintenance Due Date Last Done [...] this topic Medical Devices Not on file Insurance [place] [facility] Advance Directives For more information, please contact: [phone] (9AM - 5PM [place], Monday-Monday) * Full Code (Latest Code Status on File) Date Activated Date Inactivated Comments 08/16/2024 6:43 AM Question Answer Comments Code Status Confirmed With: Patient * Full Code Date Activated Date Inactivated Comments 07/24/2023 12:03 AM 08/16/2024 6:43 AM Question Answer Comments Code Status Confirmed With: Patient Care Teams Independent Film Maker Relationship Specialty Start Date End Date Adriel Ma MD PCP - General Family Medicine 01/10/23 Self-Referred, Patient 01/10/23 Dipti Alarcon, [address] [address] [email or web address] Director Of Admissions Oncology 06/05/23 Mignon Everett [address] [place] [address] Marilu @[facility] Combo Welder 06/12/23 Aracelis Grajeda, RN [address] [place] [address] RAYMOND@[facility]. [facility] Primary Infusion Nurse 07/13/23 Corey Cole MD [address] [place] [address] [place] [address] [email or web address] Hematology and Oncology 09/05/24 Additional Source Comments The information contained in this document represents components of the legal health record. It is not the complete legal health record.[facility]
--- OUTSIDE RECORDS SUMMARY | 2025-07-18 17:48 | XMS_ITS | Encounter Summary ---
Author Organization [facility] Address [address] [facility] [address] [place] [address] Phone Care Team Providers Care Medical Claims Manager Name Role Phone Adriel Ma MD Primary Care Provider Self-Referred, Patient Unavailable Unavailab Dipti Anderson [facility] Unavailable [phone] Mignon Everett Unavailable Diego [email or web address] Aracelis Mckeon RN Unavailable NEREYDA VIERA@[email or web address].[facility] Corey Cole MD Unavailable [phone] Encounter Details Date Type Department Care Team (Late st Contact Info) Description 05/27/2024 Procedure Pass [facility] Angio Interventional Radiology [address] [place] [address] Social History Tobacco Use Types Packs/Day Years [...] 7:10 AM EDT Blood Draw Laboratory Services, [address], 2nd [place] [address] Ary Rm MD [address] [place] [address] [facility], Floor 7 [place] [address] Sharmin@[facility] 10/16/2025 8:00 AM EDT Office Visit [facility] for [facility] Myeloma, Division of Hematologic Oncology, [address], [address]th [place] [address] Ary Rm MD [address] [place] [address] [facility], Floor [address] [place] [address] Sharmin@[facility] documented as of this encounter Visit Diagnoses Not on filedocumented in this encounter Additional Health Concerns Infection Onset Date Last Indicated Resolved Time CoV-Risk Comment:Per note documentation 08/16/2024 08/16/2024 6:31 PM EST documented as of this encounter Care Teams Medical Claims Manager Relationship Specialty Start Date End Date Adriel Ma MD PCP - General Family Medicine 01/10/23 Self-Referred, Patient 01/10/23 Dipti Alarcon [facility] [address] [place] [address] [email or web address] Grades 7 8 Tutor Oncology 06/05/23 Mignon Everett [address] [place] [address] Marilu @[email or web address] Heel Padder 06/12/23 Aracelis Grajeda, RN [address] [place] [address] RAYMOND@[email or web address]. [facility] Primary Infusion Nurse 07/13/23 Corey Cole MD [address] [place] [address] Hematology [place] [address] [email or web address] Hematology and Oncology 09/05/24 documented as of this encounter Additional Source Comments The information contained in this document represents components of the legal health record. It is not the complete legal health record.[facility]
--- OUTSIDE RECORDS SUMMARY | 2025-07-18 17:48 | XMS_ITS | Encounter Summary ---
Author Organization [facility] Address [address] [facility] [address] [place] [address] Phone Care Team Providers Care Muffler Installer Name Role Phone Adriel Ma MD Primary Care Provider Self-Referred, Patient Unavailable Unavailab Dipti Anderson [facility] Unavailable [phone] Mignon Everett Unavailable Diego [email or web address] Aracelis Mckeon RN Unavailable NEREYDA [email or web address] Corey Cole MD Unavailable [phone] Reason for Visit * Reason Comments Medication Refill Encounter Details Date Type Department Care Team (Late st Contact Info) Description 02/01/2024 Refill [facility] [address] [place] [address], 8th [place] [address] Itzel Dorman, ASSOCIATE DIRECTOR QA [address] [place] [address] and [facility] [place] [address] [email or web address] Medication Refill Social History Tobacco Use Types [...] 7:10 AM EDT Blood Draw Laboratory Services, [address], 2nd [place] [address] Ary Rm MD [address] [place] [address] My[facility], Floor 7 [place] [phone] [email or web address] 10/16/2025 8:00 AM EDT Office Visit [facility] for [facility], Division of Hematologic Oncology, [address], 7th [place] [address] Ary Rm MD [address] [place] [address] [facility], Floor 7 [place] [address] [email or web address] documented as of this encounter Visit Diagnoses Not on filedocumented in this encounter Additional Health Concerns Infection Onset Date Last Indicated Resolved Time CoV-Risk Comment:Per note documentation 08/16/2024 08/16/2024 6:31 PM EST documented as of this encounter Care Teams Muffler Installer Relationship Specialty Start Date End Date Adriel Ma MD PCP - General Family Medicine 01/10/23 Self-Referred, Patient 01/10/23 Dipti Alarcon, BILINGUAL MANAGER [address] [place] [address] [email or web address] Plant Health Manager Oncology 06/05/23 Mignon Everett [address] [place] [phone] Marilu @[email or web address] Acid Tender 06/12/23 Aracelis Grajeda, RN [address] [place] [address] [email or web address]. [facility] Primary Infusion Nurse 07/13/23 Corey Cole MD [address] [place] [address] [place]ematology [place] [address] [email or web address] Hematology and Oncology 09/05/24 documented as of this encounter Additional Source Comments The information contained in this document represents components of the legal health record. It is not the complete legal health record.[facility]
--- OUTSIDE RECORDS SUMMARY | 2025-07-18 17:48 | XMS_ITS | Encounter Summary ---
Author Organization [facility] Address [address] [facility] [address] [place] [address] Phone Care Team Providers Care Coffee Maker Servicer Name Role Phone Adriel Ma MD Primary Care Provider Self-Referred, Patient Unavailable Unavailab Dipti Anderson [facility] Unavailable [phone] Mignon Everett Unavailable Diego [email or web address] Aracelis Mckeon RN Unavailable NEREYDA [email or web address] Corey Cole MD Unavailable [phone] Reason for Visit * Reason Comments Medication Refill Encounter Details Date Type Department Care Team (Late st Contact Info) Description 03/29/2024 Refill [facility] [address] [place] [address], 8th [place] [address] Itzel Dorman, MASTER FIRE CONTROL TECHNICIAN [address] [place] [address] and [place] [address] [email or web address] Medication Refill Social History Tobacco Use Types [...] 7:10 AM EDT Blood Draw Laboratory Services, [address], 2nd [place] [address] Ary Rm MD [address] [place] [address] Myeloma [facility], Floor 7 [place] [phone] [email or web address] 10/16/2025 8:00 AM EDT Office Visit [facility], Division of Hematologic Oncology, [address], 7th [place] [address] Ary Rm MD [address] [place] [address] Myel[facility], Floor 7 [place] [address] Sharmin@[email or web address] documented as of this encounter Visit Diagnoses Not on filedocumented in this encounter Additional Health Concerns Infection Onset Date Last Indicated Resolved Time CoV-Risk Comment:Per note documentation 08/16/2024 08/16/2024 6:31 PM EST documented as of this encounter Care Teams Coffee Maker Servicer Relationship Specialty Start Date End Date Adriel Ma MD PCP - General Family Medicine 01/10/23 Self-Referred, Patient 01/10/23 Dipti Alarcon, [employer] TE[employer]ER [address] [place] [address] [email or web address] Algebra Tutor Oncology 06/05/23 Mignon Everett [address] [place] [address] Marilu @[email or web address] Criminal Attorney 06/12/23 Aracelis Grajeda, RN [address] [place] [phone] RAYMOND@[email or web address]. [facility] Primary Infusion Nurse 07/13/23 Corey Cole MD [address] [place] [address] [place] [address] [email or web address] Hematology and Oncology 09/05/24 documented as of this encounter Additional Source Comments The information contained in this document represents components of the legal health record. It is not the complete legal health record.[facility]
--- OUTSIDE RECORDS SUMMARY | 2025-07-18 17:48 | XMS_ITS | Encounter Summary ---
Author Organization [facility] Address [address] [facility] [address] [place] [address] Phone Care Team Providers Care Color Making Supervisor Name Role Phone Adriel Ma MD Primary Care Provider Self-Referred, Patient Unavailable Unavailab Dipti Anderson [facility] Unavailable [phone] Mignon Everett Unavailable Diego [email or web address] Aracelis Mckeon RN Unavailable NEREYDA [email or web address] Corey Cole MD Unavailable [phone] Encounter Details Date Type Department Care Team (Late st Contact Info) Description 07/26/2023 Procedure Pass [facility] Angio Interventional Radiology [address] [place] [address] Social History Tobacco Use Types Packs/Day Years [...] 7:10 AM EDT Blood Draw Laboratory Services, [address], 2nd [place] [address] Ary Rm MD [address] [place] [address] [facility], Floor 7 [place] [address] [email or web address] 10/16/2025 8:00 AM EDT Office Visit [facility], Division of Hematologic Oncology, [address], 7th [place] [address] Ary Rm MD [address] [place] [address] [facility], Floor 7 [place] [address] [email or web address] documented as of this encounter Visit Diagnoses Not on filedocumented in this encounter Additional Health Concerns Infection Onset Date Last Indicated Resolved Time CoV-Risk Comment:Per note documentation 08/16/2024 08/16/2024 6:31 PM EST documented as of this encounter Care Teams Color Making Supervisor Relationship Specialty Start Date End Date Adriel Ma MD PCP - General Family Medicine 01/10/23 Self-Referred, Patient 01/10/23 Dipti Alarcon LICSW [address] [place] [phone] [email or web address] Engineer Oncology 06/05/23 Mignon Everett [address] [place] [address] Marilu @[email or web address] Cruise Coordinator 06/12/23 Aracelis Grajeda, RN [address] [place] [address] RAYMOND@[email or web address]. [facility] Primary Infusion Nurse 07/13/23 Corey Cole MD [address] [place] [address] [place] [address] [email or web address] Hematology and Oncology 09/05/24 documented as of this encounter Additional Source Comments The information contained in this document represents components of the legal health record. It is not the complete legal health record.[facility]
--- OUTSIDE RECORDS SUMMARY | 2025-07-18 17:48 | XMS_ITS ---
Author Organization [facility] Address [address] [facility] [address] [place] [address] Phone Care Team Providers Care Survey Supervisor Name Role Phone Adriel Ma MD Primary Care Provider Self-Referred, Patient Unavailable Unavailab Dipti Anderson [facility] Unavailable [phone] Mignon Everett Unavailable Diego [email or web address] Aracelis Mckeon RN Unavailable NEREYDA [email or web address] Corey Cole MD Unavailable [phone] Active Problems Patient Care Coordination No te [...] (08/17/2024 11:25 AM EST): Originally diagnosed with [place] [facility] Multiple Myeloma in December 2022 after [...] (08/16/2024 4:04 PM EST): Originally diagnosed with [place] LC Multiple Myeloma in December 2022 after [...] Onc: Ary Rm MD; Dana Haney MD ([place], [place]); Dr. Monique ([place], [place]) -- Pre-transplant vitamin D level was [...] status unspecified Treatment Medications No medications scheduled. [facility] Cellular Therapy Collection* Plan Start Date:06/21/2024 Linked Problems Multiple myeloma in relapse Treatment Medications No medications scheduled. OP BMT 878 NO REST DAY AUTO MELPHALAN WITH AIBW OPTION* Plan Start Date: 07/11/2023 Plan Provider:Ary Rm MD Linked Problems Multiple myeloma in remissio n Treatment Medications melphalan (EVOMELA) 2 mg/mL in NS IVPB Fr bag TP 1020 [facility] CILTACABTAGENE AUTOLEUCEL (CARVYKTI)* Plan Start Date:08/08/2024 [...] Reason Plan Provider Cycles TP 1020 IEC [facility] CYCLOPHO SPHAMIDE /FLUDARA BINE 4 08/08/2024 cycloPHOSphamide [...]
--- OUTSIDE RECORDS SUMMARY | 2025-07-18 17:48 | XMS_ITS | Encounter Summary ---
Author Organization [facility] Address [address] [facility] [address] [place] [address] Phone Care Team Providers Care Refrigeration Person Name Role Phone Adriel Ma MD Primary Care Provider Self-Referred, Patient Unavailable Unavailab Dipti Anderson [facility] Unavailable [phone] Mignon Everett Unavailable Diego [email or web address] Aracelis Mckeon RN Unavailable NEREYDA [email or web address] Corey Cole MD Unavailable [phone] Encounter Details Date Type Department Care Team (Late st Contact Info) Description 06/14/2024 Documentation [facility] Blood Donor Center [address] [facility] 1st [place] [address] Marcy Henry PA-C [address] [facility] Transfusion Med, [facility] [place] [address] [email or web address] Social History Tobacco Use [...] Apheresis Collection Suitability Name: Richar Carrington MRN: ?[id number] Indication: ?Adriel Tentative Collection Date: 1?08/21/23 Date [...] flutter, sick sinus syndrome, or ventricular arrhythmias, CAD/AK, CHF, HTN, heart valve disease, diastolic dysfunction, [...] records. Marcy Henry PA-C Transfusion Medicine PA [facility] Transfusion Medicine Pager: [phone] documented in this encounter Plan of Treatment Upcoming Encounters Date Type Department Care Team (Late st Contact Info) Description 10/16/2025 7:10 AM EDT Blood Draw Laboratory Services, [facility] [address] [facility], 2nd [place] [address] Ary Rm MD [address] [place] [address] [facility], Floor 7 [place] [address] [email or web address] 10/16/2025 8:00 AM EDT Office Visit [facility] for [facility], Division of Hematologic Oncology, [address], 7th [place] [address] Ary Rm MD [address] [place] [address] [facility], Floor 7 [place] [address] Sharmin@[facility] documented as of this encounter Visit Diagnoses Not on filedocumented in this encounter Additional Health Concerns Infection Onset Date Last Indicated Resolved Time CoV-Risk Comment:Per note documentation 08/16/2024 08/16/2024 6:31 PM EST documented as of this encounter Care Teams Refrigeration Person Relationship Specialty Start Date End Date Adriel Ma MD PCP - General Family Medicine 01/10/23 Self-Referred, Patient 01/10/23 Dipti Alarcon LICSW [address] [place] [address] [email or web address] Medical Technologist Microbiology Oncology 06/05/23 Mignon Everett [address] [place] [address] Marilu @[email or web address] Real Estate Asset Manager 06/12/23 Aracelis Grajeda, ANITRA [address] [place] [phone] [email or web address]. [facility] Primary Infusion Nurse 07/13/23 Corey Cole MD [address] [place] [address] [place] [address] [email or web address] Hematology and Oncology 09/05/24 documented as of this encounter Additional Source Comments The information contained in this document represents components of the legal health record. It is not the complete legal health record.[facility]
== END 2025-07-18 15:13 | disposition home or self-care (01) ==
LOC: HO.HMCFM 12:17
PROVIDERS: PCP Family Medicine; Visit Provider Family Medicine
DX: D64.9 Anemia, unspecified (principal); E66.01 Morbid (severe) obesity due to excess calories; C90.00 Multiple myeloma not having achieved remission; Z68.41 Body mass index [BMI] 40.0-44.9, adult